=== PATIENT | male | born 1935 | race Caucasian/White ===

== ENCOUNTER → 2016-11-26 | Outpatient (CLI) | payer MEDICARE, OTHER ==
[~2016-11-26] MED LIST: /GLIM2TA PO; /PANT40TA; /WARF25TA; /WARF3TA PO; /WARF4TA OR; /WARF5TA; ACET65TA PO; ACUL0.5S OS; ADVA230A INH; ALLE25CA OR; AMAR1TAB; ASPI325T PO; ASPI81TA60 PO; ASPI81TA83 OR; ATEN100T PO; ATEN50TA2 PO; Amoxicillin/Clavulanate Potas PO; BABY81CH; BENZ100C5 PO; BESI0.6S OD; CALC0.5C PO; CALC1CAP31 PO; CEFT500T PO; CINN500T PO; CO Q 10 PO; COLA100C PO; COLA100C2; COLC1TAB5 PO; CORE25TA PO; COUM1TAB19 PO; DIGO0.126; DIGO0.126 PO; DIGO0.25 PO; DUONEBS INH; FEBU40TA PO; FERR325T PO; FERR325T3 PO; FISH100049 PO; FISH120012 PO; FURO40TA2 PO; GLUC1000 OR; GLUC1000 PO; HYDR25OIN TOP; INSULADS SC; IRONTAB3 PO; ISOS10TA2; ISOS60TA2 OR; ISOS60TA2 PO; KION15SU PO; LASI20TA; LASI20TA PO; LASI80TA PO; LISI10TA4 PO; LISI20TA5; LOPI600T PO; LOPR50TA; LOVA40TA PO; LOVAZA PO; LYRI75CA PO; MELA10TA PO; METFORMIN; MEVA40TA PO; MULTCAP PO; MULTIVIT PO; NIAC250C13 PO; NITR0.4S SL; NITR4TASL SL; OMEP40CA2 PO; PLAV75TA2; PRED1SUS OD; PRED1SUS OS; PRED20TA PO; PROL0.072 OD; REST0.05 OU; ROCA0.25 PO; TUMS500C OR; TYLE1TAB5 PO; TYLE650T25 PO; TYLENOL ARTHRITIS PO; VIBR100C PO; VITA-113 PO; VITA10002 PO; VITAMIN D50000 UNT; VITMTA PO; ZEST20TA; ZYLO100T PO
[2016-11-26 14:17] LABS: ALBUMIN 3.9 GM/DL (3.2-5.2); CREATININE FOR GFR 2.86 MG/DL (0.70-1.30); GLOMERULAR FILTRATION RATE 22.8 (>35); MAGNESIUM LEVEL 2.3 MG/DL (1.8-2.4); PHOSPHORUS LEVEL 3.9 MG/DL (2.5-4.9); POTASSIUM SERUM 4.4 MEQ/L (3.5-5.1)
== END ==
LOC: M WUC 10:43
PROVIDERS: ATTEND Internal Medicine Cardiovascular Disease
DX: I50.42 Chronic combined systolic (congestive) and diastolic (congestive) heart failure (principal); I48.2 Chronic atrial fibrillation

== ENCOUNTER → 2016-12-03 | Outpatient (CLI) | payer MEDICARE, OTHER ==
[2016-12-03 12:30] LABS: ALBUMIN 3.8 GM/DL (3.2-5.2); CALCIUM LEVEL 9.6 MG/DL (8.8-10.2); CREATININE FOR GFR 2.92 MG/DL (0.70-1.30); GLOMERULAR FILTRATION RATE 22.2 (>35); PHOSPHORUS LEVEL 3.9 MG/DL (2.5-4.9); POTASSIUM SERUM 4.6 MEQ/L (3.5-5.1)
== END ==
LOC: M WUC 09:40
PROVIDERS: ATTEND Physician Assistant
DX: I50.42 Chronic combined systolic (congestive) and diastolic (congestive) heart failure (principal)

== ENCOUNTER → 2016-12-05 | Outpatient (REF) | payer MEDICARE, OTHER ==
[2016-12-05 14:05] LABS: PERCENT SATURATION 21.1 % (19.7-37.4)
== END ==
LOC: M LAB REF 13:24
PROVIDERS: ATTEND Internal Medicine Nephrology
DX: D64.9 Anemia, unspecified (principal)

== ENCOUNTER → 2016-12-10 | Outpatient (CLI) | payer MEDICARE, OTHER ==
[~2016-12-10] MED LIST changes: -CEFT500T PO; +CEFT500T3 PO
[2016-12-10 13:05] LABS: ALBUMIN 3.7 GM/DL (3.2-5.2); CALCIUM LEVEL 9.8 MG/DL (8.8-10.2); CREATININE FOR GFR 2.35 MG/DL (0.70-1.30); GLOMERULAR FILTRATION RATE 28.6 (>35); PHOSPHORUS LEVEL 3.6 MG/DL (2.5-4.9); POTASSIUM SERUM 4.3 MEQ/L (3.5-5.1)
== END ==
LOC: M WUC 09:22
PROVIDERS: ATTEND Internal Medicine Cardiovascular Disease
DX: I50.42 Chronic combined systolic (congestive) and diastolic (congestive) heart failure (principal)

== ENCOUNTER → 2016-12-16 | Outpatient (CLI) | payer MEDICARE, OTHER ==
[2016-12-16 13:25] LABS: BASO # 0.1 K/mm3 (0.0-0.2); BASO % 1.7 % (0.0-1.0); EOS # 0.2 K/mm3 (0.0-0.50); EOS % 3.2 % (0.0-3.0); LARGE UNSTAINED CELL # 0.1 K/mm3 (0.0-0.4); LARGE UNSTAINED CELL % 1.5 % (0.0-4.0); LYMPH % 14.7 % (24.0-44.0); MEAN CORPUSCULAR HEMOGLOBIN 30.7 pg (27.0-33.0); MEAN CORPUSCULAR HGB CONC 31.4 g/dl (32.0-36.5); MEAN CORPUSCULAR VOLUME 97.9 fl (80.0-96.0); MONO # 0.5 K/mm3 (0.0-0.8); MONO % 8.2 % (0.0-5.0); NEUTROPHILS # 4.2 K/mm3 (1.8-7.7); NEUTROPHILS % 70.5 % (36.0-66.0); PLATELET COUNT, AUTOMATED 144 k/mm3 (150-450); RED CELL DISTRIBUTION WIDTH 14.6 % (11.5-14.5)
[2016-12-16 13:43] LABS: ALBUMIN 3.7 GM/DL (3.2-5.2); ALBUMIN/GLOBULIN RATIO 0.97 (1.00-1.93); BILIRUBIN,TOTAL 0.7 MG/DL (0.2-1.0); CALCIUM LEVEL 9.4 MG/DL (8.8-10.2); CREATININE FOR GFR 2.58 MG/DL (0.70-1.30); GLOMERULAR FILTRATION RATE 25.6 (>35); TOTAL PROTEIN 7.5 GM/DL (6.4-8.2)
== END ==
LOC: M WUC 09:19
PROVIDERS: ATTEND Nurse Practitioner Family
DX: N18.3 Chronic kidney disease, stage 3 (moderate) (principal); E11.42 Type 2 diabetes mellitus with diabetic polyneuropathy; D63.1 Anemia in chronic kidney disease

== ENCOUNTER → 2016-12-23 | Outpatient (CLI) | payer MEDICARE, OTHER ==
[2016-12-23 12:39] LABS: ALBUMIN 3.8 GM/DL (3.2-5.2); CALCIUM LEVEL 9.5 MG/DL (8.8-10.2); CREATININE FOR GFR 2.97 MG/DL (0.70-1.30); GLOMERULAR FILTRATION RATE 21.8 (>35); PHOSPHORUS LEVEL 3.9 MG/DL (2.5-4.9); POTASSIUM SERUM 4.3 MEQ/L (3.5-5.1)
== END ==
LOC: M WUC 10:18
PROVIDERS: ATTEND Physician Assistant
DX: I50.42 Chronic combined systolic (congestive) and diastolic (congestive) heart failure (principal)

== ENCOUNTER → 2017-01-02 | Outpatient (CLI) | payer MEDICARE, OTHER ==
[2017-01-02 12:17] LABS: ALBUMIN 3.5 GM/DL (3.2-5.2); CALCIUM LEVEL 9.9 MG/DL (8.8-10.2); CREATININE FOR GFR 2.78 MG/DL (0.70-1.30); GLOMERULAR FILTRATION RATE 23.5 (>35); PHOSPHORUS LEVEL 4.6 MG/DL (2.5-4.9); POTASSIUM SERUM 3.8 MEQ/L (3.5-5.1)
== END ==
LOC: M WUC 09:34
PROVIDERS: ATTEND Physician Assistant
DX: I50.42 Chronic combined systolic (congestive) and diastolic (congestive) heart failure (principal)

== ENCOUNTER → 2017-01-16 | Outpatient (CLI) | payer MEDICARE, OTHER ==
[2017-01-16 11:58] LABS: ALBUMIN 3.5 GM/DL (3.2-5.2); CALCIUM LEVEL 9.5 MG/DL (8.8-10.2); CREATININE FOR GFR 2.44 MG/DL (0.70-1.30); GLOMERULAR FILTRATION RATE 27.3 (>35); PHOSPHORUS LEVEL 3.9 MG/DL (2.5-4.9); POTASSIUM SERUM 4.6 MEQ/L (3.5-5.1)
== END ==
LOC: M WUC 09:25
PROVIDERS: ATTEND Physician Assistant
DX: I50.42 Chronic combined systolic (congestive) and diastolic (congestive) heart failure (principal)

== ENCOUNTER → 2017-01-30 | Outpatient (CLI) | payer MEDICARE, OTHER ==
[2017-01-30 16:53] LABS: ALBUMIN 3.8 GM/DL (3.2-5.2); CALCIUM LEVEL 9.7 MG/DL (8.8-10.2); CREATININE FOR GFR 2.48 MG/DL (0.70-1.30); GLOMERULAR FILTRATION RATE 26.8 (>35); PHOSPHORUS LEVEL 4.8 MG/DL (2.5-4.9)
== END ==
LOC: M WUC 13:44
PROVIDERS: ATTEND Physician Assistant
DX: I50.42 Chronic combined systolic (congestive) and diastolic (congestive) heart failure (principal)

== ENCOUNTER 2017-03-03 03:21 | Inpatient (IN) | payer MEDICARE, BC, OTHER ==
[~2017-03-03] VITALS: Ht 182.9 cm; Wt 90.4 kg
[~2017-03-03 03:21] MED LIST changes: -CALC0.5C PO; +CALC0.5C6 PO; -COLA100C PO; +COLA100C3 PO
[2017-03-03] MEDS ORDERED: ACETAMINOPHEN TAB 650MG DOSE (2X325MG) PO ONE (03:45)
[2017-03-03 04:54] LABS: CALCIUM LEVEL 9.9 MG/DL (8.8-10.2); CREATININE FOR GFR 2.77 MG/DL (0.70-1.30); GLOMERULAR FILTRATION RATE 23.6 (>35); POTASSIUM SERUM 3.8 MEQ/L (3.5-5.1)
--- NOTE | 2017-03-03 05:10 | REPUSA ---
CLINICAL HISTORY: Headache. TECHNIQUE: Multiple axial CT images were obtained through the brain without IV contrast material. COMMENTS: There is normal configuration of sella turcica. There are no intra or extra-axial collections. There is no mass effect or midline shift. There is no evidence of hematoma formation. No hydrocephalus is p resent. The ventricles are symmetrical. No abnormal calcifications are present. There is diffuse age-appropriate cerebellar and cerebral atrophy with proportionally dilated ventricl es and cortical sulci. There are bilateral periventricular and subcortical white matter hypolucencies compatible with mild c hronic microvascular disease. Otherwise, no significant focal abnormalities are seen either in the posterior fossa or supratentoria l compartment. IMPRESSION: 1. Age-appropriate cerebellar and cerebral atrophy. 2. Mild chronic microvascular disease. 3. No evidence of acute intracranial pathology. Thank you for your kind referral of this patient.
[2017-03-03 05:12] LABS: BASO % 0.2 % (0.0-1.0); EOS # 0.1 K/mm3 (0.0-0.50); EOS % 1.4 % (0.0-3.0); LARGE UNSTAINED CELL # 0.1 K/mm3 (0.0-0.4); LARGE UNSTAINED CELL % 0.9 % (0.0-4.0); LYMPH # 0.7 K/mm3 (1.5-4.5); LYMPH % 8.7 % (24.0-44.0); MEAN CORPUSCULAR HEMOGLOBIN 30.3 pg (27.0-33.0); MEAN CORPUSCULAR HGB CONC 31.2 g/dl (32.0-36.5); MEAN CORPUSCULAR VOLUME 97.1 fl (80.0-96.0); MONO # 0.6 K/mm3 (0.0-0.8); MONO % 7.8 % (0.0-5.0); NEUTROPHILS # 5.7 K/mm3 (1.8-7.7); NEUTROPHILS % 80.9 % (36.0-66.0); PLATELET COUNT, AUTOMATED 165 k/mm3 (150-450); RED CELL DISTRIBUTION WIDTH 14.2 % (11.5-14.5); WHITE BLOOD COUNT 7.1 K/mm3 (4.0-10.0)
--- NOTE | 2017-03-03 06:10 | ECGEPIP ---
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
[2017-03-03] MEDS ORDERED: cefTRIAXone SOD 1 GM in D5W MINI-BAG PLUS 50 ML IV ONE (07:00)
[2017-03-03] MEDS ORDERED: MELA10CA PO (08:53)
[2017-03-03] MEDS ORDERED: GLIM1TAB PO (08:53)
[2017-03-03] MEDS ORDERED: NITR0.4S14 SL (08:53)
[2017-03-03] MEDS ORDERED: AMLO5TAB2 PO (08:53)
[2017-03-03] MEDS ORDERED: DIGO0.12 PO (08:53)
[2017-03-03] MEDS ORDERED: CARV25TA PO (08:53)
[2017-03-03] MEDS ORDERED: ULOR80TA PO (08:53)
[2017-03-03] MEDS ORDERED: IRON65TA PO (08:53)
[2017-03-03] MEDS ORDERED: TORS20TA2 PO (08:53)
[2017-03-03] MEDS ORDERED: LYRI75CA PO (08:53)
[2017-03-03] MEDS ORDERED: DOCU100C PO (08:53)
[2017-03-03] MEDS ORDERED: COLC1TAB13 PO (08:53)
[2017-03-03] MEDS ORDERED: ADVA230A INH (08:53)
[2017-03-03] MEDS ORDERED: ARTH5TAB PO (08:53)
[2017-03-03] MEDS ORDERED: ASPI81TA13 PO (08:53)
[2017-03-03] MEDS ORDERED: VITA10002 PO (08:53)
[2017-03-03] MEDS ORDERED: ISOS60TA2 PO (08:53)
[2017-03-03] MEDS ORDERED: ROCA0.25 PO (08:53)
[2017-03-03] MEDS ORDERED: CARVedilol 12.5 MG TAB PO SCH ×2 (09:00→21:00)
[2017-03-03] MEDS ORDERED: ACETAMINOPHEN TAB 650MG DOSE (2X325MG) PO PRN (09:15)
[2017-03-03] MEDS: ADVAIR HFA 230/21 INHALER INH SCH ×2 (10:00→20:10)
--- NOTE | 2017-03-03 10:17 | REP ---
CHEST X-RAY: Two views. HISTORY: Dyspnea and cough. COMPARISON STUDY: April 23, 2016. FINDINGS: The patient is status post prior median sternotomy. A unipolar pacemaker remains in the right heart via the left side. EKG electrodes are seen. Moderate cardiomegaly is again observed. The pleural angles are sharp. Pulmonary vasculature is cephalized but there is no evidence of pleural effusion or pulmonary edema. No acute infiltrate is seen. There are degenerative changes in the shoulders and mild degenerative changes are seen in the thoracic spine. IMPRESSION: Moderate cardiomegaly with pacemaker prior sternotomy and mediastinal clips. Pulmonary vascular cephalization. No evidence of infiltrate, effusion, or pulmonary edema. Signed by Marshall Malagon MD 03/03/2017 11:49 A
[2017-03-03 10:30] VITALS: BP 140/66
[2017-03-03] MEDS: ISOSORBIDE MON. (IMDUR) 60 MG XR TAB PO SCH (10:52)
[2017-03-03] MEDS: ASPIRIN 81 MG ENTERIC TAB PO SCH (10:53)
[2017-03-03] MEDS: SENOKOT S TAB PO SCH ×2 (10:53→21:27)
[2017-03-03] MEDS: DIGOXIN 0.125 MG TAB PO SCH (10:53)
[2017-03-03 12:00] VITALS: BP 111/77
[2017-03-03] MEDS: HEPARIN SOD (PORCINE) 5000 UNITS/ML VIAL SC SCH ×2 (14:47→21:27)
[2017-03-03 16:00] VITALS: BP 131/62
--- NOTE | 2017-03-03 18:54 | HPEPDOC ---
General Date of Admission Mar 03, 2017 at 09:05 Primary Care Physician: Donell Raygoza MD Attending Physician: KATHLEEN BARBER MD Chief Complaint The patient is a 82-year-old male admitted with a reason for visit of FALL. 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 Patient states that he's been feeling more weak over the past several days. He denies any sick contacts, any fevers, chills, or sweats. However, he has had a mild cough, which is nonproductive. He denies any chest pain or chest pressure, however notes that he's been much more short of breath with any exertion. He has a history of chronic kidney disease, and is managed by Dr. Odonnell. He reports no decrease in urine output, and reports taking fluids, however appetite has been decreased. He denies any nausea , vomiting, or diarrhea. Home Medications Scheduled (Iron) 325 Mg Tab 325 MG PO BID (Reported) Acetaminophen (Arthritis Pain) 650 Mg Tab 1,300 MG PO BID (Reported) Amlodipine Besylate (Amlodipine Besylate) 5 Mg Tab 5 MG PO DAILY (Reported) Aspirin (Aspirin EC) 81 Mg Tab 81 MG PO DAILY (Reported) Calcitriol (Rocaltrol) 0.25 Mcg Cap 0.25 MCG PO 5XW (Reported) FRIDAY-FRIDAY Carvedilol (Carvedilol) 25 Mg Tab 25 MG PO BID (Reported) Cyanocobalamin (Vitamin B-12) 1,000 Mcg Tab 1,000 MCG PO DAILY (Reported) Digoxin (Digoxin) 0.125 Mg Tab 0.125 MG PO DAILY (Reported) Febuxostat (Uloric) 80 Mg Tab 80 MG PO DAILY (Reported) Glimepiride (Glimepiride) 1 Mg Tab 1 MG PO DAILY (Reported) Isosorbide Mononitrate (Isosorbide Mononitrate ER) 60 Mg Tab 60 MG PO DAILY ( Reported) Pregabalin (Lyrica) 75 Mg Cap 75 MG PO QHS (Reported) Salmeterol/Fluticasone (Advair Hfa 230-21 Mcg/Act) 1 Aer Aer 2 PUFF INH BID ( Reported) Torsemide (Torsemide) 20 Mg Tab 40 MG PO BID (Reported) Scheduled PRN (Colchicine) 0.6 Mg Tab 0.6 MG PO PRN PRN PRN FLARE UP (Reported) Docusate Sodium (Docusate Sodium) 100 Mg Cap 100 MG PO BID PRN PRN CONSTIPATION (Reported) Melatonin (Melatonin) 10 Mg Cap 10 MG PO QHS PRN PRN SLEEP (Reported) Nitroglycerin (Nitroglycerin) 0.4 Mg Sub 0.4 MG SL NITRO PRN PRN CHEST PAIN ( Reported) Allergies Coded Allergies: No Known Drug Allergy (Unverified Allergy, Unknown, 02/23/13) Past Medical History Medical History Medical history: 1. Coronary artery disease; CABG 1988, 2000; stent 1995, 2008, 2009; chemical stress test 07/18/2015 with recommended repeat June 2017 2. Chronic diastolic congestive heart failure: EF 45%; last echo noted as 2013 from [facility] 2. Angina pectoris 3. Carotid artery stenosis 4. Pulmonary hypertension 5. Chronic atrial fibrillation, rate controlled 6. Chronic kidney disease, stage III 7. Hypertension 8. BPH 9. Type 2 diabetes mellitus 10. Chronic anemia 11. Gout Surgical History Surgical history: 1. Right Orchiectomy 1949 2. Appendectomy 1969 3. CABG 1988, 2000 4. Right femoral popliteal bypass 1995 5. Left carotid endarterectomy 2007 6. Percutaneous coronary intervention 1995, 2008, 2009 7. EGD 2009; Inna 8. Pacemaker 2009; Dr. Rizzo 9. Colonoscopy; Dr. Keith 10. EGD 2013; Inna Family History Family medical history: 1. Mother and father , early 70s; mother type 2 diabetes 2. Siblings; 2 brothers status post CABG; one sister in 60s 3. Son, alive with no known medical problems 4. Daughter, alive with hypertension Social History * Smoker: former Smoker Alcohol: Denies Drugs: denies Recent Travel/Sick Contacts: Denies: Recent sick contacts, Recent travel Psychosocial History: No pertinent psych hx 1. Former smoker 2. Denies alcohol use 3. Denies drug use 4. Lives with spouse, Lindsay Review of Symptoms Constitutional: Reports: Malaise, Weakness, Denies: Chills, Fever ENT: Denies: Head Aches Skin: Denies: Rash Pulmonary: Reports: Cough, Dyspnea Cardiovascular: Denies: Chest Pain, Orthopnea, Palpitations Gastrointestinal: Denies: Abdominal Pain, Constipation, Diarrhea, Nausea, Vomiting Genitourinary: Denies: Dysuria Neurological: Denies: Change in speech, Confusion Other systems 10 point review systems otherwise negative Physical Examination General Exam: Positive: Alert, Cooperative, Negative: No Acute Distress Eye Exam: Positive: Conjunctiva & lids normal, EOMI, PERRLA, Negative: Sclera icteric ENT Exam: Positive: Atraumatic, Mucous membr. moist/pink Neck Exam: Positive: Supple, Negative: thyromegaly Chest Exam: Positive: Clear to auscultation, Normal air movement, Rhonchi, Wheezing, Negative: Rales Heart Exam: Positive: Irregular Rhythm, Murmurs (2/6 systolic ejection murmur) , Normal S1, Normal S2, Rate Normal Abdomen Exam: Positive: Normal bowel sounds, Soft, Negative: Hepatospenomegaly, Tenderness Extremity Exam: Positive: Normal pulses, Negative: Clubbing, Cyanosis, Edema Skin Exam: Positive: Nl turgor and temperature, Negative: Rash Psych Exam: Positive: Mental status NL, Oriented x 3 Vital Signs Vital Signs Date Time Temp Pulse Resp B/P Pulse Ox O2 Delivery O2 Flow Rate FiO2 03/03/17 13:03 100.5 03/03/17 12:00 61 19 111/77 96 Nasal Cannula 1.0 Laboratory Data Labs 24H Laboratory Tests 2 03/03/17 03:35: Anion Gap 9, B-Type Natriuretic Peptide 873H, White Blood Count 7.1, Red Blood Count 3.61L, Hemoglobin 10.9L, Hematocrit 35.0L, Mean Corpuscular Volume 97.1H, Mean Corpuscular Hemoglobin 30.3, Mean Corpuscular Hemoglobin Concent 31.2L, Red Cell Distribution Width 14.2, Platelet Count 165, Neutrophils (%) (Auto) 80.9H, Lymphocytes (%) (Auto) 8.7L, Monocytes (%) (Auto) 7.8H, Eosinophils (%) ( Auto) 1.4, Basophils (%) (Auto) 0.2, Neutrophils # (Auto) 5.7, Lymphocytes # ( Auto) 0.7L, Monocytes # (Auto) 0.6, Eosinophils # (Auto) 0.1, Basophils # (Auto ) 0.0, Blood Urea Nitrogen 89H, Creatinine 2.77H, Sodium Level 136, Potassium Level 3.8, Chloride Level 96L, Carbon Dioxide Level 31, Calcium Level 9.9, Total Creatine Kinase 26L, Creatine Kinase MB 1.0, Creatine Kinase MB Relative Index 3.84, Glomerular Filtration Rate 23.6L, Large Unclassified Cells # 0.1, Large Unclassified Cells % 0.9, Troponin I 0.03 03/03/17 03:47: Digoxin Level 1.7 03/03/17 05:32: Lactic Acid Level 1.2 03/03/17 07:36: Bedside Glucose (Misc Panel) 95 03/03/17 09:52: Creatine Kinase MB 1.0, Creatine Kinase MB Relative Index 3.12, Total Creatine Kinase 32L, Troponin I 0.05# CBC/BMP Laboratory Tests 03/03/17 03:35 Calcium Level 9.9, Total Creatine Kinase 26 L, Red Blood Count 3.61 L, Mean Corpuscular Volume 97.1 H, Mean Corpuscular Hemoglobin 30.3, Mean Corpuscular Hemoglobin Concent 31.2 L, Red Cell Distribution Width 14.2, Neutrophils (%) ( Auto) 80.9 H, Lymphocytes (%) (Auto) 8.7 L, Monocytes (%) (Auto) 7.8 H, Eosinophils (%) (Auto) 1.4, Basophils (%) (Auto) 0.2, Neutrophils # (Auto) 5.7, Lymphocytes # (Auto) 0.7 L, Monocytes # (Auto) 0.6, Eosinophils # (Auto) 0.1, Basophils # (Auto) 0.0 Microbiology Microbiology 03/03/17 Blood Culture, Received Pending 03/03/17 Blood Culture, Received Pending 03/03/17 Influenza Virus Type A Antigen - Final, Complete 03/03/17 Influenza Virus Type B Antigen - Final, Complete Assessment/Plan This is an 82-year-old gentleman who is a patient of Dr. Raygoza presents after fall with weakness, malaise, cough, and shortness of breath. Problems (1) Fever Status: Acute Problem Text: Neutrophilic predominance, with 81% neutrophils, 9% lymphocytes, 8% monos. Chest x-ray shows pulmonary vascular congestion, however no acute infiltrates. Patient does have mild rhonchi on exam. He is also more acutely short of breath, and there is some evidence of wheezing on exam. Will treat has COPD exacerbation. -Levaquin every 48 hours renally dosed -Prednisone 40 mg daily -UA -Blood cultures (2) Fall Status: Acute Problem Text: Serial lactates every 4 hours until normal (3) Coronary artery disease Permanent Comment: Has a history of CABG 2000 and stents in 1995, 2008, 2009. Last Edited By: Angelo García M.D. on Nov 07, 2015 07:10 Status: Chronic Problem Text: Serial troponins; his most recent troponin is weakly positive. May be secondary to troponin leak, however will rule out ACS. -Repeat EKG (4) Combined systolic and diastolic congestive heart failure Permanent Comment: Last known LVEF 45%. Last Edited By: Angelo García M.D. on Nov 07, 2015 07:10 Status: Acute Problem Text: BNP on admission is 812. Last echo on record is 2013. Creatinine is elevated from patient's baseline, however renal function may be reduced due to reduced heart function. - cardiology consult; Rizzo - Echocardiogram - Lasix 40 IV Q4H for net of 1000 mls/24 hr (5) Chronic kidney disease (CKD), stage IV (severe) Status: Chronic Problem Text: Stage IV chronic kidney disease. Creatinine mildly elevated above baseline of 2.5 (6) Diabetes mellitus Status: Chronic Problem Text: Sliding scale insulin. Holding home glimepiride (7) Atrial fibrillation Status: Chronic Problem Text: Patient currently treated with carvedilol 25 mg twice a day, and digoxin 0.125 mg daily. He appears to be overly rate controlled. Digoxin levels were not elevated. -Decrease Coreg to 12.5 g twice a day -Consult cardiology (8) Pulmonary hypertension Status: Acute Problem Text: History of pulmonary hypertension. Currently on long-acting vasodilator (9) HTN (hypertension) Status: Acute Problem Text: Blood pressure currently likely overcontrolled for patient's age. -Continue amlodipine 5 g daily -Reduce Coreg to 12.5 mg twice a day -IV Lasix for acute congestive heart failure (10) COPD (chronic obstructive pulmonary disease) Status: Chronic Problem Text: Continue Advair. -When necessary duo nebs (11) Chronic anemia Status: Chronic Problem Text: Chronic anemia of inflammation. Hemoglobin on admission is 10.9, which is near patient's baseline of 11. (12) Gout Status: Acute Problem Text: History of gout. Due to reduced renal function and acute congestive heart failure, will hold Uloric for the time being (13) BPH (benign prostatic hypertrophy) Status: Chronic Problem Text: Patient not currently on Flomax, although this may benefit both his BPH and pulmonary hypertension. Will confer with cardiology Plan / VTE VTE Prophylaxis Ordered?: Yes KATHLEEN BARBER MD Mar 03, 2017 13:10
[2017-03-03] MEDS ORDERED: IPRATROPIUM 0.5MG/ALBUTEROL 2.5MG INH SOL UD 3ML (DUONEB)(J7620) NEB SCH (19:30)
[2017-03-03] MEDS ORDERED: GLUCAGON FOR INJ 1 MG VIAL (J1610) SC PRN (19:30)
[2017-03-03] MEDS ORDERED: GLUCOSE 4 GM CHEW TABLET PO PRN (19:30)
[2017-03-03] MEDS ORDERED: DEXTROSE 50% 50 ML SYRINGE IV PRN (19:30)
[2017-03-03 20:11] VITALS: O2SAT 93
[2017-03-03 20:36] VITALS: BP 104/55
[2017-03-03] MEDS: HumaLOG INSULIN (NovoLOG) PER UNIT SC SCH (21:00)
[2017-03-03] MEDS: CARVedilol 12.5 MG TAB PO SCH (21:27)
[2017-03-03] MEDS: PREGABALIN 75 MG CAP(LYRICA) PO SCH (21:28)
[2017-03-03] MEDS: FUROSEMIDE 40 MG/4 ML VIAL (J1940) IV SCH (21:28)
[2017-03-04 00:15] VITALS: BP 103/51
[2017-03-04] MEDS: FUROSEMIDE 40 MG/4 ML VIAL (J1940) IV SCH ×6 (00:24→20:00)
[2017-03-04 03:47] LABS: BASO % 0.3 % (0.0-1.0); EOS # 0.1 K/mm3 (0.0-0.50); LARGE UNSTAINED CELL # 0.1 K/mm3 (0.0-0.4); LARGE UNSTAINED CELL % 1.9 % (0.0-4.0); LYMPH % 12.6 % (24.0-44.0); MEAN CORPUSCULAR HEMOGLOBIN 30.1 pg (27.0-33.0); MEAN CORPUSCULAR HGB CONC 31.7 g/dl (32.0-36.5); MEAN CORPUSCULAR VOLUME 95.1 fl (80.0-96.0); MONO # 0.5 K/mm3 (0.0-0.8); MONO % 6.5 % (0.0-5.0); NEUTROPHILS # 5.4 K/mm3 (1.8-7.7); NEUTROPHILS % 76.6 % (36.0-66.0); PLATELET COUNT, AUTOMATED 138 k/mm3 (150-450); RED CELL DISTRIBUTION WIDTH 13.9 % (11.5-14.5)
[2017-03-04 04:11] LABS: ALBUMIN 2.9 GM/DL (3.2-5.2); ALBUMIN/GLOBULIN RATIO 0.69 (1.00-1.93); BILIRUBIN,TOTAL 0.9 MG/DL (0.2-1.0); CALCIUM LEVEL 9.4 MG/DL (8.8-10.2); CREATININE FOR GFR 2.75 MG/DL (0.70-1.30); GLOMERULAR FILTRATION RATE 23.8 (>35); POTASSIUM SERUM 3.6 MEQ/L (3.5-5.1); TOTAL PROTEIN 7.1 GM/DL (6.4-8.2)
[2017-03-04 05:27] VITALS: BP 110/54
[2017-03-04] MEDS: HEPARIN SOD (PORCINE) 5000 UNITS/ML VIAL SC SCH ×3 (06:00→21:24)
[2017-03-04] MEDS: HumaLOG INSULIN (NovoLOG) PER UNIT SC SCH ×4 (07:30→21:00)
[2017-03-04 07:58] VITALS: BP 120/59
[2017-03-04] MEDS: ADVAIR HFA 230/21 INHALER INH SCH ×3 (09:00→21:42)
[2017-03-04] MEDS: SENOKOT S TAB PO SCH ×2 (09:48→21:00)
[2017-03-04] MEDS: ASPIRIN 81 MG ENTERIC TAB PO SCH (09:48)
[2017-03-04] MEDS: DIGOXIN 0.125 MG TAB PO SCH (09:49)
[2017-03-04] MEDS: ISOSORBIDE MON. (IMDUR) 60 MG XR TAB PO SCH (09:50)
[2017-03-04] MEDS: CARVedilol 12.5 MG TAB PO SCH ×2 (09:51→21:00)
--- NOTE | 2017-03-04 10:22 | ECGEPIP ---
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 Ventricular paced rhythm with isolated PVC Appropriate VVI pacing Paced QRS complexes with leftward axis and LBBB configuration in keeping with right ventricular apical stimulation. Less spontaneous activity compared with prior tracing 03/03/17. Electronically Signed On 03-04-2017 10:22:15 EDT by Carlitos Rizzo
[2017-03-04 11:58] VITALS: BP 125/58
[2017-03-04 15:48] VITALS: BP 111/51
[2017-03-04] MEDS ORDERED: LevoFLOXacin 750 MG TABLET PO SCH (18:00)
--- NOTE | 2017-03-04 19:43 | IPNPDOC ---
Subjective Date Seen The patient was seen on 03/04/17. Subjective Chief Complaint/HPI The patient is a 82-year-old male admitted with a reason for visit of FALL. Events since last encounter Patient is feeling much better today. He states that "I feel great." He denies any fevers, chills, sweats, or body aches today. He denies any chest pain, chest pressure, or palpitations. He is hoping to be able to go home tomorrow. Constitutional: Denies: Chills, Fever, Malaise ENT: Denies: Head Aches Pulmonary: Denies: Cough, Dyspnea Cardiovascular: Denies: Chest Pain, Orthopnea, Palpitations Gastrointestinal: Denies: Abdominal Pain, Constipation, Diarrhea, Nausea, Vomiting Genitourinary: Denies: Dysuria Psych: Reports: Mood Normal Other systems 10 point review systems is otherwise negative Objective Physical Examination General Exam: Positive: Alert, Cooperative, No Acute Distress Eye Exam: Positive: Conjunctiva & lids normal, EOMI, PERRLA, Negative: Sclera icteric ENT Exam: Positive: Atraumatic, Mucous membr. moist/pink Neck Exam: Positive: Supple, Negative: JVD, thyromegaly Chest Exam: Positive: Clear to auscultation, Normal air movement, Negative: Rales, Rhonchi, Wheezing Heart Exam: Positive: Irregular Rhythm, Murmurs (2/6 systolic ejection murmur) , Normal S1, Normal S2, Rate Normal Abdomen Exam: Positive: Normal bowel sounds, Soft, Negative: Hepatospenomegaly, Tenderness Extremity Exam: Positive: Normal pulses, Negative: Clubbing, Cyanosis, Edema Skin Exam: Positive: Nl turgor and temperature, Negative: Rash Psych Exam: Positive: Mental status NL, Oriented x 3 Assessment /Plan Problems (1) Fever Status: Acute Problem Text: Neutrophilic predominance, with 81% neutrophils, 9% lymphocytes, 8% monos. Chest x-ray shows pulmonary vascular congestion, however no acute infiltrates. Patient is improving rapidly. UA is negative. Blood cultures are negative. - Plan for discharge pending cardiac status -Continue Levaquin 750 mg every 48 hours renally dosed -Prednisone 40 mg daily 5 days (2) Coronary artery disease Permanent Comment: Has a history of CABG 2000 and stents in 1995, 2008, 2009. Last Edited By: Angelo García M.D. on Nov 07, 2015 07:10 Status: Chronic Problem Text: Serial troponins; his most recent troponin is weakly positive. May be secondary to troponin leak, however will rule out ACS. -Repeat EKG (3) Combined systolic and diastolic congestive heart failure Permanent Comment: Last known LVEF 45%. Last Edited By: Angelo García M.D. on Nov 07, 2015 07:10 Status: Acute Problem Text: BNP on admission is 812. Last echo on record is 2013. Creatinine is elevated from patient's baseline, however renal function may be reduced due to reduced heart function. - cardiology consult; Matthias - Echocardiogram - Lasix 40 IV Q4H for net of 1000 mls/24 hr (4) Chronic kidney disease (CKD), stage IV (severe) Status: Chronic Problem Text: Stage IV chronic kidney disease. Creatinine mildly elevated above baseline of 2.5 (5) Diabetes mellitus Status: Chronic Problem Text: Sliding scale insulin. Holding home glimepiride (6) Atrial fibrillation Status: Chronic Problem Text: Patient currently treated with carvedilol 25 mg twice a day, and digoxin 0.125 mg daily. He appears to be overly rate controlled. Digoxin levels were not elevated. -Decrease Coreg to 12.5 g twice a day -Consult cardiology (7) Pulmonary hypertension Status: Acute Problem Text: History of pulmonary hypertension. Currently on long-acting vasodilator (8) HTN (hypertension) Status: Acute Problem Text: Blood pressure currently likely overcontrolled for patient's age. -Continue amlodipine 5 g daily -Reduce Coreg to 12.5 mg twice a day -IV Lasix for acute congestive heart failure (9) COPD (chronic obstructive pulmonary disease) Status: Chronic Problem Text: Continue Advair. -When necessary duo nebs (10) Chronic anemia Status: Chronic Problem Text: Chronic anemia of inflammation. Hemoglobin on admission is 10.9, which is near patient's baseline of 11. (11) Gout Status: Acute Problem Text: History of gout. Due to reduced renal function and acute congestive heart failure, will hold Uloric for the time being (12) BPH (benign prostatic hypertrophy) Status: Chronic Problem Text: Patient not currently on Flomax, although this may benefit both his BPH and pulmonary hypertension. Will confer with cardiology (13) Fall Status: Resolved Problem Text: Lactates are normal -PT eval Plan/VTE VTE Prophylaxis Ordered?: Yes Disposition Plan for discharge pending physical therapy evaluation, and cardiac function. VS, I&O, 24H, [facility] Vital Signs/I&O Vital Signs Date Time Temp Pulse Resp B/P Pulse Ox O2 Delivery O2 Flow Rate FiO2 03/04/17 15:48 98.0 56 18 111/51 91 Room Air 03/04/17 08:00 1.0 I&O- Last 24 Hours up to 6 AM 03/04/17 06:00 Intake Total 170 ml Output Total 1600 ml Balance -1430 ml Laboratory Data 24H LABS Laboratory Tests 2 03/03/17 19:39: Lactic Acid Level 0.9 03/03/17 21:31: Bedside Glucose (Misc Panel) 104 03/03/17 22:57: Urine Amorphous Sediment , Urine Appearance CLEAR, Urine Color YELLOW, Urine pH 5.0, Urine Specific [place] 1.010, Urine Protein NEGATIVE, Urine Glucose (UA) NEGATIVE, Urine Ketones NEGATIVE, Urine Urobilinogen 0.2, Urine Bilirubin NEGATIVE, Urine Leukocyte Esterase NEGATIVE, Urine Bacteria (Auto) NEGATIVE, Urine Blood NEGATIVE, Urine Calcium Carbonate Cryst(Auto) , Urine Calcium Oxalate Cryst (Auto) , Urine Calcium Phosphate [place] (Auto) , Urine Cellular Casts , Urine Cystine Crystals , Urine Granular Casts (Auto) , Urine Hyaline Casts (Auto) 5, Urine Leucine Crystals , Urine Mucus (Auto) , Urine Nitrite NEGATIVE, Urine Oval Fat Bodies (Auto) , Urine RBC (Auto) 2, Urine Renal Epithelial Cells , Urine Sperm (Auto) , Urine Squamous Epithelial Cells 0, Urine Transitional Epithelial Cells , Urine Trichomonas (Auto) , Urine Triple Phosphate Cryst (Auto) , Urine Tyrosine Crystals , Urine Uric Acid Crystals ( Auto) , Urine WBC (Auto) 1, Urine Waxy Casts (Auto) , Urine Yeast-Like Cells ( Auto) 03/03/17 23:08: Creatine Kinase MB 1.0, Creatine Kinase MB Relative Index 3.22, Total Creatine Kinase 31L, Troponin I 0.11H 03/04/17 03:24: Blood Urea Nitrogen 88H, Creatinine 2.75H, Sodium Level 141, Potassium Level 3.6 , Chloride Level 101, Carbon Dioxide Level 32, Calcium Level 9.4, Aspartate Amino Transf (AST/SGOT) 21, Alanine Aminotransferase (ALT/SGPT) 28, Alkaline Phosphatase 111, Total Bilirubin 0.9, Total Protein 7.1, Albumin 2.9L, Albumin/ Globulin Ratio 0.69L, Anion Gap 8, White Blood Count 7.0, Red Blood Count 3.30L , Hemoglobin 10.0L, Hematocrit 31.4L, Mean Corpuscular Volume 95.1, Mean Corpuscular Hemoglobin 30.1, Mean Corpuscular Hemoglobin Concent 31.7L, Red Cell Distribution Width 13.9, Platelet Count 138L, Neutrophils (%) (Auto) 76.6H , Lymphocytes (%) (Auto) 12.6L, Monocytes (%) (Auto) 6.5H, Eosinophils (%) (Auto ) 2.0, Basophils (%) (Auto) 0.3, Neutrophils # (Auto) 5.4, Lymphocytes # (Auto) 1.0L, Monocytes # (Auto) 0.5, Eosinophils # (Auto) 0.1, Basophils # (Auto) 0.0, Glomerular Filtration Rate 23.8L, Lactic Acid Level 0.9, Large Unclassified Cells # 0.1, Large Unclassified Cells % 1.9, Troponin I 0.10 03/04/17 07:24: Lactic Acid Level 1.2, Troponin I 0.08 03/04/17 11:28: Bedside Glucose (Misc Panel) 158H 03/04/17 16:35: Bedside Glucose (Misc Panel) 135H CBC/BMP Laboratory Tests 03/04/17 03:24 Calcium Level 9.4, Aspartate Amino Transf (AST/SGOT) 21, Alanine Aminotransferase (ALT/SGPT) 28, Alkaline Phosphatase 111, Total Bilirubin 0.9, Total Protein 7.1, Albumin 2.9 L, Red Blood Count 3.30 L, Mean Corpuscular Volume 95.1, Mean Corpuscular Hemoglobin 30.1, Mean Corpuscular Hemoglobin Concent 31.7 L, Red Cell Distribution Width 13.9, Neutrophils (%) (Auto) 76.6 H , Lymphocytes (%) (Auto) 12.6 L, Monocytes (%) (Auto) 6.5 H, Eosinophils (%) ( Auto) 2.0, Basophils (%) (Auto) 0.3, Neutrophils # (Auto) 5.4, Lymphocytes # ( Auto) 1.0 L, Monocytes # (Auto) 0.5, Eosinophils # (Auto) 0.1, Basophils # (Auto ) 0.0 Microbiology Microbiology 03/03/17 Blood Culture - Preliminary, Resulted No growth after 24 hours . All specim... 03/03/17 Blood Culture - Preliminary, Resulted No growth after 24 hours . All specim... 03/03/17 Influenza Virus Type A Antigen - Final, Complete 03/03/17 Influenza Virus Type B Antigen - Final, Complete KATHLEEN BARBER MD Mar 04, 2017 19:43
[2017-03-04 20:08] VITALS: BP 109/54
[2017-03-04] MEDS ORDERED: predniSONE 20 MG TAB PO ONE (20:15)
[2017-03-04] MEDS: PREGABALIN 75 MG CAP(LYRICA) PO SCH (21:22)
[2017-03-05] VITALS (7 sets, daily range): BP systolic 94–141; BP diastolic 55–61
[2017-03-05] MEDS: FUROSEMIDE 40 MG/4 ML VIAL (J1940) IV SCH ×5 (00:15→16:00)
[2017-03-05] MEDS: HEPARIN SOD (PORCINE) 5000 UNITS/ML VIAL SC SCH ×2 (05:22→12:25)
[2017-03-05 06:01] LABS: BASO % 0.2 % (0.0-1.0); EOS % 0.4 % (0.0-3.0); LARGE UNSTAINED CELL # 0.1 K/mm3 (0.0-0.4); LYMPH # 0.4 K/mm3 (1.5-4.5); LYMPH % 7.1 % (24.0-44.0); MEAN CORPUSCULAR HEMOGLOBIN 30.5 pg (27.0-33.0); MEAN CORPUSCULAR VOLUME 95.2 fl (80.0-96.0); MONO # 0.1 K/mm3 (0.0-0.8); MONO % 2.4 % (0.0-5.0); NEUTROPHILS # 4.8 K/mm3 (1.8-7.7); NEUTROPHILS % 88.9 % (36.0-66.0); PLATELET COUNT, AUTOMATED 157 k/mm3 (150-450); RED CELL DISTRIBUTION WIDTH 13.9 % (11.5-14.5); WHITE BLOOD COUNT 5.4 K/mm3 (4.0-10.0)
[2017-03-05 06:22] LABS: ALBUMIN/GLOBULIN RATIO 0.64 (1.00-1.93); BILIRUBIN,TOTAL 0.8 MG/DL (0.2-1.0); CALCIUM LEVEL 9.2 MG/DL (8.8-10.2); CREATININE FOR GFR 2.46 MG/DL (0.70-1.30); POTASSIUM SERUM 3.8 MEQ/L (3.5-5.1); TOTAL PROTEIN 7.7 GM/DL (6.4-8.2)
[2017-03-05] MEDS: HumaLOG INSULIN (NovoLOG) PER UNIT SC SCH ×3 (07:30→17:30)
[2017-03-05] MEDS ORDERED: ONDANSETRON 4 MG TAB (S0181) PO PRN (08:45)
[2017-03-05] MEDS ORDERED: predniSONE 20 MG TAB PO SCH (09:00)
[2017-03-05] MEDS: ADVAIR HFA 230/21 INHALER INH SCH (09:20)
[2017-03-05] MEDS: DIGOXIN 0.125 MG TAB PO SCH (10:07)
[2017-03-05] MEDS: CARVedilol 12.5 MG TAB PO SCH (10:07)
[2017-03-05] MEDS: ASPIRIN 81 MG ENTERIC TAB PO SCH (10:07)
[2017-03-05] MEDS: ISOSORBIDE MON. (IMDUR) 60 MG XR TAB PO SCH (10:08)
[2017-03-05] MEDS: SENOKOT S TAB PO SCH (10:08)
--- NOTE | 2017-03-05 20:13 | DS.PDOC ---
Discharge Summary General Date of Admission Mar 03, 2017 at 09:05 Date of Discharge 03/05/17 Primary Care Physician: FELIPE GARCIA Attending Physician: ASHUTOSH WOMACK MD Discharge Summary PROCEDURES PERFORMED DURING STAY: None. Admission diagnoses: 1. Fever 2. Fall 3. CAD 4. 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 Stage IV chronic kidney disease 6. Diabetes mellitus, [id number] 7. Age of fibrillation, chronic 8. Pulmonary hypertension 9. Hypertension 10. COPD 11. Chronic anemia, anemia chronic disease 12. Gout 13. Benign prostate hypertrophy Discharge diagnoses: 1. Pneumonia 2. Acute on chronic congestive heart failure 3. CAD 4. 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 Stage IV chronic kidney disease 6. Diabetes mellitus, [id number] 7. Age of fibrillation, chronic 8. Pulmonary hypertension 9. Hypertension 10. COPD 11. Chronic anemia, anemia chronic disease 12. Gout 13. Benign prostate hypertrophy COMPLICATIONS/CHIEF COMPLAINT: FALL. HISTORY OF PRESENT ILLNESS/Hospital course: This is an 82-year-old gentleman with a significant history of coronary artery disease and peripheral vascular disease who presented to the ER with weakness, fever, and status post fall. Although his chest x-ray was relatively benign, he was treated empirically with by mouth Levaquin and prednisone for rales and wheezing on exam. He was also diuresed rather aggressively, as his BNP was quite elevated, and his troponin slightly bumped. His cardiac enzymes normalized with diuresis, and his EKG remained unchanged from his baseline. On the day of discharge, the patient felt "like 1 million bucks." He denied any chest pain or chest pressure throughout his hospitalization. During hospitalization his usual reimbursement manager, Dr. Rizzo, was curb sided, and he agreed with the current plan of action, and recommended outpatient follow-up. DISCHARGE MEDICATIONS: Please see below. ALLERGIES: Please see below. PHYSICAL EXAMINATION ON DISCHARGE: VITAL SIGNS: Please see below. GENERAL: Alert, sitting, no acute distress HEENT: Sclerae clear, moist mucous membranes, no JVD NECK: Supple, no thyromegaly CARDIOVASCULAR EXAMINATION: Irregularly irregular rhythm, regular rate, S1, S2, 2/6 systolic ejection murmur, no heave RESPIRATORY EXAMINATION: Clear to auscultation, no wheezes, rales, rhonchi, normal work of breathing ABDOMINAL EXAMINATION: Soft, nontender, nondistended, + bowel sounds EXTREMITIES: No edema, 1+ peripheral pulses bilaterally SKIN: Warm and dry NEUROLOGICAL EXAMINATION: Alert and oriented 3 PSYCHIATRIC EXAMINATION: Normal mood and affect LABORATORY DATA: Please see below. IMAGING: Chest x-ray showed increased pulmonary vascular congestion with possible infiltrate PROGNOSIS: Fair, stable ACTIVITY: As tolerated DIET: Cardiac and renal diet DISCHARGE PLAN: Discharged home DISPOSITION: Self-care DISCHARGE INSTRUCTIONS: 1. Recommended follow-up to Felipe Garcia 2. Recommended follow-up to Dr. Rizzo 3. Recommended reviewing high potassium foods as he is close to becoming dialysis dependent and is eating some high potassium items. 4. Instructed patient to do daily weights ITEMS TO FOLLOWUP ON ON OUTPATIENT: 1. Follow-up renal function 2. Reviewed diuretics and adjust if needed based on volume status 3. Patient needs follow-up Dr. Rizzo DISCHARGE CONDITION: Stable. TIME SPENT ON DISCHARGE: Greater than 30 minutes. Ashutosh Womack MD Vital Signs/I&Os Vital Signs Date Time Temp Pulse Resp B/P Pulse Ox O2 Delivery O2 Flow Rate FiO2 03/05/17 16:10 98.4 60 18 94/60 99 Room Air 03/04/17 08:00 1.0 I&O- Last 24 Hours up to 6 AM 03/05/17 06:00 Intake Total 780 ml Output Total 1925 ml Balance -1145 ml Laboratory Data Labs 24H Laboratory Tests 2 03/04/17 21:16: Bedside Glucose (Misc Panel) 198H 03/05/17 05:31: Blood Urea Nitrogen 85H, Creatinine 2.46H, Sodium Level 137, Potassium Level 3.8 , Chloride Level 98, Carbon Dioxide Level 29, Calcium Level 9.2, Aspartate Amino Transf (AST/SGOT) 23, Alanine Aminotransferase (ALT/SGPT) 29, Alkaline Phosphatase 113, Total Bilirubin 0.8, Total Protein 7.7, Albumin 3.0L, Albumin/ Globulin Ratio 0.64L, Anion Gap 10, White Blood Count 5.4, Red Blood Count 3.19L , Hemoglobin 9.7L, Hematocrit 30.4L, Mean Corpuscular Volume 95.2, Mean Corpuscular Hemoglobin 30.5, Mean Corpuscular Hemoglobin Concent 32.0, Red Cell Distribution Width 13.9, Platelet Count 157, Neutrophils (%) (Auto) 88.9H, Lymphocytes (%) (Auto) 7.1L, Monocytes (%) (Auto) 2.4, Eosinophils (%) (Auto) 0.4, Basophils (%) (Auto) 0.2, Neutrophils # (Auto) 4.8, Lymphocytes # (Auto) 0.4L, Monocytes # (Auto) 0.1, Eosinophils # (Auto) 0.0, Basophils # (Auto) 0.0, Glomerular Filtration Rate 27.0L, Large Unclassified Cells # 0.1, Large Unclassified Cells % 1.0 03/05/17 11:31: Bedside Glucose (Misc Panel) 256H CBC/BMP Laboratory Tests 03/05/17 05:31 Calcium Level 9.2, Aspartate Amino Transf (AST/SGOT) 23, Alanine Aminotransferase (ALT/SGPT) 29, Alkaline Phosphatase 113, Total Bilirubin 0.8, Total Protein 7.7, Albumin 3.0 L, Red Blood Count 3.19 L, Mean Corpuscular Volume 95.2, Mean Corpuscular Hemoglobin 30.5, Mean Corpuscular Hemoglobin Concent 32.0, Red Cell Distribution Width 13.9, Neutrophils (%) (Auto) 88.9 H, Lymphocytes (%) (Auto) 7.1 L, Monocytes (%) (Auto) 2.4, Eosinophils (%) (Auto) 0.4, Basophils (%) (Auto) 0.2, Neutrophils # (Auto) 4.8, Lymphocytes # (Auto) 0.4 L, Monocytes # (Auto) 0.1, Eosinophils # (Auto) 0.0, Basophils # (Auto) 0.0 FSBS Laboratory Tests Test 03/04/17 21:16 03/05/17 11:31 Range/Units Bedside Glucose (Misc Panel) 198 256 83-110 MG/DL Microbiology Microbiology 03/03/17 Blood Culture - Preliminary, Resulted No Growth after 48 hours. All Specime... 03/03/17 Blood Culture - Preliminary, Resulted No Growth after 48 hours. All Specime... 03/03/17 Influenza Virus Type A Antigen - Final, Complete 03/03/17 Influenza Virus Type B Antigen - Final, Complete Discharge Medications Scheduled (Iron) 325 Mg Tab 325 MG PO BID (Reported) Amlodipine Besylate (Amlodipine Besylate) 5 Mg Tab 5 MG PO DAILY (Reported) Aspirin (Aspirin EC) 81 Mg Tab 81 MG PO DAILY (Reported) Calcitriol (Rocaltrol) 0.25 Mcg Cap 0.25 MCG PO 5XW (Reported) FRIDAY-FRIDAY Carvedilol (Carvedilol) 25 Mg Tab 25 MG PO BID (Reported) Cyanocobalamin (Vitamin B-12) 1,000 Mcg Tab 1,000 MCG PO DAILY (Reported) Digoxin (Digoxin) 0.125 Mg Tab 0.125 MG PO DAILY (Reported) Febuxostat (Uloric) 80 Mg Tab 80 MG PO DAILY (Reported) Glimepiride (Glimepiride) 1 Mg Tab 1 MG PO DAILY (Reported) Isosorbide Mononitrate (Isosorbide Mononitrate ER) 60 Mg Tab 60 MG PO DAILY ( Reported) Pregabalin (Lyrica) 75 Mg Cap 75 MG PO QHS (Reported) Salmeterol/Fluticasone (Advair Hfa 230-21 Mcg/Act) 1 Aer Aer 2 PUFF INH BID ( Reported) Torsemide (Torsemide) 20 Mg Tab 40 MG PO BID (Reported) Scheduled PRN (Colchicine) 0.6 Mg Tab 0.6 MG PO PRN PRN PRN FLARE UP (Reported) Docusate Sodium (Docusate Sodium) 100 Mg Cap 100 MG PO BID PRN PRN CONSTIPATION (Reported) Melatonin (Melatonin) 10 Mg Cap 10 MG PO QHS PRN PRN SLEEP (Reported) Nitroglycerin (Nitroglycerin) 0.4 Mg Sub 0.4 MG SL NITRO PRN PRN CHEST PAIN ( Reported) Allergies Coded Allergies: No Known Drug Allergy (Unverified Allergy, Unknown, 02/23/13) ASHUTOSH WOMACK MD Mar 05, 2017 16:46
--- NOTE | 2017-03-06 17:35 | ECHO ---
DATE OF PROCEDURE: 03/05/2017 AGE: 82 GENDER: Male HEIGHT: 72 inches WEIGHT: 200 pounds BODY SURFACE AREA: 2.13 m2 PATIENT LOCATION: Inpatient, PCU, room 3230 REFERRING PHYSICIAN: Ashutosh Womack MD INDICATION: Cardiomegaly. Heart failure. 2-D MEASUREMENTS: RV: 5.4 cm LV: 5.9 cm Septum: 1.3 cm Posterior wall: 1.3 cm Aortic root: 3.9 cm LA: 4.7 cm LVEF: 45% DOPPLER MEASUREMENTS: AV: 1.0 m/s LVOT: 0.64 m/s LVOT diameter: 2.7 cm MV-E: 100 Early mitral deceleration time: 211 ms E prime: 4.6, E/E prime ratio: 22 PV: 0.5 m/s Pulmonary artery acceleration time: 67 ms RVSP: 62 mmHg IVC: 3.1 cm COMMENTS: Underlying atrial fibrillation with consistent ventricular paced rhythm having an left bundle branch block (LBBB) configuration. Occasional spontaneous wide complex activity. Moderately dilated left atrium and left ventricle with prominently dilated right heart chambers. Left ventricle (LV) wall thickness was at least mildly increased symmetrically. On real-time imaging from the parasternal and apical projections right ventricular free wall motion was markedly reduced. The apex appeared to be akinetic. There was a septal wall motion abnormality with hypokinesis of other mauricio. Mild to moderate mitral annular calcification with low flow appearance to leaflet excursion, but no posterior systolic buckling. Three equal size aortic cusps with mildly thickened cusp edges, but adequate cusp separation with premature cusp closure in keeping with a reduced forward stroke volume. At least mildly dilated aortic root. Pacing lead could be visualized traversing right heart structures, but no other intracardiac mass. No pericardial effusion. Color flow Doppler study taken from the parasternal and apical projections showed trace aortic, at least moderate mitral and moderately severe tricuspid with mild pulmonic insufficiency. Guided continuous wave Doppler of his aortic valve showed a normal peak systolic velocity against LV outflow tract obstruction. Pulsed and continuous wave Doppler of his LV inflow tract taken from the apical four-chamber projection showed normal diastolic filling velocities against mitral stenosis. There was only early diastolic/passive filling as we would expect with atrial fibrillation. Using pulsed and tissue Doppler of his mitral annulus (lateral). His estimated mean left atrial pressure was significantly elevated at 24 mmHg. Pulsed and continuous wave Doppler of his pulmonary trunk showed a normal peak systolic velocity against RV outflow tract obstruction. His early mitral deceleration time was markedly abbreviated consistent with an elevated pulmonary vascular resistance. Guided continuous wave Doppler of his tricuspid valve allowed our estimation of his right ventricular systolic pressure (severely increased). His inferior vena cava was markedly dilated with absent respiratory collapse consistent with a central venous pressure of at least 20 mmHg. CONCLUSIONS: Moderately dilated and hypertrophied left ventricle with septal wall motion abnormality due to right ventricular pacing as well as right ventricular pressure overload. At least moderate impairment or resting systolic function. Moderately dilated left atrium with Doppler evidence of a significantly elevated mean left atrial pressure. Prominently dilated right heart chambers with Doppler evidence of severe pulmonary hypertension. Significant right ventricular hypokinesis. Prominently dilated inferior vena cava with absent respiratory collapse consistent with elevated central venous pressure/right heart failure. Mild aortic valvular sclerosis without stenosis and only trace insufficiency. Moderate mitral annular calcification without inflow tract obstruction, but moderate insufficiency.
== END 2017-03-05 18:44 | disposition home or self-care (01) | DRG 291 ==
LOC: EDBD 03:21 → M ED 04:28 → M ED INP 09:05 → M PCU 15:36
PROVIDERS: ADMIT Family Medicine; ATTEND Family Medicine
DX: I13.0 Hypertensive heart and chronic kidney disease with heart failure and stage 1 through stage 4 chronic kidney disease, or unspecified chronic kidney disease (principal); I50.41 Acute combined systolic (congestive) and diastolic (congestive) heart failure; J18.9 Pneumonia, unspecified organism; N18.4 Chronic kidney disease, stage 4 (severe); I25.10 Atherosclerotic heart disease of native coronary artery without angina pectoris; E11.9 Type 2 diabetes mellitus without complications; N40.0 Benign prostatic hyperplasia without lower urinary tract symptoms; M10.9 Gout, unspecified; I48.91 Unspecified atrial fibrillation; I27.2 Other secondary pulmonary hypertension; J44.9 Chronic obstructive pulmonary disease, unspecified; I73.9 Peripheral vascular disease, unspecified; Z79.82 Long term (current) use of aspirin; Z79.899 Other long term (current) drug therapy; Z87.891 Personal history of nicotine dependence

== ENCOUNTER → 2017-03-07 | Outpatient (REF) | payer MEDICARE, OTHER ==
[~2017-03-07] MED LIST changes: +AMLO5TAB2 PO; +ARTH5TAB PO; +ASPI81TA13 PO; +CARV25TA PO; +COLC1TAB13 PO; +DIGO0.12 PO; +DOCU100C PO; +GLIM1TAB PO; +IRON65TA PO; +MELA10CA PO; +NITR0.4S14 SL; +TORS20TA2 PO; +ULOR80TA PO
[2017-03-07 15:34] LABS: BASO % 0.2 % (0.0-1.0); EOS # 0.1 K/mm3 (0.0-0.50); EOS % 1.4 % (0.0-3.0); LARGE UNSTAINED CELL # 0.1 K/mm3 (0.0-0.4); LARGE UNSTAINED CELL % 0.9 % (0.0-4.0); LYMPH # 0.8 K/mm3 (1.5-4.5); LYMPH % 11.5 % (24.0-44.0); MEAN CORPUSCULAR HEMOGLOBIN 30.4 pg (27.0-33.0); MEAN CORPUSCULAR HGB CONC 31.3 g/dl (32.0-36.5); MEAN CORPUSCULAR VOLUME 97.1 fl (80.0-96.0); MONO # 0.5 K/mm3 (0.0-0.8); MONO % 8.3 % (0.0-5.0); NEUTROPHILS # 4.9 K/mm3 (1.8-7.7); NEUTROPHILS % 77.7 % (36.0-66.0); PLATELET COUNT, AUTOMATED 158 k/mm3 (150-450); RED CELL DISTRIBUTION WIDTH 13.4 % (11.5-14.5); WHITE BLOOD COUNT 6.3 K/mm3 (4.0-10.0)
[2017-03-07 15:47] LABS: ALBUMIN 3.5 GM/DL (3.2-5.2); ALBUMIN/GLOBULIN RATIO 0.92 (1.00-1.93); BILIRUBIN,TOTAL 0.7 MG/DL (0.2-1.0); CALCIUM LEVEL 9.3 MG/DL (8.8-10.2); CREATININE FOR GFR 2.42 MG/DL (0.70-1.30); GLOMERULAR FILTRATION RATE 27.5 (>35); POTASSIUM SERUM 4.1 MEQ/L (3.5-5.1); TOTAL PROTEIN 7.3 GM/DL (6.4-8.2)
== END ==
LOC: M SFHCPLAZ 11:54
PROVIDERS: ATTEND Nurse Practitioner Family
DX: E11.42 Type 2 diabetes mellitus with diabetic polyneuropathy (principal); D50.0 Iron deficiency anemia secondary to blood loss (chronic); I50.42 Chronic combined systolic (congestive) and diastolic (congestive) heart failure
CPT/HCPCS: 36415; 80053; 83036; 85025; G0463

== ENCOUNTER → 2017-03-13 | Outpatient (CLI) | payer MEDICARE, OTHER ==
[2017-03-13 13:58] LABS: ALBUMIN 3.3 GM/DL (3.2-5.2); CALCIUM LEVEL 9.7 MG/DL (8.8-10.2); CREATININE FOR GFR 2.21 MG/DL (0.70-1.30); GLOMERULAR FILTRATION RATE 30.6 (>35); PHOSPHORUS LEVEL 4.1 MG/DL (2.5-4.9); POTASSIUM SERUM 4.4 MEQ/L (3.5-5.1)
== END ==
LOC: M WUC 09:48
PROVIDERS: ATTEND Physician Assistant
DX: I50.42 Chronic combined systolic (congestive) and diastolic (congestive) heart failure (principal)

== ENCOUNTER → 2017-04-04 | Outpatient (REF) | payer MEDICARE, OTHER | LOC: M SFHCPLAZ 11:29 | PROVIDERS: ATTEND Family Medicine | DX: D04.4 Carcinoma in situ of skin of scalp and neck (principal); L57.0 Actinic keratosis ==

== ENCOUNTER → 2017-05-08 | Outpatient (CLI) | payer MEDICARE, OTHER ==
[2017-05-08 10:22] LABS: ALBUMIN 3.5 GM/DL (3.2-5.2); CALCIUM LEVEL 10.2 MG/DL (8.8-10.2); CREATININE FOR GFR 2.82 MG/DL (0.70-1.30); GLOMERULAR FILTRATION RATE 23.1 (>35); MAGNESIUM LEVEL 2.8 MG/DL (1.8-2.4); PHOSPHORUS LEVEL 4.9 MG/DL (2.5-4.9)
== END ==
LOC: M WUC 08:38
PROVIDERS: ATTEND Physician Assistant
DX: I50.42 Chronic combined systolic (congestive) and diastolic (congestive) heart failure (principal)

== ENCOUNTER → 2017-05-30 | Outpatient (CLI) | payer MEDICARE, OTHER ==
[~2017-05-30] MED LIST changes: -ASPI81TA13 PO; +ASPI81TA24 PO; -COLA100C3 PO; +COLA100C5 PO; +COLC1TAB14 PO; -COLC1TAB5 PO; -DOCU100C PO; +DOCU100C16 PO; +FERR1TAB8 PO; -FERR325T PO; +RANI15TA PO; +STOO100C PO; +TYLETAB14 PO
[2017-05-30 17:24] LABS: ALBUMIN 3.5 GM/DL (3.2-5.2); CALCIUM LEVEL 8.5 MG/DL (8.8-10.2); CREATININE FOR GFR 2.98 MG/DL (0.70-1.30); GLOMERULAR FILTRATION RATE 21.7 (>35); POTASSIUM SERUM 4.1 MEQ/L (3.5-5.1)
[2017-05-30 18:01] LABS: BASO % 1.3 % (0.0-1.0); EOS # 0.1 K/mm3 (0.0-0.50); EOS % 2.9 % (0.0-3.0); LARGE UNSTAINED CELL # 0.1 K/mm3 (0.0-0.4); LYMPH # 0.8 K/mm3 (1.5-4.5); LYMPH % 18.2 % (24.0-44.0); MEAN CORPUSCULAR HEMOGLOBIN 31.7 pg (27.0-33.0); MEAN CORPUSCULAR HGB CONC 31.9 g/dl (32.0-36.5); MEAN CORPUSCULAR VOLUME 99.4 fl (80.0-96.0); MONO # 0.3 K/mm3 (0.0-0.8); NEUTROPHILS # 2.6 K/mm3 (1.8-7.7); NEUTROPHILS % 66.7 % (36.0-66.0); PLATELET COUNT, AUTOMATED 107 k/mm3 (150-450); WHITE BLOOD COUNT 3.8 K/mm3 (4.0-10.0)
== END ==
LOC: M WUC 14:16
PROVIDERS: ATTEND Nurse Practitioner Family
DX: D50.0 Iron deficiency anemia secondary to blood loss (chronic) (principal); E11.42 Type 2 diabetes mellitus with diabetic polyneuropathy

== ENCOUNTER → 2017-06-09 | Outpatient (CLI) | payer MEDICARE, OTHER ==
[2017-06-09 17:59] LABS: ALBUMIN 3.5 GM/DL (3.2-5.2); CALCIUM LEVEL 10.2 MG/DL (8.8-10.2); CREATININE FOR GFR 2.84 MG/DL (0.70-1.30); GLOMERULAR FILTRATION RATE 22.9 (>35); POTASSIUM SERUM 4.1 MEQ/L (3.5-5.1)
== END ==
LOC: M WUC 12:47
PROVIDERS: ATTEND Physician Assistant
DX: I50.42 Chronic combined systolic (congestive) and diastolic (congestive) heart failure (principal)

== ENCOUNTER → 2017-06-11 | Outpatient (CLI) | payer MEDICARE, OTHER ==
[2017-06-11 20:31] LABS: BASO % 0.8 % (0.0-1.0); EOS # 0.2 K/mm3 (0.0-0.50); LARGE UNSTAINED CELL # 0.1 K/mm3 (0.0-0.4); LARGE UNSTAINED CELL % 1.7 % (0.0-4.0); LYMPH # 0.8 K/mm3 (1.5-4.5); LYMPH % 19.1 % (24.0-44.0); MEAN CORPUSCULAR HEMOGLOBIN 32.3 pg (27.0-33.0); MEAN CORPUSCULAR HGB CONC 31.9 g/dl (32.0-36.5); MEAN CORPUSCULAR VOLUME 101.1 fl (80.0-96.0); MONO # 0.4 K/mm3 (0.0-0.8); MONO % 10.1 % (0.0-5.0); NEUTROPHILS # 2.4 K/mm3 (1.8-7.7); NEUTROPHILS % 64.4 % (36.0-66.0); PLATELET COUNT, AUTOMATED 124 k/mm3 (150-450); RED CELL DISTRIBUTION WIDTH 15.3 % (11.5-14.5); WHITE BLOOD COUNT 3.7 K/mm3 (4.0-10.0)
== END ==
LOC: M WUC 12:35
PROVIDERS: ATTEND Nurse Practitioner Family
DX: D61.818 Other pancytopenia (principal)

== ENCOUNTER → 2017-06-20 | Outpatient (CLI) | payer MEDICARE, OTHER ==
[2017-06-20 13:59] LABS: ALBUMIN 3.5 GM/DL (3.2-5.2); CALCIUM LEVEL 10.1 MG/DL (8.8-10.2); CREATININE FOR GFR 2.45 MG/DL (0.70-1.30); GLOMERULAR FILTRATION RATE 27.1 (>35); MAGNESIUM LEVEL 2.9 MG/DL (1.8-2.4); PHOSPHORUS LEVEL 3.9 MG/DL (2.5-4.9); POTASSIUM SERUM 4.3 MEQ/L (3.5-5.1)
== END ==
LOC: M WUC 10:03
PROVIDERS: ATTEND Physician Assistant
DX: I50.42 Chronic combined systolic (congestive) and diastolic (congestive) heart failure (principal)

== ENCOUNTER → 2017-07-10 | Outpatient (REF) | payer MEDICARE, BC, OTHER ==
[~2017-07-10] MED LIST changes: +AMAR1TAB PO; +CARV6.25 PO; +IPRASOL4 INH; +METO25TA PO; +SPIR25TA2 PO
[2017-07-10 16:21] LABS: BASO % 0.6 % (0.0-1.0); EOS # 0.2 K/mm3 (0.0-0.50); EOS % 3.6 % (0.0-3.0); LARGE UNSTAINED CELL # 0.1 K/mm3 (0.0-0.4); LARGE UNSTAINED CELL % 1.7 % (0.0-4.0); LYMPH # 1.1 K/mm3 (1.5-4.5); LYMPH % 19.1 % (24.0-44.0); MEAN CORPUSCULAR HEMOGLOBIN 32.1 pg (27.0-33.0); MEAN CORPUSCULAR HGB CONC 33.3 g/dl (32.0-36.5); MEAN CORPUSCULAR VOLUME 96.5 fl (80.0-96.0); MONO # 0.4 K/mm3 (0.0-0.8); MONO % 7.4 % (0.0-5.0); NEUTROPHILS # 3.6 K/mm3 (1.8-7.7); NEUTROPHILS % 67.6 % (36.0-66.0); PLATELET COUNT, AUTOMATED 153 k/mm3 (150-450); RED CELL DISTRIBUTION WIDTH 13.8 % (11.5-14.5); RETIC HEMOGLOBIN CONTENT CHr 32.5 PG (24-36); RETICULOCYTE ABSOLUTE ADVIA212 52 x10(9)/L (17-77); WHITE BLOOD COUNT 5.3 K/mm3 (4.0-10.0)
[2017-07-10 16:32] LABS: ALBUMIN 3.9 GM/DL (3.2-5.2); ALBUMIN/GLOBULIN RATIO 0.98 (1.00-1.93); BILIRUBIN,TOTAL 0.7 MG/DL (0.2-1.0); CALCIUM LEVEL 10.5 MG/DL (8.8-10.2); CREATININE FOR GFR 2.6 MG/DL (0.70-1.30); GLOMERULAR FILTRATION RATE 25.3 (>35); PERCENT SATURATION 28.5 % (19.7-50.0); POTASSIUM SERUM 4.7 MEQ/L (3.5-5.1); TOTAL PROTEIN 7.9 GM/DL (6.4-8.2)
== END ==
LOC: M SFHCPLAZ 11:48
PROVIDERS: ATTEND Nurse Practitioner Family
DX: K92.1 Melena (principal); R63.4 Abnormal weight loss; N18.3 Chronic kidney disease, stage 3 (moderate); D50.0 Iron deficiency anemia secondary to blood loss (chronic); Z79.899 Other long term (current) drug therapy
CPT/HCPCS: 36415; 80053; 82270; 82728; 83550; 85025; 85046; G0463

== ENCOUNTER → 2017-07-11 | Outpatient (CLI) | payer MEDICARE, OTHER ==
[~2017-07-11] MED LIST changes: -AMAR1TAB PO; -CARV6.25 PO; -IPRASOL4 INH; -METO25TA PO; -SPIR25TA2 PO
[2017-07-11 17:39] LABS: ALBUMIN 3.9 GM/DL (3.2-5.2); CALCIUM LEVEL 10.4 MG/DL (8.8-10.2); CREATININE FOR GFR 2.8 MG/DL (0.70-1.30); GLOMERULAR FILTRATION RATE 23.3 (>35); PHOSPHORUS LEVEL 5.2 MG/DL (2.5-4.9); POTASSIUM SERUM 4.4 MEQ/L (3.5-5.1)
== END ==
LOC: M WUC 14:42
PROVIDERS: ATTEND Physician Assistant
DX: I50.42 Chronic combined systolic (congestive) and diastolic (congestive) heart failure (principal)

== ENCOUNTER → 2017-07-14 | Outpatient (REF) | payer MEDICARE, OTHER ==
[2017-07-14 14:42] LABS: FERRITIN 78 NG/ML (26-388); PERCENT SATURATION 26.8 % (19.7-50.0); TOTAL IRON BINDING CAPACITY 355 UG/DL (250-450); TOTAL PROTEIN 8.1 GM/DL (6.4-8.2)
[2017-07-14 14:55] LABS: REASON FOR REVIEW COMPREHENSIVE REVIEW
[2017-07-15 12:01] LABS: ALBUMIN 4.42 GM/DL (3.29-5.55); ALBUMIN % 54.6 % (55.8-66.1); GAMMA GLOBULIN % 8.1 % (11.1-18.8)
== END ==
LOC: M LAB REF 13:42
PROVIDERS: ATTEND Internal Medicine Medical Oncology
DX: D61.818 Other pancytopenia (principal)

== ENCOUNTER 2017-07-22 15:36 | Outpatient (CLI) | payer MEDICARE, BC, OTHER ==
[~2017-07-22 15:36] MED LIST changes: +ACETAMINOPHEN TAB 650MG DOSE (2X325MG) PO SCH; -RANI15TA PO; -STOO100C PO; -TYLETAB14 PO; +diphenhydrAMINE 25 MG CAP PO SCH
[2017-07-22] MEDS ORDERED: FUROSEMIDE 20 MG/2 ML VIAL (J1940) IV ONE (19:00)
[2017-07-22 20:26] LABS: IMMUNOGLOBULIN M 11.2 MG/DL (40-230)
[2017-07-25 00:07] LABS: FREE KAPPA LIGHT CHAINS SERUM 87.9 mg/L (3.3-19.4); FREE LAMBDA LIGHT CHAINS SERUM 26.6 mg/L (5.7-26.3); KAPPA/LAMBDA RATIO SERUM 3.3 (0.26-1.65)
[2017-10-06] MEDS ORDERED: SPIR25TA2 (09:25)
[2017-10-06] MEDS ORDERED: CARV6.25 (09:25)
== END 2017-07-22 23:50 | disposition home or self-care (01) ==
LOC: M OPCLI5PR 15:36 → M MS5PR 15:40 → M OPCLI5PR 23:50
PROVIDERS: ATTEND Internal Medicine Medical Oncology
DX: D61.818 Other pancytopenia (principal); D47.2 Monoclonal gammopathy; Z79.899 Other long term (current) drug therapy
CPT/HCPCS: 36430; 82232; 82784; 83883; 86850; 86900; 86901; 86920; J1940; P9016

== ENCOUNTER 2017-07-25 15:03 | Inpatient (IN) | payer MEDICARE, BC, OTHER ==
[~2017-07-25 15:03] MED LIST changes: -AMAR1TAB PO; -CARV6.25 PO; -IPRASOL4 INH; -METO25TA PO; -RANI15TA PO; -SPIR25TA2 PO; -STOO100C PO; -TYLETAB14 PO
[2017-07-25 16:15] VITALS: BP 110/61
[2017-07-25] MEDS: HumaLOG INSULIN (NovoLOG) PER UNIT SC SCH ×2 (17:30→21:00)
--- NOTE | 2017-07-25 17:38 | HPEPDOC ---
Medical History and Physical Date of Admission Jul 25, 2017 at 15:57 History and Physical PRIMARY CARE PROVIDER: [IGNACIO HEME/ONC: KELLIE NEPHROLOGY: ITALIA CARDIOLOGY: GLORIA] ATTENDING: Dr. Tucker CHIEF COMPLAINT: [BRBPR AND GENERALIZED WEAKNESS] HISTORY OF PRESENT ILLNESS: [82-year-old gentleman instructed to come to the hospital for blood transfusion. Has continued to have issues with bright red blood per rectum for several days and required repeated blood transfusions. He follows with Dr. Hernandez as an outpatient for workup of multiple myeloma had a bone scan that was done earlier today. After the scan. He felt weak and he stated that he has had trouble with bright red blood per rectum. Had blood work that was drawn at a low H&H and instructed to come to the hospital for admission. Currently he has occasional lightheadedness, dizziness without syncope. Denies chest pain, productive sputum, has intermittent nonproductive cough. However, he has noticed some dyspnea on exertion.] PAST MEDICAL HISTORY: 1. Coronary artery disease; CABG 1988, 2000; stent 1995, 2008, 2009; chemical stress test 07/18/2015 with recommended repeat June 2017 2. Chronic diastolic congestive heart failure: EF 45%; last echo noted as [address] [facility] 2. Angina pectoris 3. Carotid artery stenosis 4. Pulmonary hypertension 5. Chronic atrial fibrillation, rate controlled 6. Chronic kidney disease, stage III 7. Hypertension 8. BPH 9. Type 2 diabetes mellitus 10. Chronic anemia 11. Gout PAST SURGICAL HISTORY: 1. Right Orchiectomy 1950 2. Appendectomy 1969 3. CABG 1988, 2000 4. Right femoral popliteal bypass 1995 5. Left carotid endarterectomy 2007 6. Percutaneous coronary intervention 1995, 2008, 2009 7. EGD 2009; Inna 8. Pacemaker 2009 & MAY 2017: Dr. Rizzo 9. Colonoscopy; Dr. Keith 11/09/2014. Impression: Nonbleeding internal hemorrhoids with diverticulosis in the entire examined colon. One small polyp at the hepatic flexure resected clip placed area and one small polyp at 55 cm proximal to the anus resected and retrieved. Examination reported as otherwise normal. 10. EGD 2013; Inna Impression: Z line irregular at 40 cm from the incisor. Hiatal hernia. Multiple biopsies obtained. 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 No dysplasia noted. SOCIAL HISTORY: * Smoker: former Smoker Alcohol: Denies Drugs: denies Recent Travel/Sick Contacts: Denies: Recent sick contacts, Recent travel Psychosocial History: No pertinent psych hx 1. Former smoker 2. Denies alcohol use 3. Denies drug use 4. Lives with spouse, Lindsay PREFERS TO BE CALLED: "MECCA" FAMILY HISTORY: 1. Mother and father , early 70s; mother type 2 diabetes 2. Siblings; 2 brothers status post CABG; one sister in 60s 3. Son, alive with no known medical problems 4. Daughter, alive with hypertension ALLERGIES: No known drug allergies REVIEW OF SYSTEMS: CONSTITUTIONAL: No fever, chills, weight loss, nausea or vomiting . HEENT: positive dizziness without syncope. No headache, blurred or loss of vision. No difficulty with speech or swallow. CARDIOVASCULAR: Positive dyspnea on exertion and lower extremity edema (chronic ) No chest pain, palpitations, paroxysmal nocturnal dyspnea RESPIRATORY: No cough, productive sputum, wheeze or hemoptysis GENITOURINARY: No dysuria, frequency, or discharge MUSCULOSKELETAL: No bone, muscle or joint pain. GASTROINTESTINAL: bright red blood per rectum with occasional melena...been an issue No Nas[place], vomitting, change in appetite. No bladder or bowel incontinence. SKIN: No complaint of lesions, abrasions or rashes NEUROLOGICAL: No blurred vision, headaches, parasthesias or paralysis PSYCHIATRIC: No depression, anxiety, audiovisual hallucinations. No suicidal ideations. ENDOCRINE: Denies history of diabetes or thyroid disorder. No history of endocrine abnormalities. HEMATOLOGIC/LYMPHATIC: No lumpbs, bumps or swelling of neck, axilla or groin. No night sweats or weight loss. HOME MEDICATIONS: Please see below. PHYSICAL EXAMINATION: VITAL SIGNS: see below GENERAL APPEARANCE: [No acute distress, alert and oriented 3]. HEENT: [Scleral pallor is noted, otherwise unremarkable]. CARDIOVASCULAR: [Regular rate and rhythm]. LUNGS: [Clear to auscultation bilaterally]. ABDOMEN: [Soft, anteroseptal positive bowel sounds, masses or rebound]. MUSCULOSKELETAL: [Good strength and range of motion upper and lower extremities] . EXTREMITIES: 1+ edema, no calf tenderness]. NEUROLOGICAL: [Cranial nerves II through XII grossly intact. No gross motor sensory deficits]. PSYCHIATRIC: [Negative]. LABORATORY DATA: See below. Today, hemoglobin 7.5, hematocrit 22.3 Iron 95, TIBC 355, transferrin 26.8. SPEP: Protein electrophoresis interpretation: Hypoalbuminemia M spike noted in beta-2 region. Hypogammaglobulinemia suggested serum and urine immune typing and a serum immune type has been reflexed to this specimen. UPEP: Pending. Bone survey: Impression: Moderate, diffuse age related degenerative changes. No evidence for osseous metastatic disease or significant pathology.] ECHOCARDIOGRAM (03/03/2017) CONCLUSIONS: LVEF: 45% Moderately dilated and hypertrophied left ventricle with septal wall motion abnormality due to right ventricular pacing as well as right ventricular pressure overload. At least moderate impairment or resting systolic function. Moderately dilated left atrium with Doppler evidence of a significantly elevated mean left atrial pressure. Prominently dilated right heart chambers with Doppler evidence of severe pulmonary hypertension. Significant right ventricular hypokinesis. Prominently dilated inferior vena cava with absent respiratory collapse consistent with elevated central venous pressure/right heart failure. Mild aortic valvular sclerosis without stenosis and only trace insufficiency. Moderate mitral annular calcification without inflow tract obstruction, but moderate insufficiency. 12 LEAD ECG (03/03/2017) Underlying atrial fibrillation. Ventricular paced rhythm with isolated PVC Appropriate VVI pacing Paced QRS complexes with leftward axis and LBBB configuration in keeping with right ventricular apical stimulation. Less spontaneous activity compared with prior tracing. CXR (03/03/2017) IMPRESSION: Moderate cardiomegaly with pacemaker prior sternotomy and mediastinal clips. Pulmonary vascular cephalization. No evidence of infiltrate, effusion, or pulmonary edema. IMPRESSION: 82-year-old male with what appears to be acute blood loss anemia. PROBLEM LIST: [ 1. Acute blood loss anemia. 2. Hypogammaglobulinemia, further imaging. No typing to rule out multiple myeloma]. 3. Leggett's esophagus. No dysplasia noted on EGD 2013. With noted hiatal hernia. 4. Coronary artery disease; CABG 1988, 2000; stent 1995, 2008, 2009; chemical stress test 07/18/2015 with recommended repeat June 2017 5. Chronic diastolic congestive heart failure: EF 45%; last echo noted as [address] [facility] 6. Angina pectoris 7. Carotid artery stenosis 8. Pulmonary hypertension 9. Chronic atrial fibrillation, rate controlled 10. Chronic kidney disease, stage III 11. Hypertension 12. BPH 13. Type 2 diabetes mellitus 14. Chronic anemia 15. Gout PLAN: [Admitted to medical surgical floor per Dr. Tucker. Consent, type and cross and transfuse 2 units of packed red blood cells. Lasix 40 mg IV between the first and second transfusion. Repeat H&H every [address] Hudson, general surgery. UPEP is pending at this time. Hold aspirin, glimepiride, avoid anticoagulation or heparin products due to risk of bleed. Clear liquid diet. Start PPI. Fingersticks before meals at bedtime and sliding scale insulin per [facility] protocol. DVT prophylaxis: Teds and sequentials. Disposition: Anticipate patient will be here greater than 2 midnights. Consider touching base with hematology tomorrow.]. Vital Signs T-96.9 P61 RR20 BP110/61 [id number]%RA Home Medications Scheduled (Iron) 325 Mg Tab, 325 MG PO DAILY Amlodipine Besylate (Amlodipine Besylate) 5 Mg Tab, 5 MG PO DAILY Aspirin (Aspirin EC) 81 Mg Tab, 81 MG PO QHS Calcitriol (Rocaltrol) 0.25 Mcg Cap, 0.5 MCG PO 5XW FRIDAY-FRIDAY Carvedilol (Carvedilol) 25 Mg Tab, 25 MG PO BID Cyanocobalamin (Vitamin B-12) 1,000 Mcg Tab, 1,000 MCG PO DAILY Digoxin (Digoxin) 0.125 Mg Tab, 0.125 MG PO DAILY Docusate Sodium (Stool Softener) 100 Mg Cap, 100 MG PO BID Febuxostat (Uloric) 80 Mg Tab, 80 MG PO DAILY Glimepiride (Glimepiride) 1 Mg Tab, 1 MG PO DAILY Isosorbide Mononitrate (Isosorbide Mononitrate ER) 60 Mg Tab, 60 MG PO DAILY Pregabalin (Lyrica) 75 Mg Cap, 75 MG PO QHS Torsemide (Torsemide) 20 Mg Tab, 40 MG PO BID Scheduled PRN Acetaminophen/Codeine (Tylenol/Codeine #3 300-30 mg) 1 Tab Tab, 1 TAB PO QID PRN for PAIN Colchicine (Colchicine) 0.6 Mg Tab, 0.6 MG PO PRN PRN for FLARE UP Melatonin (Melatonin) 10 Mg Cap, 10 MG PO QHS PRN for SLEEP Nitroglycerin (Nitroglycerin) 0.4 Mg Sub, 0.4 MG SL NITRO PRN for CHEST PAIN Salmeterol/Fluticasone (Advair Hfa 230-21 Mcg/Act) 1 Aer Aer, 2 PUFF INH BID PRN for SHORTNESS OF BREATH Allergies Coded Allergies: Clopidogrel (Unverified Adverse Reaction, Unknown, BLEEDS, 07/25/17) Warfarin (Unverified Adverse Reaction, Unknown, BLEEDS, 07/25/17) JUAN LI DO Jul 25, 2017 17:38
[2017-07-25] MEDS ORDERED: GLUCOSE 4 GM CHEW TABLET PO PRN (18:00)
[2017-07-25] MEDS ORDERED: DEXTROSE 50% 50 ML SYRINGE IV PRN (18:00)
[2017-07-25] MEDS ORDERED: GLUCAGON FOR INJ 1 MG VIAL (J1610) SC PRN (18:00)
[2017-07-25] MEDS ORDERED: STOO100C PO (18:14)
[2017-07-25] MEDS ORDERED: TYLETAB14 PO (18:18)
[2017-07-25 19:48] LABS: ALBUMIN 3.3 GM/DL (3.2-5.2); ALBUMIN/GLOBULIN RATIO 0.92 (1.00-1.93); BILIRUBIN,TOTAL 0.4 MG/DL (0.2-1.0); CALCIUM LEVEL 8.9 MG/DL (8.8-10.2); CREATININE FOR GFR 2.95 MG/DL (0.70-1.30); GLOMERULAR FILTRATION RATE 21.9 (>35); TOTAL PROTEIN 6.9 GM/DL (6.4-8.2)
[2017-07-25] MEDS ORDERED: ADVAIR HFA 230/21MCG INHALER INH PRN (21:00)
[2017-07-25] MEDS ORDERED: FUROSEMIDE 40 MG/4 ML VIAL (J1940) IV ONE (21:00)
[2017-07-25] MEDS: CARVedilol 12.5 MG TAB PO SCH (21:00)
[2017-07-25] MEDS: PREGABALIN 75 MG CAP(LYRICA) PO SCH (21:55)
[2017-07-25] MEDS: FERROUS SULFATE 325MG TAB PO SCH (21:56)
[2017-07-25] MEDS: SENOKOT S TAB PO SCH (21:56)
[2017-07-25 22:00] VITALS: BP 107/57
[2017-07-26] MEDS: PANTOPRAZOLE 40MG INJ (PROTONIX) (C9113) IV SCH ×2 (01:41→08:17)
[2017-07-26 06:00] VITALS: BP 110/61
[2017-07-26] MEDS: HumaLOG INSULIN (NovoLOG) PER UNIT SC SCH ×4 (07:30→21:00)
[2017-07-26] MEDS: FEBUXOSTAT 40 MG TABLET (ULORIC) PO SCH (08:17)
[2017-07-26] MEDS: ISOSORBIDE MON. (IMDUR) 60 MG XR TAB PO SCH (08:18)
[2017-07-26] MEDS: CARVedilol 12.5 MG TAB PO SCH ×2 (08:18→21:00)
[2017-07-26] MEDS: DIGOXIN 0.125 MG TAB PO SCH (08:18)
[2017-07-26] MEDS: SENOKOT S TAB PO SCH ×2 (08:19→23:23)
[2017-07-26] MEDS: CYANOCOBALAMIN 500 MCG TAB PO SCH (08:19)
[2017-07-26] MEDS: TORSEMIDE 20 MG TAB PO SCH ×2 (08:19→17:18)
[2017-07-26] MEDS: amLODIPine 5 MG TAB PO SCH (08:19)
[2017-07-26] MEDS: FERROUS SULFATE 325MG TAB PO SCH ×2 (08:20→23:24)
[2017-07-26 08:33] LABS: ALBUMIN 3.2 GM/DL (3.2-5.2); ALBUMIN/GLOBULIN RATIO 0.84 (1.00-1.93); BILIRUBIN,TOTAL 0.6 MG/DL (0.2-1.0); CALCIUM LEVEL 9.1 MG/DL (8.8-10.2); CREATININE FOR GFR 2.83 MG/DL (0.70-1.30); POTASSIUM SERUM 3.8 MEQ/L (3.5-5.1)
[2017-07-26] MEDS: ONDANSETRON 4MG/2ML VIAL (J2405) IV PRN ×2 (08:33→18:27)
[2017-07-26] MEDS ORDERED: METOCLOPRAMIDE INJ 10MG/2ML VIAL (J2765) IV PRN (13:45)
--- NOTE | 2017-07-26 14:45 | IPN ---
DATE: 07/26/2017 Mr. Johnson is feeling well today. He has not passed anymore dark or bloody bowel movements. No chest pain. No shortness of breath. Temperature 98.6, pulse 59, respiratory rate 20, blood pressure 110/61, and 94% on room air. One bowel movement noted today which was yellow and loose. Awake, appropriately interactive, pleasantly conversant. Breathing symmetrical and rested. Heart is distant sounding. Normal S1, S2. Abdomen somewhat distended, nontender, active bowel sounds. Bilateral 1-2+ lower extremity edema. Hemoglobin 8.8, BUN 125 and creatinine 2.83. ASSESSMENT: This is an 82-year-old with acute blood loss anemia. PLAN: 1. For acute blood loss anemia, holding aspirin and avoiding heparin products, following serial hemoglobin and hematocrit (H and H), did not seem to have ongoing bleeding . I have discussed this case in person and at bedside with Dr. Hudson. No role for endoscopy currently. 2. The patient has known coronary artery disease, status post stenting. Holding aspirin currently. 3. The patient has history of pulmonary hypertension. 4. The patient has chronic atrial fibrillation. 5. The patient has hypogammaglobulinemia. Pursuing outpatient bone marrow biopsy in the near future. Anemia is likely related to acute blood loss as well as poor productive capacity of his bone marrow. MTDD
[2017-07-26 22:00] VITALS: BP 103/51
[2017-07-26] MEDS: PREGABALIN 75 MG CAP(LYRICA) PO SCH (23:24)
[2017-07-27] MEDS: PANTOPRAZOLE 40MG INJ (PROTONIX) (C9113) IV SCH ×3 (02:45→20:55)
[2017-07-27 05:47] LABS: ALBUMIN 2.9 GM/DL (3.2-5.2); ALBUMIN/GLOBULIN RATIO 0.83 (1.00-1.93); CALCIUM LEVEL 8.6 MG/DL (8.8-10.2); CREATININE FOR GFR 2.55 MG/DL (0.70-1.30); GLOMERULAR FILTRATION RATE 25.9 (>35); POTASSIUM SERUM 2.9 MEQ/L (3.5-5.1); TOTAL PROTEIN 6.4 GM/DL (6.4-8.2)
[2017-07-27 06:00] VITALS: BP 119/65
[2017-07-27] MEDS: POTASSIUM CHLORIDE 10 MEQ SR TABLET PO SCH ×2 (06:36→10:49)
[2017-07-27] MEDS: HumaLOG INSULIN (NovoLOG) PER UNIT SC SCH ×4 (07:30→20:57)
[2017-07-27] MEDS ORDERED: PROMETHAZINE INJ 25 MG/ML VIAL (J2550) IV PRN (07:45)
--- NOTE | 2017-07-27 08:37 | REP ---
Clinical: Abdominal pain and nausea. Comparison: 10/31/2015. Findings: Lung bases demonstrate chronic changes with small focus of atelectasis/infiltrate involving the medial left lower lobe. Cardiomegaly is appreciated along with atherosclerotic changes and evidence for prior sternotomy, CABG, and pacemaker. Liver, spleen, pancreas, bilateral adrenal glands are normal / stable. Gallbladder suggests cholelithiasis and layering sludge without obvious CT evidence for acute cholecystitis. The kidneys demonstrate stable bilateral hypodensities likely representing simple and complex cysts as well as scattered renovascular calcifications without hydroureteronephrosis. The enteric system is without obstruction or acute inflammatory process. Moderate fecal stasis and constipation suggested. Colonic and sigmoid diverticulosis noted without obvious acute diverticulitis. Pelvis demonstrates normal bladder and age appropriate prostate/seminal vesicles. No ascites. No free air. No obvious retroperitoneal adenopathy. Atherosclerotic changes to the vasculature noted without aneurysm. Musculoskeletal structures demonstrate degenerative changes without focal osseous abnormality. Impression: 1. Small suspected acute infiltrate/atelectasis involving the medial left lower lobe. 2. Moderately distended gallbladder with cholelithiasis and layering sludge. 3. Diffuse diverticulosis without evidence for acute diverticulitis or obvious acute inflammatory process of the enteric system. Fecal stasis and constipation cannot be excluded. 4. Further chronic stable changes as described above similar to 10/31/2015. Signed by Mina Mcgovren MD 07/27/2017 08:28 A
[2017-07-27] MEDS: CYANOCOBALAMIN 500 MCG TAB PO SCH (09:00)
[2017-07-27] MEDS: CARVedilol 12.5 MG TAB PO SCH ×2 (09:01→20:56)
[2017-07-27] MEDS: FEBUXOSTAT 40 MG TABLET (ULORIC) PO SCH (09:01)
[2017-07-27] MEDS: TORSEMIDE 20 MG TAB PO SCH ×2 (09:01→17:36)
[2017-07-27] MEDS: ISOSORBIDE MON. (IMDUR) 60 MG XR TAB PO SCH (09:01)
[2017-07-27] MEDS: DIGOXIN 0.125 MG TAB PO SCH (09:02)
[2017-07-27] MEDS: FERROUS SULFATE 325MG TAB PO SCH ×2 (09:02→20:57)
[2017-07-27] MEDS: SENOKOT S TAB PO SCH ×2 (09:02→20:56)
[2017-07-27] MEDS: amLODIPine 5 MG TAB PO SCH (09:02)
[2017-07-27 12:11] LABS: BASO % 0.2 % (0.0-1.0); EOS # 0.1 K/mm3 (0.0-0.50); LARGE UNSTAINED CELL # 0.1 K/mm3 (0.0-0.4); LARGE UNSTAINED CELL % 1.7 % (0.0-4.0); LYMPH # 0.7 K/mm3 (1.5-4.5); MEAN CORPUSCULAR HEMOGLOBIN 31.5 pg (27.0-33.0); MEAN CORPUSCULAR HGB CONC 33.3 g/dl (32.0-36.5); MEAN CORPUSCULAR VOLUME 94.8 fl (80.0-96.0); MONO # 0.4 K/mm3 (0.0-0.8); MONO % 5.3 % (0.0-5.0); NEUTROPHILS # 6.3 K/mm3 (1.8-7.7); NEUTROPHILS % 82.8 % (36.0-66.0); PLATELET COUNT, AUTOMATED 160 k/mm3 (150-450); RED CELL DISTRIBUTION WIDTH 17.6 % (11.5-14.5); WHITE BLOOD COUNT 7.6 K/mm3 (4.0-10.0)
[2017-07-27 12:14] LABS: REASON FOR REVIEW COMPREHENSIVE REVIEW
--- NOTE | 2017-07-27 12:34 | IPN ---
DATE: 07/27/2017 Mr. Johnson is complaining of feeling a little nauseous this morning. He feels tired. He has not passed any blood per rectum. He has vomiting but he has brought up scant quantities of food and no blood. Temperature is 97.4, pulse 71, respiratory rate 18, blood pressure 119/65, 95% in room air. Positive fluid balance of 1580. Awake, appropriately inactive. Good historian. No acute distress. He really does appear somewhat more tired than yesterday. Breathing is symmetrical but diminished. Some upper airway sounds. Heart: Distant sounding. Normal S1, S2. Abdomen soft, doughy, nontender to deep palpation. No significant lower extremity edema. White cell count 7.6, hemoglobin 8.8, potassium this morning is 2.9 and will be repeated this afternoon. Creatinine 2.55, LDH is pending. CT of his abdomen and pelvis shows suspicion for acute infiltrate in the left medial lower lobe. I am unable to see the images at this point. He certainly does not appear to have pneumonia on physical exam. Moderately significant gallbladder with cholelithiasis and sludge. Diffuse diverticulosis. My assessment is as follows: This is an 82-year-old with acute blood anemia. Plan is as follows: 1. For acute blood loss anemia, the patient does not seem to have ongoing serious GI blood loss. I am concerned that he may have some intravascular process going on as well. There is no evidence of an enlarged spleen. Will await LDH and I have ordered a peripheral smear, which unfortunately will not be back instantaneously. Will repeat hemoglobin and hematocrit every 6 hours and transfuse as needed. 2. The patient has hypokalemia: Will repeat a basic metabolic panel (BMP) later this afternoon with the next hemoglobin and hematocrit. 3. The patient has coronary artery disease status post stenting. Off aspirin currently. 4. The patient has pulmonary hypertension. 5. The patient has chronic atrial fibrillation. 6. Pursuing outpatient bone marrow biopsy in the near future. The concern, of course is for multiple myeloma or other plasma cell dyscrasia. MTDD
[2017-07-27 14:00] VITALS: BP 107/54
[2017-07-27 17:55] LABS: CALCIUM LEVEL 8.6 MG/DL (8.8-10.2); CREATININE FOR GFR 2.63 MG/DL (0.70-1.30); POTASSIUM SERUM 3.8 MEQ/L (3.5-5.1)
--- NOTE | 2017-07-27 20:55 | CR ---
DATE OF CONSULTATION: 07/26/2017 CHIEF COMPLAINT: Rectal bleeding. HISTORY OF PRESENT ILLNESS: The patient is an 82-year-old male who came into the hospital from outpatient for transfusion. He has been having bright red blood per rectum for the past few days and has required repeated blood transfusions. He follows with Dr. Hernandez outpatient for workup of multiple myeloma. He started to feel weak and was having increased bright red blood per rectum so he was brought into the emergency room for evaluation because of his low hemoglobin and hematocrit. He has occasionally lightheadedness, some dizziness. No problems with chest pain. No problems with shortness of breath. No nausea or vomiting. No acid reflux or heartburn and no prior history of lower GI bleeding. PAST MEDICAL HISTORY: Coronary artery disease status post stent placement, CHF, angina, carotid artery stenosis, pulmonary hypertension, chronic atrial fibrillation, chronic kidney disease stage III, hypertension, BPH, type 2 diabetes, chronic anemia, gout. PAST SURGICAL HISTORY: Right orchiectomy, appendectomy, CABG, right fem-pop bypass, left carotid endarterectomy, coronary stenting, EGD in 2009, pacemaker, colonoscopy in 2013 with nonbleeding internal hemorrhoids and diverticulosis. SOCIAL HISTORY: Denies any current drug, alcohol, or tobacco abuse. FAMILY HISTORY: Noncontributory. ALLERGIES: PLAVIX, COUMADIN. HOME MEDICATIONS: Please see medication requisition. REVIEW OF SYSTEMS: Pertinent positives and negatives as stated in HPI. PHYSICAL EXAMINATION: General: Alert and oriented times three. No acute distress. Vital signs: Temperature 98.7, pulse 59, respirations 20, blood pressure 110/61, pulse oximetry 94% on room air. HEENT: Pupils equally round and reactive to light and accommodation. Heart: S1, S2, regular rate and rhythm. Lungs: Clear to auscultation bilaterally. Abdomen: Soft, nontender, nondistended. Extremities: No clubbing, cyanosis, or edema. LABORATORY DATA: Hemoglobin 8.8, hematocrit 26.7, potassium 3.8, creatinine 2.83. ASSESSMENT/PLAN: Patient is an 82-year-old male with a current history of bright red blood per rectum likely secondary to diverticular bleed versus less likely multiple myeloma versus internal hemorrhoids. The patient has been worked up for this GI bleed outpatient recently by Dr. Keith who was avoiding any endoscopy due to his comorbidities and high risk for procedure. During this hospital stay we will do the same thing, we will avoid endoscopy unless it is needed emergently to control bleeding. We will continue to treat him medically and transfuse as needed to keep his hemoglobin stable and keep him asymptomatic and the bleeding will likely resolve on its own. If for some reason he needs more than 5-6 units of blood or becomes unstable, I will gladly do an endoscopy as long as the patient is aware of the high risk involved with it. The patient and his understand and they agree that they would like to avoid any procedures unless absolutely necessary. I will continue to follow the patient with you.
[2017-07-27] MEDS: PREGABALIN 75 MG CAP(LYRICA) PO SCH (20:56)
[2017-07-27 22:00] VITALS: BP 100/54
[2017-07-28 06:00] VITALS: BP 104/51
[2017-07-28 07:12] LABS: ALBUMIN 3.1 GM/DL (3.2-5.2); ALBUMIN/GLOBULIN RATIO 1.03 (1.00-1.93); BILIRUBIN,TOTAL 0.7 MG/DL (0.2-1.0); CALCIUM LEVEL 8.3 MG/DL (8.8-10.2); CREATININE FOR GFR 2.73 MG/DL (0.70-1.30); POTASSIUM SERUM 3.9 MEQ/L (3.5-5.1); TOTAL PROTEIN 6.1 GM/DL (6.4-8.2)
[2017-07-28] MEDS: HumaLOG INSULIN (NovoLOG) PER UNIT SC SCH ×4 (07:30→21:00)
[2017-07-28 08:07] LABS: BILIRUBIN,DIRECT 0.4 MG/DL (0.0-0.2)
[2017-07-28] MEDS: SENOKOT S TAB PO SCH ×2 (09:00→21:51)
[2017-07-28] MEDS: ISOSORBIDE MON. (IMDUR) 60 MG XR TAB PO SCH (09:00)
[2017-07-28] MEDS: CARVedilol 12.5 MG TAB PO SCH ×2 (09:00→21:52)
[2017-07-28] MEDS: amLODIPine 5 MG TAB PO SCH (09:00)
[2017-07-28] MEDS: PANTOPRAZOLE 40MG INJ (PROTONIX) (C9113) IV SCH ×2 (09:58→21:50)
[2017-07-28] MEDS: FEBUXOSTAT 40 MG TABLET (ULORIC) PO SCH (09:59)
[2017-07-28] MEDS: FERROUS SULFATE 325MG TAB PO SCH ×2 (09:59→21:51)
[2017-07-28] MEDS: CALCITRIOL 0.25 MCG CAP (S0169) PO SCH (10:01)
[2017-07-28] MEDS: TORSEMIDE 20 MG TAB PO SCH ×2 (10:02→17:38)
[2017-07-28] MEDS: DIGOXIN 0.125 MG TAB PO SCH (10:03)
[2017-07-28] MEDS: CYANOCOBALAMIN 500 MCG TAB PO SCH (10:03)
[2017-07-28] MEDS: ONDANSETRON 4MG/2ML VIAL (J2405) IV PRN (10:59)
--- NOTE | 2017-07-28 13:04 | IPN ---
DATE: 07/28/2017 Mr. Johnson is feeling well this morning, tolerated advanced diet yesterday. Has not passed any more blood per rectum. No chest pain, no shortness of breath. Temperature is 97.8, pulse 62, respiratory rate 18, blood pressure 104/51, 98% on room air. Intake and output notable for a positive fluid balance of 950, one bowel movement yesterday, which is described as soft, green and large. Awake, appropriately interactive, pleasantly conversant, good historian. No acute distress. Mucous membranes are moist. Neck is supple. Breathing is symmetrical and rested. I:E ratio is 1:3. Heart: Regular rate and rhythm. Abdomen: Soft, doughy, nontender. Hemoglobin 8.0, repeat today 8.4. BUN 136, creatinine 2.73, potassium 3.9. My assessment is as follows: An 82-year-old with acute blood loss anemia. Plan is as follows: 1. Acute blood loss anemia. Ongoing blood loss seems to have slowed. Will continue to cycle hemoglobin and hematocrit tonight. Assuming that hemoglobin and hematocrit remain stable, I would plan for discharge in the next 1-2 days. He obviously has a bone marrow process going on. Plan is to followup with Dr. Hernandez. I did discuss the case by phone with Dr. Hernandez on 07/27/2017. She would be willing to followup the patient some time this week and perhaps do his bone marrow biopsy some time this week. 2. The patient has resolved hypokalemia 3. The patient has coronary artery disease, status post stenting. 4. The patient has pulmonary hypertension. 5. The patient has chronic atrial fibrillation and appeared somewhat regular on exam today.
[2017-07-28 15:45] VITALS: BP 104/52
[2017-07-28] MEDS: NS 1,000 ML IV SCH (15:54)
[2017-07-28] MEDS ORDERED: GOLYTELY SOLN 4000 ML BTL PO ONE (18:00)
[2017-07-28 20:00] VITALS: BP 119/57
[2017-07-28] MEDS: PREGABALIN 75 MG CAP(LYRICA) PO SCH (21:51)
[2017-07-28 22:31] LABS: MEAN CORPUSCULAR HEMOGLOBIN 31.7 pg (27.0-33.0); MEAN CORPUSCULAR HGB CONC 33.6 g/dl (32.0-36.5); MEAN CORPUSCULAR VOLUME 94.5 fl (80.0-96.0); WHITE BLOOD COUNT 8.9 K/mm3 (4.0-10.0)
[2017-07-29] VITALS (11 sets, daily range): BP systolic 101–124; BP diastolic 51–63
[2017-07-29] MEDS: NS 1,000 ML IV SCH ×3 (00:20→16:00)
[2017-07-29] MEDS: ACETAMINOPHEN TAB 650MG DOSE (2X325MG) PO PRN ×2 (01:54→09:46)
[2017-07-29 05:25] LABS: BASO % 0.1 % (0.0-1.0); EOS % 0.6 % (0.0-3.0); LARGE UNSTAINED CELL # 0.1 K/mm3 (0.0-0.4); LARGE UNSTAINED CELL % 1.1 % (0.0-4.0); LYMPH # 0.7 K/mm3 (1.5-4.5); LYMPH % 9.2 % (24.0-44.0); MEAN CORPUSCULAR HEMOGLOBIN 31.7 pg (27.0-33.0); MEAN CORPUSCULAR HGB CONC 33.7 g/dl (32.0-36.5); MEAN CORPUSCULAR VOLUME 94.1 fl (80.0-96.0); MONO # 0.3 K/mm3 (0.0-0.8); MONO % 5.3 % (0.0-5.0); NEUTROPHILS # 5.4 K/mm3 (1.8-7.7); NEUTROPHILS % 83.8 % (36.0-66.0); PLATELET COUNT, AUTOMATED 137 k/mm3 (150-450); RED CELL DISTRIBUTION WIDTH 19.4 % (11.5-14.5); WHITE BLOOD COUNT 6.5 K/mm3 (4.0-10.0)
[2017-07-29 05:48] LABS: ALBUMIN 2.9 GM/DL (3.2-5.2); ALBUMIN/GLOBULIN RATIO 0.83 (1.00-1.93); BILIRUBIN,TOTAL 0.7 MG/DL (0.2-1.0); CALCIUM LEVEL 8.1 MG/DL (8.8-10.2); CREATININE FOR GFR 2.37 MG/DL (0.70-1.30); GLOMERULAR FILTRATION RATE 28.2 (>35); POTASSIUM SERUM 2.9 MEQ/L (3.5-5.1); TOTAL PROTEIN 6.4 GM/DL (6.4-8.2)
[2017-07-29] MEDS ORDERED: POTASSIUM CHLORIDE 10 MEQ SR TABLET PO ONE ×2 (06:15→09:00)
[2017-07-29] MEDS: HumaLOG INSULIN (NovoLOG) PER UNIT SC SCH ×4 (07:30→21:00)
[2017-07-29] MEDS: amLODIPine 5 MG TAB PO SCH (09:00)
[2017-07-29] MEDS: CARVedilol 12.5 MG TAB PO SCH ×2 (09:00→21:00)
[2017-07-29] MEDS: SENOKOT S TAB PO SCH ×2 (09:00→21:35)
[2017-07-29 09:16] LABS: MAGNESIUM LEVEL 2.6 MG/DL (1.8-2.4)
[2017-07-29] MEDS: FERROUS SULFATE 325MG TAB PO SCH ×2 (09:41→21:35)
[2017-07-29] MEDS: TORSEMIDE 20 MG TAB PO SCH ×2 (09:41→17:22)
[2017-07-29] MEDS: ISOSORBIDE MON. (IMDUR) 60 MG XR TAB PO SCH (09:42)
[2017-07-29] MEDS: DIGOXIN 0.125 MG TAB PO SCH (09:43)
[2017-07-29] MEDS: FEBUXOSTAT 40 MG TABLET (ULORIC) PO SCH (09:44)
[2017-07-29] MEDS: CALCITRIOL 0.25 MCG CAP (S0169) PO SCH (09:44)
[2017-07-29] MEDS: CYANOCOBALAMIN 500 MCG TAB PO SCH (09:45)
[2017-07-29] MEDS: PANTOPRAZOLE 40MG INJ (PROTONIX) (C9113) IV SCH ×2 (09:45→21:35)
--- NOTE | 2017-07-29 10:15 | IPN ---
DATE: 07/29/2017 Mr. Johnson is somewhat depressed this morning. He has been passing blood via rectum all night. He did not sleep very well. No abdominal pain. No chest pain. No shortness of breath. Temperature is 96.5, pulse 68, respiratory rate 18, blood pressure 101/53, 98% on room air. Five stools yesterday, two since midnight. Negative fluid status of -320 yesterday. Awake, appropriately interactive. Somewhat flattened affect. Mucous membranes are tacky. Neck supple. Breathing is symmetrical and rested. Heart: Regular rate and rhythm. Paced on the monitor, not tachycardic. Abdomen: Soft. Doughy. Nontender. Hyperactive bowel sounds. No significant lower extremity edema. White cell count 6.5, hemoglobin 7.9 down from 8.4, and platelets of 137. BUN 122, creatinine 2.37, potassium 2.9. ASSESSMENT: This is an 82-year-old with acute blood loss anemia due to GI bleed in the setting of bone marrow dyscrasia. PLAN: 1. Acute blood loss anemia. I have discussed this case with Dr. Keith today as well as vic herrera. Pursuing EGD and colonoscopy today. The patient is nothing by mouth and has taken a gallon of GoLYTELY with good effect. Transfusing blood, repeating labs this morning, did receive fresh frozen plasma (FFP) yesterday. 2. The patient has bone marrow dyscrasia, likely multiple myeloma. Planning bone marrow biopsy as an outpatient. I have discussed this case during the stay with Dr. Hernandez. 3. The patient has continuing hypokalemia. Will replete and recheck along with a magnesium level. 4. The patient has coronary artery disease, status post stenting and coronary artery bypass graft (CABG). 5. The patient has pulmonary hypertension. 6. The patient has chronic atrial fibrillation and is currently paced on the monitor.
[2017-07-29] MEDS ORDERED: PROPOFOL 200 MG/20 ML VIAL As Ordered ONE (12:52)
[2017-07-29] MEDS ORDERED: LIDOCAINE 2% INJ 100 MG/5 ML SDV (FOR ANES.) As Ordered ONE (12:52)
--- NOTE | 2017-07-29 12:54 | ROOR ---
Patient Name: Kyle Johnson Procedure Date: 07/29/2017 12:40 PM Date of : 1935 Age: 82 Room: [facility] Gender: Male Note Status: Finalized Procedure: Upper GI endoscopy Indications: Iron deficiency anemia, Melena Providers: Colin Keith MD Referring MD: Ayaka HOPKINS MD Requesting Provider: Medicines: Monitored Anesthesia Care Complications: No immediate complications. Procedure: Pre-Anesthesia Assessment: - The heart rate, respiratory rate, oxygen saturations, blood pressure, adequacy of pulmonary ventilation, and response to care were monitored throughout the procedure. The Endoscope was introduced through the mouth, and advanced to the second part of duodenum. The upper GI endoscopy was accomplished without difficulty. The patient tolerated the procedure well. Findings: The Z-line was irregular and was found 45 cm from the incisors. A medium-sized hiatal hernia was present. No other significant abnormalities were identified in a careful examination of the stomach. The exam of the duodenum was otherwise normal. Impression: - Z-line irregular, 45 cm from the incisors. - Medium-sized hiatal hernia. - No specimens collected. - The examination was otherwise normal. Recommendation: - Patient has a contact number available for emergencies. The signs and symptoms of potential delayed complications were discussed with the patient. Return to normal activities tomorrow. Written discharge instructions were provided to the patient. - High fiber diet. - Follow an antireflux regimen. - Continue present medications. - Return patient to hospital [facility] for ongoing care. - Continue present medications. - The findings and recommendations were discussed with the patient's family. Colin Keith MD Colin Keith MD 07/29/2017 12:54:01 PM This report has been signed electronically. Number of Addenda: 0 Note Initiated On: 07/29/2017 12:40 PM Estimated Blood Loss: Estimated blood loss: none.
--- NOTE | 2017-07-29 13:31 | ROOR ---
Patient Name: Kyle Johnson Procedure Date: 07/29/2017 12:42 PM Date of : 1935 Age: 82 Room: [facility] Gender: Male Note Status: Finalized Procedure: Total Colonoscopy to Cecum + Hemoclips Indications: Rectal bleeding, Iron deficiency anemia secondary to chronic blood loss Providers: Colin Keith MD Referring MD: Ayaka HOPKINS MD Requesting Provider: Medicines: Monitored Anesthesia Care Complications: No immediate complications. Procedure: Pre-Anesthesia Assessment: - The heart rate, respiratory rate, oxygen saturations, blood pressure, adequacy of pulmonary ventilation, and response to care were monitored throughout the procedure. The Colonoscope was introduced through the anus and advanced to the cecum, identified by appendiceal orifice and ileocecal valve. The colonoscopy was performed without difficulty. The patient tolerated the procedure well. The quality of the bowel preparation was poor. Findings: The perianal and digital rectal examinations were normal. Non-bleeding internal hemorrhoids were found during retroflexion. The hemorrhoids were small and Grade I (internal hemorrhoids that do not prolapse). Multiple small and large-mouthed diverticula were found in the entire colon. One localized bleeding erosion was found at the ileocecal valve. For hemostasis, two hemostatic clips were successfully placed (MR conditional). There was no bleeding at the end of the procedure. The exam was otherwise without abnormality on direct and retroflexion views. Red blood was found in the entire colon. The exam was otherwise without abnormality. Impression: - Preparation of the colon was poor. - Non-bleeding internal hemorrhoids. - Diverticulosis in the entire examined colon. - One erosion at the ileocecal valve. Clips (MR conditional) were placed. - The examination was otherwise normal on direct and retroflexion views. - Blood in the entire examined colon. - The examination was otherwise normal. - No specimens collected. - The exam was otherwise normal to the cecum. Recommendation: - Patient has a contact number available for emergencies. The signs and symptoms of potential delayed complications were discussed with the patient. Return to normal activities tomorrow. Written discharge instructions were provided to the patient. - Return patient to hospital [facility] for ongoing care. - Continue present medications. - The findings and recommendations were discussed with the patient, their spouse and their primary physician. Colin Keith MD Colin Keith MD 07/29/2017 1:30:39 PM This report has been signed electronically. Number of Addenda: 0 Note Initiated On: 07/29/2017 12:42 PM Estimated Blood Loss: Estimated blood loss: none.
[2017-07-29 15:29] LABS: CALCIUM LEVEL 7.8 MG/DL (8.8-10.2); CREATININE FOR GFR 2.38 MG/DL (0.70-1.30); GLOMERULAR FILTRATION RATE 28.1 (>35); MAGNESIUM LEVEL 2.7 MG/DL (1.8-2.4)
[2017-07-29 15:39] LABS: POTASSIUM SERUM 3.8 MEQ/L (3.5-5.1)
[2017-07-29] MEDS: NORCO, ANEXSIA 5/325MG TABLET (HYDROcodone/ACETAMINOPHEN) PO PRN (16:00)
[2017-07-29] MEDS: PREGABALIN 75 MG CAP(LYRICA) PO SCH (21:35)
[2017-07-29 22:15] LABS: MEAN CORPUSCULAR HGB CONC 32.6 g/dl (32.0-36.5); MEAN CORPUSCULAR VOLUME 95.2 fl (80.0-96.0)
[2017-07-30] VITALS (7 sets, daily range): BP systolic 102–121; BP diastolic 55–68
[2017-07-30 06:03] LABS: ALBUMIN 2.8 GM/DL (3.2-5.2); ALBUMIN/GLOBULIN RATIO 0.9 (1.00-1.93); BILIRUBIN,TOTAL 0.9 MG/DL (0.2-1.0); CALCIUM LEVEL 7.6 MG/DL (8.8-10.2); CREATININE FOR GFR 2.21 MG/DL (0.70-1.30); GLOMERULAR FILTRATION RATE 30.6 (>35); POTASSIUM SERUM 3.2 MEQ/L (3.5-5.1); TOTAL PROTEIN 5.9 GM/DL (6.4-8.2)
[2017-07-30] MEDS: HumaLOG INSULIN (NovoLOG) PER UNIT SC SCH ×4 (07:30→20:30)
[2017-07-30] MEDS ORDERED: POTASSIUM CHLORIDE 10 MEQ SR TABLET PO ONE ×2 (08:00→14:00)
[2017-07-30] MEDS: NS 1,000 ML IV SCH (08:13)
[2017-07-30] MEDS: PANTOPRAZOLE 40MG INJ (PROTONIX) (C9113) IV SCH ×2 (08:13→20:30)
[2017-07-30] MEDS: SENOKOT S TAB PO SCH ×2 (08:13→20:30)
[2017-07-30] MEDS: FERROUS SULFATE 325MG TAB PO SCH ×2 (08:14→20:29)
[2017-07-30] MEDS: CALCITRIOL 0.25 MCG CAP (S0169) PO SCH (08:14)
[2017-07-30] MEDS: CYANOCOBALAMIN 500 MCG TAB PO SCH (08:14)
[2017-07-30] MEDS: FEBUXOSTAT 40 MG TABLET (ULORIC) PO SCH (08:15)
[2017-07-30] MEDS: ISOSORBIDE MON. (IMDUR) 60 MG XR TAB PO SCH (08:15)
[2017-07-30] MEDS: amLODIPine 5 MG TAB PO SCH (08:15)
[2017-07-30] MEDS: CARVedilol 12.5 MG TAB PO SCH ×2 (08:16→20:29)
[2017-07-30] MEDS: TORSEMIDE 20 MG TAB PO SCH ×2 (08:16→16:46)
[2017-07-30] MEDS: DIGOXIN 0.125 MG TAB PO SCH (08:16)
[2017-07-30 11:21] LABS: MEAN CORPUSCULAR HEMOGLOBIN 32.4 pg (27.0-33.0); MEAN CORPUSCULAR HGB CONC 33.5 g/dl (32.0-36.5); MEAN CORPUSCULAR VOLUME 96.7 fl (80.0-96.0); RED CELL DISTRIBUTION WIDTH 19.3 % (11.5-14.5); WHITE BLOOD COUNT 5.8 K/mm3 (4.0-10.0)
[2017-07-30 11:31] LABS: CALCIUM LEVEL 7.3 MG/DL (8.8-10.2); CREATININE FOR GFR 2.2 MG/DL (0.70-1.30); GLOMERULAR FILTRATION RATE 30.7 (>35); MAGNESIUM LEVEL 2.5 MG/DL (1.8-2.4); POTASSIUM SERUM 3.4 MEQ/L (3.5-5.1)
[2017-07-30] MEDS ORDERED: SLF 3 ML SYR IV PRN (13:00)
--- NOTE | 2017-07-30 13:33 | IPN ---
DATE: 07/30/2017 Mr. Johnson is awake, appropriately interactive, and pleasantly conversant. He has no complaints this morning. He did not sleep well last night. He was awake, but his thinks that is because he slept a lot yesterday during the day. He has not passed any blood. He has not had much to eat apart from pudding. Temperature is 97, pulse 60, respiratory rate 18, blood pressure 121/68 and 99% on room air. Awake, appropriately interactive, and pleasantly conversant. Fluid balance is -660. Weight is 80 kg, down from a high of 84.9 during this stay. Mucous membranes are moist. Neck supple. Breathing is symmetrical, rested. I:E ratio is 1:3. Heart is distant sounding. Abdomen soft, hyperactive bowel sounds. White cell count 5.8, hemoglobin 8.1 and platelets of 123. BUN 95, creatinine 2.2, and potassium of 3.4, that is a repeat from 3.2 earlier today. ASSESSMENT: This is an 82-year-old with acute blood loss anemia due to GI bleed in the setting of bone marrow dyscrasia. PLAN: 1. Acute blood loss anemia. The patient did have colonoscopy and EGD yesterday. An ileocecal clot was noted and was oozing. It was clipped. He has not had any further bleeding at this point. Diet is advanced. Hemoglobin and hematocrit is trending downward slowly. Will repeat levels in the morning and transfuse as needed. Would recommend maintaining his PCU status currently. 2. The patient has hypokalemia which will be repleted. Repeat levels in the morning. 3. The patient has coronary artery disease status post stenting and coronary artery bypass graft. No chest pain or shortness of breath 4. The patient has history of pulmonary hypertension. 5. The patient has chronic atrial fibrillation. No significant arrhythmia on the monitor.
[2017-07-30] MEDS: SLF 3 ML SYR IV SCH ×2 (13:44→20:30)
[2017-07-30] MEDS: NORCO, ANEXSIA 5/325MG TABLET (HYDROcodone/ACETAMINOPHEN) PO PRN (14:23)
[2017-07-30] MEDS ORDERED: ALBUTEROL SULFATE 2.5 MG/0.5 ML INH NEB SOLN INH PRN (15:15)
[2017-07-30] MEDS: ONDANSETRON 4MG/2ML VIAL (J2405) IV PRN (16:46)
[2017-07-30] MEDS: ADVAIR HFA 230/21MCG INHALER INH SCH (19:19)
[2017-07-30] MEDS: PREGABALIN 75 MG CAP(LYRICA) PO SCH (20:30)
[2017-07-31 03:43] VITALS: BP 97/52
[2017-07-31] MEDS: SLF 3 ML SYR IV SCH ×3 (04:23→21:41)
[2017-07-31 05:55] LABS: MEAN CORPUSCULAR HEMOGLOBIN 32.3 pg (27.0-33.0); MEAN CORPUSCULAR HGB CONC 32.7 g/dl (32.0-36.5); MEAN CORPUSCULAR VOLUME 98.7 fl (80.0-96.0); WHITE BLOOD COUNT 4.9 K/mm3 (4.0-10.0)
[2017-07-31 06:20] LABS: ALBUMIN 2.6 GM/DL (3.2-5.2); ALBUMIN/GLOBULIN RATIO 0.87 (1.00-1.93); BILIRUBIN,TOTAL 0.6 MG/DL (0.2-1.0); CALCIUM LEVEL 7.3 MG/DL (8.8-10.2); CREATININE FOR GFR 2.01 MG/DL (0.70-1.30); GLOMERULAR FILTRATION RATE 34.1 (>35); POTASSIUM SERUM 3.4 MEQ/L (3.5-5.1); TOTAL PROTEIN 5.6 GM/DL (6.4-8.2)
--- NOTE | 2017-07-31 07:03 | CR ---
DATE OF CONSULTATION: 07/29/2017 REASON FOR CONSULTATION: This is an 82-year-old white male known to me previously, who presents to [facility] ([facility]) with anemia and shortness of breath. He has no complaints of abdominal pain, weight loss or change in bowel habits. He was seen previously in my office for anemia but at the time, he refused to have any procedures performed. Repeat blood count did show that he had a count of seven and 23. He had occasional lightheadedness and dizziness. No complaints of chest pain. He has been having melena for several months. He has had previous problems with lower gastrointestinal (GI) bleeding in the past with difficulty in finding the source. PAST MEDICAL HISTORY: Positive for: 1. Coronary artery disease with stents. 2. Congestive heart failure (CHF). 3. Angina. 4. Carotid artery stenosis. 5. Pulmonary hypertension. 6. Chronic atrial fibrillation. 7. Chronic kidney disease stage III. 8. Hypertension. 9. Benign prostatic hypertrophy (BPH). 10. Diabetes. 11. Chronic anemia. 12. Gout. PAST SURGICAL HISTORY 1. Appendectomy. 2. Coronary artery bypass graft. 3. Right femoral popliteal (fem-pop) bypass 4. Left carotid arterectomy. 5. Coronary stenting. 6. Upper endoscopy in 2009. 7. Colonoscopy in 2013. SOCIAL HISTORY: Cigarettes, alcohol, drugs negative. FAMILY HISTORY: Noncontributory to above problem. ALLERGIES: PLAVIX and COUMADIN. MEDICATIONS: See admission history and physical. REVIEW OF SYSTEMS: Noncontributory. PHYSICAL EXAMINATION: GENERAL: Well-developed, well-nourished white male in no acute distress, appears his stated age. CHEST: Clear to auscultation. CARDIOVASCULAR: Exam showed irregular rhythm, 2/6 systolic ejection murmur left lower sternal border. ABDOMEN: Soft, nontender. No masses, guarding, rebound, hepatosplenomegaly. Bowel sounds positive. EXTREMITIES: No cyanosis, clubbing, edema. ANALYSIS: Anemia with a count of eight and 26 at the present time. PLAN: Will be to set the patient up for an EGD and colonoscopy for evaluation of possible etiologies for this patient's source of bleeding. Possible differential is arteriovenous malformation (AVM) versus diverticular bleed.
[2017-07-31] MEDS: ADVAIR HFA 230/21MCG INHALER INH SCH ×2 (07:22→21:53)
[2017-07-31 08:00] VITALS: BP 95/48
[2017-07-31] MEDS ORDERED: FUROSEMIDE 40 MG/4 ML VIAL (J1940) IV ONE (08:00)
[2017-07-31] MEDS: PANTOPRAZOLE 40MG INJ (PROTONIX) (C9113) IV SCH ×2 (08:34→21:40)
[2017-07-31] MEDS: HumaLOG INSULIN (NovoLOG) PER UNIT SC SCH ×4 (08:35→21:00)
[2017-07-31] MEDS: SENOKOT S TAB PO SCH ×2 (08:36→21:40)
[2017-07-31] MEDS: DIGOXIN 0.125 MG TAB PO SCH (08:36)
[2017-07-31] MEDS: FEBUXOSTAT 40 MG TABLET (ULORIC) PO SCH (08:37)
[2017-07-31] MEDS: CYANOCOBALAMIN 500 MCG TAB PO SCH (08:37)
[2017-07-31] MEDS: FERROUS SULFATE 325MG TAB PO SCH ×2 (08:37→21:40)
[2017-07-31] MEDS: TORSEMIDE 20 MG TAB PO SCH ×2 (08:38→17:04)
[2017-07-31] MEDS: CARVedilol 12.5 MG TAB PO SCH ×3 (08:38→21:00)
[2017-07-31] MEDS: CALCITRIOL 0.25 MCG CAP (S0169) PO SCH (08:38)
[2017-07-31] MEDS: amLODIPine 5 MG TAB PO SCH ×2 (08:38→12:29)
[2017-07-31] MEDS ORDERED: POTASSIUM CHLORIDE 10 MEQ SR TABLET PO ONE (10:00)
[2017-07-31 12:00] VITALS: BP 116/65
[2017-07-31] MEDS: ISOSORBIDE MON. (IMDUR) 60 MG XR TAB PO SCH (12:29)
--- NOTE | 2017-07-31 13:10 | IPN ---
DATE: 07/31/2017 Mr. Johnson is feeling a little better and more energetic today. He has been working himself up to get out of the hospital and looking to provide himself with some motivation and energy toward that goal. He did have some anxiety last night and did not sleep very well. Temperature is 98, pulse 60, respiratory rate 18, blood pressure 116/65, 98% on room air. Input and output notable for a negative fluid balance of -310. Weight is recorded as 82.5 kg. He is awake, appropriately interactive, and sitting in a chair. Affect is less flat. Breathing is symmetrical. I:E ratio is 1:3. No wheezes, rales or rhonchi. No accessory muscle use. Heart is distant sounding. Normal S1, S2. No elevation of jugular venous pressure. Abdomen soft, doughy, nontender. Hyperactive bowel sounds. White cell count 4.9, hemoglobin 7.6, and platelets of 126, BUN 73, creatinine 2.1, potassium 3.4. ASSESSMENT: This is an 82-year-old with acute blood loss anemia due to GI bleed in the setting of bone marrow dyscrasia. PLAN: 1. Acute blood loss anemia. The patient's hemoglobin is trending down, which I believe is dilutional today. We will give him another unit of blood and also a dose of Lasix, as he likely has a positive fluid status. 2. The patient has hypokalemia, which will be repleted. 3. The patient had bleeding from the terminal ileum or at the ileocecal valve. Obvious ongoing bleeding. 4. The patient has pulmonary hypertension by history. 5. The patient has chronic atrial fibrillation. He does not have significant arrhythmia. Can likely be transferred to the medical/surgical floor. 6. Physical therapy (PT) is ordered pending a repeat hemoglobin and hematocrit that would allow them to get him up and moving. 7. The patient has suspected bone marrow dyscrasias. Plan to follow with Dr. Hernandez next week as an outpatient.
[2017-07-31 16:00] VITALS: BP 106/55
[2017-07-31 19:59] VITALS: BP 101/54
[2017-07-31] MEDS: PREGABALIN 75 MG CAP(LYRICA) PO SCH (21:40)
[2017-07-31 23:59] VITALS: BP 119/60
[2017-08-01 02:20] VITALS: BP 112/65
[2017-08-01] MEDS: SLF 3 ML SYR IV SCH ×3 (05:10→21:14)
[2017-08-01 06:00] VITALS: BP 109/57
[2017-08-01 06:03] LABS: MEAN CORPUSCULAR HEMOGLOBIN 31.3 pg (27.0-33.0); MEAN CORPUSCULAR HGB CONC 31.8 g/dl (32.0-36.5); MEAN CORPUSCULAR VOLUME 98.6 fl (80.0-96.0); WHITE BLOOD COUNT 5.2 K/mm3 (4.0-10.0)
[2017-08-01 06:15] LABS: ALBUMIN 2.8 GM/DL (3.2-5.2); BILIRUBIN,TOTAL 0.8 MG/DL (0.2-1.0); CREATININE FOR GFR 1.96 MG/DL (0.70-1.30); GLOMERULAR FILTRATION RATE 35.1 (>35); POTASSIUM SERUM 3.8 MEQ/L (3.5-5.1); TOTAL PROTEIN 5.6 GM/DL (6.4-8.2)
[2017-08-01] MEDS: ADVAIR HFA 230/21MCG INHALER INH SCH ×2 (07:58→19:25)
[2017-08-01] MEDS: HumaLOG INSULIN (NovoLOG) PER UNIT SC SCH ×4 (08:59→21:15)
[2017-08-01] MEDS: PANTOPRAZOLE 40MG INJ (PROTONIX) (C9113) IV SCH ×2 (08:59→21:13)
[2017-08-01] MEDS: amLODIPine 5 MG TAB PO SCH (09:00)
[2017-08-01] MEDS: SENOKOT S TAB PO SCH ×2 (09:00→21:14)
[2017-08-01] MEDS: FEBUXOSTAT 40 MG TABLET (ULORIC) PO SCH (09:00)
[2017-08-01] MEDS: CARVedilol 12.5 MG TAB PO SCH ×2 (09:00→21:15)
[2017-08-01] MEDS: CYANOCOBALAMIN 500 MCG TAB PO SCH (09:00)
[2017-08-01] MEDS: FERROUS SULFATE 325MG TAB PO SCH ×2 (09:00→21:14)
[2017-08-01] MEDS: CALCITRIOL 0.25 MCG CAP (S0169) PO SCH (09:00)
[2017-08-01] MEDS: TORSEMIDE 20 MG TAB PO SCH ×2 (09:01→17:22)
[2017-08-01] MEDS: ISOSORBIDE MON. (IMDUR) 60 MG XR TAB PO SCH (09:03)
[2017-08-01] MEDS: DIGOXIN 0.125 MG TAB PO SCH (09:06)
--- NOTE | 2017-08-01 10:45 | IPNPDOC ---
Text Note Date of Service The patient was seen on 08/01/17. NOTE Subjective: Patient seen and examined at bedside. also at bedside. Mr. Johnson continues to feel better, with improved appetite and more energetic today. He was looking forward to a good night sleep last night, but was interrupted when he was transferred to his new room. Objective: General: NAD, lying comfortably in bed HEENT: NC/AT, EOMI Lungs: CTA B/L Heart: +S1S2, RRR Abd: soft, NT, +BS Ext: bilateral LE edema ASSESSMENT: This is an 82-year-old with acute blood loss anemia due to GI bleed in the setting of bone marrow dyscrasia. PLAN: 1. Acute blood loss anemia. The patient's hemoglobin is trending down, s/p one unit of blood and also a dose of Lasix. Hold off for transfusion today, as he is feeling better, continue with serial H/H. 2. Hypokalemia, continue to follow and replete as needed. 3. The patient had bleeding from the terminal ileum or at the ileocecal valve. Obvious ongoing bleeding. Patient states had small bloody bowel movement yesterday. 4. The patient has pulmonary hypertension by history. 5. The patient has chronic atrial fibrillation. 6. Physical therapy (PT) is ordered for re-evaluation. 7. The patient has suspected bone marrow dyscrasias. Plan to follow with Dr. Hernandez next week as an outpatient. VS,Robertbone, I+O VS, Fishbone, I+O Laboratory Tests 07/31/17 15:38 08/01/17 05:18 Red Blood Count 2.51 L, Mean Corpuscular Volume 98.6 H, Mean Corpuscular Hemoglobin 31.3, Mean Corpuscular Hemoglobin Concent 31.8 L, Red Cell Distribution Width 19.0 H, Calcium Level 8.0 L, Aspartate Amino Transf (AST/SGOT ) 16, Alanine Aminotransferase (ALT/SGPT) 19, Alkaline Phosphatase 57, Total Bilirubin 0.8, Total Protein 5.6 L, Albumin 2.8 L Vital Signs Date Time Temp Pulse Resp B/P (MAP) Pulse Ox O2 Delivery O2 Flow Rate FiO2 08/01/17 09:06 63 08/01/17 09:03 99/49 08/01/17 06:00 99.3 18 96 Room Air I&O- Last 24 Hours up to 6 AM 08/01/17 06:00 Intake Total 2480 ml Output Total 2400 ml Balance 80 ml MARYANN ESTRADA MD Aug 01, 2017 10:45
[2017-08-01 14:00] VITALS: BP 106/53
[2017-08-01] MEDS: PREGABALIN 75 MG CAP(LYRICA) PO SCH (21:14)
[2017-08-01 22:00] VITALS: BP 111/55
[2017-08-02] MEDS: SLF 3 ML SYR IV SCH ×3 (05:16→21:19)
[2017-08-02 06:00] VITALS: BP 122/56
[2017-08-02 06:31] LABS: MEAN CORPUSCULAR HGB CONC 32.5 g/dl (32.0-36.5); MEAN CORPUSCULAR VOLUME 98.4 fl (80.0-96.0); RED CELL DISTRIBUTION WIDTH 18.8 % (11.5-14.5); WHITE BLOOD COUNT 5.8 K/mm3 (4.0-10.0)
[2017-08-02 06:50] LABS: ALBUMIN 2.8 GM/DL (3.2-5.2); ALBUMIN/GLOBULIN RATIO 0.88 (1.00-1.93); BILIRUBIN,TOTAL 0.6 MG/DL (0.2-1.0); CALCIUM LEVEL 8.7 MG/DL (8.8-10.2); CREATININE FOR GFR 1.92 MG/DL (0.70-1.30); POTASSIUM SERUM 3.8 MEQ/L (3.5-5.1)
[2017-08-02] MEDS: ADVAIR HFA 230/21MCG INHALER INH SCH ×2 (07:44→19:45)
--- NOTE | 2017-08-02 08:08 | IPNPDOC ---
Date Seen The patient was seen on 08/02/17. Progress Note SUBJECTIVE: Patient is an 82-year-old male with a GI bleed. Patient is evaluated at bedside this morning. He is sitting in his chair about to eat breakfast. His is present during the evaluation. Respiratory therapy is also present. Patient states that he feels his strength is improving. He has no acute complaints of neck, back, joint pain. He denies hemoptysis, hematemesis, melena, or hematochezia. He has yet to have a bowel movement. I have informed him that PT will likely not work with him today secondary to a slight decrease in his H/H. Patient states that he would not like PT today as family are coming to visit from [place]. reports that patient will walk the halls today for exercise. Patient is schedule out-patient with hematology/ oncology for a bone marrow biopsy on Friday or Friday. OBJECTIVE PHYSICAL EXAMINATION: VITAL SIGNS: Please see below. GENERAL: Elderly male, appears stated age, well nourished, well developed, in no acute distress HEENT: Atraumatic, normocephalic, PERRL, EOMI, wears spectacles, oral mucosa appears pink and moist, nasal septum appears midline, nares are patent CARDIOVASCULAR: Regular rate and rhythm, normal S1 and S2, no murmur, rub, click RESPIRATORY: Clear to auscultation bilaterally, adequate inspiratory and expiratory airway excursion, no wheeze, rhonchi, crackles ABDOMINAL: Flat, soft, non-tender, non-distended, bowel sounds appreciated EXTREMITIES: Peripheral pulses appreciated in upper and lower extremities bilaterally, +2 pitting edema noted on bilaterally lower extremities up to the level of the tibial tuberosity, no lesions, rashes, ecchymosis noted on the left forearm NEUROLOGICAL: CN II-XII grossly intact PSYCHOLOGICAL: Pleasant, alert, and conversant LABORATORY DATA: Please see below. MICROBIOLOGY: Please see below. DVT prophylaxis ordered?: TEDs, sequentials, knee high compression ASSESSMENT AND PLAN: This is an 82-year-old male with GI bleed. PROBLEMS: 1. Acute blood loss anemia: H/H has continued to trend down to 8.2/25.2. No active bleeding reported by patient. No BM yet today. Hold transfusion at this time. Continue serial H/H. Patient reports subjective improvement. No PT in light of decreasing H/H. Continue with protonix and ferrous sulfate. 2. 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 Plan to follow- up with hematology/oncology out-patient for bone marrow biopsy. No reported pain from patient at this time. 3. Hypertension: Continue norvasc and carvedilol. 4. Atrial fibrillation: Continue digoxin. No anticoagulation at this time secondary to acute blood loss. 5. CAD s/p multiple CABG: Continue with imdur. 6. Congestive heart failure: Continue with demadex. 7. Diabetes mellitus: Continue with SSI. 8. Gout: Continue with uloric. 9. Chronic low back pain: Continue with tylenol and norco. Heating pad has been ordered. DISPOSITION: No anticoagulation at this time. Monitor H/H. Watch for signs of overt bleeding. Out-patient follow-up with hematology/oncology for bone marrow biopsy. VS, I&O, 24H, Fishbone Vital Signs/I&O Vital Signs Date Time Temp Pulse Resp B/P (MAP) Pulse Ox O2 Delivery O2 Flow Rate FiO2 08/02/17 06:00 97.8 60 18 122/56 (78) 100 Room Air I&O- Last 24 Hours up to 6 AM 08/02/17 06:00 Intake Total 1900 ml Output Total 2800 ml Balance -900 ml Laboratory Data 24H LABS Laboratory Tests 2 08/01/17 11:53: Bedside Glucose (Misc Panel) 172H 08/01/17 16:34: Bedside Glucose (Misc Panel) 158H 08/01/17 20:37: Bedside Glucose (Misc Panel) 191H 08/02/17 06:04: Anion Gap 8, Glomerular Filtration Rate 36.0, Blood Urea Nitrogen 60H, Creatinine 1.92H, Sodium Level 140, Potassium Level 3.8, Chloride Level 105, Carbon Dioxide Level 27, Calcium Level 8.7L, Aspartate Amino Transf (AST/SGOT) 17, Alanine Aminotransferase (ALT/SGPT) 23, Alkaline Phosphatase 71, Total Bilirubin 0.6, Total Protein 6.0L, Albumin 2.8L, Albumin/Globulin Ratio 0.88L CBC/BMP Laboratory Tests 08/01/17 17:54 08/02/17 06:04 Red Blood Count 2.56 L, Mean Corpuscular Volume 98.4 H, Mean Corpuscular Hemoglobin 32.0, Mean Corpuscular Hemoglobin Concent 32.5, Red Cell Distribution Width 18.8 H, Calcium Level 8.7 L, Aspartate Amino Transf (AST/SGOT ) 17, Alanine Aminotransferase (ALT/SGPT) 23, Alkaline Phosphatase 71, Total Bilirubin 0.6, Total Protein 6.0 L, Albumin 2.8 L MILAN HE OGME-I Aug 02, 2017 08:08
[2017-08-02] MEDS: HumaLOG INSULIN (NovoLOG) PER UNIT SC SCH ×4 (08:59→21:18)
[2017-08-02] MEDS: amLODIPine 5 MG TAB PO SCH (09:01)
[2017-08-02] MEDS: CARVedilol 12.5 MG TAB PO SCH ×2 (09:01→21:18)
[2017-08-02] MEDS: TORSEMIDE 20 MG TAB PO SCH ×2 (09:02→17:26)
[2017-08-02] MEDS: DIGOXIN 0.125 MG TAB PO SCH (09:03)
[2017-08-02] MEDS: FEBUXOSTAT 40 MG TABLET (ULORIC) PO SCH (09:04)
[2017-08-02] MEDS: FERROUS SULFATE 325MG TAB PO SCH ×2 (09:04→21:18)
[2017-08-02] MEDS: ISOSORBIDE MON. (IMDUR) 60 MG XR TAB PO SCH (09:04)
[2017-08-02] MEDS: SENOKOT S TAB PO SCH ×2 (09:04→21:18)
[2017-08-02] MEDS: PANTOPRAZOLE 40MG INJ (PROTONIX) (C9113) IV SCH ×2 (09:04→21:17)
[2017-08-02] MEDS: CYANOCOBALAMIN 500 MCG TAB PO SCH (09:04)
[2017-08-02] MEDS: PREGABALIN 75 MG CAP(LYRICA) PO SCH (21:18)
[2017-08-02 22:00] VITALS: BP 102/54
[2017-08-03] MEDS: SLF 3 ML SYR IV SCH ×3 (05:44→20:55)
[2017-08-03 05:54] LABS: MEAN CORPUSCULAR HEMOGLOBIN 32.2 pg (27.0-33.0); MEAN CORPUSCULAR VOLUME 97.7 fl (80.0-96.0); RED CELL DISTRIBUTION WIDTH 18.2 % (11.5-14.5); WHITE BLOOD COUNT 5.4 K/mm3 (4.0-10.0)
[2017-08-03 06:00] VITALS: BP 123/58
[2017-08-03 06:23] LABS: ALBUMIN 2.9 GM/DL (3.2-5.2); ALBUMIN/GLOBULIN RATIO 0.85 (1.00-1.93); BILIRUBIN,TOTAL 0.6 MG/DL (0.2-1.0); CALCIUM LEVEL 9.1 MG/DL (8.8-10.2); CREATININE FOR GFR 1.94 MG/DL (0.70-1.30); GLOMERULAR FILTRATION RATE 35.5 (>35); POTASSIUM SERUM 3.9 MEQ/L (3.5-5.1); TOTAL PROTEIN 6.3 GM/DL (6.4-8.2)
[2017-08-03] MEDS: ADVAIR HFA 230/21MCG INHALER INH SCH ×2 (07:46→19:35)
[2017-08-03] MEDS: HumaLOG INSULIN (NovoLOG) PER UNIT SC SCH ×4 (09:07→20:55)
[2017-08-03] MEDS: CARVedilol 12.5 MG TAB PO SCH ×2 (09:10→20:54)
[2017-08-03] MEDS: TORSEMIDE 20 MG TAB PO SCH ×2 (09:11→18:07)
[2017-08-03] MEDS: amLODIPine 5 MG TAB PO SCH (09:11)
[2017-08-03] MEDS: SENOKOT S TAB PO SCH ×2 (09:12→20:52)
[2017-08-03] MEDS: FERROUS SULFATE 325MG TAB PO SCH ×2 (09:12→20:52)
[2017-08-03] MEDS: ISOSORBIDE MON. (IMDUR) 60 MG XR TAB PO SCH (09:12)
[2017-08-03] MEDS: DIGOXIN 0.125 MG TAB PO SCH (09:12)
[2017-08-03] MEDS: CYANOCOBALAMIN 500 MCG TAB PO SCH (09:12)
[2017-08-03] MEDS: FEBUXOSTAT 40 MG TABLET (ULORIC) PO SCH (09:13)
[2017-08-03] MEDS: PANTOPRAZOLE 40MG INJ (PROTONIX) (C9113) IV SCH ×2 (09:13→20:52)
--- NOTE | 2017-08-03 09:51 | IPNPDOC ---
Text Note Date of Service The patient was seen on 08/03/17. NOTE SUBJECTIVE: Patient seen and examined at bedside. No acute overnight events reported. Patient continues to feel better. States his appetite and energy levels continue to improve. OBJECTIVE: GENERAL: Elderly male, appears stated age, well nourished, well developed, in no acute distress HEENT: Atraumatic, normocephalic, PERRL, EOMI CARDIOVASCULAR: Regular rate and rhythm, normal S1 and S2 RESPIRATORY: Clear to auscultation bilaterally ABDOMINAL: soft, non-tender, non-distended, +BS EXTREMITIES: +2 B/L LE edema, ecchymosis noted on the left forearm PSYCHOLOGICAL: Pleasant, alert, and conversant ASSESSMENT AND PLAN: This is an 82-year-old male with GI bleed. 1. Acute blood loss anemia: H/H remains stable. OK to proceed with PT. Continue with protonix and ferrous sulfate. 2. 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 Plan to follow- up with hematology/oncology out-patient for bone marrow biopsy. No reported pain from patient at this time. 3. Hypertension: Continue norvasc and carvedilol. 4. Atrial fibrillation: Continue digoxin. No anticoagulation at this time secondary to acute blood loss. 5. CAD s/p multiple CABG: Continue with imdur. 6. Congestive heart failure: Continue with demadex. 7. Diabetes mellitus: Continue with SSI. 8. Gout: Continue with uloric. 9. Chronic low back pain: Continue with tylenol and norco. Heating pad has been ordered. DISPOSITION: No anticoagulation at this time. Monitor H/H. Out-patient follow- up with hematology/oncology for bone marrow biopsy. Anticipating discharge in 24 -48 hours. VS,Fishbone, I+O VS, Fishbone, I+O Laboratory Tests 08/02/17 17:42 08/03/17 05:07 Red Blood Count 2.59 L, Mean Corpuscular Volume 97.7 H, Mean Corpuscular Hemoglobin 32.2, Mean Corpuscular Hemoglobin Concent 33.0, Red Cell Distribution Width 18.2 H, Calcium Level 9.1, Aspartate Amino Transf (AST/SGOT) 16, Alanine Aminotransferase (ALT/SGPT) 20, Alkaline Phosphatase 73, Total Bilirubin 0.6, Total Protein 6.3 L, Albumin 2.9 L Vital Signs Date Time Temp Pulse Resp B/P (MAP) Pulse Ox O2 Delivery O2 Flow Rate FiO2 08/03/17 09:12 111/51 08/03/17 09:12 66 08/03/17 09:00 Room Air 08/03/17 06:00 97.8 18 91 I&O- Last 24 Hours up to 6 AM 08/03/17 06:00 Intake Total 2340 ml Output Total 1700 ml Balance 640 ml MARYANN ESTRADA MD Aug 03, 2017 09:51
[2017-08-03 14:00] VITALS: BP 96/54
[2017-08-03 19:50] VITALS: BP 102/60
[2017-08-03] MEDS ORDERED: zolPIDEM TARTRATE 5 MG TAB PO PRN (20:30)
[2017-08-03] MEDS: PREGABALIN 75 MG CAP(LYRICA) PO SCH (20:54)
[2017-08-04 05:35] VITALS: BP 102/53
[2017-08-04] MEDS: SLF 3 ML SYR IV SCH ×2 (05:45→15:30)
[2017-08-04 06:15] LABS: MEAN CORPUSCULAR HEMOGLOBIN 31.2 pg (27.0-33.0); MEAN CORPUSCULAR VOLUME 100.8 fl (80.0-96.0); RED CELL DISTRIBUTION WIDTH 18.2 % (11.5-14.5); WHITE BLOOD COUNT 4.7 K/mm3 (4.0-10.0)
[2017-08-04 06:24] LABS: ALBUMIN 2.9 GM/DL (3.2-5.2); ALBUMIN/GLOBULIN RATIO 0.85 (1.00-1.93); BILIRUBIN,TOTAL 0.6 MG/DL (0.2-1.0); CALCIUM LEVEL 8.5 MG/DL (8.8-10.2); CREATININE FOR GFR 2.16 MG/DL (0.70-1.30); GLOMERULAR FILTRATION RATE 31.4 (>35); POTASSIUM SERUM 3.9 MEQ/L (3.5-5.1); TOTAL PROTEIN 6.3 GM/DL (6.4-8.2)
[2017-08-04] MEDS: ADVAIR HFA 230/21MCG INHALER INH SCH (07:58)
[2017-08-04 09:00] VITALS: BP 102/53
[2017-08-04] MEDS: amLODIPine 5 MG TAB PO SCH (09:00)
[2017-08-04] MEDS: CARVedilol 12.5 MG TAB PO SCH (09:00)
[2017-08-04] MEDS: CYANOCOBALAMIN 500 MCG TAB PO SCH (09:34)
[2017-08-04] MEDS: SENOKOT S TAB PO SCH (09:34)
[2017-08-04] MEDS: FERROUS SULFATE 325MG TAB PO SCH (09:34)
[2017-08-04] MEDS: PANTOPRAZOLE 40MG INJ (PROTONIX) (C9113) IV SCH (09:34)
[2017-08-04] MEDS: CALCITRIOL 0.25 MCG CAP (S0169) PO SCH (09:34)
[2017-08-04] MEDS: FEBUXOSTAT 40 MG TABLET (ULORIC) PO SCH (09:34)
[2017-08-04] MEDS: TORSEMIDE 20 MG TAB PO SCH (09:35)
[2017-08-04] MEDS: ISOSORBIDE MON. (IMDUR) 60 MG XR TAB PO SCH (09:35)
[2017-08-04] MEDS: DIGOXIN 0.125 MG TAB PO SCH (09:36)
[2017-08-04] MEDS: HumaLOG INSULIN (NovoLOG) PER UNIT SC SCH ×3 (09:37→17:23)
[2017-08-04 16:00] VITALS: BP 106/52
[2017-08-04] MEDS ORDERED: RANI15TA PO (17:09)
--- NOTE | 2017-08-04 18:57 | DS.PDOC ---
Discharge Summary General Date of Admission Jul 25, 2017 at 15:57 Date of Discharge 08/04/2017 Primary Care Physician: Donell Raygoza MD Attending Physician: MARYANN ESTRADA MD Specialist/Consultants Involve: JOHNNY VOGEL MD Specialist/Consultants Involve General surgery: Dr. Hudson Discharge Summary PROCEDURES PERFORMED DURING STAY: Upper GI endoscopy IMPRESSION: Z-line irregular, 45 cm from the incisors. Medium-sized hiatal hernia. No specimens collected. The examination was otherwise normal. Colonoscopy IMPRESSION: Preparation of the colon was poor. Non-bleeding internal hemorrhoids. Diverticulosis in the entire examined colon. One erosion at the ileocecal valve. Clips (MR conditional) were placed. The examination was otherwise normal on direct and retroflexion views. Blood in the entire examined colon. The examination was otherwise normal. No specimens collected. The exam was otherwise normal to the cecum. ADMITTING DIAGNOSES: 1. Acute blood loss anemia. DISCHARGE DIAGNOSES: 1. Acute blood loss anemia. 2. Hypokalemia. COMPLICATIONS/CHIEF COMPLAINT: Anemia. HISTORY OF PRESENT ILLNESS: 82-year-old gentleman instructed to come to the hospital for blood transfusion. Has continued to have issues with bright red blood per rectum for several days and required repeated blood transfusions. He follows with Dr. Hernandez as an outpatient for workup of multiple myeloma had a bone scan that was done earlier today. After the scan. He felt weak and he stated that he has had trouble with bright red blood per rectum. Had blood work that was drawn at a low H&H and instructed to come to the hospital for admission. Currently he has occasional lightheadedness, dizziness without syncope. Denies chest pain, productive sputum, has intermittent nonproductive cough. However, he has noticed some dyspnea on exertion. HOSPITAL COURSE: Admitted to medical-surgical unit. Consent was obtained for blood transfusion and type and cross was done. Patient received a total of 7 units of packed red blood cells and one unit of fresh frozen plasma. Anticoagulation, aspirin, and glimepiride was held. Became fluid overloaded at one point and Lasix was given. Hemoglobin and hematocrit was trended every 6 hours. H/H on admission was 7.2/22.2. H/H at time of discharge was 8.8/27.7 General surgery and gastroenterology was consulted. General surgery recommended continued medical management with procedures indicated only when necessary. GI eventually performed an EGD and colonoscopy with results listed in this report. A peripheral smear was obtained secondary to anemia and showed chronic anemai, likely multifactorial, and no abnormalities noted with the WBC or platelets. Hematology/oncology follows patient out-patient for hypogammaglobulinemia and patient has a bone marrow biopsy scheduled. Hypokalemia was replenished as needed. Other chronic medical conditions were managed appropriately throughout this admission. Patient improved significantly and was stable at time of discharge. DISCHARGE MEDICATIONS: Please see below. ALLERGIES: Please see below. PHYSICAL EXAMINATION ON DISCHARGE: VITAL SIGNS: Please see below. GENERAL: Well nourished, well developed male sitting bedside during my evaluation, appears stated age, no acute distress HEENT: Atraumatic, normocephalic, PERRL, EOMI, oral mucosa appears pink and moist, nasal septum appears midline, nares are patent, wears spectacles NECK: Soft, supple, trachea midline, no lymphadenopathy appreciated CARDIOVASCULAR EXAMINATION: Regular rate and rhythm appreciated on examination, normal S1 and S2, no murmur, rub, click RESPIRATORY EXAMINATION: Clear to auscultation bilaterally, adequate inspiratory and expiratory airway excursion, no wheeze, rhonchi, crackles ABDOMINAL EXAMINATION: Soft, nontender, nondistended, bowel sounds appreciated EXTREMITIES: Peripheral pulses appreciated bilaterally upper and lower extremities, equal, symmetrical, +2/4, +1 pitting edema noted in bilateral lower extremities up to the level of the tibial tuberosity SKIN: Warm, dry, intact, peripheral edema as noted above NEUROLOGICAL EXAMINATION: Cranial nerves II through XII appear grossly intact PSYCHIATRIC EXAMINATION: Pleasant, alert and conversant LABORATORY DATA: Please see below. IMAGING: CT abdomen and pelvis without contrast IMPRESSION: 1. Small suspected acute infiltrate/atelectasis involving the medial left lower lobe. 2. Moderately distended gallbladder with cholelithiasis and layering sludge. 3. Diffuse diverticulosis without evidence for acute diverticulitis or obvious acute inflammatory process of the enteric system. Fecal stasis and constipation cannot be excluded. 4. Further chronic stable changes as described above similar to 10/31/2015. PROGNOSIS: Stable ACTIVITY: As tolerated. DIET: Consistent carbohydrate. DISCHARGE PLAN: Prescribed ranitidine 150 mg twice a day for reflux symptoms. Monitor for signs of gastrointestinal bleeding or persistent symptoms of anemia , such as weakness or fatigue, and present to the nearest emergency department. DISPOSITION: 01 Home, Self-Care. DISCHARGE INSTRUCTIONS: 1. Follow-up with Dr. Raygoza in 7-10 days. 2. Follow-up with Dr. Keith in 2 weeks. 3. Follow-up with Dr. Hernandez as previously arranged. ITEMS TO FOLLOWUP ON ON OUTPATIENT: 1. Anemia. 2. Colonoscopy and EGD. 3. Chronic medical conditions. DISCHARGE CONDITION: Stable. TIME SPENT ON DISCHARGE: Greater than 30 minutes. Vital Signs/I&Os Vital Signs Date Time Temp Pulse Resp B/P (MAP) Pulse Ox O2 Delivery O2 Flow Rate FiO2 08/04/17 16:00 97.6 60 100 106/52 (70) 60 Room Air I&O- Last 24 Hours up to 6 AM 08/04/17 06:00 Intake Total 1850 ml Output Total 1060 ml Balance 790 ml Laboratory Data Labs 24H Laboratory Tests 2 08/03/17 19:50: Bedside Glucose (Misc Panel) 208H 08/04/17 05:31: Anion Gap 6L, Glomerular Filtration Rate 31.4L, Blood Urea Nitrogen 51H, Creatinine 2.16H, Sodium Level 136, Potassium Level 3.9, Chloride Level 100, Carbon Dioxide Level 30, Calcium Level 8.5L, Aspartate Amino Transf (AST/SGOT) 11L, Alanine Aminotransferase (ALT/SGPT) 21, Alkaline Phosphatase 72, Total Bilirubin 0.6, Total Protein 6.3L, Albumin 2.9L, Albumin/Globulin Ratio 0.85L 08/04/17 11:44: Bedside Glucose (Misc Panel) 157H CBC/BMP Laboratory Tests 08/04/17 05:31 Red Blood Count 2.59 L, Mean Corpuscular Volume 100.8 H, Mean Corpuscular Hemoglobin 31.2, Mean Corpuscular Hemoglobin Concent 31.0 L, Red Cell Distribution Width 18.2 H, Calcium Level 8.5 L, Aspartate Amino Transf (AST/SGOT ) 11 L, Alanine Aminotransferase (ALT/SGPT) 21, Alkaline Phosphatase 72, Total Bilirubin 0.6, Total Protein 6.3 L, Albumin 2.9 L 08/04/17 16:13 FSBS Laboratory Tests Test 08/03/17 19:50 08/04/17 11:44 Range/Units Bedside Glucose (Misc Panel) 208 157 83-110 MG/DL Discharge Medications Scheduled (Iron) 325 Mg Tab, 325 MG PO DAILY, (Reported) Amlodipine Besylate (Amlodipine Besylate) 5 Mg Tab, 5 MG PO DAILY, (Reported) Aspirin (Aspirin EC) 81 Mg Tab, 81 MG PO QHS, (Reported) Calcitriol (Rocaltrol) 0.25 Mcg Cap, 0.5 MCG PO 5XW, (Reported) FRIDAY-FRIDAY Carvedilol (Carvedilol) 25 Mg Tab, 25 MG PO BID, (Reported) Cyanocobalamin (Vitamin B-12) 1,000 Mcg Tab, 1,000 MCG PO DAILY, (Reported) Digoxin (Digoxin) 0.125 Mg Tab, 0.125 MG PO DAILY, (Reported) Docusate Sodium (Stool Softener) 100 Mg Cap, 100 MG PO BID, (Reported) Febuxostat (Uloric) 80 Mg Tab, 80 MG PO DAILY, (Reported) Glimepiride (Glimepiride) 1 Mg Tab, 1 MG PO DAILY, (Reported) Isosorbide Mononitrate (Isosorbide Mononitrate ER) 60 Mg Tab, 60 MG PO DAILY, ( Reported) Pregabalin (Lyrica) 75 Mg Cap, 75 MG PO QHS, (Reported) Ranitidine Hcl (Zantac) 150 Mg Tab, 1 TAB PO BID Torsemide (Torsemide) 20 Mg Tab, 40 MG PO BID, (Reported) Scheduled PRN Acetaminophen/Codeine (Tylenol/Codeine #3 300-30 mg) 1 Tab Tab, 1 TAB PO QID PRN for PAIN, (Reported) Colchicine (Colchicine) 0.6 Mg Tab, 0.6 MG PO PRN PRN for FLARE UP , (Reported) Melatonin (Melatonin) 10 Mg Cap, 10 MG PO QHS PRN for SLEEP, (Reported) Nitroglycerin (Nitroglycerin) 0.4 Mg Sub, 0.4 MG SL NITRO PRN for CHEST PAIN, ( Reported) Salmeterol/Fluticasone (Advair Hfa 230-21 Mcg/Act) 1 Aer Aer, 2 PUFF INH BID PRN for SHORTNESS OF BREATH, (Reported) Allergies Coded Allergies: Clopidogrel (Unverified Adverse Reaction, Unknown, BLEEDS, 07/25/17) Warfarin (Unverified Adverse Reaction, Unknown, BLEEDS, 07/25/17) MILAN HE 11, 2017 18:57
== END 2017-08-04 17:32 | disposition home or self-care (01) | DRG 811 ==
LOC: M MS5PR 15:57 → M PCU 07-28 19:16 → M MSPAV 08-01 02:20
PROVIDERS: ADMIT Hospitalist; ATTEND Internal Medicine
PROC: 30233N1 Transfusion of Nonautologous Red Blood Cells into Peripheral Vein, Percutaneous Approach (ICD-10-PCS; principal; 2017-07-25)
PROC: 30233K1 Transfusion of Nonautologous Frozen Plasma into Peripheral Vein, Percutaneous Approach (ICD-10-PCS; 2017-07-28)
PROC: 0DJ08ZZ Inspection of Upper Intestinal Tract, Via Natural or Artificial Opening Endoscopic (ICD-10-PCS; 2017-07-29)
PROC: 0DH Gastrointestinal System, Insertion (ICD-10-PCS; 2017-07-29)
DX: D62 Acute posthemorrhagic anemia (principal); K57.41 Diverticulitis of both small and large intestine with perforation and abscess with bleeding; C90.00 Multiple myeloma not having achieved remission; D80.1 Nonfamilial hypogammaglobulinemia; I50.32 Chronic diastolic (congestive) heart failure; I13.0 Hypertensive heart and chronic kidney disease with heart failure and stage 1 through stage 4 chronic kidney disease, or unspecified chronic kidney disease; N18.3 Chronic kidney disease, stage 3 (moderate); E87.6 Hypokalemia; K57.30 Diverticulosis of large intestine without perforation or abscess without bleeding; K64.8 Other hemorrhoids; K80.20 Calculus of gallbladder without cholecystitis without obstruction; Z88.8 Allergy status to other drugs, medicaments and biological substances; I25.10 Atherosclerotic heart disease of native coronary artery without angina pectoris; I48.2 Chronic atrial fibrillation; E11.9 Type 2 diabetes mellitus without complications; M10.9 Gout, unspecified; N40.0 Benign prostatic hyperplasia without lower urinary tract symptoms; Z87.891 Personal history of nicotine dependence; K22.70 Barrett's esophagus without dysplasia; Z79.899 Other long term (current) drug therapy; Z79.82 Long term (current) use of aspirin; I27.2 Other secondary pulmonary hypertension; Z95.0 Presence of cardiac pacemaker; I65.29 Occlusion and stenosis of unspecified carotid artery

== ENCOUNTER → 2017-07-25 | Outpatient (CLI) | payer MEDICARE, BC, OTHER ==
[~2017-07-25] MED LIST changes: -ACETAMINOPHEN TAB 650MG DOSE (2X325MG) PO SCH; +AMAR1TAB PO; +CARV6.25 PO; +IPRASOL4 INH; +METO25TA PO; +RANI15TA PO; +SPIR25TA2 PO; +STOO100C PO; +TYLETAB14 PO; -diphenhydrAMINE 25 MG CAP PO SCH
[2017-07-25 14:35] LABS: ADD MANUAL DIFFER YES; MEAN CORPUSCULAR HEMOGLOBIN 31.9 pg (27.0-33.0); MEAN CORPUSCULAR HGB CONC 33.6 g/dl (32.0-36.5); MEAN CORPUSCULAR VOLUME 94.9 fl (80.0-96.0); PLATELET COUNT, AUTOMATED 155 k/mm3 (150-450); RED CELL DISTRIBUTION WIDTH 17.2 % (11.5-14.5); WHITE BLOOD COUNT 5.7 K/mm3 (4.0-10.0)
[2017-07-25 15:15] LABS: NUCLEATED RED BLOOD CELL 1 % (0-0)
[2017-07-25 15:16] LABS: ANISOCYTOSIS 1+; MICROCYTOSIS 1+; OVALOCYTES 1+; POIKILOCYTOSIS 1+; POLYCHROMASIA 1+
== END ==
LOC: M LAB 13:25
PROVIDERS: ATTEND Internal Medicine Gastroenterology
DX: C90.00 Multiple myeloma not having achieved remission (principal)

== ENCOUNTER → 2017-07-25 | Outpatient (CLI) | payer MEDICARE, BC, OTHER ==
--- NOTE | 2017-07-25 14:54 | REP ---
Clinical: Multiple myeloma. Technique: Adult bone survey including AP views of the pelvis, bilateral humeri and femurs as well as AP/lateral views of the skull, and cervical through lumbosacral spine. Findings: Moderate age-related degenerative changes are appreciated involving the cervical through lumbosacral spine and most pronounced at the L5-S1 level where it disc space narrowing, endplate sclerosis, hypertrophic facet changes are most pronounced. Moderate degenerative changes are also appreciated involving the bilateral shoulder, hip and knee joints. No lytic or blastic osseous lesions are appreciated. No obvious significant osseous pathology is identified. Surrounding soft tissues are grossly unremarkable. Extensive atherosclerotic changes to the vasculature noted. Impression: Moderate, diffuse age related degenerative changes. No evidence for osseous metastatic disease or significant pathology. Signed by Mina Mcgovern MD 07/25/2017 02:32 P
== END ==
LOC: M RAD 13:55
PROVIDERS: ATTEND Internal Medicine Medical Oncology
DX: C90.00 Multiple myeloma not having achieved remission (principal)

== ENCOUNTER → 2017-08-08 | Outpatient (CLI) | payer MEDICARE, BC, OTHER ==
[~2017-08-08] MED LIST changes: +AMAR1TAB PO; +CARV6.25 PO; +IPRASOL4 INH; +METO25TA PO; +RANI15TA PO; +SPIR25TA2 PO; +STOO100C PO; +TYLETAB14 PO
[2017-08-08 12:58] LABS: BASO % 0.5 % (0.0-1.0); EOS # 0.1 K/mm3 (0.0-0.50); EOS % 2.8 % (0.0-3.0); LYMPH # 0.7 K/mm3 (1.5-4.5); LYMPH % 15.5 % (24.0-44.0); MEAN CORPUSCULAR HEMOGLOBIN 31.1 pg (27.0-33.0); MEAN CORPUSCULAR HGB CONC 30.7 g/dl (32.0-36.5); MEAN CORPUSCULAR VOLUME 101.1 fl (80.0-96.0); MONO # 0.4 K/mm3 (0.0-0.8); MONO % 8.5 % (0.0-5.0); RED CELL DISTRIBUTION WIDTH 17.1 % (11.5-14.5); WHITE BLOOD COUNT 4.2 K/mm3 (4.0-10.0)
== END ==
LOC: M WUC 10:39
PROVIDERS: ATTEND Internal Medicine Gastroenterology
DX: D50.0 Iron deficiency anemia secondary to blood loss (chronic) (principal)

== ENCOUNTER → 2017-08-13 | Outpatient (REF) | payer MEDICARE, BC, OTHER | LOC: M LAB REF 13:42 | PROVIDERS: ATTEND Internal Medicine Medical Oncology | DX: D47.2 Monoclonal gammopathy (principal); D64.9 Anemia, unspecified | CPT/HCPCS: 88300; 88305; 88311; 88313; G0463 ==

== ENCOUNTER → 2017-08-18 | Outpatient (REF) | payer MEDICARE, OTHER ==
[2017-08-18 14:31] LABS: PERCENT SATURATION 48.7 % (19.7-50.0)
[2017-08-18 14:33] LABS: FOLATE 10.1 NG/ML
== END ==
LOC: M LAB REF 13:10
PROVIDERS: ATTEND Internal Medicine Nephrology
DX: D64.9 Anemia, unspecified (principal)

== ENCOUNTER → 2017-09-11 | Outpatient (CLI) | payer MEDICARE, OTHER ==
[2017-09-11 14:10] LABS: ALBUMIN 3.6 GM/DL (3.2-5.2); CALCIUM LEVEL 10.1 MG/DL (8.8-10.2); CREATININE FOR GFR 3.07 MG/DL (0.70-1.30); GLOMERULAR FILTRATION RATE 20.9 (>35); MAGNESIUM LEVEL 2.9 MG/DL (1.8-2.4); PHOSPHORUS LEVEL 5.2 MG/DL (2.5-4.9); POTASSIUM SERUM 4.8 MEQ/L (3.5-5.1)
== END ==
LOC: M WUC 10:26
PROVIDERS: ATTEND Physician Assistant
DX: I50.42 Chronic combined systolic (congestive) and diastolic (congestive) heart failure (principal)

== ENCOUNTER 2017-10-06 08:57 | Inpatient (IN) | payer MEDICARE, BC, OTHER ==
[~2017-10-06] VITALS: Ht 185.4 cm; Wt 93.0 kg
[~2017-10-06 08:57] MED LIST changes: -AMAR1TAB PO; -CARV6.25 PO; -IPRASOL4 INH; -METO25TA PO; -SPIR25TA2 PO
[2017-10-06] MEDS: ENOXAPARIN 30 MG/0.3 ML SYR (J1650) SC SCH (09:00)
[2017-10-06] MEDS ORDERED: SPIR25TA2 PO (09:25)
[2017-10-06] MEDS ORDERED: CARV6.25 PO (09:25)
[2017-10-06] MEDS ORDERED: ALBUTEROL SULFATE 2.5 MG/0.5 ML INH NEB SOLN INH ONE (09:30)
[2017-10-06] MEDS ORDERED: IPRATROPIUM 0.5MG/ALBUTEROL 2.5MG INH SOL UD 3ML (DUONEB)(J7620) NEB ONE (09:30)
[2017-10-06] MEDS ORDERED: methylPREDNISolone INJ 125 MG/2 ML VIAL (J2930) IV ONE (09:30)
--- NOTE | 2017-10-06 09:57 | REP ---
Clinical: Chest pain. Technique: Portable supine AP view of the chest. Comparison: 03/03/2017. Findings: Stable cardiomegaly and evidence for prior sternotomy/CABG and pacemaker. Mild pulmonary vascular congestion/interstitial edema cannot be excluded and should be correlated clinically. Small pleural effusion/reaction cannot be excluded. No focal consolidation or pneumothorax. Skeletal structures are intact. Impression: Stable cardiomegaly and chronic postsurgical changes. Cannot exclude mild pulmonary vascular congestion/interstitial edema and small pleural reaction. Signed by Mina Mcgovern MD 10/06/2017 09:48 A
[2017-10-06 10:11] LABS: BASO % 0.2 % (0.0-1.0); EOS % 0.2 % (0.0-3.0); IMMATURE GRANULOCYTE % 0.4 % (0-0); LYMPH # 0.5 10^3/uL (1.5-4.5); LYMPH % 9.5 % (24.0-44.0); MEAN CORPUSCULAR HEMOGLOBIN 29.5 pg (27.0-33.0); MEAN CORPUSCULAR HGB CONC 30.8 g/dl (32.0-36.5); MEAN CORPUSCULAR VOLUME 95.8 fl (80.0-96.0); MONO # 0.8 10^3/uL (0.0-0.8); MONO % 14.1 % (0.0-5.0); NEUTROPHILS # 4.3 10^3/uL (1.8-7.7); NEUTROPHILS % 75.6 % (36.0-66.0); PLATELET COUNT, AUTOMATED 152 10^3/uL (150-450); RED CELL DISTRIBUTION WIDTH 16.5 % (11.5-14.5); WHITE BLOOD COUNT 5.7 10^3/uL (4.0-10.0)
[2017-10-06 10:25] LABS: INR 1.54
[2017-10-06 10:37] LABS: CALCIUM LEVEL 9.6 MG/DL (8.8-10.2); CREATININE FOR GFR 2.86 MG/DL (0.70-1.30); GLOMERULAR FILTRATION RATE 22.7 (>35); POTASSIUM SERUM 4.5 MEQ/L (3.5-5.1)
[2017-10-06 10:38] LABS: ALBUMIN/GLOBULIN RATIO 0.77 (1.00-1.93); BILIRUBIN,DIRECT 0.5 MG/DL (0.0-0.2); FREE T4 1.18 NG/DL (0.76-1.46); TOTAL PROTEIN 6.9 GM/DL (6.4-8.2)
[2017-10-06 10:47] LABS: DIGOXIN LEVEL 1.7 NG/ML (0.5-2.0)
[2017-10-06] MEDS ORDERED: METO25TA PO (12:27)
[2017-10-06] MEDS ORDERED: AMAR1TAB PO (12:28)
[2017-10-06 13:30] VITALS: BP 125/61
[2017-10-06] MEDS ORDERED: IPRASOL4 INH (13:34)
--- NOTE | 2017-10-06 13:47 | REP ---
Clinical: Chest pain. Dyspnea. Possible aspiration pneumonia. Comparison: 01/28/2014. Findings: Moderate pleural effusions with bibasilar atelectasis/infiltrates are appreciated and represent a change from prior examination. Diffuse chronic interstitial changes are noted along with stable cardiomegaly and evidence of prior cardiac surgery and pacemaker placement. No pericardial effusion. Tracheobronchial tree is patent. Mediastinal lymph nodes remain stable. Upper abdomen demonstrates diffuse ascites. Bilateral renal hypodensities are again noted and while these lesions previously or most compatible with cysts, the lesion along the anterior aspect of the right kidney demonstrates internal high density material which may reflect soft tissue, or hemorrhagic debris. Correlation with ultrasound to exclude mass lesion may be warranted. The visualized reji hepatis cannot exclude adenopathy as well as gallbladder wall thickening. Impression: 1. Moderate bilateral pleural effusions with bibasilar atelectasis/infiltrates. 2. Upper abdomen demonstrates bilateral renal hypodensities as described above with a right renal lesion now demonstrating increased density suggesting the possibility of hemorrhagic debris or malignant transformation. 3. Cannot exclude adenopathy at the reji hepatis as well as gallbladder wall thickening. Signed by Mina Mcgovern MD 10/06/2017 01:38 P
[2017-10-06] MEDS: FUROSEMIDE 100 MG/10 ML VIAL (J1940) IV SCH ×2 (14:39→18:23)
[2017-10-06] MEDS ORDERED: IPRATROPIUM 0.5MG/ALBUTEROL 2.5MG INH SOL UD 3ML (DUONEB)(J7620) INH PRN (15:15)
[2017-10-06] MEDS ORDERED: ONDANSETRON 4MG/2ML VIAL (J2405) IV PRN (15:15)
[2017-10-06] MEDS ORDERED: PHYTONADIONE 5 MG TAB PO ONE (15:15)
[2017-10-06] MEDS ORDERED: NITROGLYCERIN 0.4 MG SUBL TABLET SL PRN (15:15)
--- NOTE | 2017-10-06 15:48 | HPEPDOC ---
[facility] Medical History & Physical History and Physical H&P in eCW Vital Signs Vital Signs Date Time Temp Pulse Resp B/P (MAP) Pulse Ox O2 Delivery O2 Flow Rate FiO2 10/06/17 13:30 97.4 61 22 125/61 (82) 100 Nasal Cannula 2.0 Laboratory Data Labs 24H Laboratory Tests 2 10/06/17 09:44: Immature Granulocyte % (Auto) 0.4H, White Blood Count 5.7, Red Blood Count 3.53L , Hemoglobin 10.4L, Hematocrit 33.8L, Mean Corpuscular Volume 95.8, Mean Corpuscular Hemoglobin 29.5, Mean Corpuscular Hemoglobin Concent 30.8L, Red Cell Distribution Width 16.5H, Platelet Count 152, Neutrophils (%) (Auto) 75.6H , Lymphocytes (%) (Auto) 9.5L, Monocytes (%) (Auto) 14.1H, Eosinophils (%) (Auto ) 0.2, Basophils (%) (Auto) 0.2, Neutrophils # (Auto) 4.3, Lymphocytes # (Auto) 0.5L, Monocytes # (Auto) 0.8, Eosinophils # (Auto) 0.0, Basophils # (Auto) 0.0, Immature Granulocyte # (Auto) 0.0, Nucleated Red Blood Cells % (auto) 0.0, Prothrombin Time 18.9H, Prothromb Time International Ratio 1.54, Activated Partial Thromboplast Time 33.7, Anion Gap 8, Glomerular Filtration Rate 22.7L, Lactic Acid Level 1.5, Calcium Level 9.6, Aspartate Amino Transf (AST/SGOT) 20, Alanine Aminotransferase (ALT/SGPT) 19, Alkaline Phosphatase 81, Total Bilirubin 1.0, Direct Bilirubin 0.5H, Total Creatine Kinase 37L, Creatine Kinase MB 1.3, Creatine Kinase MB Relative Index 3.51, Troponin I 0.05, NT-Pro-B -Type Natriuretic Peptide 58959O, Total Protein 6.9, Albumin 3.0L, Albumin/ Globulin Ratio 0.77L, Thyroid Stimulating Hormone (TSH) 1.460, Free Thyroxine 1.18, Digoxin Level 1.7 CBC/BMP Laboratory Tests 10/06/17 09:44 Red Blood Count 3.53 L, Mean Corpuscular Volume 95.8, Mean Corpuscular Hemoglobin 29.5, Mean Corpuscular Hemoglobin Concent 30.8 L, Red Cell Distribution Width 16.5 H, Neutrophils (%) (Auto) 75.6 H, Lymphocytes (%) (Auto ) 9.5 L, Monocytes (%) (Auto) 14.1 H, Eosinophils (%) (Auto) 0.2, Basophils (%) (Auto) 0.2, Neutrophils # (Auto) 4.3, Lymphocytes # (Auto) 0.5 L, Monocytes # ( Auto) 0.8, Eosinophils # (Auto) 0.0, Basophils # (Auto) 0.0 Microbiology Microbiology 10/06/17 Blood Culture, Received Pending 10/06/17 Blood Culture, Received Pending 10/06/17 Influenza Virus Type A Antigen - Final, Complete 10/06/17 Influenza Virus Type B Antigen - Final, Complete Home Medications Scheduled Aspirin (Aspirin EC) 81 Mg Tab, 81 MG PO QHS Calcitriol (Rocaltrol) 0.25 Mcg Cap, 0.5 MCG PO 5XW FRIDAY-FRIDAY Carvedilol (Carvedilol) 6.25 Mg Tab, 3.125 MG PO BID Digoxin (Digoxin) 0.125 Mg Tab, 0.125 MG PO DAILY Docusate Sodium (Stool Softener) 100 Mg Cap, 100 MG PO BID Febuxostat (Uloric) 80 Mg Tab, 80 MG PO DAILY Glimepiride (Amaryl) 1 Mg Tab, 1 MG PO DAILY Isosorbide Mononitrate (Isosorbide Mononitrate ER) 60 Mg Tab, 60 MG PO DAILY IN A RECENT HEALTH CLINIC NOTE - THIS WAS CHANGED TO 30MG BUT THE PT HAS NOT RECEIVED A NEW SCRIPT AND IS TAKING THE WHOLE PILL OF WHAT HE HAS AT HOME, WHICH IS 60MG. THE PT SOMEWHAT RECALLS THIS BEING DISCUSSED WITH THE DR, BUT HAS NOT RECIEVED A NEW SCRIPT. Melatonin (Melatonin) 10 Mg Cap, 10 MG PO QHS Metolazone (Metolazone) 2.5 Mg Tab, 1.25 MG PO QWEEK SUNDAYS Pregabalin (Lyrica) 75 Mg Cap, 75 MG PO QHS Salmeterol/Fluticasone (Advair Hfa 230-21 Mcg/Act) 1 Aer Aer, 2 PUFF INH BID Spironolactone (Spironolactone) 25 Mg Tab, 25 MG PO DAILY Torsemide (Torsemide) 20 Mg Tab, 40 MG PO BID Scheduled PRN Acetaminophen/Codeine (Tylenol/Codeine #3 300-30 mg) 1 Tab Tab, 1 TAB PO QHS PRN for PAIN Albuterol/Ipratropium (Ipratropium [place]/Albut 0.5-2.5 (3) mg/3Ml) 1 Donaldo Donaldo, 1 DONALDO INH Q4H PRN for SHORTNESS OF BREATH Colchicine (Colchicine) 0.6 Mg Tab, 0.6 MG PO PRN PRN for FLARE UP Nitroglycerin (Nitroglycerin) 0.4 Mg Sub, 0.4 MG SL NITRO PRN for CHEST PAIN Allergies Coded Allergies: Clopidogrel (Unverified Adverse Reaction, Unknown, BLEEDS, 07/25/17) Warfarin (Unverified Adverse Reaction, Unknown, BLEEDS, 07/25/17) ELVIA SANCHEZ DO Oct 06, 2017 15:48
[2017-10-06 16:00] VITALS: BP 135/58
--- NOTE | 2017-10-06 18:30 | ECGEPIP ---
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
[2017-10-06 20:00] VITALS: BP 110/59
[2017-10-06] MEDS: ADVAIR HFA 230/21MCG INHALER INH SCH (20:03)
[2017-10-06] MEDS: CARVedilol 6.25 MG TAB PO SCH (20:26)
[2017-10-06] MEDS: DOCUSATE SODIUM 100 MG CAP PO SCH (20:26)
[2017-10-06] MEDS: ASPIRIN 81 MG ENTERIC TAB PO SCH (20:26)
[2017-10-06] MEDS: PREGABALIN 75 MG CAP(LYRICA) PO SCH (20:26)
[2017-10-07] VITALS: BP 103/51
[2017-10-07] MEDS: FUROSEMIDE 100 MG/10 ML VIAL (J1940) IV SCH ×4 (00:15→17:04)
--- NOTE | 2017-10-07 00:27 | ECHO ---
DATE OF PROCEDURE: 10/06/2017 REFERRING PHYSICIAN: Dr. Paige Rivero INDICATION: Heart failure, unspecified. HEIGHT: 185 cm WEIGHT: 95 kg 2D MEASUREMENTS: Aortic root: 3.8 cm LVOT: 2.4 cm Left atrium: 5.0 cm Ventricular septum: 1.26 cm Posterior wall: 0.90 cm Inferior vena cava: 2.9 cm with marked reduction of respiratory variation. DOPPLER MEASUREMENTS: Very mild aortic regurgitation. Aortic valve velocity: 81.6 cm/s LVOT velocity: 63.2 cm/s LVOT VTI: 10.7 cm Moderate mitral regurgitation. Mitral E velocity: 97.7 cm/s Mitral A velocity: 36.0 cm/s Mitral deceleration time: 204 ms Severe tricuspid regurgitation. Estimated right ventricle systolic pressure estimated to be at least 51 mmHg assuming a right atrial pressure of at least 20 mmHg based on inferior vena cava plethora with marked reduction of respiratory variation. Mild pulmonic regurgitation. Pulmonary artery systolic pressure: 54 mmHg by pulmonary acceleration time method. MITRAL ANNULAR TISSUE DOPPLER: E prime septal: 4.4 cm/s E prime lateral: 7.5 cm/s DESCRIPTION: Rhythm appeared to be AV sequential paced. This was a moderately technically difficult echocardiogram. No pericardial effusion. This was a 2D, M-mode, color flow Doppler and pulse wave Doppler examination and included mitral annular tissue Doppler. CONCLUSIONS: 1. Normal left ventricle size. Mild focal hypertrophy of the basal anterior ventricular septum. Severe reduction in overall left ventricular (LV) systolic function. Multiple regional wall motion abnormalities. The basal anteroseptal segment was hypokinetic. The mid and distal anteroseptal segments were dyskinetic. The intraseptal segments were paradoxical. The apex was akinetic. The mid inferior segment appeared akinetic. Basal inferior segment was hypokinetic. Hypokinesis of the basal and mid anterior, basal and mid anterolateral, and basal and mid inferior LV segments. Left ventricular ejection fraction (LVEF) 25% by visual estimate. Difficult to adequately assess LV diastolic function in the setting of moderate mitral regurgitation. Suspect grade 3 or grade 4 LV diastolic dysfunction. 2. Suggestive of moderate elevation of pulmonary artery systolic pressure and estimated right ventricle systolic pressure. 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 Hepatic congestion. Severe tricuspid regurgitation. 3. Moderate aortic valve sclerosis of a 3-cusp aortic valve. No aortic stenosis. Very mild aortic regurgitation. 4. Moderate mitral annular calcification. Moderate mitral regurgitation. No mitral stenosis. 5. Mild dilatation of the aortic root at the level of the sinus of Valsalva. 6. Moderate left atrial dilatation. 7. Presence of endocardial cardiac rhythm management leads identified in the right side of the heart.
[2017-10-07 04:00] VITALS: BP 103/87
[2017-10-07 05:37] LABS: MEAN CORPUSCULAR HEMOGLOBIN 29.5 pg (27.0-33.0); MEAN CORPUSCULAR HGB CONC 31.2 g/dl (32.0-36.5); MEAN CORPUSCULAR VOLUME 94.5 fl (80.0-96.0); PLATELET COUNT, AUTOMATED 142 10^3/uL (150-450); WHITE BLOOD COUNT 5.7 10^3/uL (4.0-10.0)
[2017-10-07 05:57] LABS: CALCIUM LEVEL 9.9 MG/DL (8.8-10.2); CREATININE FOR GFR 2.96 MG/DL (0.70-1.30); GLOMERULAR FILTRATION RATE 21.8 (>35); POTASSIUM SERUM 4.5 MEQ/L (3.5-5.1)
[2017-10-07 07:45] VITALS: BP 128/61
[2017-10-07] MEDS: ADVAIR HFA 230/21MCG INHALER INH SCH ×2 (07:54→20:13)
[2017-10-07] MEDS: SPIRONOLACTONE 25 MG TAB PO SCH (08:49)
[2017-10-07] MEDS: ISOSORBIDE MON. (IMDUR) 30 MG XR TAB PO SCH (08:49)
[2017-10-07] MEDS: FEBUXOSTAT 40 MG TABLET (ULORIC) PO SCH (08:50)
[2017-10-07] MEDS: CALCITRIOL 0.25 MCG CAP (S0169) PO SCH (08:50)
[2017-10-07] MEDS: DOCUSATE SODIUM 100 MG CAP PO SCH ×2 (08:50→20:26)
[2017-10-07] MEDS: CARVedilol 6.25 MG TAB PO SCH ×2 (08:50→20:27)
[2017-10-07] MEDS: ENOXAPARIN 30 MG/0.3 ML SYR (J1650) SC SCH (08:51)
[2017-10-07] MEDS: DIGOXIN 0.125 MG TAB PO SCH (08:51)
--- NOTE | 2017-10-07 11:09 | IPNPDOC ---
Subjective Date Seen The patient was seen on 10/07/17. Subjective Chief Complaint/HPI The patient is a 82-year-old male admitted with a reason for visit of Systolic Chf With Reduced Left Ventricular Functio. Events since last encounter Pt is feeling much better this morning. Feels his breathing is better, his cough is less. He is getting around pretty well. He cont to wear O2 however. General: Denies: Fatigue Constitutional: Denies: Chills, Fever Pulmonary: Reports: Dyspnea, Cough Cardiovascular: Denies: Chest Pain, Palpitations Gastrointestinal: Denies: Nausea, Vomiting, Diarrhea Neurological: Denies: Weakness Psych: Reports: Mood Normal Objective Physical Examination General Exam: Positive: Alert, No Acute Distress ENT Exam: Positive: Mucous membr. moist/pink Chest Exam: Positive: Diminished (coarse BS thoughout) Heart Exam: Positive: Rate Normal, Normal S1, Normal S2 Abdomen Exam: Positive: Normal bowel sounds, Soft, Negative: Tenderness Extremity Exam: Positive: Edema (trace BLE) Psych Exam: Positive: Mental status NL, Mood NL Assessment /Plan Problems (1) URI (upper respiratory infection) Status: Acute Response to Treatment: Stable, Improving Discussed With: Nurse, Patient, Family with Pt Consent Problem Specific Plan: Monitor Clinically, Repeat Labs Problem Text: + resp panel for rhinovirus, symptoms improving, wean O2 today, anticipate D/c home in AM. (2) Combined systolic and diastolic congestive heart failure Permanent Comment: Echo done 10/06: EF 25% Last Edited By: Morris Nazario M.D. on Oct 07, 2017 14:42 Status: Acute Response to Treatment: Stable, Improving Discussed With: Nurse, Patient, Family with Pt Consent Problem Specific Plan: Monitor Clinically, Repeat Labs Problem Text: Admitted with mild failure, has repeat ECHO pending. Cont Lasix 80 mg IV q6h for now, monitor I & Os, anticipate home with his usual regimen in AM. JFW: EF 25% (3) Atrial fibrillation Status: Chronic Response to Treatment: Stable Problem Specific Plan: Monitor Clinically Plan/VTE VTE Prophylaxis Ordered?: Yes VS, I&O, 24H, Fishbone Vital Signs/I&O Vital Signs Date Time Temp Pulse Resp B/P (MAP) Pulse Ox O2 Delivery O2 Flow Rate FiO2 10/07/17 08:51 64 10/07/17 08:50 103/87 10/07/17 08:08 Nasal Cannula 2.0 10/07/17 07:45 97.6 20 97 Laboratory Data 24H LABS Laboratory Tests 2 10/07/17 05:14: Nucleated Red Blood Cells % (auto) 0.0, Anion Gap 8, Glomerular Filtration Rate 21.8L, Blood Urea Nitrogen 75H, Creatinine 2.96H, Sodium Level 137, Potassium Level 4.5, Chloride Level 99, Carbon Dioxide Level 30, Calcium Level 9.9 CBC/BMP Laboratory Tests 10/07/17 05:14 Red Blood Count 3.63 L, Mean Corpuscular Volume 94.5, Mean Corpuscular Hemoglobin 29.5, Mean Corpuscular Hemoglobin Concent 31.2 L, Red Cell Distribution Width 16.0 H, Calcium Level 9.9 Microbiology Microbiology 10/06/17 Blood Culture - Preliminary, Resulted No growth after 24 hours . All specim... 10/06/17 Blood Culture - Preliminary, Resulted No growth after 24 hours . All specim... 10/07/17 Respiratory Virus Panel (PCR) ([facility]) - Final, Complete Human Rhinovirus/Enterovirus 10/06/17 Influenza Virus Type A Antigen - Final, Complete 10/06/17 Influenza Virus Type B Antigen - Final, Complete GERARDO JAIN PA-C Oct 07, 2017 11:09 Morris Nazario MD Oct 07, 2017 14:42
[2017-10-07 12:45] VITALS: BP 130/61
[2017-10-07 15:45] VITALS: BP 117/59
[2017-10-07 20:00] VITALS: BP 114/55
[2017-10-07] MEDS: ASPIRIN 81 MG ENTERIC TAB PO SCH (20:26)
[2017-10-07] MEDS: PREGABALIN 75 MG CAP(LYRICA) PO SCH (20:26)
[2017-10-08] VITALS: BP 117/59
[2017-10-08] MEDS: FUROSEMIDE 100 MG/10 ML VIAL (J1940) IV SCH ×4 (00:05→17:48)
[2017-10-08 04:00] VITALS: BP 115/56
[2017-10-08 06:21] LABS: MEAN CORPUSCULAR HEMOGLOBIN 29.5 pg (27.0-33.0); MEAN CORPUSCULAR HGB CONC 31.3 g/dl (32.0-36.5); MEAN CORPUSCULAR VOLUME 94.2 fl (80.0-96.0); PLATELET COUNT, AUTOMATED 128 10^3/uL (150-450); RED CELL DISTRIBUTION WIDTH 16.2 % (11.5-14.5); WHITE BLOOD COUNT 6.8 10^3/uL (4.0-10.0)
[2017-10-08 06:30] LABS: INR 1.33
[2017-10-08 06:35] LABS: CREATININE FOR GFR 2.84 MG/DL (0.70-1.30); GLOMERULAR FILTRATION RATE 22.9 (>35); POTASSIUM SERUM 4.3 MEQ/L (3.5-5.1)
[2017-10-08] MEDS: ADVAIR HFA 230/21MCG INHALER INH SCH ×2 (07:32→20:05)
[2017-10-08 08:23] VITALS: BP 125/82
[2017-10-08] MEDS: FEBUXOSTAT 40 MG TABLET (ULORIC) PO SCH (09:13)
[2017-10-08] MEDS: SPIRONOLACTONE 25 MG TAB PO SCH (09:13)
[2017-10-08] MEDS: ISOSORBIDE MON. (IMDUR) 30 MG XR TAB PO SCH (09:14)
[2017-10-08] MEDS: DOCUSATE SODIUM 100 MG CAP PO SCH ×2 (09:14→20:27)
[2017-10-08] MEDS: DIGOXIN 0.125 MG TAB PO SCH (09:14)
[2017-10-08] MEDS: CALCITRIOL 0.25 MCG CAP (S0169) PO SCH (09:14)
[2017-10-08] MEDS: CARVedilol 6.25 MG TAB PO SCH ×2 (09:14→20:28)
[2017-10-08] MEDS: ENOXAPARIN 30 MG/0.3 ML SYR (J1650) SC SCH (09:15)
[2017-10-08] MEDS ORDERED: ACETAMINOPHEN 500 MG TAB PO PRN (14:15)
[2017-10-08] MEDS: traMADol 50 MG TAB PO PRN ×2 (14:20→20:28)
--- NOTE | 2017-10-08 14:39 | IPN ---
DATE: 10/08/2017 the pending note from . I thought he was going to be able to go home today. He seems improved yesterday. However, he has developed a pleuritic right chest pain today that has put him back in bed. It has not improved with walking around or changing positions. Its localized to the right chest following a beltlike pattern from the right anterior chest to his back. On exam, there are no herpetic lesions here. It is nontender to palpate. Cardiopulmonary exam shows a few expiratory wheezes, otherwise unchanged. Etiology is unknown. It acts pleuritic. I am getting a CT scan of the chest (no contrast due to chronic kidney disease). Will apply heating pad and analgesics have been ordered. I would like to hold off on his discharge until he is evaluated tomorrow.
--- NOTE | 2017-10-08 14:58 | REP ---
Clinical: Pleuritic right sided chest pain. Comparison: 10/06/2017. Findings: Lung garg demonstrate stable diffuse chronic interstitial changes along with small to moderate bilateral pleural effusions (right greater than left) and trace bibasilar atelectasis. Findings may be minimally improved as compared to prior examination. Cardiomegaly and atherosclerotic changes to the thoracic aorta and coronary arteries are unchanged along with possible stable scattered reactive lymph hilar and mediastinal lymph nodes. No pneumothorax. Tracheobronchial tree is patent. Limited evaluation of the upper abdomen again demonstrates diffuse ascites as well as complex and hypodense renal lesions (right greater than left). While findings may represent simple and complex cysts, ultrasound may be warranted to exclude right renal mass lesion. Impression: 1. Small to moderate bilateral pleural effusions and basilar atelectasis (right greater than left) which may be minimally improved compared to prior examination. No new acute mediastinal or pleuroparenchymal process. 2. Stable abnormal appearance the bilateral kidneys. Signed by Mina Mcgovern MD 10/08/2017 02:51 P
[2017-10-08 15:56] VITALS: BP 114/55
--- NOTE | 2017-10-08 17:36 | IPNPDOC ---
Subjective Date Seen The patient was seen on 10/08/17. Subjective Chief Complaint/HPI The patient is a 82-year-old male admitted with a reason for visit of Systolic Chf With Reduced Left Ventricular Functio. Events since last encounter Patient reported in the morning that he was doing well and was looking forward to going home. Later in the day prior to patient being discharged he reported right-sided chest pain which subsequently required further evaluation. General: Denies: Night Sweats Constitutional: Denies: Chills, Fever Pulmonary: Denies: Dyspnea Objective Physical Examination General Exam: Positive: Alert, No Acute Distress ENT Exam: Positive: Mucous membr. moist/pink Chest Exam: Positive: Clear to auscultation, Normal air movement, Negative: Rales, Rhonchi, Wheezing Heart Exam: Positive: Rate Normal, Normal S1, Normal S2, Murmurs (2/6 systolic murmur best heard at left sternal border) Telemetry: Positive: PVCs Extremity Exam: Positive: Edema (bilateral pitting to level of knee) RAD Interpretation STUDY: CT Chest Rad Actions: Report Reviewed RAD Interpretation: Unchanged (small to moderate bilateral pleural effusions and basilar atelectasis (right greater than left) which may be minimally improved compared to prior examination. No new acute mediastinal or pleuroparenchymal process. A stable abnormal appearance of bilateral kidneys) Assessment /Plan Problems (1) URI (upper respiratory infection) Status: Acute Response to Treatment: Stable, Improving Discussed With: Nurse, Patient, Family with Pt Consent Problem Specific Plan: Monitor Clinically, Repeat Labs Problem Text: 10/08: Symptoms stable, however due to his right-sided chest pain he has required further evaluation with chest CT, further evaluation/ treatment pending results of chest CT. 10/07: + resp panel for rhinovirus, symptoms improving, wean O2 today, anticipate D/c home in AM. (2) Right-sided chest pain Problem Text: 10/08: Patient with complaint of right-sided chest pain. Order was placed for him to have further evaluation with CT of chest. (3) Combined systolic and diastolic congestive heart failure Permanent Comment: Echo done 10/06: EF 25% Last Edited By: Morris Nazario M.D. on Oct 07, 2017 14:42 Status: Acute Response to Treatment: Stable, Improving Discussed With: Nurse, Patient, Family with Pt Consent Problem Specific Plan: Monitor Clinically, Repeat Labs Problem Text: 10/08: Echocardiogram showed: LVEF 25%, grade 2 or 3 LV diastolic dysfunction moderate elevation of pulmonary artery systolic pressure, severe tricuspid regurgitation. No aortic stenosis, very mild aortic regurgitation. Moderate mitral regurgitation, no mitral stenosis. 10/07: Admitted with mild failure, has repeat ECHO pending. Cont Lasix 80 mg IV q6h for now, monitor I & Os, anticipate home with his usual regimen in AM. JFW: EF 25% (4) Atrial fibrillation Status: Chronic Response to Treatment: Stable Problem Specific Plan: Monitor Clinically Plan/VTE VTE Prophylaxis Ordered?: Yes VS, I&O, 24H, Fishbone Vital Signs/I&O Vital Signs Date Time Temp Pulse Resp B/P (MAP) Pulse Ox O2 Delivery O2 Flow Rate FiO2 10/08/17 16:00 Room Air 10/08/17 15:56 97.3 60 14 114/55 (74) 91 10/07/17 12:45 1.0 I&O- Last 24 Hours up to 6 AM 10/09/17 06:00 Intake Total 474 ml Output Total 830 ml Balance -356 ml Laboratory Data 24H LABS Laboratory Tests 2 10/08/17 05:55: Nucleated Red Blood Cells % (auto) 0.0, Prothrombin Time 16.8H, Prothromb Time International Ratio 1.33, Anion Gap 8, Glomerular Filtration Rate 22.9L, Blood Urea Nitrogen 90H, Creatinine 2.84H, Sodium Level 136, Potassium Level 4.3, Chloride Level 99, Carbon Dioxide Level 29, Calcium Level 10.0 CBC/BMP Laboratory Tests 10/08/17 05:55 Red Blood Count 3.63 L, Mean Corpuscular Volume 94.2, Mean Corpuscular Hemoglobin 29.5, Mean Corpuscular Hemoglobin Concent 31.3 L, Red Cell Distribution Width 16.2 H, Calcium Level 10.0 Microbiology Microbiology 10/06/17 Blood Culture - Preliminary, Resulted No Growth after 48 hours. All Specime... 10/06/17 Blood Culture - Preliminary, Resulted No Growth after 48 hours. All Specime... 10/07/17 Respiratory Virus Panel (PCR) ([facility]) - Final, Complete Human Rhinovirus/Enterovirus 10/06/17 Influenza Virus Type A Antigen - Final, Complete 10/06/17 Influenza Virus Type B Antigen - Final, Complete GME ATTESTATION GME ATTESTATION My faculty preceptor for this patient encounter was physically present during the encounter and was fully available. All aspects of the patient interview, examination, medical decision making process, and medical care plan development were reviewed and approved by the faculty preceptor. The faculty preceptor is aware and concurs with the plan as stated in the body of this note and will attest to such by his/her cosignature. ELVIA SANCHEZ DO Oct 08, 2017 17:36
[2017-10-08 20:00] VITALS: BP 130/76
[2017-10-08] MEDS: ASPIRIN 81 MG ENTERIC TAB PO SCH (20:27)
[2017-10-08] MEDS: PREGABALIN 75 MG CAP(LYRICA) PO SCH (20:28)
[2017-10-09 00:19] VITALS: BP 130/64
[2017-10-09] MEDS: FUROSEMIDE 100 MG/10 ML VIAL (J1940) IV SCH ×3 (00:37→11:41)
[2017-10-09] MEDS: traMADol 50 MG TAB PO PRN ×3 (03:29→14:41)
[2017-10-09 03:49] VITALS: BP 127/58
[2017-10-09 05:34] LABS: MEAN CORPUSCULAR HEMOGLOBIN 28.9 pg (27.0-33.0); MEAN CORPUSCULAR HGB CONC 30.7 g/dl (32.0-36.5); MEAN CORPUSCULAR VOLUME 94.2 fl (80.0-96.0); PLATELET COUNT, AUTOMATED 142 10^3/uL (150-450); RED CELL DISTRIBUTION WIDTH 16.2 % (11.5-14.5); WHITE BLOOD COUNT 7.2 10^3/uL (4.0-10.0)
[2017-10-09 05:53] LABS: CALCIUM LEVEL 9.9 MG/DL (8.8-10.2); CREATININE FOR GFR 2.69 MG/DL (0.70-1.30); GLOMERULAR FILTRATION RATE 24.4 (>35)
[2017-10-09] MEDS: ADVAIR HFA 230/21MCG INHALER INH SCH (07:20)
[2017-10-09 07:50] VITALS: BP 117/55
[2017-10-09] MEDS: FEBUXOSTAT 40 MG TABLET (ULORIC) PO SCH (08:46)
[2017-10-09] MEDS: ENOXAPARIN 30 MG/0.3 ML SYR (J1650) SC SCH (08:46)
[2017-10-09] MEDS: CALCITRIOL 0.25 MCG CAP (S0169) PO SCH (08:47)
[2017-10-09] MEDS: CARVedilol 6.25 MG TAB PO SCH (08:47)
[2017-10-09 08:48] VITALS: BP 117/55
[2017-10-09] MEDS: DOCUSATE SODIUM 100 MG CAP PO SCH (08:48)
[2017-10-09] MEDS: SPIRONOLACTONE 25 MG TAB PO SCH (08:48)
[2017-10-09] MEDS: ISOSORBIDE MON. (IMDUR) 30 MG XR TAB PO SCH (08:48)
[2017-10-09] MEDS: DIGOXIN 0.125 MG TAB PO SCH (08:48)
[2017-10-09 12:00] VITALS: BP 126/59
--- NOTE | 2017-10-09 17:26 | DS.PDOC ---
Discharge Summary General Date of Admission Oct 06, 2017 at 11:28 Date of Discharge 10/09/17 Discharge Summary Consults: None Discharge diagnosis: Upper respiratory infection Secondary diagnosis: Right sided chest pain, systolic and diastolic congestive heart failure, atrial fibrillation Hospital course: Patient was admitted on 10/06/17 with dyspnea, history consistent with upper respiratory infection and CHF exacerbation. Patient was diuresed while hospitalized. Found to be positive for rhinovirus on respiratory panel. On 10/08 he developed right-sided chest pain. He was further evaluated with CT of his chest which was negative. Progress note on date of discharge: Subjective: Patient seen for follow-up today. His only complaint is of some continued pain in his ribs, he believes pain is secondary to coughing. He denies having any fevers, chills, sweats, chest pain, shortness of breath or difficulty breathing. Objective: Vitals: Temperature 95.9, pulse 59, respiratory rate 18, blood pressure 126/59, pulse ox 93% on room air Gen.: Patient awake, alert and oriented, verbal and able to answer questions appropriately. Patient does not appear to be in any acute distress Heart: Regular rate and rhythm, normal S1-S2. 2/6 systolic murmur, No rubs, clicks or gallops Lungs: Clear to auscultation bilaterally. No wheezes, rales or rhonchi Extremities: Bilateral lower extremity pitting developed left knee Musculoskeletal left ribs tender to palpation, pain reproducible on palpation Labs: CBC: White blood cell 7.2, A/G ratio 1.4/37.1, platelets 142 Chemistry: Sodium 135, potassium 4.0, chloride 96, her monoxide 32, BUN 91, creatinine 2.69, glucose 150, calcium 9.9 Assessment: Patient is a 82-year-old male with rhinovirus upper respiratory infection. At this time his dyspnea has resolved and his rib pain is stable. He will be discharged today. Disposition: Discharge to home Follow-up: Dr. Rayogza on 10/13 at 9:15 AM, Dr. Rizzo on 10/20 at 12:45 PM Activity: As tolerated Diet: 2 g sodium, low-fat diet Medications on discharge: Acetaminophen with codeine 1 tablet by mouth at bedtime for pain DuoNeb 1 inhalation every 4 hours as needed for shortness of breath Aspirin 81 mg by mouth daily at bedtime Calcitriol 0.5 mcg by mouth Friday through Friday Carvedilol 3.125 mg by mouth twice a day Colchicine 0.6 mg by mouth as needed for flareup Digoxin 0.125 mg by mouth daily Docusate 100 mg by mouth twice a day Uloric 80 mg by mouth daily Glimepiride 1 mg by mouth daily Isosorbide mononitrate 60 mg by mouth daily Melatonin 10 mg by mouth daily at bedtime Metolazone on 0.25 mg by mouth every Friday Nitroglycerin 0.4 mg sublingual every 5 minutes 3 doses as needed for chest pain Lyrica 75 mg by mouth daily at bedtime Advair 2 puffs inhalation twice a day Spironolactone 25 mg by mouth daily Torsemide 40 mg by mouth twice a day Cc: Dr. Raygoza, Dr. Rizzo Time spent on discharge: 30 minutes Discharge Medications Scheduled Aspirin (Aspirin EC) 81 Mg Tab, 81 MG PO QHS, (Reported) Calcitriol (Rocaltrol) 0.25 Mcg Cap, 0.5 MCG PO 5XW, (Reported) FRIDAY-FRIDAY Carvedilol (Carvedilol) 6.25 Mg Tab, 3.125 MG PO BID, (Reported) Digoxin (Digoxin) 0.125 Mg Tab, 0.125 MG PO DAILY, (Reported) Docusate Sodium (Stool Softener) 100 Mg Cap, 100 MG PO BID, (Reported) Febuxostat (Uloric) 80 Mg Tab, 80 MG PO DAILY, (Reported) Glimepiride (Amaryl) 1 Mg Tab, 1 MG PO DAILY, (Reported) Isosorbide Mononitrate (Isosorbide Mononitrate ER) 60 Mg Tab, 60 MG PO DAILY, ( Reported) IN A RECENT HEALTH CLINIC NOTE - THIS WAS CHANGED TO 30MG BUT THE PT HAS NOT RECEIVED A NEW SCRIPT AND IS TAKING THE WHOLE PILL OF WHAT HE HAS AT HOME, WHICH IS 60MG. THE PT SOMEWHAT RECALLS THIS BEING DISCUSSED WITH THE DR, BUT HAS NOT RECIEVED A NEW SCRIPT. Melatonin (Melatonin) 10 Mg Cap, 10 MG PO QHS, (Reported) Metolazone (Metolazone) 2.5 Mg Tab, 1.25 MG PO QWEEK, (Reported) SUNDAYS Pregabalin (Lyrica) 75 Mg Cap, 75 MG PO QHS, (Reported) Salmeterol/Fluticasone (Advair Hfa 230-21 Mcg/Act) 1 Aer Aer, 2 PUFF INH BID, ( Reported) Spironolactone (Spironolactone) 25 Mg Tab, 25 MG PO DAILY, (Reported) Torsemide (Torsemide) 20 Mg Tab, 40 MG PO BID, (Reported) Scheduled PRN Acetaminophen/Codeine (Tylenol/Codeine #3 300-30 mg) 1 Tab Tab, 1 TAB PO QHS PRN for PAIN, (Reported) Albuterol/Ipratropium (Ipratropium [place]/Albut 0.5-2.5 (3) mg/3Ml) 1 Donaldo Donaldo, 1 DONALDO INH Q4H PRN for SHORTNESS OF BREATH, (Reported) Colchicine (Colchicine) 0.6 Mg Tab, 0.6 MG PO PRN PRN for FLARE UP , (Reported) Nitroglycerin (Nitroglycerin) 0.4 Mg Sub, 0.4 MG SL NITRO PRN for CHEST PAIN, ( Reported) Allergies Coded Allergies: Clopidogrel (Unverified Adverse Reaction, Unknown, BLEEDS, 07/25/17) Warfarin (Unverified Adverse Reaction, Unknown, BLEEDS, 07/25/17) GME ATTESTATION GME ATTESTATION My faculty preceptor for this patient encounter was physically present during the encounter and was fully available. All aspects of the patient interview, examination, medical decision making process, and medical care plan development were reviewed and approved by the faculty preceptor. The faculty preceptor is aware and concurs with the plan as stated in the body of this note and will attest to such by his/her cosignature. ELVIA SANCHEZ DO Oct 09, 2017 17:26
== END 2017-10-09 15:34 | disposition home or self-care (01) | DRG 152 ==
LOC: EDSEX → EDBD 08:57 → M ED 08:57 → M ED INP 11:28 → M PCU 13:50
PROVIDERS: ADMIT Family Medicine; ATTEND Family Medicine
DX: J06.9 Acute upper respiratory infection, unspecified (principal); I50.43 Acute on chronic combined systolic (congestive) and diastolic (congestive) heart failure; B97.89 Other viral agents as the cause of diseases classified elsewhere; I48.2 Chronic atrial fibrillation; Z79.899 Other long term (current) drug therapy; Z79.82 Long term (current) use of aspirin; Z88.8 Allergy status to other drugs, medicaments and biological substances

== ENCOUNTER → 2017-10-10 | Outpatient (REF) | payer MEDICARE, BC, OTHER ==
[~2017-10-10] MED LIST changes: +ADV100INH INH; +ALDA25TA2 PO; +AMAR1TAB PO; +CARV6.25 PO; +IPRASOL4 INH; +METO25TA PO; +SPIR25TA2 PO
== END ==
LOC: M LAB REF 09:42
PROVIDERS: ATTEND Family Medicine
DX: R31.0 Gross hematuria (principal)

== ENCOUNTER 2017-10-11 13:19 | Inpatient (IN) | payer MEDICARE, BC, OTHER ==
[~2017-10-11] VITALS: Ht 185.4 cm; Wt 84.0 kg
[~2017-10-11 13:19] MED LIST changes: -ADV100INH INH; -ALDA25TA2 PO
[2017-10-11] MEDS ORDERED: IPRASOL4 INH (13:47)
[2017-10-11] MEDS ORDERED: ADV100INH INH (13:47)
[2017-10-11] MEDS ORDERED: ALDA25TA2 PO (13:47)
[2017-10-11 14:17] LABS: BASO % 0.4 % (0.0-1.0); EOS # 0.1 10^3/uL (0.0-0.50); EOS % 1.9 % (0.0-3.0); IMMATURE GRANULOCYTE % 0.4 % (0-0); LYMPH # 0.6 10^3/uL (1.5-4.5); MEAN CORPUSCULAR HEMOGLOBIN 29.6 pg (27.0-33.0); MEAN CORPUSCULAR HGB CONC 30.8 g/dl (32.0-36.5); MEAN CORPUSCULAR VOLUME 95.9 fl (80.0-96.0); MONO # 0.5 10^3/uL (0.0-0.8); MONO % 10.1 % (0.0-5.0); NEUTROPHILS % 75.2 % (36.0-66.0); PLATELET COUNT, AUTOMATED 131 10^3/uL (150-450); RED CELL DISTRIBUTION WIDTH 16.1 % (11.5-14.5); WHITE BLOOD COUNT 5.4 10^3/uL (4.0-10.0)
[2017-10-11 14:38] LABS: ALBUMIN/GLOBULIN RATIO 0.75 (1.00-1.93); BILIRUBIN,DIRECT 0.6 MG/DL (0.0-0.2); CALCIUM LEVEL 10.4 MG/DL (8.8-10.2); CREATININE FOR GFR 2.86 MG/DL (0.70-1.30); GLOMERULAR FILTRATION RATE 22.7 (>35); POTASSIUM SERUM 4.2 MEQ/L (3.5-5.1)
[2017-10-11] MEDS ORDERED: FUROSEMIDE 40 MG/4 ML VIAL (J1940) IV ONE (16:00)
[2017-10-11] MEDS ORDERED: ADVA230A INH (16:31)
[2017-10-11] MEDS ORDERED: ACETAMINOPHEN TAB 650MG DOSE (2X325MG) PO PRN (17:00)
[2017-10-11 20:00] VITALS: BP 127/65
[2017-10-11] MEDS: CEFTRIAXONE SOD 1 GM in APPROPRIATE DILUENT 1 EA IV SCH (20:00)
[2017-10-11] MEDS: IPRATROPIUM 0.5MG/ALBUTEROL 2.5MG INH SOL UD 3ML (DUONEB)(J7620) NEB SCH (20:00)
--- NOTE | 2017-10-11 20:12 | HPE ---
DATE OF ADMISSION: 10/11/2017 CHIEF COMPLAINT: Fatigue. HISTORY: Mr. Johnson was recently discharged from this facility. He had been admitted with symptoms of congestion and cough. Cough is productive. He is complaining of shortness of breath and fatigue. Admitted, treated here and was thought to be doing well at the time of discharge. Saw Dr. Raygoza on 10/10 with complaint of some blood in his urine. Apparently came into the office by wheelchair. His transferred him to wheelchair from the vehicle, rolled him into the office in a wheelchair, and was examined in the wheelchair, and went home in the wheelchair, with complaint of fatigue, lassitude, etc. Physical therapy was arranged but the patient really was not able to ambulate even at that time; however, I to not think there incapacity was recognized because the patient did not clearly make a point of that dysfunction at the time of the visit. In any event, patient here for followup evaluation and treatment, seen in the emergency department (ED), not really able to ambulate successfully, not therefore able to return home. CURRENT MEDICATIONS: - isosorbide mononitrate ER 30 once a day - digoxin 125 mcg daily - Advair HFA two puffs twice a day - DuoNeb four times a day - aspirin 81 mg daily - Colace 100 mg twice a day - some kind of antihistamine specifically not specified as to title that he takes at bedtime - nitroglycerin sublingual 0.4 mg sublingual as needed chest pain - melatonin 10 mg at bedtime as needed for sleep - Uloric 80 mg by mouth daily for gout - hydrocortisone 2.5% cream to his arms twice a day - calcitriol 0.25 mcg two tablets orally daily five days a week - Lyrica 75 mg daily at bedtime - ranitidine 150 mg by mouth twice a day - mupirocin 2% daily to affected areas - torsemide 40 mg twice a day - Coreg 6.25 mg tablets 3.125 mg twice a day - Aldactone 25 mg daily - metolazone 2.5 mg weekly, but the patient indicates he is taking half of that dose currently - Amaryl 1 mg at breakfast daily PAST MEDICAL HISTORY: Includes dyslipidemia, coronary artery disease with bypass graft in 1988, 2000, and stents performed in 1995, 2008, and 2009. He has a low ejection fraction, congestive failure with ejection fraction demonstrated on echocardiogram done by [facility] on October 06 at his most recent admission that was 25%, moderate elevation of pulmonary systolic pressures also noted, aortic valve sclerosis noted and mild dilatation of aortic root level of sinus of Valsalva. PAST SURGICAL HISTORY Includes right inguinal herniorrhaphy and hydrocelectomy, orchiectomy in 1950, appendectomy in 1970s, coronary bypass graft as noted, right fem-pop bypass with Vascular surgeon in [place] in 1995, left carotid endarterectomy 2007, coronary stents 1995, 2008, 2009, and upper endoscopy Dr. Keith 2009, pacemaker Dr. Rizzo 2009. He has a biventricular pacemaker placed in [place] in May 2017. FAMILY HISTORY: Remarkable for father dying in his early 70s, cause obscure. Mother of complications of diabetes mellitus type 2. Daughter alive with hypertension. SOCIAL HISTORY: The patient is a former smoker, has not smoked in more than 10 years. PHYSICAL EXAMINATION: VITAL SIGNS: At the time of initial presentation to ED today at 1325, blood pressure 111/55, pulse 60, respiratory rate 18, temperature 97, oxygen saturation on room air 93%. GENERAL: Patient is alert, pleasant, repeatedly coughing, producing yellowish sputum which he tries to expectorate with some difficulty. His weight today measured 91.36 kg. Most recently was 91.36 kg. He is alert, pleasant, cooperative. LUNGS: Airflow is diminished but no wheezes noted. Does have bilateral rales noted in the bases. HEART: Irregular, 2/6 systolic murmur noted at the precordium. ABDOMEN: Soft. No guarding, mass, rebound or masses palpable. Hepatojugular reflux (HJR) is detected. EXTREMITIES: He has 3+ lower extremity edema bilaterally. SKIN: There is no obvious skin breakdown. NEUROLOGIC: He is able to move and activate all of his muscles of his upper and lower extremities, but he does not have sufficient strength to stand or so he says. We did not challenge him on this point today during the exam. LABORATORIES AND DIAGNOSTICS: When he was in the hospital before on 10/07, he had a respiratory panel done which identified human rhinovirus which may have contributed to his symptom exacerbation of a few days ago. Sputum culture was not done during that stay. This time, he continues to have productive cough as noted. Imaging studies done during the ER visit so far include chest x-ray done at 02: 06 p.m., for which there is yet no report. The study was reviewed by me and it shows significant cardiomegaly. Perivascular marking increases are appreciated. No obvious infiltrate is noted. IMPRESSION: Patient with chronic medical issues contributing to his current overall global decline with weakness and functional impairment. 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 He does have extremely severe congestive heart failure with low ejection fraction of 25%. His kidney function is showing a creatinine of 2.86, making him a not satisfactory candidate for use of angiotension-converting enzyme (MARY) inhibitor or angiotensin II receptor blockers (ARB) therapy. Despite his low ejection fraction (EF), these drugs are not part of this game plan since he has at least stage IV chronic kidney disease. His brain natriuretic peptide (BNP) is elevated 20,673. Calcium is elevated 10.4. Diuresis was attempted and will be continued with an increase in his torsemide dose going forward. ASSESSMENT: 1. Low ejection fraction and congestive heart failure. 2. Chronic kidney disease stage IV. 3. Debility and weakness secondary to chronic disease. 4. Chronic obstructive pulmonary disease exacerbation with recent rhinovirus infection. At this point, his COPD exacerbation is improving although he still has significant productive cough. PLAN: The patient will be admitted to hospital. He will need rehabilitation. His CHF is still significantly symptomatic. We will request cardiology consult. We will continue his carvedilol at current dose 3.125 mg by mouth twice a day. Continue his glimepiride 1 mg by mouth daily for his diabetes/ Torsemide will be continued at an increased dose of 80 mg by mouth twice a day to see if we can effect a reasonable diuresis. He gets metolazone 1.25 mg weekly; that will be on Friday tomorrow. 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 Digoxin is at 0.125 mg daily. Will check a digoxin level tomorrow. Prognosis is guarded despite his low EF status. He still has a full code request per his most recent Medical Orders for Life-Sustaining Treatment (MOLST) form in the outpatient record. MTDD
[2017-10-11] MEDS: ADVAIR HFA 230/21MCG INHALER INH SCH (22:04)
[2017-10-11] MEDS: DOCUSATE SODIUM 100 MG CAP PO SCH (22:10)
[2017-10-11] MEDS: PREGABALIN 75 MG CAP(LYRICA) PO SCH (22:13)
[2017-10-11] MEDS: ACETAMINOPH W/CODEINE #3 TAB UD PO PRN (22:13)
[2017-10-11] MEDS: ASPIRIN 81 MG ENTERIC TAB PO SCH (22:14)
[2017-10-11] MEDS: CARVedilol 3.125 MG TAB PO SCH (22:14)
[2017-10-12] MEDS: IPRATROPIUM 0.5MG/ALBUTEROL 2.5MG INH SOL UD 3ML (DUONEB)(J7620) NEB SCH ×5 (01:00→23:39)
[2017-10-12 06:00] VITALS: BP 121/64
[2017-10-12 06:57] LABS: BASO % 0.2 % (0.0-1.0); EOS # 0.2 10^3/uL (0.0-0.50); EOS % 3.3 % (0.0-3.0); IMMATURE GRANULOCYTE % 0.4 % (0-0); LYMPH # 0.6 10^3/uL (1.5-4.5); LYMPH % 13.6 % (24.0-44.0); MEAN CORPUSCULAR HGB CONC 31.2 g/dl (32.0-36.5); MONO # 0.6 10^3/uL (0.0-0.8); NEUTROPHILS # 3.1 10^3/uL (1.8-7.7); NEUTROPHILS % 68.5 % (36.0-66.0); PLATELET COUNT, AUTOMATED 129 10^3/uL (150-450); WHITE BLOOD COUNT 4.5 10^3/uL (4.0-10.0)
--- NOTE | 2017-10-12 07:04 | REP ---
CHEST, TWO VIEWS: Two views of the chest are performed. Comparison made with the multiple prior exams most recently single view chest of 10/06/2017. There is cardiomegaly. There is vascular congestion. Diffuse interstitial edema is noted. There are small bilateral effusions. Mediastinal silhouette is unchanged. There are multiple sternal wires and mediastinal clips present. There is a left dual lead pacemaker. IMPRESSION: Cardiomegaly with vascular congestion and diffuse interstitial edema. Small bilateral effusions. Signed by Gerson Cavazos MD 10/12/2017 05:27 P
[2017-10-12 07:33] LABS: ALBUMIN 2.9 GM/DL (3.2-5.2); ALBUMIN/GLOBULIN RATIO 0.81 (1.00-1.93); CALCIUM LEVEL 10.1 MG/DL (8.8-10.2); CREATININE FOR GFR 2.8 MG/DL (0.70-1.30); DIGOXIN LEVEL 1.6 NG/ML (0.5-2.0); GLOMERULAR FILTRATION RATE 23.3 (>35); MAGNESIUM LEVEL 2.5 MG/DL (1.8-2.4); POTASSIUM SERUM 4.4 MEQ/L (3.5-5.1); TOTAL PROTEIN 6.5 GM/DL (6.4-8.2)
[2017-10-12] MEDS: ADVAIR HFA 230/21MCG INHALER INH SCH ×2 (07:57→20:21)
[2017-10-12] MEDS ORDERED: GLIMEPIRIDE 1 MG TABLET PO SCH (08:00)
[2017-10-12] MEDS ORDERED: metOLazone 2.5 MG TAB PO SCH (09:00)
[2017-10-12] MEDS: TORSEMIDE 20 MG TAB PO SCH ×2 (09:05→17:35)
[2017-10-12] MEDS: FEBUXOSTAT 40 MG TABLET (ULORIC) PO SCH (09:06)
[2017-10-12] MEDS: ISOSORBIDE MON. (IMDUR) 60 MG XR TAB PO SCH (09:08)
[2017-10-12] MEDS: DOCUSATE SODIUM 100 MG CAP PO SCH ×2 (09:08→20:16)
[2017-10-12] MEDS: SPIRONOLACTONE 25 MG TAB PO SCH (09:09)
[2017-10-12] MEDS: DIGOXIN 0.125 MG TAB PO SCH (09:09)
[2017-10-12] MEDS: ENOXAPARIN 30 MG/0.3 ML SYR (J1650) SC SCH (09:10)
[2017-10-12] MEDS: CARVedilol 3.125 MG TAB PO SCH ×2 (10:30→20:16)
[2017-10-12 14:00] VITALS: BP 111/56
[2017-10-12] MEDS ORDERED: GLUCOSE 4 GM CHEW TABLET PO PRN (15:45)
[2017-10-12] MEDS ORDERED: GLUCAGON FOR INJ 1 MG VIAL (J1610) SC PRN (15:45)
[2017-10-12] MEDS ORDERED: DEXTROSE 50% 50 ML SYRINGE IV PRN (15:45)
--- NOTE | 2017-10-12 15:51 | IPNPDOC ---
Subjective Date Seen The patient was seen on 10/12/17. Subjective Chief Complaint/HPI The patient is a 82-year-old male admitted with a reason for visit of Generalized Weakness;Systolic Chf. Constitutional: Denies: Chills, Fever ENT: Denies: Head Aches Pulmonary: Reports: Dyspnea, Cough Cardiovascular: Denies: Chest Pain, Palpitations Gastrointestinal: Denies: Nausea, Vomiting, Abdominal Pain Hematologic: Denies: Bruising Objective Physical Examination Eye Exam: Positive: EOMI Chest Exam: Positive: Rhonchi, Diminished Heart Exam: Positive: Rate Normal Abdomen Exam: Positive: Normal bowel sounds Extremity Exam: Positive: Edema (2+ bilateral) Skin Exam: Negative: Rash Neuro Exam: Positive: Normal Speech Psych Exam: Positive: Mental status NL, Mood NL Assessment /Plan Problems (1) Generalized weakness Status: Chronic Response to Treatment: Stable Problem Text: will need rehabilitation if he is to return home successfully (2) Systolic CHF with reduced left ventricular function, NYHA class 3 Status: Chronic Response to Treatment: Stable Problem Specific Plan: Consult Specialist Problem Text: Consider requesting Consult from Cardiology. Patient asking about this today. (3) Chronic kidney disease (CKD), stage IV (severe) Status: Chronic Response to Treatment: Stable, Improving (4) COPD (chronic obstructive pulmonary disease) Status: Acute Response to Treatment: Stable Problem Text: lots of rhonchi, will add prednisone. (5) T2DM (type 2 diabetes mellitus) Status: Chronic Response to Treatment: Stable Problem Text: off amaryl. will add qid ac and hs fingersticks with sliding scale coverage. anticipate glucoses will increase with prednisone use to try to improve airway inflammation Plan/VTE VTE Prophylaxis Ordered?: Yes Plan Activity: Encourage Ambulation Therapy: PT, OT Anticipated Discharge: Home With Services VS, I&O, 24H, [facility] Vital Signs/I&O Vital Signs Date Time Temp Pulse Resp B/P (MAP) Pulse Ox O2 Delivery O2 Flow Rate FiO2 10/12/17 14:00 98.0 58 18 111/56 (74) 100 Room Air I&O- Last 24 Hours up to 6 AM 10/13/17 06:00 Intake Total 550 ml Output Total 680 ml Balance -130 ml Laboratory Data 24H LABS Laboratory Tests 2 10/12/17 05:50: Immature Granulocyte % (Auto) 0.4H, White Blood Count 4.5, Red Blood Count 3.55L , Hemoglobin 10.3L, Hematocrit 33.0L, Mean Corpuscular Volume 93.0, Mean Corpuscular Hemoglobin 29.0, Mean Corpuscular Hemoglobin Concent 31.2L, Red Cell Distribution Width 16.0H, Platelet Count 129L, Neutrophils (%) (Auto) 68.5H , Lymphocytes (%) (Auto) 13.6L, Monocytes (%) (Auto) 14.0H, Eosinophils (%) ( Auto) 3.3H, Basophils (%) (Auto) 0.2, Neutrophils # (Auto) 3.1, Lymphocytes # ( Auto) 0.6L, Monocytes # (Auto) 0.6, Eosinophils # (Auto) 0.2, Basophils # (Auto ) 0.0, Immature Granulocyte # (Auto) 0.0, Nucleated Red Blood Cells % (auto) 0.0 , Anion Gap 7L, Glomerular Filtration Rate 23.3L, Blood Urea Nitrogen 87H, Creatinine 2.80H, Sodium Level 138, Potassium Level 4.4, Chloride Level 97L, Carbon Dioxide Level 34H, Calcium Level 10.1, Aspartate Amino Transf (AST/SGOT) 20, Alanine Aminotransferase (ALT/SGPT) 20, Alkaline Phosphatase 88, Total Bilirubin 1.0, Total Protein 6.5, Albumin 2.9L, Magnesium Level 2.5H, Albumin/ Globulin Ratio 0.81L, Digoxin Level 1.6 CBC/BMP Laboratory Tests 10/12/17 05:50 Red Blood Count 3.55 L, Mean Corpuscular Volume 93.0, Mean Corpuscular Hemoglobin 29.0, Mean Corpuscular Hemoglobin Concent 31.2 L, Red Cell Distribution Width 16.0 H, Neutrophils (%) (Auto) 68.5 H, Lymphocytes (%) (Auto ) 13.6 L, Monocytes (%) (Auto) 14.0 H, Eosinophils (%) (Auto) 3.3 H, Basophils ( %) (Auto) 0.2, Neutrophils # (Auto) 3.1, Lymphocytes # (Auto) 0.6 L, Monocytes # (Auto) 0.6, Eosinophils # (Auto) 0.2, Basophils # (Auto) 0.0, Calcium Level 10.1, Aspartate Amino Transf (AST/SGOT) 20, Alanine Aminotransferase (ALT/SGPT) 20, Alkaline Phosphatase 88, Total Bilirubin 1.0, Total Protein 6.5, Albumin 2.9 L Microbiology Microbiology 10/11/17 Blood Culture - Preliminary, Resulted No growth after 24 hours . All specim... 10/11/17 Gram Stain - Final, Resulted 10/11/17 Sputum Culture, Resulted Pending Aime Mccabe MD Oct 12, 2017 15:51
[2017-10-12] MEDS: HumaLOG INSULIN (NovoLOG) PER UNIT SC SCH ×2 (17:36→20:11)
[2017-10-12] MEDS: CEFTRIAXONE SOD 1 GM in APPROPRIATE DILUENT 1 EA IV SCH (20:16)
[2017-10-12] MEDS: ASPIRIN 81 MG ENTERIC TAB PO SCH (20:16)
[2017-10-12] MEDS: PREGABALIN 75 MG CAP(LYRICA) PO SCH (20:16)
[2017-10-12] MEDS: predniSONE 20 MG TAB PO SCH (20:17)
--- NOTE | 2017-10-12 21:20 | ECGEPIP ---
Stationary ECG Study [facility] - ED Test Date: 2017-10-11 Pat Name: RAIN MERCADO Department: Room: - Gender: M Sole Blacker: JFranklyn : 1935 Requested By: LENORE Crowe Order Number: [id number] Reading MD: Gaby Ross Measurements Intervals [place] Rate: 70 P: MT: 0 QRS: 246 QRSD: 187 T: 71 QT: 464 QTc: 502 Interpretive Statements ELECTRONIC VENTRICULAR PACEMAKER ABNORMAL RHYTHM ECG INCREASED RATE 10/06/17 Electronically Signed On 10-12-2017 21:20:03 EST by Gaby Ross
[2017-10-12 22:00] VITALS: BP 127/62
[2017-10-13 06:00] VITALS: BP 116/60
[2017-10-13] MEDS: IPRATROPIUM 0.5MG/ALBUTEROL 2.5MG INH SOL UD 3ML (DUONEB)(J7620) NEB SCH ×3 (08:00→20:00)
[2017-10-13] MEDS: FEBUXOSTAT 40 MG TABLET (ULORIC) PO SCH (08:22)
[2017-10-13] MEDS: ENOXAPARIN 30 MG/0.3 ML SYR (J1650) SC SCH (08:22)
[2017-10-13] MEDS: HumaLOG INSULIN (NovoLOG) PER UNIT SC SCH ×4 (08:22→20:19)
[2017-10-13] MEDS: DOCUSATE SODIUM 100 MG CAP PO SCH ×2 (08:23→20:12)
[2017-10-13] MEDS: SPIRONOLACTONE 25 MG TAB PO SCH (08:23)
[2017-10-13] MEDS: DIGOXIN 0.125 MG TAB PO SCH (08:23)
[2017-10-13] MEDS: TORSEMIDE 20 MG TAB PO SCH ×2 (08:23→17:08)
[2017-10-13] MEDS: predniSONE 20 MG TAB PO SCH (08:23)
[2017-10-13] MEDS: CARVedilol 3.125 MG TAB PO SCH ×2 (08:24→20:12)
[2017-10-13] MEDS: ISOSORBIDE MON. (IMDUR) 60 MG XR TAB PO SCH (08:24)
[2017-10-13] MEDS: ADVAIR HFA 230/21MCG INHALER INH SCH ×2 (08:31→20:03)
--- NOTE | 2017-10-13 08:42 | IPNPDOC ---
Subjective Date Seen The patient was seen on 10/13/17. Subjective Chief Complaint/HPI The patient is a 82-year-old male admitted with a reason for visit of Generalized Weakness;Systolic Chf. Events since last encounter Continues to show improvement in mobility. Has been diuresing well on current medication management. Constitutional: Denies: Chills, Fever, Night Sweats Pulmonary: Denies: Dyspnea, Cough Cardiovascular: Denies: Chest Pain, Palpitations, Orthopnea, Paroxysmal Noc. Dyspnea, Lt Headedness Gastrointestinal: Denies: Nausea, Vomiting, Abdominal Pain, Diarrhea, Constipation Psych: Reports: Mood Normal, Denies: Depression, Memory Issues Objective Physical Examination Eye Exam: Positive: EOMI Chest Exam: Positive: Rales (fine bibasilar), Diminished, Negative: Rhonchi Heart Exam: Positive: Rate Normal Abdomen Exam: Positive: Normal bowel sounds Extremity Exam: Positive: Edema (2+ bilateral) Skin Exam: Negative: Rash Neuro Exam: Positive: Normal Speech Psych Exam: Positive: Mental status NL, Mood NL Assessment /Plan Problems (1) Generalized weakness Status: Chronic Response to Treatment: Stable Problem Text: 10/13/2017: ambulate independently with walk in room today. May have option of going home with Home PT will need rehabilitation if he is to return home successfully (2) Systolic CHF with reduced left ventricular function, NYHA class 3 Permanent Comment: ECHO 10/06/17: CONCLUSIONS: 1. Normal left ventricle size. Mild focal hypertrophy of the basal anterior ventricular septum. Severe reduction in overall left ventricular (LV) systolic function. Multiple regional wall motion abnormalities. The basal anteroseptal segment was hypokinetic. The mid and distal anteroseptal segments were dyskinetic. The intraseptal segments were paradoxical. The apex was akinetic. The mid inferior segment appeared akinetic. Basal inferior segment was hypokinetic. Hypokinesis of the basal and mid anterior, basal and mid anterolateral, and basal and mid inferior LV segments. Left ventricular ejection fraction (LVEF) 25% by visual estimate. Difficult to adequately assess LV diastolic function in the setting of moderate mitral regurgitation. Suspect grade 3 or grade 4 LV diastolic dysfunction. 2. Suggestive of moderate elevation of pulmonary artery systolic pressure and estimated right ventricle systolic pressure. 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 Hepatic congestion. Severe tricuspid regurgitation. 3. Moderate aortic valve sclerosis of a 3-cusp aortic valve. No aortic stenosis. Very mild aortic regurgitation. 4. Moderate mitral annular calcification. Moderate mitral regurgitation. No mitral stenosis. 5. Mild dilatation of the aortic root at the level of the sinus of Valsalva. 6. Moderate left atrial dilatation. 7. Presence of endocardial cardiac rhythm management leads identified in the right side of the heart. Last Edited By: Angelic Roberts NP on Oct 13, 2017 08:41 Status: Chronic Response to Treatment: Stable Problem Specific Plan: Consult Specialist Problem Text: 10/13/2017: recent adjustment in medications. Torsemide increased to 80 mg po bid from 40 mg po bid. Patient has EF of 25%. States recent pacer interrogation. Echo completed 10/06/17 from last hospitalization. Cardiology consulted for medication management. continue 2 gram sodium diet with 1500 ml fluid restriction. (3) Chronic kidney disease (CKD), stage IV (severe) Status: Chronic Response to Treatment: Stable, Improving (4) COPD (chronic obstructive pulmonary disease) Status: Acute Response to Treatment: Stable Problem Text: 10/13/17: Prednisone added on. No wheezing or rhonchi today. (5) T2DM (type 2 diabetes mellitus) Status: Chronic Response to Treatment: Stable Problem Text: Off amaryl. On ACHS fingersticks with sliding scale coverage. Anticipate glucoses will increase with prednisone use to try to improve airway inflammation Plan/VTE VTE Prophylaxis Ordered?: Yes Plan Activity: Encourage Ambulation Therapy: PT, OT Anticipated Discharge: Home With Services Family Medicine Attending Note: I saw and examined Mr. Johnson this morning; I discussed his care with TIM Whaley and I agree with her note as documented. Will await PT recommendations today and he may be ready for discharge home with PT in the next 1-2 days. (KES) VS, I&O, 24H, [facility] Vital Signs/I&O Vital Signs Date Time Temp Pulse Resp B/P (MAP) Pulse Ox O2 Delivery O2 Flow Rate FiO2 10/13/17 08:24 116/60 10/13/17 08:24 63 10/13/17 06:00 97.8 18 95 Room Air Laboratory Data 24H LABS Laboratory Tests 2 10/12/17 17:23: Bedside Glucose (Misc Panel) 162H 10/12/17 20:09: Bedside Glucose (Misc Panel) 168H 10/13/17 07:11: Bedside Glucose (Misc Panel) 165H Microbiology Microbiology 10/11/17 Blood Culture - Preliminary, Resulted No growth after 24 hours . All specim... 10/11/17 Gram Stain - Final, Resulted 10/11/17 Sputum Culture - Preliminary, Resulted Pseudomonas Aeruginosa Staphylococcus Aureus Angelic Roberts Oct 13, 2017 08:42 SHELLI HENDERSON MD Oct 13, 2017 12:07
[2017-10-13 08:52] LABS: IMMATURE GRANULOCYTE % 0.2 % (0-0); LYMPH # 0.4 10^3/uL (1.5-4.5); LYMPH % 8.5 % (24.0-44.0); MEAN CORPUSCULAR HEMOGLOBIN 28.6 pg (27.0-33.0); MEAN CORPUSCULAR HGB CONC 31.2 g/dl (32.0-36.5); MEAN CORPUSCULAR VOLUME 91.8 fl (80.0-96.0); MONO # 0.1 10^3/uL (0.0-0.8); MONO % 2.9 % (0.0-5.0); NEUTROPHILS % 88.4 % (36.0-66.0); PLATELET COUNT, AUTOMATED 166 10^3/uL (150-450); RED CELL DISTRIBUTION WIDTH 15.9 % (11.5-14.5); WHITE BLOOD COUNT 4.5 10^3/uL (4.0-10.0)
[2017-10-13 09:23] LABS: ALBUMIN 3.2 GM/DL (3.2-5.2); ALBUMIN/GLOBULIN RATIO 0.8 (1.00-1.93); BILIRUBIN,TOTAL 0.8 MG/DL (0.2-1.0); CALCIUM LEVEL 10.2 MG/DL (8.8-10.2); CREATININE FOR GFR 2.74 MG/DL (0.70-1.30); GLOMERULAR FILTRATION RATE 23.9 (>35); POTASSIUM SERUM 4.1 MEQ/L (3.5-5.1); TOTAL PROTEIN 7.2 GM/DL (6.4-8.2)
[2017-10-13 14:00] VITALS: BP 122/62
[2017-10-13] MEDS: AMIODARONE 200 MG TAB (PACERONE) PO SCH (20:11)
[2017-10-13] MEDS: **hydrALAZINE** 10 MG TAB PO SCH (20:11)
[2017-10-13] MEDS: ISOSORBIDE DIN. (ISORDIL) 20 MG TAB PO SCH (20:12)
[2017-10-13] MEDS: ASPIRIN 81 MG ENTERIC TAB PO SCH (20:12)
[2017-10-13] MEDS: PREGABALIN 75 MG CAP(LYRICA) PO SCH (20:12)
[2017-10-13] MEDS ORDERED: POTASSIUM CHLORIDE 10 MEQ SR TABLET PO SCH (21:00)
[2017-10-13 22:00] VITALS: BP 137/59
--- NOTE | 2017-10-13 22:17 | CR ---
DATE OF CARDIOLOGY CONSULTATION: 10/13/2017 REFERRING PHYSICIAN: Angelic Roberts INDICATIONS: Recurrent congestive heart failure. HISTORY: This 82-year-old father of two grown children, retired resident of [place], [place] is well-known to my cardiology practice with ischemic, hypertensive, and valvular heart disease complicated by congestive heart failure (systolic and diastolic), chronic atrial fibrillation, and atrioventricular (AV) block post pacemaker implant. With his right ventricular pacing and left bundle branch block (LBBB) QRS configuration, nuclear ventriculogram March 2017 showed an ejection fraction of 32% with paradoxical septal wall motion. June 12, 2017, his pacing system was upgraded to a biventricular device with insertion of a left ventricular pacing lead delivered by the coronary sinus to a posterolateral branch of the great cardiac vein. His postoperative course was complicated by a localized hematoma and unfortunately he did not seem to benefit from his upgrade with two separate hospitalizations for congestive heart failure this past month alone. Recent remote pacemaker transmission indicated that one-third of all of his heart beats are actually premature ventricular contraction (PVC). After being discharged from hospital only on October 09, 2017 was readmitted October 11, 2017 with obvious gross biventricular congestive heart failure. He was admitted to a nontelemetry floor and his oral diuretic therapy was adjusted with good effect. Cardiology consultation was requested today because of his recurrent congestive failure and to consider augmenting his combination medical therapy. At this point, the patient is quite happy with his diuresis and reduction in systemic edema. Earlier today he was able to ambulate with his walker short distances in the [place] without dyspnea, dizziness, chest pain or palpitations. Curiously, despite significant negative fluid balances his weight in hospital has actually increased by a kilogram??. KNOWN PAST CARDIAC DISEASE/EVENTS/TESTS: Coronary artery disease dates back to 1988. Cardiac catheterization showed severe triple-vessel disease leading to coronary artery bypass graft (CABG) times three February 1989. July 2001, due to recurrent chest pain and catheterization documenting progression of ruby and bypass vascular disease, underwent CABG times six ( ROTH to LAD, sequential radial graft to OM1 and OM2, SVG to diagonal, and SVG to intermediate and SVG to the posterior descending). Underwent SVG and PDA stenting April 2009. Underwent stenting of SVG to CX June 2009. Underwent single chamber pacemaker implantation for atrial fibrillation and high-grade AV block December 2009. Underwent repeat stenting of SVG to circumflex March 2010. His left anterior descending coronary artery was stented through his ROTH graft February 2011. Pacemaker upgrade to biventricular device June 12, 2017 ([employer], model #[id number]. RISK FACTORS: Male gender. Advanced age. Prior obesity. Hypercholesterolemia. Hypertension. Insulin-dependent diabetes mellitus. Former smoker. Family history of premature coronary disease. OTHER PAST MEDICAL / SURGICAL PROBLEMS: Last echocardiogram October 06, 2017 showed mild left ventricle hypertrophy with normal LV size but apical akinesis, ongoing septal paradoxical motion and hypokinesis of other mauricio with an estimated left ventricular ejection fraction (LVEF) 25%, prominently dilated left atrium with markedly elevated estimated mean left atrial pressure, mitral annular calcification of a moderate degree with at least moderate insufficiency, aortic valvular sclerosis without stenosis, mild insufficiency, dilated right heart chambers with severe pulmonary hypertension and elevated central venous pressure and severe tricuspid regurgitation, mildly dilated aortic root, but no pericardial effusion. Peripheral vascular disease, status post right femoral stenting February 2014. Status post left carotid endarterectomy 2006. Chronic renal insufficiency; follows with Dr. Mason, nephrology). Prior recurrent GI bleeding (despite his atrial fibrillation has not been on oral anticoagulation). Diverticulosis/diverticulitis. Skin cancer. Abnormal nocturnal oximetry July 2015 with overall low O2 saturation of 80%. Hydrocele 1949. Appendectomy 1966. Remote hemorrhoidectomy. 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 Nasal cauterization for severe epistaxis November 2013. Excisional biopsy skin cancer left cheek and left ear 2013. Right knee injections November 2015. Left cataract extraction with lens implant December 2015. REVIEW OF SYSTEMS: Denies any recent fever, chills or weight loss. Wears corrective lenses. Reduced auditory acuity, wearing hearing aids. Has had recent cough productive of clear sputum, not purulent. No hemoptysis. Has a good appetite with no dysphagia, heartburn, abdominal pain or recent GI bleeding. Nocturia is chronic. No dysuria or hematuria. Chronic arthralgia and proximal muscle weakness. Some sleep disturbance. Chronic anemia and bleeding tendency. All other systems review is negative. MEDICATIONS: When last seen in our office his medications included carvedilol 3.125 mg twice a day, isosorbide mononitrate ER 60 mg tablets 1/2 tablet daily, spironolactone 25 mg daily, torsemide 20 mg tablets 2 tablets twice a day, digoxin 0.125 mg daily, enteric coated aspirin 81 mg daily, nitroglycerin 0.4 mg SL every 5 minutes as needed chest pain, iron supplement 325 mg daily, Advair Diskus 230-21 two puffs twice a day, Lyrica 75 mg at bedtime, melatonin ER 10 mg at bedtime, Amaryl 1 mg daily, colchicine 0.6 mg daily as needed gouty arthritis , Colace 100 mg twice a day as needed, vitamin B12, Uloric 80 mg daily, diphenhydramine 25 mg daily as needed, acetaminophen 650 mg every 4 hours as needed arthralgia, Calciferol 0.25 mcg 2 tablets daily Mondays through Fridays only. ALLERGIES: METFORMIN (contraindicated because of renal failure), PLAVIX (GI bleeding). PHYSICAL EXAMINATION: Constitutional: Pleasant, bright elderly male sitting comfortably by his bedside, currently of medium body build. No obvious pallor or cyanosis. Vital signs: Heart rate 60 bpm with frequent irregularities. Blood pressure 128/60 supine, 118/58 sitting with legs dependent. Respiratory rate 18 per minute, O2 saturation 99% on room air. Weight 196 pounds. Height 73 inches, BMI 25.9. Afebrile. Eyes: Normal conjunctivae and lids. No xanthelasma. ENT/mouth: Normal oral moisture. No central cyanosis. Neck: Trachea midline. Thyroid not enlarged. Neck veins were elevated at least 10 to 12 cm above the sternal angle. Respiratory: Slightly increased anteroposterior chest diameter with well-healed sternotomy incision and pacemaker incision left subclavian region. Slight dullness both bases with few inspiratory rales above this, but no expiratory rhonchi at this time. Cardiovascular: Apical impulse displaced lateral to his anterior basilar line in the 6th intercostal space. S1 and S2 were variable related to his arrhythmia. S3 gallop with obvious apical systolic murmur grade 2-3 out of 6 with separate variable systolic ejection murmur along the left sternal border radiating to the right base. No audible diastolic murmur. Normal carotid upstrokes but variable volume related to his arrhythmia. Well-healed left carotid endarterectomy scar. Upper extremity and femoral pulses were symmetrical and normal. Pedal pulses were reduced. Has at least 2 mm pitting edema two-thirds of the way up both lower legs and over his sacrum and lower lumbar spine posteriorly. Few dilated superficial venules, but no obvious varicosities. Abdominal aorta was not palpable. GI: Soft, somewhat protuberant abdomen with bulging flanks and shifting dullness. Obvious hepatomegaly with liver span measuring 10-12 cm in the right mid clavicular line. No palpable splenomegaly. Rectal examination not indicated. Skin: No obvious pallor. Healing ecchymotic lesions forearms. No other rashes or icterus. Musculoskeletal: No obvious joint deformities. Proximal muscle wasting and proximal muscle weakness. Normal tone. Normal spine curvature. Somewhat unsteady gait, uses a walker. Neuro:/psych: Bright, alert and orientated. Gave a lucent history. Eye, facial, and extremity movements were symmetrical and normal. No involuntary movements. INVESTIGATIONS: AP and left lateral chest x-ray taken in the emergency room on his presentation showed obvious cardiomegaly even allowing for this portable technique. Has a biventricular pacemaker with pulse generator left subclavian region. Right ventricular pacing lead terminating in the RV apex and left ventricular pacing lead terminating in a posterolateral branch of the great cardiac vein. Obvious sternotomy sutures with multiple vascular clips. Obvious pulmonary venous congestion with increased interstitial markings and small bilateral pleural effusions, new from earlier this month. No evidence of pneumonia. EKG: Underlying atrial fibrillation with biventricular paced QRS complexes and frequent PVCs occurring in a trigeminal pattern. Paced QRS complexes now show an extreme rightward axis with right bundle branch block configuration compared to his previous left bundle branch block RV stimulating complexes. LABORATORY DATA: Serial complete blood counts have shown stable hemoglobin of 11. Normal white blood cell counts throughout. Normal MCV and MCH but slightly low MCHC. Normal platelet count. Serial chemistry has shown a mild degree of metabolic alkalosis with potassium slightly dropping to 4.1 today from 4.2 on admission. BUN on admission 91 with creatinine 2.86 down today to 83 and 2.74 despite supposed negative fluid balance. Fasting glucose this morning 212 on high dose by mouth prednisone. Serum calcium was normal at 10.2 with albumin of 3.2. Pro BNP level was 20,673. Liver function studies today were normal. Digoxin level on admission was 1.6. Urinalysis was 3+ positive for blood with pyuria and positive urine leukocyte esterase. Blood culture shows no growth after 48 hours and sputum shows multiple organisms, question a contaminant. IMPRESSION/PLAN: 1. Heart failure (systolic and diastolic / acute on chronic): Despite his negative fluid balance, he continues to have impressive biventricular congestion. He has obviously well-documented left ventricular dysfunction and unfortunately has not reaped much benefit from his biventricular pacing system because of frequent premature ventricular contraction (PVC). Has impressive renal insufficiency that may be improved by adjustment of his vasodilator therapy. He will continue on a modest salt and fluid intake restriction. His diuretics were changed to spironolactone 25 mg daily and his torsemide 40 mg twice a day. His isosorbide mononitrate was discontinued in favor of combination isosorbide dinitrate with hydralazine 20 mg three times a day. His digoxin will be discontinued as we will be starting amiodarone for PVC suppression. He remains on low molecular weight heparin for DVT prophylaxis. 2. Frequent PVCs: As mentioned every third heart beat is a PVC. Unfortunately, this is clearly interfering with his left ventricular performance and any potential benefit we would expect with his biventricular pacing system. We have placed him on a remote monitor and will be starting amiodarone 200 mg four times a day loading for at least the next 4 days in hospital. As mentioned with his renal insufficiency and amiodarone, his digoxin therapy will be discontinued. Recent ultra sensitive TSH was normal. Liver function studies at this time are normal despite his obvious hepatomegaly due to right heart failure. 3. AV block/biventricular pacemaker in situ: This is not a cardioverter defibrillator. Recent intracardiac electrograms and pacing thresholds were excellent. As mentioned, he is not reaped much benefit from his upgrade in light of the frequent ventricular ectopic activity as described above. With his heart failure, we may consider increasing his low pacing rate to further overdrive this ectopic activity. 4. Chronic atrial fibrillation: Ventricular response is controlled due to AV block with his digoxin and carvedilol used primarily for antifailure measures. He is not a candidate for oral anticoagulation because of his recurrent GI bleeding. Fortunately, he has been free of any symptom or sign of embolic phenomenon. 5. Coronary artery disease (ruby vessel)/post CABG on two separate occasions/post multiple percutaneous stenting procedures: Gratifyingly at this point he has been free of symptomatic myocardial ischemia. We plan on maintaining him on protective combination carvedilol with isosorbide dinitrate and low-dose aspirin. With his hepatic congestion, we have had concerns regarding statin therapy. 6. Hypertensive heart disease (benign with heart failure): Even his recent echocardiogram did show left ventricle hypertrophy and as previously mentioned, significant left ventricular diastolic dysfunction and elevated mean left atrial pressure. Note is made of his renal insufficiency and is likely related to his age, chronic hypertension, diabetes mellitus, and impaired cardiac performance. We are cautiously optimistic that this may improve with combination isosorbide dinitrate and hydralazine. We will continue to monitor his chemistry closely with you. 7. Mitral and aortic valve disorder (nonrheumatic): Recent echocardiogram shows degenerative changes of both these structures with at least moderate mitral and very mild aortic insufficiency. Fortunately, no symptoms or signs of endocarditis. We will be monitoring him closely with you and appreciate the opportunity to participate in his care. DINORAH
[2017-10-14] MEDS: IPRATROPIUM 0.5MG/ALBUTEROL 2.5MG INH SOL UD 3ML (DUONEB)(J7620) NEB SCH ×4 (01:34→19:11)
[2017-10-14 06:00] VITALS: BP 106/54
[2017-10-14] MEDS: **hydrALAZINE** 10 MG TAB PO SCH ×3 (06:29→17:27)
[2017-10-14] MEDS: ISOSORBIDE DIN. (ISORDIL) 20 MG TAB PO SCH ×3 (06:30→17:28)
[2017-10-14 06:36] LABS: MEAN CORPUSCULAR HEMOGLOBIN 28.9 pg (27.0-33.0); MEAN CORPUSCULAR VOLUME 90.4 fl (80.0-96.0); PLATELET COUNT, AUTOMATED 145 10^3/uL (150-450); RED CELL DISTRIBUTION WIDTH 15.8 % (11.5-14.5); WHITE BLOOD COUNT 5.4 10^3/uL (4.0-10.0)
[2017-10-14 06:47] LABS: ALBUMIN 2.8 GM/DL (3.2-5.2); CREATININE FOR GFR 2.43 MG/DL (0.70-1.30); GLOMERULAR FILTRATION RATE 27.4 (>35); PHOSPHORUS LEVEL 3.1 MG/DL (2.5-4.9); POTASSIUM SERUM 3.9 MEQ/L (3.5-5.1)
[2017-10-14] MEDS: ADVAIR HFA 230/21MCG INHALER INH SCH ×2 (07:36→20:05)
[2017-10-14] MEDS: HumaLOG INSULIN (NovoLOG) PER UNIT SC SCH ×4 (08:14→21:00)
[2017-10-14] MEDS: ENOXAPARIN 30 MG/0.3 ML SYR (J1650) SC SCH (08:15)
[2017-10-14 09:49] VITALS: BP 120/58
[2017-10-14] MEDS: FEBUXOSTAT 40 MG TABLET (ULORIC) PO SCH (11:15)
[2017-10-14] MEDS: AMIODARONE 200 MG TAB (PACERONE) PO SCH ×4 (11:16→20:57)
[2017-10-14] MEDS: POTASSIUM CHLORIDE 10 MEQ SR TABLET PO SCH ×2 (11:16→20:58)
[2017-10-14] MEDS: DOCUSATE SODIUM 100 MG CAP PO SCH ×2 (11:17→20:56)
[2017-10-14] MEDS: SPIRONOLACTONE 25 MG TAB PO SCH (11:17)
[2017-10-14] MEDS: TORSEMIDE 20 MG TAB PO SCH ×2 (11:17→17:27)
[2017-10-14] MEDS: CARVedilol 3.125 MG TAB PO SCH ×2 (11:18→20:57)
--- NOTE | 2017-10-14 11:32 | IPNPDOC ---
Subjective Date Seen The patient was seen on 10/14/17. Subjective Chief Complaint/HPI The patient is a 82-year-old male admitted with a reason for visit of Generalized Weakness;Systolic Chf. Events since last encounter Medications adjusted by Cardiology: see consult note Constitutional: Denies: Chills, Fever, Night Sweats Skin: Denies: Rash, Lesions, Breakdown Pulmonary: Denies: Dyspnea, Cough Cardiovascular: Reports: Edema, Denies: Chest Pain, Palpitations, Orthopnea, Paroxysmal Noc. Dyspnea, Lt Headedness Genitourinary: Denies: Dysuria, Frequency, Incontinence, Retention Objective Physical Examination Eye Exam: Positive: EOMI Chest Exam: Positive: Rales (fine bibasilar), Diminished, Negative: Rhonchi Heart Exam: Positive: Rate Normal Abdomen Exam: Positive: Normal bowel sounds Extremity Exam: Positive: Edema (trace) Skin Exam: Negative: Rash Neuro Exam: Positive: Normal Speech Psych Exam: Positive: Mental status NL, Mood NL Assessment /Plan Problems (1) Generalized weakness Status: Chronic Response to Treatment: Stable Problem Text: 10/14/17: participating in PT. Agreeable;e to home PT. Declines rehab 10/13/2017: ambulate independently with walk in room today. May have option of going home with Home PT will need rehabilitation if he is to return home successfully (2) Systolic CHF with reduced left ventricular function, NYHA class 3 Permanent Comment: ECHO 10/06/17: CONCLUSIONS: 1. Normal left ventricle size. Mild focal hypertrophy of the basal anterior ventricular septum. Severe reduction in overall left ventricular (LV) systolic function. Multiple regional wall motion abnormalities. The basal anteroseptal segment was hypokinetic. The mid and distal anteroseptal segments were dyskinetic. The intraseptal segments were paradoxical. The apex was akinetic. The mid inferior segment appeared akinetic. Basal inferior segment was hypokinetic. Hypokinesis of the basal and mid anterior, basal and mid anterolateral, and basal and mid inferior LV segments. Left ventricular ejection fraction (LVEF) 25% by visual estimate. Difficult to adequately assess LV diastolic function in the setting of moderate mitral regurgitation. Suspect grade 3 or grade 4 LV diastolic dysfunction. 2. Suggestive of moderate elevation of pulmonary artery systolic pressure and estimated right ventricle systolic pressure. 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 Hepatic congestion. Severe tricuspid regurgitation. 3. Moderate aortic valve sclerosis of a 3-cusp aortic valve. No aortic stenosis. Very mild aortic regurgitation. 4. Moderate mitral annular calcification. Moderate mitral regurgitation. No mitral stenosis. 5. Mild dilatation of the aortic root at the level of the sinus of Valsalva. 6. Moderate left atrial dilatation. 7. Presence of endocardial cardiac rhythm management leads identified in the right side of the heart. Last Edited By: Angelic Roberts NP on Oct 13, 2017 08:41 Status: Chronic Response to Treatment: Stable Problem Specific Plan: Consult Specialist Problem Text: 10/14/17: medication adjustments by Dr. Rizzo, cardiology 10/13/2017: recent adjustment in medications. Torsemide increased to 80 mg po bid from 40 mg po bid. Patient has EF of 25%. States recent pacer interrogation. Echo completed 10/06/17 from last hospitalization. Cardiology consulted for medication management. continue 2 gram sodium diet with 1500 ml fluid restriction. (3) Chronic kidney disease (CKD), stage IV (severe) Status: Chronic Response to Treatment: Stable, Improving (4) COPD (chronic obstructive pulmonary disease) Status: Acute Response to Treatment: Stable Problem Text: 10/13/17: Prednisone added on. No wheezing or rhonchi today. (5) T2DM (type 2 diabetes mellitus) Status: Chronic Response to Treatment: Stable Problem Text: Off amaryl. On ACHS fingersticks with sliding scale coverage. Anticipate glucoses will increase with prednisone use to try to improve airway inflammation Plan/VTE VTE Prophylaxis Ordered?: Yes Plan Activity: Encourage Ambulation Therapy: PT, OT Anticipated Discharge: Home With Services VS, I&O, 24H, [facility] Vital Signs/I&O Vital Signs Date Time Temp Pulse Resp B/P (MAP) Pulse Ox O2 Delivery O2 Flow Rate FiO2 10/14/17 11:18 63 120/58 10/14/17 09:49 97.9 16 Room Air 10/14/17 06:00 95 Laboratory Data 24H LABS Laboratory Tests 2 10/13/17 11:41: Bedside Glucose (Misc Panel) 186H 10/13/17 16:27: Bedside Glucose (Misc Panel) 203H 10/13/17 20:01: Bedside Glucose (Misc Panel) 178H 10/14/17 06:03: Nucleated Red Blood Cells % (auto) 0.0, Blood Urea Nitrogen 84H, Creatinine 2.43H, Sodium Level 135L, Potassium Level 3.9, Chloride Level 94L, Carbon Dioxide Level 34H, Anion Gap 7L, Glomerular Filtration Rate 27.4L, Calcium Level 10.0, Phosphorus Level 3.1, Albumin 2.8L CBC/BMP Laboratory Tests 10/14/17 06:03 Red Blood Count 3.53 L, Mean Corpuscular Volume 90.4, Mean Corpuscular Hemoglobin 28.9, Mean Corpuscular Hemoglobin Concent 32.0, Red Cell Distribution Width 15.8 H, Anion Gap 7 L Microbiology Microbiology 10/11/17 Blood Culture - Preliminary, Resulted No Growth after 48 hours. All Specime... 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
[2017-10-14 12:16] VITALS: BP 112/62
[2017-10-14 14:03] VITALS: BP 110/58
[2017-10-14 17:40] VITALS: BP 123/64
--- NOTE | 2017-10-14 19:48 | IPN ---
CARDIOLOGY PROGRESS NOTE: 10/14/2017 SUBJECTIVE: The patient has been up walking in the [place] with his walker and feels his breathing continues to improve. Has remained free of any awareness of his heart action. Denies dizziness or lightheadedness with position changes. No effort related chest discomfort. Appears to be tolerating his medication changes without problem. OBJECTIVE: Pleasant elderly male of medium body build with slight barrel chest laying comfortably with the head of the bed elevated only 30 degrees. Heart rate currently 70 beats per minute with frequent ongoing irregularities. Blood pressure 104/52 supine, unchanged upon sitting with legs dependent. Respiratory rate 16 per minute. Oxygen saturation 98% on room air. Weight this morning was down to 87.4 kg from reported 89 kg yesterday and fluid balance yesterday was negative 1880 mL. No pallor or cyanosis. Normal oral moisture. Trachea midline. Neck veins remain elevated 8 to 10 cm above the sternal angle. Currently has no inspiratory rales or expiratory rhonchi. His abdomen remains soft with ongoing hepatomegaly. Still has impressive lower lumbar and sacral pitting edema with bilateral lower extremity pitting edema two-thirds of the way up both shins. MAINTENANCE INSPECTOR: Continues to have underlying atrial fibrillation with biventricular paced QRS complexes alternating with frequent isolated premature ventricular contraction (PVC) couplets and occasional slow triplets. LABORATORY DATA: Blood work today showed a hemoglobin of 10.2, normal white blood cell count and platelet count. His potassium had drifted from 4.4 on the to 3.9 today with his negative fluid balance. His bicarbonate essentially stable at 34. BUN essentially stable at 84 with creatinine slightly improved at 2.4. Serum albumin 2.8. Fasting glucose 164, down from 212 yesterday. IMPRESSION/PLAN: 1. Heart failure (systolic and diastolic/acute on chronic): I am pleased with his improved exercise tolerance but he still has impressive systemic edema and elevated neck veins. Despite his negative fluid balance renal function has remained stable. Appears to be tolerating his present combination isosorbide dinitrate and hydralazine. Will not plan on changing this dosage today, but may escalate the dose starting tomorrow. Continues with torsemide 40 mg twice a day with spironolactone 25 mg daily and off digoxin because of his amiodarone. 2. Frequent PVCs. Despite his 24 hours of amiodarone continues to have frequent isolated ventricular ectopic activity that is still interfering with his biventricular pacing. We have increased his low pacing rate to help overdrive this ectopic activity. Has received four doses of amiodarone 200 mg four times a day at this time. We are aiming for his tentative discharge Friday morning the 18 of October. At that time we planned to reduce his dose of amiodarone to 200 mg twice a day. 3. AV block/biventricular pacemaker in situ: As mentioned we have increased his low pacing rate to 70 BPM in hopes of further overdriving his frequent isolated PVCs. Intracardiac electrograms remain excellent as does his pacing threshold. Device is functioning appropriately. 4. Chronic atrial fibrillation: Ventricular response is controlled on his carvedilol and amiodarone. We do not anticipate amiodarone will lead to conversion of his chronic atrial tachyarrhythmia. Remains not a candidate for oral anticoagulation because of his anemia and recurrent GI bleeding in the past. 5. Coronary artery disease ([place] vessel)/post CABG on two occasions/post multiple percutaneous transluminal coronary angioplasty (PTCA)/stenting procedures: Continues to show increased activity tolerance and remains free of symptomatic myocardial ischemia. We do not plan on making any further changes to his combination carvedilol, isosorbide dinitrate, and low dose aspirin at this time. 6. Hypertensive heart disease (benign with heart failure): As mentioned current blood pressure is well controlled on combination medical therapy. Renal function despite his diuresis has been fairly stable. We are hoping that combination of isosorbide dinitrate and hydralazine will improve renal perfusion and his renal function may improve further. 7. Mitral and aortic valve disorder (nonrheumatic): Auscultatory findings were unchanged. Remains free of symptom or sign of endocarditis. Have not planned on making any medications changes today. Increased his pacing rate slightly as mentioned above. Continues to show improvement. MTDD
[2017-10-14] MEDS: ASPIRIN 81 MG ENTERIC TAB PO SCH (20:57)
[2017-10-14] MEDS: PREGABALIN 75 MG CAP(LYRICA) PO SCH (20:57)
[2017-10-14 22:00] VITALS: BP 115/64
[2017-10-15] MEDS: IPRATROPIUM 0.5MG/ALBUTEROL 2.5MG INH SOL UD 3ML (DUONEB)(J7620) NEB SCH ×4 (01:45→19:49)
[2017-10-15 06:00] VITALS: BP 121/67
[2017-10-15 06:40] LABS: ALBUMIN 3.1 GM/DL (3.2-5.2); CALCIUM LEVEL 10.4 MG/DL (8.8-10.2); CREATININE FOR GFR 2.48 MG/DL (0.70-1.30); GLOMERULAR FILTRATION RATE 26.8 (>35); MAGNESIUM LEVEL 2.6 MG/DL (1.8-2.4); PHOSPHORUS LEVEL 3.2 MG/DL (2.5-4.9); POTASSIUM SERUM 4.2 MEQ/L (3.5-5.1)
[2017-10-15] MEDS: **hydrALAZINE** 10 MG TAB PO SCH (07:00)
[2017-10-15] MEDS: ISOSORBIDE DIN. (ISORDIL) 20 MG TAB PO SCH (07:00)
[2017-10-15] MEDS: ADVAIR HFA 230/21MCG INHALER INH SCH ×2 (07:50→19:50)
--- NOTE | 2017-10-15 08:08 | IPNPDOC ---
Subjective Date Seen The patient was seen on 10/15/17. Subjective Chief Complaint/HPI The patient is a 82-year-old male admitted with a reason for visit of Generalized Weakness;Systolic Chf. Events since last encounter Adjustment of medications continues via cardiology recommendations. Sputum cx returned with pseudomonas and staph aureus. Continues with cough Constitutional: Denies: Chills, Fever, Night Sweats Pulmonary: Reports: Dyspnea, Cough Cardiovascular: Denies: Chest Pain, Palpitations, Orthopnea, Paroxysmal Noc. Dyspnea, Lt Headedness Gastrointestinal: Denies: Nausea, Vomiting, Abdominal Pain, Diarrhea, Constipation Genitourinary: Denies: Dysuria, Frequency, Incontinence, Retention Psych: Reports: Mood Normal, Denies: Depression, Memory Issues Objective Physical Examination General Exam: Positive: Alert, No Acute Distress Eye Exam: Positive: EOMI Neck Exam: Positive: JVD Chest Exam: Positive: Clear to auscultation, Diminished, Negative: Rales, Rhonchi Heart Exam: Positive: Rate Normal Abdomen Exam: Positive: Normal bowel sounds Extremity Exam: Positive: Edema (2+ up to knee) Skin Exam: Negative: Rash Neuro Exam: Positive: Normal Speech Psych Exam: Positive: Mental status NL, Mood NL Assessment /Plan Problems (1) Positive sputum culture for Pseudomonas Status: Acute Problem Text: started on Ceftriaxone for Staph and pseudomonas. (2) Generalized weakness Status: Chronic Response to Treatment: Stable Problem Text: 10/14/17: participating in PT. Agreeable to home PT. Declines rehab 10/13/2017: ambulate independently with walk in room today. May have option of going home with Home PT will need rehabilitation if he is to return home successfully (3) Systolic CHF with reduced left ventricular function, NYHA class 3 Permanent Comment: ECHO 10/06/17: CONCLUSIONS: 1. Normal left ventricle size. Mild focal hypertrophy of the basal anterior ventricular septum. Severe reduction in overall left ventricular (LV) systolic function. Multiple regional wall motion abnormalities. The basal anteroseptal segment was hypokinetic. The mid and distal anteroseptal segments were dyskinetic. The intraseptal segments were paradoxical. The apex was akinetic. The mid inferior segment appeared akinetic. Basal inferior segment was hypokinetic. Hypokinesis of the basal and mid anterior, basal and mid anterolateral, and basal and mid inferior LV segments. Left ventricular ejection fraction (LVEF) 25% by visual estimate. Difficult to adequately assess LV diastolic function in the setting of moderate mitral regurgitation. Suspect grade 3 or grade 4 LV diastolic dysfunction. 2. Suggestive of moderate elevation of pulmonary artery systolic pressure and estimated right ventricle systolic pressure. 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 Hepatic congestion. Severe tricuspid regurgitation. 3. Moderate aortic valve sclerosis of a 3-cusp aortic valve. No aortic stenosis. Very mild aortic regurgitation. 4. Moderate mitral annular calcification. Moderate mitral regurgitation. No mitral stenosis. 5. Mild dilatation of the aortic root at the level of the sinus of Valsalva. 6. Moderate left atrial dilatation. 7. Presence of endocardial cardiac rhythm management leads identified in the right side of the heart. Last Edited By: Angelic Roberts NP on Oct 13, 2017 08:41 Status: Chronic Response to Treatment: Stable Problem Specific Plan: Consult Specialist Problem Text: 10/15/17: medication adjustments by Dr. Rizzo, cardiology 10/13/2017: recent adjustment in medications. Torsemide increased to 80 mg po bid from 40 mg po bid. Patient has EF of 25%. States recent pacer interrogation. Echo completed 10/06/17 from last hospitalization. Cardiology consulted for medication management. continue 2 gram sodium diet with 1500 ml fluid restriction. (4) Chronic kidney disease (CKD), stage IV (severe) Status: Chronic Response to Treatment: Stable, Improving (5) COPD (chronic obstructive pulmonary disease) Status: Acute Response to Treatment: Stable Problem Text: 10/13/17: Prednisone added on. No wheezing or rhonchi today. (6) T2DM (type 2 diabetes mellitus) Status: Chronic Response to Treatment: Stable Problem Text: 10/15: Fingerstick glucoses reviewed - has only been mildly elevated on steroids; continue current regimen Off amaryl. On ACHS fingersticks with sliding scale coverage. Anticipate glucoses will increase with prednisone use to try to improve airway inflammation Plan/VTE VTE Prophylaxis Ordered?: Yes Plan Activity: Encourage Ambulation Therapy: PT, OT Anticipated Discharge: Home With Services Family Medicine Attending Note: I saw and examined Mr. Johnson this morning; I discussed his care with TIM Whaley and I agree with her note as documented. I reviewed Dr. Ortiz' note from today; patient did report to me this morning a sensation of a "jolt" that occurred with abnormalities on telemetry. Continue amiodarone loading and diuresis. (KES) VS, I&O, 24H, Fishbone Vital Signs/I&O Vital Signs Date Time Temp Pulse Resp B/P (MAP) Pulse Ox O2 Delivery O2 Flow Rate FiO2 10/15/17 07:00 174/88 10/15/17 06:00 98.0 70 19 97 Room Air Laboratory Data 24H LABS Laboratory Tests 2 10/14/17 16:38: Bedside Glucose (Misc Panel) 144H 10/14/17 20:26: Bedside Glucose (Misc Panel) 154H 10/15/17 05:31: Blood Urea Nitrogen 88H, Creatinine 2.48H, Sodium Level 138, Potassium Level 4.2 , Chloride Level 94L, Carbon Dioxide Level 36H, Anion Gap 8, Glomerular Filtration Rate 26.8L, Calcium Level 10.4H, Phosphorus Level 3.2, Magnesium Level 2.6H, Albumin 3.1L CBC/BMP Laboratory Tests 10/15/17 05:31 Anion Gap 8 Microbiology Microbiology 10/11/17 Blood Culture - Preliminary, Resulted No Growth after 72 hours. All specime... 10/11/17 Gram Stain - Final, Complete 10/11/17 Sputum Culture - Final, Complete Pseudomonas Aeruginosa Staphylococcus Aureus Angelic Roberts Oct 15, 2017 08:08 SHELLI HENDERSON MD Oct 15, 2017 10:40
[2017-10-15] MEDS: FEBUXOSTAT 40 MG TABLET (ULORIC) PO SCH (08:43)
[2017-10-15] MEDS: AMIODARONE 200 MG TAB (PACERONE) PO SCH ×4 (08:44→20:23)
[2017-10-15] MEDS: TORSEMIDE 20 MG TAB PO SCH ×2 (08:44→17:33)
[2017-10-15] MEDS: HumaLOG INSULIN (NovoLOG) PER UNIT SC SCH ×4 (08:44→21:00)
[2017-10-15] MEDS: SPIRONOLACTONE 25 MG TAB PO SCH (08:45)
[2017-10-15] MEDS: POTASSIUM CHLORIDE 10 MEQ SR TABLET PO SCH ×2 (08:45→20:24)
[2017-10-15] MEDS: ENOXAPARIN 30 MG/0.3 ML SYR (J1650) SC SCH (08:45)
[2017-10-15] MEDS: DOCUSATE SODIUM 100 MG CAP PO SCH ×2 (08:45→20:24)
[2017-10-15] MEDS: CARVedilol 3.125 MG TAB PO SCH ×2 (08:45→20:24)
[2017-10-15] MEDS ORDERED: CEFTRIAXONE SOD 1 GM in APPROPRIATE DILUENT 1 EA IV SCH (09:00)
--- NOTE | 2017-10-15 09:56 | IPN ---
CARDIOLOGY PROGRESS NOTE: DATE: 10/15/2017 SUBJECTIVE: Patient rates experiencing two episodes of fleeting left arm and chest discomfort like a sudden jolt with his activities, including walking the [place], has been free of any chest, jaw or arm pressure/tightness. Was able to sleep well without orthopnea. Continues to have a cough productive of clear whitish sputum that is not tenacious or purulent. Feels this is gradually improving with his diuresis. Remains free of any awareness of his heart action, though apparently, he has had some chest discomfort correlating with the ventricular couplet on telemetry. He denies any dizziness with his ambulation. Tolerating his medications without adverse effect. OBJECTIVE: Pleasant, elderly male of medium body build, lay comfortably. Heart rate 70 beats per minute and regular. Blood pressure 118/68 , 124/64 sitting with leg dependent. Respiratory rate 16 per minute. Oxygen saturation 97%. Remains afebrile. Intake and output yesterday recorded as -1605 mL . Weight today is down approximately 0.7 kg from yesterday. No pallor or cyanosis. Normal oral moisture. Trachea midline. Neck veins remain elevated at least 8 cm above sternal angle. Good air entry over both lung garg with no current pulmonary adventitious sounds. Abdomen soft with persistent hepatomegaly. Lower leg swelling has decreased, but he still has some sacral and lower lumbar spine pitting. PLATE ROLLER: This has shown a dramatic improvement in his ventricular ectopy after his day and a half of amiodarone loading. His pulse is quite regular at this time. LABORATORY DATA: Chemistry today showed potassium of 4.2, up from 3.9. Bicarbonate is 36. Serum magnesium is 2.6. Serum calcium is 10.4 with phosphorus 3.2. BUN 88, creatinine 2.48, essentially stable. Fasting glucose 122. Albumin 3.1. IMPRESSION/PLAN: 1. Heart failure (systolic and diastolic/acute on chronic): I believe he is continuing to make steady progress but he still has signs of congestion. With his stable BUN and improved serum potassium, I have elected to give him a dose of the metolazone 1.25 mg by mouth once today. He will continue on the same torsemide 40 mg twice a day and spirolactone 25 mg daily. His dosage of isosorbide dinitrate and hydralazine will also be slightly increased. A followup PA and left lateral chest x-ray has been requested for tomorrow morning. 2. Frequent premature ventricular contractions (PVCs): After 1-1/2 days of amiodarone loading, his ventricular ectopy has dramatically decreased. I am cautiously optimistic with consistent biventricular pacing his left ventricular performance will improve and he will be less likely to have decompensations. We would appreciate having him continue with his current loading until his tentative discharge 10/18/2017. At that time, we would plan on sending him home on amiodarone 200 mg twice a day. 3. Atrioventricular (AV) block/biventricular pacemaker in situ: As mentioned above, I am quite gratified that he currently is mostly paced in his ventricle and he is using his biventricular/cardiac re-synchrony. 4. Chronic atrial fibrillation: Remains on low-dose carvedilol and off digoxin in light of his amiodarone therapy. Not a candidate for oral anticoagulation because of his anemia and recurrent gastrointestinal (GI) bleeding in the past. 5. 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 We have encouraged his continued ambulation in hospital on his present protective combination carvedilol, isosorbide dinitrate and low-dose aspirin. 6. Hypertensive heart disease (benign with heart failure): Patient continues to be tolerating a gradual increase in his combination isosorbide dinitrate and hydralazine. I plan to make one additional change to his medications today as described above. I am still optimistic that this may ultimately improve renal perfusion along with some more consistent regular biventricular pacing. 7. Mitral and aortic valve disorder (nonrheumatic): Auscultatory findings unchanged. No symptom or sign of endocarditis. At this point, we will plan on following him from [facility]. He has a follow up appointment in my office for Friday,10/20/17, at 12:45 PM. I have discussed my recommendations with MIKAELA Walker this morning. DINORAH
[2017-10-15] MEDS ORDERED: metOLazone 2.5 MG TAB PO ONE (10:00)
[2017-10-15] MEDS: **hydrALAZINE HCL** 25 MG TAB PO SCH ×2 (12:05→17:33)
[2017-10-15] MEDS: ISOSORBIDE DIN. (ISORDIL) 30 MG TAB PO SCH ×2 (12:06→17:33)
[2017-10-15 14:00] VITALS: BP 106/59
[2017-10-15] MEDS: ASPIRIN 81 MG ENTERIC TAB PO SCH (20:24)
[2017-10-15] MEDS: PREGABALIN 75 MG CAP(LYRICA) PO SCH (20:24)
[2017-10-15] MEDS: ACETAMINOPH W/CODEINE #3 TAB UD PO PRN (20:25)
[2017-10-15 22:00] VITALS: BP 119/59
[2017-10-16] MEDS: IPRATROPIUM 0.5MG/ALBUTEROL 2.5MG INH SOL UD 3ML (DUONEB)(J7620) NEB SCH ×4 (01:26→20:00)
[2017-10-16 06:00] VITALS: BP 111/58
[2017-10-16] MEDS: ISOSORBIDE DIN. (ISORDIL) 30 MG TAB PO SCH ×3 (06:27→17:21)
[2017-10-16] MEDS: **hydrALAZINE HCL** 25 MG TAB PO SCH ×3 (06:27→17:21)
[2017-10-16 06:47] LABS: CALCIUM LEVEL 9.9 MG/DL (8.8-10.2); CREATININE FOR GFR 2.52 MG/DL (0.70-1.30); GLOMERULAR FILTRATION RATE 26.3 (>35); PHOSPHORUS LEVEL 3.7 MG/DL (2.5-4.9); POTASSIUM SERUM 4.4 MEQ/L (3.5-5.1)
[2017-10-16] MEDS: HumaLOG INSULIN (NovoLOG) PER UNIT SC SCH ×4 (07:38→21:00)
[2017-10-16] MEDS: FEBUXOSTAT 40 MG TABLET (ULORIC) PO SCH (07:39)
[2017-10-16] MEDS: ENOXAPARIN 30 MG/0.3 ML SYR (J1650) SC SCH (07:39)
[2017-10-16] MEDS: SPIRONOLACTONE 25 MG TAB PO SCH (07:39)
[2017-10-16] MEDS: POTASSIUM CHLORIDE 10 MEQ SR TABLET PO SCH ×2 (07:39→21:25)
[2017-10-16] MEDS: DOCUSATE SODIUM 100 MG CAP PO SCH ×2 (07:39→21:24)
[2017-10-16] MEDS: CARVedilol 3.125 MG TAB PO SCH ×2 (07:40→21:26)
[2017-10-16] MEDS: TORSEMIDE 20 MG TAB PO SCH ×2 (07:40→17:21)
[2017-10-16] MEDS: AMIODARONE 200 MG TAB (PACERONE) PO SCH ×4 (07:40→21:26)
[2017-10-16] MEDS: ADVAIR HFA 230/21MCG INHALER INH SCH ×2 (08:13→20:23)
--- NOTE | 2017-10-16 08:40 | REP ---
Clinical: Chest pain and CHF. Technique: PA and lateral. Comparison: 10/11/2017. Findings: Mediastinum and cardiac silhouette are stable with mild cardiomegaly and evidence for prior pacemaker, sternotomy and CABG. Lung garg demonstrate mild vascular congestion including right basilar atelectasis and small pleural effusions (right greater than left). No pneumothorax. Skeletal structures intact. Impression: Mild vascular congestion with right basilar atelectasis and small pleural effusions (right greater than left). Signed by Mina Mcgovern MD 10/16/2017 08:32 A
--- NOTE | 2017-10-16 08:58 | IPNPDOC ---
Subjective Date Seen The patient was seen on 10/16/17. Subjective Chief Complaint/HPI The patient is a 82-year-old male admitted with a reason for visit of Generalized Weakness;Systolic Chf. Events since last encounter Denies c/o. Given 1 time Metolazone yesterday. CXR completed this am. Constitutional: Denies: Chills, Fever, Night Sweats ENT: Denies: Head Aches, Ear Pain, Dysphagia Skin: Denies: Rash, Lesions, Breakdown Pulmonary: Reports: Dyspnea (mild), Denies: Cough Cardiovascular: Denies: Chest Pain, Palpitations, Orthopnea, Paroxysmal Noc. Dyspnea, Lt Headedness Gastrointestinal: Denies: Nausea, Vomiting, Abdominal Pain, Diarrhea, Constipation Genitourinary: Denies: Dysuria, Frequency, Incontinence, Retention Psych: Reports: Mood Normal Objective Physical Examination General Exam: Positive: Alert, No Acute Distress Eye Exam: Positive: EOMI Neck Exam: Positive: JVD Chest Exam: Positive: Clear to auscultation, Negative: Rales, Rhonchi, Diminished Heart Exam: Positive: Rate Normal Abdomen Exam: Positive: Normal bowel sounds Extremity Exam: Positive: Edema (2+ up to knee) Skin Exam: Negative: Rash Neuro Exam: Positive: Normal Speech Psych Exam: Positive: Mental status NL, Mood NL Assessment /Plan Problems (1) Positive sputum culture for Pseudomonas Status: Acute Problem Text: 10/16/2017: CXR clear, asymptomatic. Antibiotics DCd started on Ceftriaxone for Staph and pseudomonas. (2) Generalized weakness Status: Chronic Response to Treatment: Stable Problem Text: 10/14/17: participating in PT. Agreeable to home PT. Declines rehab 10/13/2017: ambulate independently with walk in room today. May have option of going home with Home PT will need rehabilitation if he is to return home successfully (3) Systolic CHF with reduced left ventricular function, NYHA class 3 Permanent Comment: ECHO 10/06/17: CONCLUSIONS: 1. Normal left ventricle size. Mild focal hypertrophy of the basal anterior ventricular septum. Severe reduction in overall left ventricular (LV) systolic function. Multiple regional wall motion abnormalities. The basal anteroseptal segment was hypokinetic. The mid and distal anteroseptal segments were dyskinetic. The intraseptal segments were paradoxical. The apex was akinetic. The mid inferior segment appeared akinetic. Basal inferior segment was hypokinetic. Hypokinesis of the basal and mid anterior, basal and mid anterolateral, and basal and mid inferior LV segments. Left ventricular ejection fraction (LVEF) 25% by visual estimate. Difficult to adequately assess LV diastolic function in the setting of moderate mitral regurgitation. Suspect grade 3 or grade 4 LV diastolic dysfunction. 2. Suggestive of moderate elevation of pulmonary artery systolic pressure and estimated right ventricle systolic pressure. 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 Hepatic congestion. Severe tricuspid regurgitation. 3. Moderate aortic valve sclerosis of a 3-cusp aortic valve. No aortic stenosis. Very mild aortic regurgitation. 4. Moderate mitral annular calcification. Moderate mitral regurgitation. No mitral stenosis. 5. Mild dilatation of the aortic root at the level of the sinus of Valsalva. 6. Moderate left atrial dilatation. 7. Presence of endocardial cardiac rhythm management leads identified in the right side of the heart. Last Edited By: Angelic Roberts NP on Oct 13, 2017 08:41 Status: Chronic Response to Treatment: Stable Problem Specific Plan: Consult Specialist Problem Text: 10/16/2017: improvement noted on CXR. See cardiology note for DC medication instructions. 10/15/17: medication adjustments by Dr. Rizzo, cardiology 10/13/2017: recent adjustment in medications. Torsemide increased to 80 mg po bid from 40 mg po bid. Patient has EF of 25%. States recent pacer interrogation. Echo completed 10/06/17 from last hospitalization. Cardiology consulted for medication management. continue 2 gram sodium diet with 1500 ml fluid restriction. (4) Chronic kidney disease (CKD), stage IV (severe) Status: Chronic Response to Treatment: Stable, Improving (5) COPD (chronic obstructive pulmonary disease) Status: Acute Response to Treatment: Stable Problem Text: 10/13/17: Prednisone added on. No wheezing or rhonchi today. (6) T2DM (type 2 diabetes mellitus) Status: Chronic Response to Treatment: Stable Problem Text: 10/15: Fingerstick glucoses reviewed - has only been mildly elevated on steroids; continue current regimen Off amaryl. On ACHS fingersticks with sliding scale coverage. Anticipate glucoses will increase with prednisone use to try to improve airway inflammation Plan/VTE VTE Prophylaxis Ordered?: Yes Plan Activity: Encourage Ambulation Therapy: PT, OT Anticipated Discharge: Home With Services Family Medicine Attending Note: I saw and examined Mr. Johnson this morning; I discussed his care with TIM Whaley and I agree with her note as documented. Patient is doing better in terms of HR, PVCs, and fluid status since changes were made by Dr. Rizzo. He was ambulating with a walker in the hallway today. If he continues to do well, we anticipate discharge on Friday. (KES) VS, I&O, 24H, Fishbone Vital Signs/I&O Vital Signs Date Time Temp Pulse Resp B/P (MAP) Pulse Ox O2 Delivery O2 Flow Rate FiO2 10/16/17 07:40 70 111/58 10/16/17 06:00 97.8 18 96 Room Air I&O- Last 24 Hours up to 6 AM 10/17/17 06:00 Output Total 225 ml Balance -225 ml Laboratory Data 24H LABS Laboratory Tests 2 10/15/17 11:33: Bedside Glucose (Misc Panel) 139H 10/15/17 16:37: Bedside Glucose (Misc Panel) 110 10/15/17 20:08: Bedside Glucose (Misc Panel) 124H 10/16/17 06:06: Blood Urea Nitrogen 78H, Creatinine 2.52H, Sodium Level 137, Potassium Level 4.4 , Chloride Level 96L, Carbon Dioxide Level 33H, Anion Gap 8, Glomerular Filtration Rate 26.3L, Calcium Level 9.9, Phosphorus Level 3.7, Albumin 3.0L CBC/BMP Laboratory Tests 10/16/17 06:06 Anion Gap 8 Microbiology Microbiology 10/11/17 Blood Culture - Preliminary, Resulted No Growth after 72 hours. All specime... 10/11/17 Gram Stain - Final, Complete 10/11/17 Sputum Culture - Final, Complete Pseudomonas Aeruginosa Staphylococcus Aureus Angelic Roberts Oct 16, 2017 08:58 SHELLI HENDERSON MD Oct 16, 2017 12:36
[2017-10-16 14:00] VITALS: BP 130/61
[2017-10-16 20:05] VITALS: BP 117/63
[2017-10-16] MEDS: ASPIRIN 81 MG ENTERIC TAB PO SCH (21:24)
[2017-10-16] MEDS: PREGABALIN 75 MG CAP(LYRICA) PO SCH (21:24)
[2017-10-16] MEDS: ACETAMINOPH W/CODEINE #3 TAB UD PO PRN (22:55)
[2017-10-16] MEDS ORDERED: CALCIUM CARBONATE 500 MG CHEW U/D PO PRN (23:30)
[2017-10-16] MEDS: OMEPRAZOLE 20 MG CAP PO SCH (23:59)
[2017-10-17] MEDS: IPRATROPIUM 0.5MG/ALBUTEROL 2.5MG INH SOL UD 3ML (DUONEB)(J7620) NEB SCH ×4 (01:22→20:00)
[2017-10-17 05:10] VITALS: BP 95/55
[2017-10-17 05:54] LABS: MEAN CORPUSCULAR HEMOGLOBIN 28.8 pg (27.0-33.0); MEAN CORPUSCULAR VOLUME 89.9 fl (80.0-96.0); PLATELET COUNT, AUTOMATED 142 10^3/uL (150-450); WHITE BLOOD COUNT 5.6 10^3/uL (4.0-10.0)
[2017-10-17 06:19] LABS: CREATININE FOR GFR 2.92 MG/DL (0.70-1.30); GLOMERULAR FILTRATION RATE 22.2 (>35); PHOSPHORUS LEVEL 3.4 MG/DL (2.5-4.9); POTASSIUM SERUM 4.5 MEQ/L (3.5-5.1)
[2017-10-17] MEDS: HumaLOG INSULIN (NovoLOG) PER UNIT SC SCH ×4 (07:30→21:00)
[2017-10-17] MEDS: ADVAIR HFA 230/21MCG INHALER INH SCH ×2 (07:46→20:02)
--- NOTE | 2017-10-17 08:09 | IPNPDOC ---
Subjective Date Seen The patient was seen on 10/17/17. Subjective Chief Complaint/HPI The patient is a 82-year-old male admitted with a reason for visit of Generalized Weakness;Systolic Chf. Events since last encounter developed CP overnight. Relieved with Tums and PPI. EKG: paced rhythm. Troponin 0.14 x 2. Has had no further episodes. Hypotensive this am. 90/50 Constitutional: Denies: Chills, Fever, Night Sweats Eyes: Denies: Pain, Vision change ENT: Denies: Head Aches, Ear Pain, Dysphagia Pulmonary: Denies: Dyspnea, Cough Cardiovascular: Reports: Chest Pain (resolved with tums/PPI), Denies: Palpitations, Orthopnea, Paroxysmal Noc. Dyspnea, Lt Headedness Gastrointestinal: Denies: Nausea, Vomiting, Abdominal Pain, Diarrhea, Constipation Genitourinary: Denies: Dysuria, Frequency, Incontinence, Retention Psych: Reports: Mood Normal, Denies: Depression, Memory Issues Objective Physical Examination General Exam: Positive: Alert, No Acute Distress Eye Exam: Positive: EOMI Neck Exam: Positive: JVD Chest Exam: Positive: Clear to auscultation, Negative: Rales, Rhonchi, Diminished Heart Exam: Positive: Rate Normal Abdomen Exam: Positive: Normal bowel sounds Extremity Exam: Positive: Edema (2+ up to knee) Skin Exam: Negative: Rash Neuro Exam: Positive: Normal Speech Psych Exam: Positive: Mental status NL, Mood NL Assessment /Plan Problems (1) Chest pain Status: Acute Problem Specific Plan: Monitor Clinically Problem Text: resolved with Tums/PPI. will monitor troponin q 8 hrs x 3. Probable GI in etiology, had heavier than normal meal yesterday for Thanksgiving. monitor. (2) Positive sputum culture for Pseudomonas Status: Acute Problem Text: 10/17/2017: remains asymptomatic. 10/16/2017: CXR clear, asymptomatic. Antibiotics DCd sputume cx + Staph and pseudomonas. (3) Generalized weakness Status: Chronic Response to Treatment: Stable Problem Text: 10/14/17: participating in PT. Agreeable to home PT. Declines rehab 10/13/2017: ambulate independently with walk in room today. May have option of going home with Home PT will need rehabilitation if he is to return home successfully (4) Systolic CHF with reduced left ventricular function, NYHA class 3 Permanent Comment: ECHO 10/06/17: CONCLUSIONS: 1. Normal left ventricle size. Mild focal hypertrophy of the basal anterior ventricular septum. Severe reduction in overall left ventricular (LV) systolic function. Multiple regional wall motion abnormalities. The basal anteroseptal segment was hypokinetic. The mid and distal anteroseptal segments were dyskinetic. The intraseptal segments were paradoxical. The apex was akinetic. The mid inferior segment appeared akinetic. Basal inferior segment was hypokinetic. Hypokinesis of the basal and mid anterior, basal and mid anterolateral, and basal and mid inferior LV segments. Left ventricular ejection fraction (LVEF) 25% by visual estimate. Difficult to adequately assess LV diastolic function in the setting of moderate mitral regurgitation. Suspect grade 3 or grade 4 LV diastolic dysfunction. 2. Suggestive of moderate elevation of pulmonary artery systolic pressure and estimated right ventricle systolic pressure. 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 Hepatic congestion. Severe tricuspid regurgitation. 3. Moderate aortic valve sclerosis of a 3-cusp aortic valve. No aortic stenosis. Very mild aortic regurgitation. 4. Moderate mitral annular calcification. Moderate mitral regurgitation. No mitral stenosis. 5. Mild dilatation of the aortic root at the level of the sinus of Valsalva. 6. Moderate left atrial dilatation. 7. Presence of endocardial cardiac rhythm management leads identified in the right side of the heart. Last Edited By: Angelic Roberts NP on Oct 13, 2017 08:41 Status: Chronic Response to Treatment: Stable Problem Specific Plan: Consult Specialist Problem Text: 10/17/2017: hypotensive this am. hydralazine and carvedilol on hold. Will contact cardiology for medication recommendations. 10/16/2017: improvement noted on CXR. See cardiology note for DC medication instructions. 10/15/17: medication adjustments by Dr. Rizzo, cardiology 10/13/2017: recent adjustment in medications. Torsemide increased to 80 mg po bid from 40 mg po bid. Patient has EF of 25%. States recent pacer interrogation. Echo completed 10/06/17 from last hospitalization. Cardiology consulted for medication management. continue 2 gram sodium diet with 1500 ml fluid restriction. (5) Chronic kidney disease (CKD), stage IV (severe) Status: Chronic Response to Treatment: Stable, Improving (6) COPD (chronic obstructive pulmonary disease) Status: Acute Response to Treatment: Stable Problem Text: 10/13/17: Prednisone added on. No wheezing or rhonchi today. (7) T2DM (type 2 diabetes mellitus) Status: Chronic Response to Treatment: Stable Problem Text: 10/15: Fingerstick glucoses reviewed - has only been mildly elevated on steroids; continue current regimen Off amaryl. On ACHS fingersticks with sliding scale coverage. Anticipate glucoses will increase with prednisone use to try to improve airway inflammation Plan/VTE VTE Prophylaxis Ordered?: Yes Plan Activity: Encourage Ambulation Therapy: PT, OT Anticipated Discharge: Home With Services Patient was seen and examined by myself and his care was reviewed with the physician training assistant on service VS, I&O, 24H, Fishbone Vital Signs/I&O Vital Signs Date Time Temp Pulse Resp B/P (MAP) Pulse Ox O2 Delivery O2 Flow Rate FiO2 10/17/17 05:10 98.6 72 16 95/55 (68) 96 Room Air Laboratory Data 24H LABS Laboratory Tests 2 10/16/17 12:01: Bedside Glucose (Misc Panel) 137H 10/16/17 16:37: Bedside Glucose (Misc Panel) 130H 10/16/17 20:09: Bedside Glucose (Misc Panel) 132H 10/16/17 23:25: Total Creatine Kinase 21L, Creatine Kinase MB 1.2, Creatine Kinase MB Relative Index 5.71H, Troponin I 0.14H 10/17/17 05:34: Total Creatine Kinase 14L, Creatine Kinase MB 1.0, Creatine Kinase MB Relative Index 7.14H, Troponin I 0.14H 10/17/17 05:39: Nucleated Red Blood Cells % (auto) 0.0, Blood Urea Nitrogen 74H, Creatinine 2.92H, Sodium Level 136, Potassium Level 4.5, Chloride Level 97L, Carbon Dioxide Level 33H, Anion Gap 6L, Glomerular Filtration Rate 22.2L, Calcium Level 10.0, Phosphorus Level 3.4, Albumin 3.0L CBC/BMP Laboratory Tests 10/17/17 05:39 Red Blood Count 3.58 L, Mean Corpuscular Volume 89.9, Mean Corpuscular Hemoglobin 28.8, Mean Corpuscular Hemoglobin Concent 32.0, Red Cell Distribution Width 16.0 H, Anion Gap 6 L Microbiology Microbiology 10/11/17 Blood Culture - Final, Complete NO GROWTH AFTER 5 DAYS 10/11/17 Gram Stain - Final, Complete 10/11/17 Sputum Culture - Final, Complete Pseudomonas Aeruginosa Staphylococcus Aureus Angelic Roberts Oct 17, 2017 08:09 Zachariah Thomas M.D. Oct 17, 2017 16:35
[2017-10-17] MEDS: SPIRONOLACTONE 25 MG TAB PO SCH (08:29)
[2017-10-17] MEDS: TORSEMIDE 20 MG TAB PO SCH ×2 (08:29→17:36)
[2017-10-17] MEDS: DOCUSATE SODIUM 100 MG CAP PO SCH ×2 (08:29→21:31)
[2017-10-17] MEDS: AMIODARONE 200 MG TAB (PACERONE) PO SCH ×4 (08:29→21:32)
[2017-10-17] MEDS: POTASSIUM CHLORIDE 10 MEQ SR TABLET PO SCH ×2 (08:30→21:32)
[2017-10-17] MEDS: FEBUXOSTAT 40 MG TABLET (ULORIC) PO SCH (08:30)
[2017-10-17] MEDS: ENOXAPARIN 30 MG/0.3 ML SYR (J1650) SC SCH (08:30)
[2017-10-17] MEDS: CARVedilol 3.125 MG TAB PO SCH ×2 (08:31→21:32)
[2017-10-17] MEDS: ISOSORBIDE DIN. (ISORDIL) 30 MG TAB PO SCH ×2 (12:32→17:36)
[2017-10-17] MEDS: **hydrALAZINE HCL** 25 MG TAB PO SCH ×2 (12:33→17:35)
[2017-10-17 14:00] VITALS: BP 101/59
--- NOTE | 2017-10-17 15:31 | ECGEPIP ---
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
[2017-10-17 20:05] VITALS: BP 109/60
[2017-10-17] MEDS: PREGABALIN 75 MG CAP(LYRICA) PO SCH (21:31)
[2017-10-17] MEDS: ASPIRIN 81 MG ENTERIC TAB PO SCH (21:32)
[2017-10-17] MEDS: OMEPRAZOLE 20 MG CAP PO SCH (21:32)
[2017-10-18] MEDS: IPRATROPIUM 0.5MG/ALBUTEROL 2.5MG INH SOL UD 3ML (DUONEB)(J7620) NEB SCH ×2 (02:00→07:13)
[2017-10-18 04:35] VITALS: BP 106/62
[2017-10-18 06:15] LABS: MEAN CORPUSCULAR HEMOGLOBIN 28.3 pg (27.0-33.0); MEAN CORPUSCULAR HGB CONC 31.6 g/dl (32.0-36.5); MEAN CORPUSCULAR VOLUME 89.6 fl (80.0-96.0); PLATELET COUNT, AUTOMATED 160 10^3/uL (150-450); RED CELL DISTRIBUTION WIDTH 16.2 % (11.5-14.5); WHITE BLOOD COUNT 6.4 10^3/uL (4.0-10.0)
[2017-10-18] MEDS: **hydrALAZINE HCL** 25 MG TAB PO SCH ×2 (06:20→14:57)
[2017-10-18] MEDS: ISOSORBIDE DIN. (ISORDIL) 30 MG TAB PO SCH (06:20)
[2017-10-18 06:43] LABS: ALBUMIN/GLOBULIN RATIO 0.68 (1.00-1.93); BILIRUBIN,TOTAL 0.8 MG/DL (0.2-1.0); CREATININE FOR GFR 3.04 MG/DL (0.70-1.30); GLOMERULAR FILTRATION RATE 21.2 (>35); PHOSPHORUS LEVEL 3.7 MG/DL (2.5-4.9); POTASSIUM SERUM 4.6 MEQ/L (3.5-5.1); TOTAL PROTEIN 7.4 GM/DL (6.4-8.2)
[2017-10-18] MEDS: ADVAIR HFA 230/21MCG INHALER INH SCH (07:13)
[2017-10-18 09:17] VITALS: BP 110/61
[2017-10-18] MEDS: SPIRONOLACTONE 25 MG TAB PO SCH (09:18)
[2017-10-18] MEDS: CARVedilol 3.125 MG TAB PO SCH (09:19)
[2017-10-18] MEDS: TORSEMIDE 20 MG TAB PO SCH (09:19)
[2017-10-18] MEDS: DOCUSATE SODIUM 100 MG CAP PO SCH (09:19)
[2017-10-18] MEDS: AMIODARONE 200 MG TAB (PACERONE) PO SCH ×2 (09:19→14:57)
[2017-10-18] MEDS: POTASSIUM CHLORIDE 10 MEQ SR TABLET PO SCH (09:20)
[2017-10-18] MEDS: ENOXAPARIN 30 MG/0.3 ML SYR (J1650) SC SCH (09:20)
[2017-10-18] MEDS: FEBUXOSTAT 40 MG TABLET (ULORIC) PO SCH (09:20)
[2017-10-18] MEDS: HumaLOG INSULIN (NovoLOG) PER UNIT SC SCH ×2 (09:20→12:00)
[2017-10-18] MEDS ORDERED: ISOS30TAB PO (11:05)
[2017-10-18] MEDS ORDERED: AMIO200T PO (11:05)
[2017-10-18] MEDS ORDERED: HYDR25TA PO (11:05)
[2017-10-18] MEDS ORDERED: POTA10CA PO (11:06)
--- NOTE | 2017-10-18 11:22 | DS.PDOC ---
Discharge Summary General Date of Admission Oct 11, 2017 at 17:00 Date of Discharge 10/18/17 Discharge Summary Consults: Cardiology (Dr. Rizzo) Discharge diagnosis: Systolic congestive heart failure with reduced left ventricular function Secondary diagnosis: Chest pain, sputum positive for Pseudomonas, generalized weakness, stage IV chronic kidney disease, COPD, type 2 diabetes mellitus Hospital course: Patient was admitted on 10/11/17 with low ejection fraction and congestive heart failure, impaired ambulation secondary to heart failure. He was admitted and started to be diuresed. Cardiology saw patient on 10/13, diuretic medications were changed, antihypertensives were changed, digoxin was stopped and patient was started on amiodarone for PVC suppression. On 10/15 doses of isosorbide and hydralazine were increased, this resulted in patient becoming slightly hypotensive. Doses were backed off on 10/17. Patient tolerated reduced dose as well. Progress note on date of discharge: Subjective: Patient seen in room, he states he is ready to be discharged. He is not having any acute concerns today. Objective: Vitals: Temperature 90.0, pulse 70, respiratory rate 16, blood pressure 110/61, pulse ox 94% on room air Gen.: Patient awake, alert and oriented, verbal and able to answer questions appropriately. Patient does not appear to be in any acute distress Heart: Regular rate and rhythm, normal S1-S2. No murmurs, rubs, clicks or gallops Lungs: Clear to auscultation bilaterally. No wheezes, rales or rhonchi Extremities: No swelling in either lower extremity Labs: CBC: White blood cells 6.4, hemoglobin and hematocrit 10.1/32.0, platelets 160 Chemistry: Sodium 134, potassium 4.6, chloride 96, carbon dioxide 29, BUN 79, creatinine 3.04, glucose 1:30, calcium 10.0, phosphorus 3.7 Liver profile: AST 15, ALT 26, alkaline phosphatase 85, total protein 7.4, albumin 3.0, total bilirubin 0.8 Assessment: Patient is a 82-year-old male admitted for congestive heart failure exacerbation , he has diuresed, blood pressures have stabilized and he is ready to be discharged at this time Disposition: Discharge patient to home Follow-up: With PCP in 5 days, with cardiology as previously scheduled appointment next Friday Activity: As tolerated Diet: 2 g sodium diet, 1500 mL fluid restriction Medications on discharge: Amiodarone 200 mg by mouth twice a day Hydralazine 10 mg by mouth 3 times a day Isosorbide dinitrate 30 mg by mouth twice a day Potassium chloride 20 meqs by mouth twice a day Aspirin 81 mg by mouth daily at bedtime Calcitriol 0.5 mcg by mouth every Friday through Friday Carvedilol 3.125 mg by mouth twice a day Colchicine 0.6 g by mouth when necessary Docusate 100 mg by mouth twice a day Uloric 80 mg by mouth daily Glimepiride 1 mg by mouth daily Melatonin 10 mg by mouth daily at bedtime Metolazone 1.25 mg by mouth every weekly on Friday Nitroglycerin 0.4 mg sublingual as needed for chest pain Lyrica 75 mg by mouth daily at bedtime Advair 2 puffs twice a day Spironolactone 25 mg by mouth daily Torsemide 40 mg by mouth twice a day Stop these medications Tylenol with Codeine Ipratropium bromide Digoxin Isosorbide mononitrate 60 mg by mouth daily Will require out-patient follow up: TSH and free T4 every 6 months, LFTs every 3 months, spirometry every 6 months Time spent on discharge: 30 minutes Discharge Medications Scheduled Amiodarone HCl (Amiodarone HCl) 200 Mg Tab, 200 MG PO BID Aspirin (Aspirin EC) 81 Mg Tab, 81 MG PO QHS, (Reported) Calcitriol (Rocaltrol) 0.25 Mcg Cap, 0.5 MCG PO 5XW, (Reported) FRIDAY-FRIDAY Carvedilol (Carvedilol) 6.25 Mg Tab, 3.125 MG PO BID, (Reported) Digoxin (Digoxin) 0.125 Mg Tab, 0.125 MG PO DAILY, (Reported) Docusate Sodium (Stool Softener) 100 Mg Cap, 100 MG PO BID, (Reported) Febuxostat (Uloric) 80 Mg Tab, 80 MG PO DAILY, (Reported) Glimepiride (Amaryl) 1 Mg Tab, 1 MG PO DAILY, (Reported) Hydralazine HCl (Hydralazine HCl) 25 Mg Tab, 10 MG PO TID@0700,1200,1700 Isosorbide Dinitrate (Isosorbide Dinitrate) 30 Mg Tab, 30 MG PO BID@0700,1700 Isosorbide Mononitrate (Isosorbide Mononitrate ER) 60 Mg Tab, 60 MG PO DAILY, ( Reported) Melatonin (Melatonin) 10 Mg Cap, 10 MG PO QHS, (Reported) Metolazone (Metolazone) 2.5 Mg Tab, 1.25 MG PO QWEEK, (Reported) SUNDAYS Potassium Chloride (Klor-Con M10) 10 Meq Tabcr, 20 MEQ PO BID Pregabalin (Lyrica) 75 Mg Cap, 75 MG PO QHS, (Reported) Salmeterol/Fluticasone (Advair Hfa 230-21 Mcg/Act) 1 Aer Aer, 2 PUFF INH BID, ( Reported) Spironolactone (Aldactone) 25 Mg Tab, 25 MG PO DAILY, (Reported) Torsemide (Torsemide) 20 Mg Tab, 40 MG PO BID, (Reported) Scheduled PRN Acetaminophen/Codeine (Tylenol/Codeine #3 300-30 mg) 1 Tab Tab, 1 TAB PO QHS PRN for PAIN, (Reported) Albuterol/Ipratropium (Ipratropium Mcbee/Albut 0.5-2.5 (3) mg/3Ml) 1 Donaldo Donaldo, 1 DONALDO INH QID PRN for SHORTNESS OF BREATH, (Reported) Colchicine (Colchicine) 0.6 Mg Tab, 0.6 MG PO PRN PRN for FLARE UP , (Reported) Nitroglycerin (Nitroglycerin) 0.4 Mg Sub, 0.4 MG SL NITRO PRN for CHEST PAIN, ( Reported) Allergies Coded Allergies: Clopidogrel (Unverified Adverse Reaction, Unknown, BLEEDS, 10/11/17) Warfarin (Unverified Adverse Reaction, Unknown, BLEEDS, 10/11/17) ELVIA SANCHEZ DO Oct 18, 2017 11:22
[2017-10-18 14:00] VITALS: BP 104/57
[2017-10-18 14:57] VITALS: BP 104/57
== END 2017-10-18 15:07 | disposition home or self-care (01) | DRG 291 ==
LOC: M ED 13:19 → EDBD 13:19 → M ED INP 17:00 → M MSPAV 19:55
PROVIDERS: ADMIT Family Medicine; ATTEND Family Medicine
DX: I13.0 Hypertensive heart and chronic kidney disease with heart failure and stage 1 through stage 4 chronic kidney disease, or unspecified chronic kidney disease (principal); I50.43 Acute on chronic combined systolic (congestive) and diastolic (congestive) heart failure; R53.2 Functional quadriplegia; J44.1 Chronic obstructive pulmonary disease with (acute) exacerbation; N18.4 Chronic kidney disease, stage 4 (severe); E11.9 Type 2 diabetes mellitus without complications; B96.5 Pseudomonas (aeruginosa) (mallei) (pseudomallei) as the cause of diseases classified elsewhere; I95.9 Hypotension, unspecified; Z79.82 Long term (current) use of aspirin; Z79.899 Other long term (current) drug therapy; Z88.8 Allergy status to other drugs, medicaments and biological substances; E78.5 Hyperlipidemia, unspecified; I25.10 Atherosclerotic heart disease of native coronary artery without angina pectoris; Z95.2 Presence of prosthetic heart valve; Z87.891 Personal history of nicotine dependence; Z95.0 Presence of cardiac pacemaker; I48.2 Chronic atrial fibrillation; I08.0 Rheumatic disorders of both mitral and aortic valves; R53.81 Other malaise

== ENCOUNTER 2017-10-27 14:28 | Inpatient (IN) | payer MEDICARE, BC, OTHER ==
[~2017-10-27] VITALS: Ht 185.4 cm; Wt 88.3 kg
[~2017-10-27 14:28] MED LIST changes: +ADV100INH INH; +ALDA25TA2 PO; +AMIO200T PO; +HYDR25TA PO; +ISOS30TAB PO; +POTA10CA PO
[2017-10-27 16:36] LABS: CALCIUM LEVEL 9.6 MG/DL (8.8-10.2); CREATININE FOR GFR 4.24 MG/DL (0.70-1.30); GLOMERULAR FILTRATION RATE 14.4 (>35)
[2017-10-27 16:39] LABS: POTASSIUM SERUM 6.1 MEQ/L (3.5-5.1)
[2017-10-27 16:42] LABS: BASO % 0.4 % (0.0-1.0); EOS # 0.2 10^3/uL (0.0-0.50); EOS % 3.4 % (0.0-3.0); IMMATURE GRANULOCYTE % 0.5 % (0-0); LYMPH # 0.5 10^3/uL (1.5-4.5); LYMPH % 8.1 % (24.0-44.0); MEAN CORPUSCULAR HEMOGLOBIN 29.1 pg (27.0-33.0); MEAN CORPUSCULAR HGB CONC 31.4 g/dl (32.0-36.5); MEAN CORPUSCULAR VOLUME 92.7 fl (80.0-96.0); MONO # 0.5 10^3/uL (0.0-0.8); MONO % 9.4 % (0.0-5.0); NEUTROPHILS # 4.4 10^3/uL (1.8-7.7); NEUTROPHILS % 78.2 % (36.0-66.0); PLATELET COUNT, AUTOMATED 152 10^3/uL (150-450); RED CELL DISTRIBUTION WIDTH 17.2 % (11.5-14.5); WHITE BLOOD COUNT 5.7 10^3/uL (4.0-10.0)
[2017-10-27] MEDS ORDERED: DEXTROSE 50% 50 ML SYRINGE IV STA (17:20)
[2017-10-27] MEDS ORDERED: HumuLIN R (REGULAR) INSULIN (NovoLIN R) **100U/ML** PER UNIT IV STA (17:20)
[2017-10-27] MEDS ORDERED: NS 500 ML IV ONE (17:30)
[2017-10-27] MEDS ORDERED: CALCIUM CHLORIDE 10% 1 GM in D5W 100 ML IV ONE (17:30)
[2017-10-27] MEDS ORDERED: ISOS30TAB PO (18:38)
[2017-10-27] MEDS ORDERED: POTA20TA PO (18:38)
[2017-10-27] MEDS ORDERED: AMIO200T PO (18:38)
[2017-10-27] MEDS ORDERED: HYDR10TAB PO (18:38)
[2017-10-27 18:58] LABS: MAGNESIUM LEVEL 3.4 MG/DL (1.8-2.4); PHOSPHORUS LEVEL 6.5 MG/DL (2.5-4.9)
[2017-10-27] MEDS ORDERED: NS 400 ML IV SCH (19:15)
[2017-10-27] MEDS ORDERED: SOD POLYSTYRENE SULFONATE SUSP 15 GM/60 ML UD PO ONE (19:15)
--- NOTE | 2017-10-27 19:26 | HPEPDOC ---
General Date of Admission 10/27/17 Primary Care Physician: FELIPE GARCIA Other Providers Board Saw Runner-Dr. Hernandez Supply Requirements Officer-Dr. Rizzo Audit Senior Associate-Dr. Mason Games Manager-to establish next week Attending Physician: REYNA LOVETT DO Chief Complaint 82-year-old male presents to the ED with after he was noted to have a critically elevated potassium level >[address] Hernandez's office today. PMH includes A. fib, ID x2, COPD, hx of GI bleeds, CKD stage IV, NIDDM 2, CHF with EF 25%, CAD with multiple interventions, myelodysplastic syndrome. Patient's only complaint is he feels fatigued, and denies all other ROS including chest pain, pressure, palpitations, paresthesia, dizziness, lightheadedness, abdominal pain. Admits to mixing up medications and missing some doses, unsure of which ones. Was recently discharged from hospital ~2 weeks ago for CHF exacerbation. In the ED, calcium was 6.1, patient was given calcium chloride, insulin 10U, fluid bolus. Patient was hemodynamically stable and in no distress. Home Medications Scheduled Amiodarone HCl (Amiodarone HCl) 200 Mg Tab, 200 MG PO BID, (Reported) Aspirin (Aspirin EC) 81 Mg Tab, 81 MG PO QHS, (Reported) Calcitriol (Rocaltrol) 0.25 Mcg Cap, 0.5 MCG PO 5XW, (Reported) FRIDAY-FRIDAY Carvedilol (Carvedilol) 6.25 Mg Tab, 3.125 MG PO BID, (Reported) Docusate Sodium (Stool Softener) 100 Mg Cap, 100 MG PO BID, (Reported) Febuxostat (Uloric) 80 Mg Tab, 80 MG PO DAILY, (Reported) Glimepiride (Amaryl) 1 Mg Tab, 1 MG PO DAILY, (Reported) Hydralazine HCl (Hydralazine HCl) 10 Mg Tab, 10 MG PO TID, (Reported) Isosorbide Dinitrate (Isosorbide Dinitrate) 30 Mg Tab, 30 MG PO BID, (Reported) Melatonin (Melatonin) 10 Mg Cap, 10 MG PO QHS, (Reported) Metolazone (Metolazone) 2.5 Mg Tab, 1.25 MG PO QWEEK, (Reported) SUNDAYS Potassium Chloride (Klor-Con M20) 20 Meq Tabcr, 20 MEQ PO BID, (Reported) Pregabalin (Lyrica) 75 Mg Cap, 75 MG PO QHS, (Reported) Spironolactone (Aldactone) 25 Mg Tab, 25 MG PO DAILY, (Reported) Torsemide (Torsemide) 20 Mg Tab, 40 MG PO BID, (Reported) Scheduled PRN Colchicine (Colchicine) 0.6 Mg Tab, 0.6 MG PO PRN PRN for FLARE UP , (Reported) Nitroglycerin (Nitroglycerin) 0.4 Mg Sub, 0.4 MG SL NITRO PRN for CHEST PAIN, ( Reported) Allergies Coded Allergies: Clopidogrel (Unverified Adverse Reaction, Unknown, BLEEDS, 10/11/17) Warfarin (Unverified Adverse Reaction, Unknown, BLEEDS, 10/11/17) Past Medical History Medical History A. fib ID, 1995, 2000 COPD, not oxygen dependent History of GI bleeds CKD stage IV NIDDM 2 CHF, EF 25% Gout Myelodysplastic Syndrome CAD * s/p bypass graft 2000 * s/p stents 1995, 2008, 2009 * s/p pacemaker 2009, 2016 * s/p left carotid enterectomy 2007 Surgical History Carotid endarterectomy 2008 Appendectomy Herniorrhaphy Hydrocele repair Hemorrhoidectomy Pacemaker 2009 CABG 2000 Cardiac stents 1995, 2008, 2009 Family History Father: Hypertension Mother: DM2 Daughter: Hypertension Sister: DM Brother: CABG Other Brother: CABG Social History Smoking: Quit years ago Review of Symptoms Constitutional: Reports: Weakness, Fatigue, Denies: Chills, Fever, Night Sweats, Weight Loss Eyes: Denies: Pain, Vision change ENT: Denies: Head Aches, Ear Pain, Dysphagia, Epistaxis Skin: Denies: Rash, Lesions Pulmonary: Denies: Dyspnea, Cough Cardiovascular: Denies: Chest Pain, Palpitations, Edema, Lt Headedness Gastrointestinal: Denies: Nausea, Vomiting, Abdominal Pain, Diarrhea, Constipation, Melena, Hematochezia Genitourinary: Denies: Hematuria Hematologic: Reports: Other Hematologic (easy bleeding & bruising from anticoagulants) Endocrine: Denies: Heat Intolerance, Cold Intolerance Musculoskeletal: Denies: Muscle Pain, Spasms Neurological: Denies: Weakness, Numbness, Change in speech, Confusion Psych: Reports: Mood Normal Physical Examination General Exam: Positive: Alert, Cooperative, No Acute Distress Eye Exam: Positive: PERRLA, Conjunctiva & lids normal, EOMI, Negative: Sclera icteric ENT Exam: Positive: Atraumatic, Mucous membr. moist/pink, Pharynx Normal, Tongue Midline Chest Exam: Positive: Normal air movement, Wheezing (expiratory b/l) Heart Exam: Positive: Rate Normal, Irregular Rhythm Abdomen Exam: Positive: BS Hypoactive, Soft, Negative: Tenderness Extremity Exam: Negative: Cyanosis, Edema, Tenderness, Swelling Skin Exam: Positive: Nl turgor and temperature Neuro Exam: Positive: Normal Speech, Strength at 5/5 X4 ext, Normal Tone, Sensation Intact Psych Exam: Positive: Mental status NL, Mood NL, Oriented x 3 Vital Signs Vital Signs Date Time Temp Pulse Resp B/P (MAP) Pulse Ox O2 Delivery O2 Flow Rate FiO2 10/27/17 15:26 10/27/17 14:29 96.2 72 16 99 Room Air Laboratory Data Labs 24H Laboratory Tests 2 10/27/17 15:20: Immature Granulocyte % (Auto) 0.5H, White Blood Count 5.7, Red Blood Count 3.82L , Hemoglobin 11.1L, Hematocrit 35.4L, Mean Corpuscular Volume 92.7, Mean Corpuscular Hemoglobin 29.1, Mean Corpuscular Hemoglobin Concent 31.4L, Red Cell Distribution Width 17.2H, Platelet Count 152, Neutrophils (%) (Auto) 78.2H , Lymphocytes (%) (Auto) 8.1L, Monocytes (%) (Auto) 9.4H, Eosinophils (%) (Auto ) 3.4H, Basophils (%) (Auto) 0.4, Neutrophils # (Auto) 4.4, Lymphocytes # (Auto ) 0.5L, Monocytes # (Auto) 0.5, Eosinophils # (Auto) 0.2, Basophils # (Auto) 0.0 , Immature Granulocyte # (Auto) 0.0, Nucleated Red Blood Cells % (auto) 0.0, Anion Gap 7L, Glomerular Filtration Rate 14.4L, Blood Urea Nitrogen 109H, Creatinine 4.24H, Sodium Level 130L, Potassium Level 6.1*H, Chloride Level 92L, Carbon Dioxide Level 31, Calcium Level 9.6 CBC/BMP Laboratory Tests 10/27/17 15:20 Red Blood Count 3.82 L, Mean Corpuscular Volume 92.7, Mean Corpuscular Hemoglobin 29.1, Mean Corpuscular Hemoglobin Concent 31.4 L, Red Cell Distribution Width 17.2 H, Neutrophils (%) (Auto) 78.2 H, Lymphocytes (%) (Auto ) 8.1 L, Monocytes (%) (Auto) 9.4 H, Eosinophils (%) (Auto) 3.4 H, Basophils (% ) (Auto) 0.4, Neutrophils # (Auto) 4.4, Lymphocytes # (Auto) 0.5 L, Monocytes # (Auto) 0.5, Eosinophils # (Auto) 0.2, Basophils # (Auto) 0.0, Calcium Level 9.6 Assessment/Plan Hyperkalemia 6.1 on admission. Given CaCl & Insulin in ED. Denies all ROS likely 2/2 home medications. Hold home Metolazone, Spironolactone, Torsemide, Klor-Con avoid nephrotoxins gentle IV hydration for total of 400ccs due to CHF hx Kayexalate 30mg po once and will reassess Acute on chronic Kidney Disease CKD stage IV-V, baseline Cr ~2.8 gentle IV fluids due to history of CHF hold nephrotoxins A.Fib rate controlled continue home Amiodarone, Carvedilol, Isordil CAD s/p bypass graft 1988, 2000 s/p stents 1995, 2008, 2009 s/p pacemaker 2009, 2016 s/p left carotid enterectomy 2007 continue home ASA 81mg Hx CHF EF 25% per 10/10 echocardiogram compensated COPD no acute exacerbation not O2 dependent at baseline nebs prn DM2 hold home Glimiperide ISS inpatient, fingersticks continue home Lyrica Gout hold home meds due to DOROTHY Hx GI bleeds has had multiple transfusions in past currently being followed by Dr. Hernandez for Myelodysplastic Syndrome H&H stable currently, monitor Myelodysplastic Syndrome continue f/u with Dr. Hernandez outpatient DVT ppx hold anticoagulants due to myelodysplastic syndrome and hx of GI bleeds TEDs/SCDs DISPOSITION: will admit to hospital under Dr. Lovett's service in am. Plan / VTE VTE Prophylaxis Ordered?: Yes (AJITH/SCD) GME ATTESTATION GME ATTESTATION My faculty preceptor for this patient encounter was physically present during the encounter and was fully available. All aspects of the patient interview, examination, medical decision making process, and medical care plan development were reviewed and approved by the faculty preceptor. The faculty preceptor is aware and concurs with the plan as stated in the body of this note and will attest to such by his/her cosignature. LINDSEY ELDRIDGE DO Oct 27, 2017 17:52
[2017-10-27] MEDS ORDERED: GLUCOSE 4 GM CHEW TABLET PO PRN (19:30)
[2017-10-27] MEDS ORDERED: DEXTROSE 50% 50 ML SYRINGE IV PRN (19:30)
[2017-10-27] MEDS ORDERED: GLUCAGON FOR INJ 1 MG VIAL (J1610) SC PRN (19:30)
[2017-10-27] MEDS ORDERED: IPRATROPIUM 0.5MG/ALBUTEROL 2.5MG INH SOL UD 3ML (DUONEB)(J7620) NEB PRN (19:30)
[2017-10-27] MEDS: **hydrALAZINE** 10 MG TAB PO SCH (21:00)
[2017-10-27] MEDS: DOCUSATE SODIUM 100 MG CAP PO SCH (21:00)
[2017-10-27] MEDS: HumaLOG INSULIN (NovoLOG) PER UNIT SC SCH (21:00)
[2017-10-27 22:00] VITALS: BP 110/61
[2017-10-27] MEDS: CARVedilol 6.25 MG TAB PO SCH (23:14)
[2017-10-27] MEDS: ISOSORBIDE DIN. (ISORDIL) 30 MG TAB PO SCH (23:15)
[2017-10-27] MEDS: ASPIRIN 81 MG ENTERIC TAB PO SCH (23:15)
[2017-10-27] MEDS: PREGABALIN 75 MG CAP(LYRICA) PO SCH (23:16)
[2017-10-27] MEDS: AMIODARONE 200 MG TAB (PACERONE) PO SCH (23:17)
[2017-10-27 23:59] VITALS: BP 108/58
[2017-10-28 00:29] LABS: CALCIUM LEVEL 9.7 MG/DL (8.8-10.2); CREATININE FOR GFR 3.98 MG/DL (0.70-1.30); GLOMERULAR FILTRATION RATE 15.5 (>35)
[2017-10-28 00:32] LABS: POTASSIUM SERUM 5.6 MEQ/L (3.5-5.1)
[2017-10-28 04:00] VITALS: BP 116/50
[2017-10-28] MEDS ORDERED: SLF 3 ML SYR IV PRN (05:00)
[2017-10-28 05:34] LABS: MEAN CORPUSCULAR HGB CONC 32.1 g/dl (32.0-36.5); MEAN CORPUSCULAR VOLUME 90.5 fl (80.0-96.0); PLATELET COUNT, AUTOMATED 146 10^3/uL (150-450); RED CELL DISTRIBUTION WIDTH 17.1 % (11.5-14.5); WHITE BLOOD COUNT 5.2 10^3/uL (4.0-10.0)
[2017-10-28 05:50] LABS: CALCIUM LEVEL 9.3 MG/DL (8.8-10.2); CREATININE FOR GFR 3.88 MG/DL (0.70-1.30)
[2017-10-28 05:51] LABS: POTASSIUM SERUM 5.5 MEQ/L (3.5-5.1)
[2017-10-28] MEDS: SLF 3 ML SYR IV SCH ×3 (06:00→20:30)
[2017-10-28] MEDS: HumaLOG INSULIN (NovoLOG) PER UNIT SC SCH ×4 (07:30→20:29)
[2017-10-28 08:00] VITALS: BP 101/54
[2017-10-28] MEDS: ISOSORBIDE DIN. (ISORDIL) 30 MG TAB PO SCH ×2 (08:17→20:22)
[2017-10-28] MEDS: AMIODARONE 200 MG TAB (PACERONE) PO SCH ×2 (08:18→20:22)
[2017-10-28] MEDS: DOCUSATE SODIUM 100 MG CAP PO SCH ×2 (08:19→20:21)
[2017-10-28] MEDS: **hydrALAZINE** 10 MG TAB PO SCH ×3 (08:19→20:11)
[2017-10-28] MEDS: CARVedilol 6.25 MG TAB PO SCH ×2 (08:19→20:21)
--- NOTE | 2017-10-28 09:13 | IPNPDOC ---
Subjective Date Seen The patient was seen on 10/28/17. Subjective Chief Complaint/HPI The patient is a 82-year-old male admitted with a reason for visit of Hyperkalemia. Events since last encounter Patient feels well. No concerns or complaints Constitutional: Denies: Chills, Fever Pulmonary: Denies: Dyspnea, Cough Cardiovascular: Denies: Chest Pain, Palpitations, Orthopnea Gastrointestinal: Denies: Nausea, Vomiting, Abdominal Pain, Diarrhea, Constipation Objective Physical Examination General Exam: Positive: Alert, No Acute Distress ENT Exam: Positive: Mucous membr. moist/pink Chest Exam: Positive: Clear to auscultation, Normal air movement, Negative: Rales, Rhonchi, Wheezing Heart Exam: Positive: Rate Normal, Irregular Rhythm Abdomen Exam: Positive: Normal bowel sounds, Soft, Negative: Tenderness Extremity Exam: Negative: Cyanosis, Edema, Tenderness, Swelling Skin Exam: Positive: Nl turgor and temperature Neuro Exam: Positive: Normal Speech Psych Exam: Positive: Mental status NL, Mood NL, Oriented x 3 Assessment /Plan Problems (1) Hyperkalemia Status: Acute Response to Treatment: Improving Problem Text: K= improving - Now 5.5 Aldactone on hold s/p IVF, IV Calcium, Insulin (Of note patient was taking previously prescribed HD or potassium prior to admission although review of d/c meds from 10/23 did not list potassium) (2) Acute on chronic kidney failure Status: Chronic Response to Treatment: Improving Problem Text: Slightly improved with IV and diuretics (Lasix, torsemide and aldactone) on hold. consider giving further IVF consider Nephrology consult. (3) Coronary artery disease Permanent Comment: Has a history of CABG 2000 and stents in 1995, 2008, 2009. Last Edited By: Angelo García M.D. on Nov 07, 2015 07:10 Status: Chronic Response to Treatment: Stable Problem Text: cont ASA/Amiodarone/Imdur Watch BP (4) Diabetes mellitus Status: Chronic Problem Text: hypoglycemia this am after getting Insulin yesterday amaryl Hold further insulin for now. (5) Atrial fibrillation Status: Chronic Response to Treatment: Stable Problem Text: Rate controlled. 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 on Oct 07, 2017 14:42 Status: Acute Plan/VTE VTE Prophylaxis Ordered?: Yes (AJITH/SCD) VS, I&O, 24H, [facility] Vital Signs/I&O Vital Signs Date Time Temp Pulse Resp B/P (MAP) Pulse Ox O2 Delivery O2 Flow Rate FiO2 10/28/17 08:19 76 101/54 10/28/17 08:00 98.0 18 96 Room Air I&O- Last 24 Hours up to 6 AM 10/29/17 06:00 Intake Total 0 ml Output Total 0 ml Balance 0 ml Laboratory Data 24H LABS Laboratory Tests 2 10/27/17 15:20: Immature Granulocyte % (Auto) 0.5H, White Blood Count 5.7, Red Blood Count 3.82L , Hemoglobin 11.1L, Hematocrit 35.4L, Mean Corpuscular Volume 92.7, Mean Corpuscular Hemoglobin 29.1, Mean Corpuscular Hemoglobin Concent 31.4L, Red Cell Distribution Width 17.2H, Platelet Count 152, Neutrophils (%) (Auto) 78.2H , Lymphocytes (%) (Auto) 8.1L, Monocytes (%) (Auto) 9.4H, Eosinophils (%) (Auto ) 3.4H, Basophils (%) (Auto) 0.4, Neutrophils # (Auto) 4.4, Lymphocytes # (Auto ) 0.5L, Monocytes # (Auto) 0.5, Eosinophils # (Auto) 0.2, Basophils # (Auto) 0.0 , Immature Granulocyte # (Auto) 0.0, Nucleated Red Blood Cells % (auto) 0.0, Anion Gap 7L, Glomerular Filtration Rate 14.4L, Blood Urea Nitrogen 109H, Creatinine 4.24H, Sodium Level 130L, Potassium Level 6.1*H, Chloride Level 92L, Carbon Dioxide Level 31, Calcium Level 9.6, Phosphorus Level 6.5H, Magnesium Level 3.4H 10/27/17 22:51: Bedside Glucose (Misc Panel) 149H 10/28/17 00:03: Anion Gap 7L, Glomerular Filtration Rate 15.5L, Blood Urea Nitrogen 106H, Creatinine 3.98H, Sodium Level 133L, Potassium Level 5.6H, Chloride Level 96L, Carbon Dioxide Level 30, Calcium Level 9.7 10/28/17 05:04: Nucleated Red Blood Cells % (auto) 0.0, Anion Gap 9, Glomerular Filtration Rate 16.0L, Blood Urea Nitrogen 97H, Creatinine 3.88H, Sodium Level 133L, Potassium Level 5.5H, Chloride Level 97L, Carbon Dioxide Level 27, Calcium Level 9.3 CBC/BMP Laboratory Tests 10/27/17 15:20 Red Blood Count 3.82 L, Mean Corpuscular Volume 92.7, Mean Corpuscular Hemoglobin 29.1, Mean Corpuscular Hemoglobin Concent 31.4 L, Red Cell Distribution Width 17.2 H, Neutrophils (%) (Auto) 78.2 H, Lymphocytes (%) (Auto ) 8.1 L, Monocytes (%) (Auto) 9.4 H, Eosinophils (%) (Auto) 3.4 H, Basophils (% ) (Auto) 0.4, Neutrophils # (Auto) 4.4, Lymphocytes # (Auto) 0.5 L, Monocytes # (Auto) 0.5, Eosinophils # (Auto) 0.2, Basophils # (Auto) 0.0, Calcium Level 9.6 10/28/17 00:03 Calcium Level 9.7 10/28/17 05:04 Red Blood Count 3.48 L, Mean Corpuscular Volume 90.5, Mean Corpuscular Hemoglobin 29.0, Mean Corpuscular Hemoglobin Concent 32.1, Red Cell Distribution Width 17.1 H, Calcium Level 9.3 KYLEE GILLIS PA-C Oct 28, 2017 09:13
[2017-10-28 11:45] VITALS: BP 103/78
--- NOTE | 2017-10-28 12:25 | ECGEPIP ---
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
[2017-10-28 15:36] VITALS: BP 112/79
[2017-10-28] MEDS ORDERED: NS 400 ML IV SCH (19:00)
[2017-10-28 20:00] VITALS: BP 117/64
[2017-10-28] MEDS: ASPIRIN 81 MG ENTERIC TAB PO SCH (20:21)
[2017-10-28] MEDS: PREGABALIN 75 MG CAP(LYRICA) PO SCH (20:22)
[2017-10-29] VITALS (7 sets, daily range): BP systolic 108–123; BP diastolic 57–68
[2017-10-29] MEDS: SLF 3 ML SYR IV SCH ×3 (06:00→21:17)
[2017-10-29 06:02] LABS: MEAN CORPUSCULAR HEMOGLOBIN 29.1 pg (27.0-33.0); MEAN CORPUSCULAR HGB CONC 32.4 g/dl (32.0-36.5); MEAN CORPUSCULAR VOLUME 89.7 fl (80.0-96.0); PLATELET COUNT, AUTOMATED 139 10^3/uL (150-450); RED CELL DISTRIBUTION WIDTH 17.5 % (11.5-14.5); WHITE BLOOD COUNT 4.5 10^3/uL (4.0-10.0)
[2017-10-29 06:17] LABS: CALCIUM LEVEL 8.9 MG/DL (8.8-10.2); CREATININE FOR GFR 3.58 MG/DL (0.70-1.30); GLOMERULAR FILTRATION RATE 17.5 (>35); POTASSIUM SERUM 4.9 MEQ/L (3.5-5.1)
[2017-10-29] MEDS: HumaLOG INSULIN (NovoLOG) PER UNIT SC SCH ×4 (07:30→21:00)
[2017-10-29] MEDS: CARVedilol 6.25 MG TAB PO SCH ×2 (08:15→21:00)
[2017-10-29] MEDS: **hydrALAZINE** 10 MG TAB PO SCH ×3 (08:15→21:15)
[2017-10-29] MEDS: DOCUSATE SODIUM 100 MG CAP PO SCH ×2 (08:15→21:00)
[2017-10-29] MEDS: ISOSORBIDE DIN. (ISORDIL) 30 MG TAB PO SCH ×2 (08:15→21:00)
[2017-10-29] MEDS: AMIODARONE 200 MG TAB (PACERONE) PO SCH ×2 (08:16→21:00)
--- NOTE | 2017-10-29 13:23 | IPNPDOC ---
Subjective Date Seen The patient was seen on 10/29/17. Subjective Chief Complaint/HPI The patient is a 82-year-old male admitted with a reason for visit of Hyperkalemia. Events since last encounter Patient's only concern today is when he is going to be allowed to go home. Constitutional: Denies: Chills, Fever Pulmonary: Denies: Dyspnea Cardiovascular: Denies: Chest Pain Objective Physical Examination General Exam: Positive: Alert, No Acute Distress Chest Exam: Positive: Clear to auscultation, Normal air movement, Negative: Rales, Rhonchi, Wheezing Heart Exam: Positive: Rate Normal, Irregular Rhythm, Normal S1, Normal S2, Negative: Gallops, Murmurs, Rubs Abdomen Exam: Positive: Normal bowel sounds, Soft, Negative: Tenderness, Hepatospenomegaly, Mass Extremity Exam: Positive: Edema (mid watts) Assessment /Plan Problems (1) Hyperkalemia Status: Acute Response to Treatment: Improving Problem Text: 10/29: Potassium of 4.9 today, nephrology has been consulted for further assistance with management of patient's diuretics 10/28: K= improving - Now 5.5 Aldactone on hold s/p IVF, IV Calcium, Insulin (Of note patient was taking previously prescribed HD or potassium prior to admission although review of d/c meds from 10/23 did not list potassium) (2) Acute on chronic kidney failure Status: Chronic Response to Treatment: Improving Problem Text: 10/29: Creatinine has improved to 3.58 today, nephrology has been consulted 10/28: Slightly improved with IV and diuretics (Lasix, torsemide and aldactone) on hold. consider giving further IVF consider Nephrology consult. (3) Coronary artery disease Permanent Comment: Has a history of CABG 2000 and stents in 1995, 2008, 2009. Last Edited By: Angelo García M.D. on Nov 07, 2015 07:10 Status: Chronic Response to Treatment: Stable Problem Text: cont ASA/Amiodarone/Imdur Watch BP (4) Diabetes mellitus Status: Chronic Problem Text: 10/28: hypoglycemia this am after getting Insulin yesterday amaryl Hold further insulin for now. (5) Atrial fibrillation Status: Chronic Response to Treatment: Stable Problem Text: Rate controlled. 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 on Oct 07, 2017 14:42 Status: Acute Plan/VTE VTE Prophylaxis Ordered?: Yes (AJITH/SCD) VS, I&O, 24H, Fishbone Vital Signs/I&O Vital Signs Date Time Temp Pulse Resp B/P (MAP) Pulse Ox O2 Delivery O2 Flow Rate FiO2 10/29/17 11:54 Room Air 10/29/17 11:51 97.9 70 18 123/60 (81) 97 I&O- Last 24 Hours up to 6 AM 10/30/17 06:00 Intake Total 240 ml Output Total 300 ml Balance -60 ml Laboratory Data 24H LABS Laboratory Tests 2 10/28/17 17:07: Bedside Glucose (Misc Panel) 145H 10/28/17 20:29: Bedside Glucose (Misc Panel) 239H 10/29/17 05:18: Nucleated Red Blood Cells % (auto) 0.0, Anion Gap 10, Glomerular Filtration Rate 17.5L, Blood Urea Nitrogen 93H, Creatinine 3.58H, Sodium Level 133L, Potassium Level 4.9, Chloride Level 97L, Carbon Dioxide Level 26, Calcium Level 8.9 CBC/BMP Laboratory Tests 10/29/17 05:18 Red Blood Count 3.51 L, Mean Corpuscular Volume 89.7, Mean Corpuscular Hemoglobin 29.1, Mean Corpuscular Hemoglobin Concent 32.4, Red Cell Distribution Width 17.5 H, Calcium Level 8.9 GME ATTESTATION GME ATTESTATION My faculty preceptor for this patient encounter was physically present during the encounter and was fully available. All aspects of the patient interview, examination, medical decision making process, and medical care plan development were reviewed and approved by the faculty preceptor. The faculty preceptor is aware and concurs with the plan as stated in the body of this note and will attest to such by his/her cosignature. ELVIA SANCHEZ DO Oct 29, 2017 13:23
--- NOTE | 2017-10-29 18:49 | REP ---
Bilateral renal ultrasound complete: 10/29/2017. Comparison CT abdomen pelvis 07/27/2017, CT chest without contrast 10/08/2017, renal ultrasound 02/21/2011. Clinical history. Chronic kidney disease with complex cystic lesion or cystic mass upper pole right kidney. The recent CT 10/08/2017 of the chest show new development of density a previously simple cyst. The right kidney measured 10.6 x 6 x 7.6 cm. Cortical thickness and echogenicity was normal. There is no hydronephrosis, hydroureter. There are three small simple cyst, one in the lower pole 3 x 3.1 x 2.9 cm peripherally and 1.4 x 1.4 cm lower pole medially in the interpolar region 2.7 x 2.6 x 2.1 cm. However, in the upper pole there is a complex lesion 5.9 x 5.8 x 5.3 cm. It has internal echoes. There is also some through transmission. Appearance suggests layering debris and hemorrhagic cyst is more likely than interval development of solid component of the complex cystic neoplasm compared to the CT abdomen 07/27/2017. The left kidney is 11.5 x 5.6 x 4.5 cm, has normal cortical echogenicity and thickness. Upper pole cyst 2.2 x 2.2 x 1.4 cm peripherally. There is evidence of some ascites in the right upper quadrant. I do not see definite perinephric fluid. The bladder measured 9.3 x 9.9 x 8.5 cm. No bladder wall, stone, mass or abnormal wall thickening. Impression: 1. There are bilateral simple cysts in the kidneys as described without hydronephrosis or renal stone. 2. Upper pole right kidney shows the largest at lesion and a 5.9 x 5.8 x 5.3 cm complex cyst which has features of the clot or tumor within it. Since this was a simple cyst by CT homogeneous appearance on 07/27/2017 and had significantly changed with a heterogeneous increased density on 10/08/2017, I would favor hemorrhagic complication over rapid development of the solid and cystic renal mass. This may be followed with ultrasound not change in character. Patient is not a candidate for MRI or contrast CT. Signed by Wade Bryson MD 10/29/2017 07:50 P
[2017-10-29] MEDS: PREGABALIN 75 MG CAP(LYRICA) PO SCH (21:00)
[2017-10-29] MEDS: ASPIRIN 81 MG ENTERIC TAB PO SCH (21:00)
[2017-10-29] MEDS ORDERED: TORSEMIDE 20 MG TAB PO ONE (22:45)
[2017-10-30 04:00] VITALS: BP 105/52
[2017-10-30] MEDS: SLF 3 ML SYR IV SCH (05:18)
[2017-10-30 05:59] LABS: MEAN CORPUSCULAR HEMOGLOBIN 28.6 pg (27.0-33.0); MEAN CORPUSCULAR HGB CONC 31.8 g/dl (32.0-36.5); MEAN CORPUSCULAR VOLUME 90.1 fl (80.0-96.0); PLATELET COUNT, AUTOMATED 128 10^3/uL (150-450); RED CELL DISTRIBUTION WIDTH 17.3 % (11.5-14.5); WHITE BLOOD COUNT 4.4 10^3/uL (4.0-10.0)
[2017-10-30 06:18] LABS: CALCIUM LEVEL 9.1 MG/DL (8.8-10.2); CREATININE FOR GFR 3.27 MG/DL (0.70-1.30); GLOMERULAR FILTRATION RATE 19.5 (>35); POTASSIUM SERUM 4.5 MEQ/L (3.5-5.1)
[2017-10-30] MEDS: HumaLOG INSULIN (NovoLOG) PER UNIT SC SCH ×2 (07:30→12:00)
[2017-10-30 08:00] VITALS: BP 108/60
[2017-10-30 08:57] VITALS: BP 109/56
[2017-10-30] MEDS ORDERED: TORSEMIDE 20 MG TAB PO SCH (09:00)
[2017-10-30] MEDS ORDERED: SPIRONOLACTONE 12.5MG PER 1/2 TABLET PO SCH (09:00)
[2017-10-30] MEDS: DOCUSATE SODIUM 100 MG CAP PO SCH (09:28)
[2017-10-30] MEDS: **hydrALAZINE** 10 MG TAB PO SCH (09:29)
[2017-10-30 09:36] VITALS: BP 109/56
[2017-10-30] MEDS: CARVedilol 6.25 MG TAB PO SCH (09:36)
[2017-10-30] MEDS: ISOSORBIDE DIN. (ISORDIL) 30 MG TAB PO SCH (09:36)
[2017-10-30] MEDS: AMIODARONE 200 MG TAB (PACERONE) PO SCH (09:39)
--- NOTE | 2017-10-30 09:46 | CR ---
DATE OF CONSULTATION: 10/29/2017 REQUESTING PHYSICIAN: Dr. Grace Jaramillo REASON FOR CONSULT: Management of diuretics and chronic kidney disease (CKD) Stage IV. HISTORY OF PRESENT ILLNESS: Mr. Kyel Johnson is an 82-year-old male who is an established office patient of Dr. Mason with a past medical history of CKD Stage IV with a baseline GFR of about 20-30 mL/min. Also past medical history of systolic cardiomyopathy and past medical history of ischemic systolic and diastolic heart failure with ejection fraction of about 25-30%, chronic atrial fibrillation, valvular heart disease, peripheral vascular disease, history of gastrointestinal (GI) bleed recurrently, diverticulosis, diverticulitis, chronic obstructive pulmonary disease (COPD), myelodysplastic syndrome, gout, diabetes, and hypertension. The patient recently had an admission for decompensated systolic heart failure and was discharged on 10/18/2017 with a creatinine of 3.0 and a weight of 84 kg. He was admitted on 10/27/2017 after blood work at his reception centre manager's, Dr. Hernandez's, office showed a critically elevated potassium of greater than 6. A two day stay in the hospital thus far. The patient has received gentle intravenous (IV) fluids, Kayexalate and the usual cocktail for hyperkalemia. His home diuretics have been held. His admission creatinine was 4.2, currently improved to 3.5. Nephrology is consulted for recommendations for chronic diuretic regimen. The patient is seen today at the bedside. His is present. He denies any complaints. He states that he has been ambulating up and down the hallways without any issue. He denies any shortness of breath and denies any significant dyspnea on exertion. No palpitations. He does note some lower extremity edema. He denies any trouble passing urine. PAST MEDICAL HISTORY: 1. Coronary artery disease, status post stenting and history of coronary artery bypass graft (CABG). 2. Ischemic systolic and diastolic heart failure. 3. CKD Stage IV. 4. Peripheral vascular disease. 5. Recurrent GI bleed. 6. Diverticulosis/diverticulitis. 7. Atrial fibrillation. 8. Diabetes. 9. Hypertension. 10. COPD. 11. Myelodysplastic syndrome. 12. Dyslipidemia. PAST SURGICAL HISTORY: 1. CABG in 1988. 2. CABG in 2000. 3. Pacemaker placement in 2009 with upgrade to biventricular device in 2017. 4. Multiple percutaneous coronary interventions (PCIs). 5. Carotid endarterectomy in 2006, left sided. 6. Right femoral stenting in 2013. 7. Remote appendectomy. 8. Remote hemorrhoidectomy. 9. Excisional biopsy skin cancer left cheek in 2013. ALLERGIES: - PLAVIX - WARFARIN HOME MEDICATIONS: - amiodarone 200 mg by mouth twice a day - aspirin 81 mg by mouth at bedtime - calcitriol 0.5 mcg by mouth five days a week, Friday thru Friday - carvedilol 3.125 mg by mouth twice a day - colchicine as needed - docusate 100 mg by mouth twice a day - Uloric 80 mg by mouth daily - glimepiride 1 mg by mouth daily - hydralazine 10 mg by mouth three times a day - isosorbide 30 mg by mouth twice a day - melatonin 10 mg by mouth at bedtime - metolazone 1.25 mg by mouth weekly on Sundays - potassium 20 mEq by mouth twice a day - Lyrica 75 mg by mouth at bedtime - Spironolactone 25 mg by mouth daily - torsemide 40 mg by mouth twice a day FAMILY HISTORY: Two brothers with coronary artery disease status post CABG. Diabetes and hypertension in multiple family members. Denies family history of renal failure. SOCIAL HISTORY: Ex-smoker. Lives with , for 60 years. One adult son and daughter. Denies drugs or alcohol abuse. REVIEW OF SYSTEMS: GENERAL: Denies fevers and chills. HEAD AND NECK: Denies visual change, dysphagia, sore throat. CARDIAC: Denies chest pain, palpitations. PULMONARY: Denies cough, shortness of breath at rest, dyspnea. GI: Denies nausea, vomiting, diarrhea. GENITOURINARY: Denies urinary retention, dysuria, hematuria. HEMATOLOGY: Denies chronic anticoagulation. ENDOCRINE: Reports diabetes. Denies hypothyroidism. MUSCULOSKELETAL: Reports unassisted ambulation. Denies myalgias. NEUROLOGIC: Denies focal weakness, syncope. PSYCHIATRIC: Denies depression or anxiety. PHYSICAL EXAMINATION: Temperature 97.5, pulse 77, respiratory rate 18, blood pressure 115/57, saturating 93-97% on room air. INTAKE AND OUTPUT: Patient has been in a positive fluid balance 350 mL. Weight on the bed scale today 88.7 kg. GENERAL: The patient is seen out of bed to chair. His is present at bedside. He is in good spirits, making jokes, comfortable, very pleasant and conversational. HEENT: Extraocular muscles are intact. Oral mucosa is moist. The neck is supple. CARDIAC: S1, S2, irregularly irregular, 2+ radial pulse, trace to 1+ edema in the bilateral lower extremities below the knee. RESPIRATORY: Symmetric air movement bilaterally without overt rale or crackle. ABDOMEN: Soft. Obese. Nontender. Positive bowel sounds. LOWER EXTREMITIES: Show trace to 1+ edema below the knee bilaterally. SKIN: No rashes or ulcers. NEUROLOGIC: No focal deficits. At baseline mentation. PSYCHIATRIC: Normal mood and affect. LABORATORIES: White count 4.5, hemoglobin 10.2, platelets 139. Sodium 133, potassium 4.9, bicarbonate 26, BUN 93, creatinine 3.5, glucose 74. IMAGING: Renal ultrasound 10/29/2017: Right kidney 10.6 cm with a complex cyst in the upper pole measuring just shy of 6 cm, which is likely a hemorrhagic cyst. Left kidney is 11.5 cm with simple cyst. INPATIENT MEDICATIONS: - DuoNeb as needed - amiodarone 200 mg by mouth twice a day - aspirin 81 mg by mouth at bedtime - Coreg 3.125 mg by mouth twice a day - docusate 100 mg by mouth twice a day - hydralazine 10 mg by mouth three times a day - insulin - Isordil 30 mg by mouth twice a day - Lyrica 75 mg by mouth at bedtime - I started the patient on aldactone 12.5 mg by mouth daily and torsemide 20 mg by mouth twice a day PROBLEMS: 1. CKD Stage IV with baseline GFR of about 20-30 mL/min with superimposed acute kidney injury in the setting of diuresis and optimization of heart failure. The patient has a baseline creatinine in the mid 2s. However, as his CHF and diuretics were optimized on his last admission in September, his renal function has decrementally decreased. On this admission, creatinine was 4.2 on day one. Subsequently with diuretic holiday and gentle IV fluids, creatinine has improved to 3.5. There is no urgent indication for dialysis and no overt uremic signs or symptoms at present. His prior home diuretic regimen was a combination of spironolactone, torsemide and metolazone. I suggest reinitiation of diuretics, but with lower doses and continued outpatient followup of renal function. 2. Hyperkalemia. The patient's potassium was 6.1 on admission secondary to oral potassium supplement, use of potassium sparing diuretic and decremental decrease in GFR. His potassium has now normalized with diuretic holiday, gentle IV fluids and discontinuation of potassium supplementation. I suggest we start him on torsemide 20 mg by mouth twice a day with a low dose of aldactone. 3. 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 The patient is diuretic dependent. He currently has only very mild signs of hypervolemia. I suggest we can decrease his diuretic regimen compared to what he was previously taking at home. At this point, will start him on torsemide 20 mg by mouth twice a day with spironolactone 12.5 mg by mouth daily. Further titration of diuretics can be done on the outpatient setting. He will need close followup in the nephrology office within a week. 4. Mild hyponatremia. Sodium 133. Should improve with resumption of diuretics. DISCHARGE RECOMMENDATIONS: I will start the patient on torsemide 20 mg by mouth twice a day and spironolactone 12.5 mg daily. The patient can likely be discharged on , 10/30/2017. Kindly hold discharge until patient is seen by nephrology service on 10/30/2017. He is instructed to followup closely in the office early next week for repeat blood work and further titration of diuretics. Thank you for involving us in the care of Mr. Johnson. I will be happy to follow along with you. DINORAH
[2017-10-30 12:00] VITALS: BP 110/58
[2017-10-30] MEDS ORDERED: ALDA25TA2 PO (13:14)
[2017-10-30] MEDS ORDERED: DEMA20TA6 PO (13:14)
--- NOTE | 2017-10-30 16:49 | DS.PDOC ---
Discharge Summary General Date of Admission Oct 27, 2017 at 19:16 Date of Discharge 10/30/17 Discharge Summary Consults: Nephrology (Dr. Dina Odonnell) Discharge diagnosis: Hyperkalemia Secondary diagnosis: Acute on chronic kidney disease, coronary artery disease, diabetes mellitus, atrial fibrillation, combined systolic and diastolic congestive heart failure Hospital course: Patient was admitted on 10/27/17 with a potassium of 6.1. He was admitted given calcium chloride, and insulin in emergency department. Home spironolactone, torsemide, potassium chloride were held on admission. He was started on gentle fluid hydration and given Kayexalate. On 10/29 his potassium had improved to 4.9 and nephrology was consulted for outpatient recommendations. He was seen by nephrology on 10/29/17, medication changes were made and they cleared him for discharge. Progress note on date of discharge: Subjective: Patient does not have any acute concerns today. He is asking when he'll be able to go home Objective: Vitals: Temperature 97.2, pulse 74, respiratory rate 16, blood pressure 110/58, pulse ox 98% on room air Gen.: Patient awake, alert and oriented, verbal and able to answer questions appropriately. Patient does not appear to be in any acute distress Heart: Regular rate and rhythm, normal S1-S2. No murmurs, rubs, clicks or gallops Lungs: Clear to auscultation bilaterally. No wheezes, rales or rhonchi Abdomen: Active bowel sounds, soft, nontender, no masses to palpation Extremities: Slight improvement in the lower 70 swelling since yesterday, swelling to above the ankle Labs: CBC: White blood cells 4.4, hemoglobin and hematocrit 10.1/31.8, weight limits 128 Chemistry: Sodium 133, potassium 4.5, chloride 98, calcium 26, BUN 89, creatinine 3.27, glucose 129, calcium 9.1 Assessment: Patient is a 82-year-old male admitted for hyperkalemia, hyperkalemia has resolved, home medications have been adjusted and he is safe for discharge at this time Disposition: Discharge patient to home Follow-up: With Dr. Raygoza on 10/31 at 10 AM, with Dr. Odonnell on 11/04 at 3 PM Activity: As tolerated Diet: Renal diet Medications on discharge: Spironolactone 12.5 mg by mouth daily Torsemide 20 mg by mouth twice a day Amiodarone 200 mg by mouth 3 times a day Aspirin 81 mg by mouth daily at bedtime Calcitriol 0.5 mcg by mouth Friday through Friday Coreg 3.125 mg by mouth twice a day Colchicine 0.6 mg when necessary Docusate 100 mill grams by mouth twice a day Uloric 80 mg by mouth daily Glimepiride 1 mg by mouth daily Hydralazine 10 mg by mouth 3 times a day Isosorbide dinitrate 20 mg by mouth twice a day Melatonin 10 mg by mouth daily at bedtime Metolazone 1.25 mg by mouth every Friday Nitroglycerin 0.4 mg sublingual as needed Lyrica 75 mg by mouth daily at bedtime Will require out-patient follow up: Renal cyst with likely hemorrhagic component, will require outpatient ultrasound follow-up Cc: Dr. Raygoza, Dr. Dina Odonnell Time spent on discharge: 30 minutes Discharge Medications Scheduled Amiodarone HCl (Amiodarone HCl) 200 Mg Tab, 200 MG PO BID, (Reported) Aspirin (Aspirin EC) 81 Mg Tab, 81 MG PO QHS, (Reported) Calcitriol (Rocaltrol) 0.25 Mcg Cap, 0.5 MCG PO 5XW, (Reported) FRIDAY-FRIDAY Carvedilol (Carvedilol) 6.25 Mg Tab, 3.125 MG PO BID, (Reported) Docusate Sodium (Stool Softener) 100 Mg Cap, 100 MG PO BID, (Reported) Febuxostat (Uloric) 80 Mg Tab, 80 MG PO DAILY, (Reported) Glimepiride (Amaryl) 1 Mg Tab, 1 MG PO DAILY, (Reported) Hydralazine HCl (Hydralazine HCl) 10 Mg Tab, 10 MG PO TID, (Reported) Isosorbide Dinitrate (Isosorbide Dinitrate) 30 Mg Tab, 30 MG PO BID, (Reported) Melatonin (Melatonin) 10 Mg Cap, 10 MG PO QHS, (Reported) Metolazone (Metolazone) 2.5 Mg Tab, 1.25 MG PO QWEEK, (Reported) SUNDAYS Pregabalin (Lyrica) 75 Mg Cap, 75 MG PO QHS, (Reported) Spironolactone (Aldactone) 25 Mg Tab, 12.5 MG PO DAILY Torsemide (Demadex) 20 Mg Tab, 20 MG PO BID@0900,1700 Scheduled PRN Colchicine (Colchicine) 0.6 Mg Tab, 0.6 MG PO PRN PRN for FLARE UP , (Reported) Nitroglycerin (Nitroglycerin) 0.4 Mg Sub, 0.4 MG SL NITRO PRN for CHEST PAIN, ( Reported) Allergies Coded Allergies: Clopidogrel (Unverified Adverse Reaction, Unknown, BLEEDS, 10/11/17) Warfarin (Unverified Adverse Reaction, Unknown, BLEEDS, 10/11/17) ELVIA SANCHEZ DO Oct 30, 2017 16:49
--- NOTE | 2017-10-31 11:28 | IPN ---
DATE OF SERVICE: 10/30/2017 SUBJECTIVE: The patient is seen this morning at the bedside. His is present. He is in very good spirits. Discharge pending. I had a discussion with him regarding discharge diuretic recommendation. He has a followup appointment scheduled in the office for 11/04/2017, with repeat blood work. Patient denies any complaints at present, has been ambulating and denies any significant shortness of breath or dyspnea. He feels well and is looking forward to being back home. VITAL SIGNS: Temperature 97.2, pulse 74, respiratory rate 16, blood pressure 110/58, saturating 98% on room air. INTAKE AND OUTPUT: Urine output yesterday 1100 mL. Oral intake 1540. Net positive 440. Weight in the bed scale 88.3 kg. GENERAL: The patient is seen sitting up out of bed. is present at the bedside. Extraocular muscles are intact. The oral mucosa is moist. CARDIAC: S1, S2. Pacemaker in anterior chest. Trace to 1+ edema in the bilateral lower extremities below the knees. RESPIRATORY: Symmetric air movement bilaterally, without crackle or rale. No tachypnea. Seemed comfortable on room air. ABDOMEN: Soft, nontender. Positive bowel sounds. NEUROLOGIC: No focal deficits. At baseline mentation. PSYCHIATRIC: Appropriate mood and affect. LABORATORIES: White count 4.4. Hemoglobin 10.1. Sodium 133. Potassium 4.5. Bicarbonate 26. BUN 89. Creatinine 3.2. INPATIENT MEDICATIONS: Yesterday, I started the patient on torsemide 20 mg by mouth twice a day and spironolactone 12.5 mg by mouth daily. Remainder of medications are unchanged from prior. PROBLEMS: 1. Chronic kidney disease (CKD), stage IV with baseline glomerular filtration rate (GFR) of about 20-30 mL/min with superimposed acute kidney injury in the setting of diuresis and optimization of heart failure. The patient has had two inpatient stays back to back. His discharge creatinine on 10/18/2017 was 3.0. Today, he is currently 3.2 and has overall improved from prior. He is mildly hypervolemic on exam. His diuretics have been held the past 2 days and he is now resumed on torsemide 20 mg by mouth twice a day with low dose spironolactone. He can be discharged on the current regimen with followup in the office on 11/04/2017 with blood work. 2. Hyperkalemia, resolved. The patient is discontinued off of potassium supplementation and his spironolactone is reduced to 12.5 mg daily. Further titration of his diuretic medication regimen will be done on outpatient followup. He is counseled on dietary potassium restriction. 3. 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 The patient is diuretic dependent. He can be discharged today on torsemide 20 mg by mouth twice a day with spironolactone 12.5 mg daily. Further titration of diuretics in the outpatient setting. He is counseled on fluid restriction and dietary potassium restriction. Discharge recommendations are relayed to the primary team.
[2017-11-08] MEDS ORDERED: TORS20TA2 PO (11:41)
== END 2017-10-30 14:30 | disposition home or self-care (01) | DRG 641 ==
LOC: M ED 14:28 → M ED INP 19:16 → M PCU 21:51
PROVIDERS: ADMIT Internal Medicine; ATTEND Family Medicine
DX: E87.5 Hyperkalemia (principal); N17.9 Acute kidney failure, unspecified; I50.42 Chronic combined systolic (congestive) and diastolic (congestive) heart failure; I13.0 Hypertensive heart and chronic kidney disease with heart failure and stage 1 through stage 4 chronic kidney disease, or unspecified chronic kidney disease; N18.4 Chronic kidney disease, stage 4 (severe); E87.1 Hypo-osmolality and hyponatremia; D46.9 Myelodysplastic syndrome, unspecified; I48.91 Unspecified atrial fibrillation; J44.9 Chronic obstructive pulmonary disease, unspecified; E11.9 Type 2 diabetes mellitus without complications; I25.10 Atherosclerotic heart disease of native coronary artery without angina pectoris; Z79.82 Long term (current) use of aspirin; Z79.899 Other long term (current) drug therapy; Z88.8 Allergy status to other drugs, medicaments and biological substances; Z95.5 Presence of coronary angioplasty implant and graft; Z95.0 Presence of cardiac pacemaker; Z87.891 Personal history of nicotine dependence; Z79.84 Long term (current) use of oral hypoglycemic drugs; I25.2 Old myocardial infarction

== ENCOUNTER 2017-11-08 09:34 | Inpatient (IN) | payer MEDICARE, BC, OTHER ==
[2017-11-08 10:22] LABS: BASO % 0.7 % (0.0-1.0); EOS # 0.2 10^3/uL (0.0-0.50); EOS % 3.9 % (0.0-3.0); IMMATURE GRANULOCYTE % 0.4 % (0-0); LYMPH # 0.4 10^3/uL (1.5-4.5); LYMPH % 9.3 % (24.0-44.0); MEAN CORPUSCULAR HGB CONC 30.5 g/dl (32.0-36.5); MEAN CORPUSCULAR VOLUME 91.6 fl (80.0-96.0); MONO # 0.6 10^3/uL (0.0-0.8); MONO % 12.2 % (0.0-5.0); NEUTROPHILS # 3.4 10^3/uL (1.8-7.7); NEUTROPHILS % 73.5 % (36.0-66.0); PLATELET COUNT, AUTOMATED 155 10^3/uL (150-450); RED CELL DISTRIBUTION WIDTH 17.5 % (11.5-14.5); WHITE BLOOD COUNT 4.6 10^3/uL (4.0-10.0)
[2017-11-08 10:32] LABS: INR 1.37
[2017-11-08] MEDS: NS 500 ML IV (10:45)
[2017-11-08 10:48] LABS: ALBUMIN 3.1 GM/DL (3.2-5.2); ALBUMIN/GLOBULIN RATIO 0.65 (1.00-1.93); ALKALINE PHOSPHATASE 118 U/L (45-117); ALT/SGPT 37 U/L (12-78); AMYLASE 59 U/L (25-115); ANION GAP 8 MEQ/L (8-16); AST/SGOT 26 U/L (7-37); BILIRUBIN,DIRECT 0.4 MG/DL (0.0-0.2); BILIRUBIN,TOTAL 0.8 MG/DL (0.2-1.0); BLOOD UREA NITROGEN 116 MG/DL (7-18); CALCIUM LEVEL 9.3 MG/DL (8.8-10.2); CARBON DIOXIDE LEVEL 26 MEQ/L (21-32); CHLORIDE LEVEL 98 MEQ/L (98-107); CREATININE FOR GFR 4.33 MG/DL (0.70-1.30); GLOMERULAR FILTRATION RATE 14.1 (>35); GLUCOSE, FASTING 94 MG/DL (83-110); SODIUM LEVEL 132 MEQ/L (136-145); TOTAL PROTEIN 7.9 GM/DL (6.4-8.2)
[2017-11-08] MEDS ORDERED: DEXTROSE 50% 50 ML SYRINGE IV (17:00)
[2017-11-08] MEDS ORDERED: GLUCAGON FOR INJ 1 MG VIAL (J1610) SC (17:00)
[2017-11-08] MEDS ORDERED: GLUCOSE 4 GM CHEW TABLET PO (17:00)
[2017-11-08] MEDS: HumaLOG INSULIN (NovoLOG) PER UNIT SC (19:04)
[2017-11-08] MEDS ORDERED: ADVAIR HFA 115/21MCG INHALER INH (21:00)
[2017-11-08] MEDS: SENOKOT S TAB PO (21:01)
[2017-11-08] MEDS: PREGABALIN 75 MG CAP(LYRICA) PO (21:01)
[2017-11-08] MEDS: ASPIRIN 81 MG ENTERIC TAB PO (21:02)
[2017-11-08] MEDS: ACETAMINOPHEN TAB 650MG DOSE (2X325MG) PO (21:02)
[2017-11-08] MEDS: AMIODARONE 200 MG TAB (PACERONE) PO (21:03)
[2017-11-08] MEDS: CARVedilol 3.125 MG TAB PO (21:03)
[2017-11-09 05:52] LABS: BASO % 0.7 % (0.0-1.0); EOS # 0.1 10^3/uL (0.0-0.50); EOS % 3.2 % (0.0-3.0); IMMATURE GRANULOCYTE % 0.5 % (0-0); LYMPH # 0.6 10^3/uL (1.5-4.5); LYMPH % 13.7 % (24.0-44.0); MEAN CORPUSCULAR HGB CONC 31.3 g/dl (32.0-36.5); MEAN CORPUSCULAR VOLUME 89.6 fl (80.0-96.0); MONO # 0.6 10^3/uL (0.0-0.8); MONO % 14.2 % (0.0-5.0); NEUTROPHILS # 2.8 10^3/uL (1.8-7.7); NEUTROPHILS % 67.7 % (36.0-66.0); PLATELET COUNT, AUTOMATED 145 10^3/uL (150-450); RED CELL DISTRIBUTION WIDTH 17.5 % (11.5-14.5); WHITE BLOOD COUNT 4.1 10^3/uL (4.0-10.0)
[2017-11-09 06:18] LABS: ALBUMIN 2.9 GM/DL (3.2-5.2); ANION GAP 11 MEQ/L (8-16); BLOOD UREA NITROGEN 112 MG/DL (7-18); CALCIUM LEVEL 8.9 MG/DL (8.8-10.2); CARBON DIOXIDE LEVEL 21 MEQ/L (21-32); CHLORIDE LEVEL 101 MEQ/L (98-107); CREATININE FOR GFR 4.24 MG/DL (0.70-1.30); GLOMERULAR FILTRATION RATE 14.4 (>35); GLUCOSE, FASTING 51 MG/DL (83-110); PHOSPHORUS LEVEL 6.5 MG/DL (2.5-4.9); SODIUM LEVEL 133 MEQ/L (136-145)
[2017-11-09 06:25] LABS: POTASSIUM SERUM 5.3 MEQ/L (3.5-5.1)
[2017-11-09] MEDS: HumaLOG INSULIN (NovoLOG) PER UNIT SC ×3 (07:30→18:27)
[2017-11-09] MEDS ORDERED: GLIMEPIRIDE 1 MG TABLET PO (08:00)
[2017-11-09] MEDS ORDERED: MIDAZOLAM INJ 2 MG/2 ML VIAL (J2250) As Ordered (08:03)
[2017-11-09] MEDS ORDERED: fentaNYL 100 MCG/2 ML INJECTION (J3010) As Ordered (08:03)
[2017-11-09] MEDS ORDERED: LIDOCAINE 2% INJ 100 MG/5 ML SDV (FOR ANES.) As Ordered (08:03)
[2017-11-09] MEDS ORDERED: PROPOFOL 200 MG/20 ML VIAL As Ordered (08:03)
[2017-11-09] MEDS: ENOXAPARIN 30 MG/0.3 ML SYR (J1650) SC (09:00)
[2017-11-09] MEDS ORDERED: FEBUXOSTAT 40 MG TABLET (ULORIC) PO (09:00)
[2017-11-09] MEDS: BUPIVACAINE HCL 0.5% 10 ML VIAL As Ordered (09:01)
[2017-11-09] MEDS: LIDOCAINE 1% MDV 20ML VIAL As Ordered (09:05)
[2017-11-09] MEDS ORDERED: NORCO, ANEXSIA 5/325MG TABLET (HYDROcodone/ACETAMINOPHEN) PO (09:45)
[2017-11-09] MEDS ORDERED: ONDANSETRON 4MG/2ML VIAL (J2405) IV (09:45)
[2017-11-09] MEDS: LR 1,000 ML IV (09:45)
[2017-11-09] MEDS ORDERED: fentaNYL 100 MCG/2 ML INJECTION (J3010) IV (09:45)
[2017-11-09] MEDS: HEPARIN 1,000 UNITS/ML 10ML VIAL (FOR RADIOLOGY& DIALYSIS ONLY) XX (10:00)
[2017-11-09] MEDS: HEPARIN 1,000 UNITS/ML 10ML VIAL (FOR RADIOLOGY& DIALYSIS ONLY) IV (10:00)
[2017-11-09] MEDS: SENOKOT S TAB PO ×2 (14:23→21:05)
[2017-11-09] MEDS: CARVedilol 3.125 MG TAB PO ×2 (14:24→21:06)
[2017-11-09] MEDS: AMIODARONE 200 MG TAB (PACERONE) PO ×2 (14:24→21:07)
[2017-11-09] MEDS: PREGABALIN 75 MG CAP(LYRICA) PO (21:05)
[2017-11-09] MEDS: ASPIRIN 81 MG ENTERIC TAB PO (21:06)
[2017-11-10] MEDS: AMIODARONE 200 MG TAB (PACERONE) PO ×2 (06:07→20:31)
[2017-11-10] MEDS: SENOKOT S TAB PO ×2 (06:07→20:31)
[2017-11-10] MEDS: CARVedilol 3.125 MG TAB PO ×2 (06:08→20:30)
[2017-11-10 06:14] LABS: BASO % 0.7 % (0.0-1.0); EOS # 0.1 10^3/uL (0.0-0.50); EOS % 2.4 % (0.0-3.0); IMMATURE GRANULOCYTE % 0.2 % (0-0); LYMPH # 0.6 10^3/uL (1.5-4.5); LYMPH % 12.1 % (24.0-44.0); MEAN CORPUSCULAR HEMOGLOBIN 28.2 pg (27.0-33.0); MEAN CORPUSCULAR HGB CONC 31.7 g/dl (32.0-36.5); MEAN CORPUSCULAR VOLUME 88.9 fl (80.0-96.0); MONO # 0.6 10^3/uL (0.0-0.8); MONO % 13.8 % (0.0-5.0); NEUTROPHILS # 3.2 10^3/uL (1.8-7.7); NEUTROPHILS % 70.8 % (36.0-66.0); PLATELET COUNT, AUTOMATED 138 10^3/uL (150-450); RED CELL DISTRIBUTION WIDTH 17.6 % (11.5-14.5); WHITE BLOOD COUNT 4.6 10^3/uL (4.0-10.0)
[2017-11-10 06:39] LABS: ALBUMIN 2.9 GM/DL (3.2-5.2); ANION GAP 9 MEQ/L (8-16); BLOOD UREA NITROGEN 87 MG/DL (7-18); CARBON DIOXIDE LEVEL 24 MEQ/L (21-32); CHLORIDE LEVEL 101 MEQ/L (98-107); CREATININE FOR GFR 3.36 MG/DL (0.70-1.30); GLOMERULAR FILTRATION RATE 18.9 (>35); GLUCOSE, FASTING 86 MG/DL (83-110); POTASSIUM SERUM 4.9 MEQ/L (3.5-5.1); SODIUM LEVEL 134 MEQ/L (136-145)
[2017-11-10] MEDS: HumaLOG INSULIN (NovoLOG) PER UNIT SC ×3 (07:30→17:18)
[2017-11-10] MEDS: ENOXAPARIN 30 MG/0.3 ML SYR (J1650) SC (08:32)
[2017-11-10] MEDS: HEPARIN 1,000 UNITS/ML 10ML VIAL (FOR RADIOLOGY& DIALYSIS ONLY) XX (11:15)
[2017-11-10] MEDS: HEPARIN 1,000 UNITS/ML 10ML VIAL (FOR RADIOLOGY& DIALYSIS ONLY) IV (11:15)
[2017-11-10 11:30] LABS: HEPATITIS B SURFACE ANTIBODY POSITIVE (POSITIVE)
[2017-11-10] MEDS: PREGABALIN 75 MG CAP(LYRICA) PO (20:30)
[2017-11-10] MEDS: ASPIRIN 81 MG ENTERIC TAB PO (20:31)
[2017-11-10 20:39] LABS: MICROSCOPIC INDICATED? MAN YES (NO)
[2017-11-10 20:44] LABS: BACTERIA, URINE MOD AMOUNT; RBC, URINE TNTC /hpf (0-3); SQUAMOUS EPITHELIAL CELL URINE NONE SEEN /hpf (SMALL AMT); TRANSITIONAL EPI CELLS, URINE SMALL AMOUNT /hpf
[2017-11-10 20:45] LABS: HYALINE CAST, URINE 0-1 /lpf (0-1); MICROSCOPIC EXAM PERFORMED
[2017-11-11 06:40] LABS: BASO % 0.4 % (0.0-1.0); EOS # 0.1 10^3/uL (0.0-0.50); EOS % 1.4 % (0.0-3.0); IMMATURE GRANULOCYTE % 0.4 % (0-0); LYMPH # 0.6 10^3/uL (1.5-4.5); LYMPH % 11.8 % (24.0-44.0); MEAN CORPUSCULAR VOLUME 87.6 fl (80.0-96.0); MONO # 0.6 10^3/uL (0.0-0.8); MONO % 11.5 % (0.0-5.0); NEUTROPHILS # 3.8 10^3/uL (1.8-7.7); NEUTROPHILS % 74.5 % (36.0-66.0); PLATELET COUNT, AUTOMATED 130 10^3/uL (150-450); RED CELL DISTRIBUTION WIDTH 17.8 % (11.5-14.5); WHITE BLOOD COUNT 5.2 10^3/uL (4.0-10.0)
[2017-11-11 06:55] LABS: ANION GAP 8 MEQ/L (8-16); BLOOD UREA NITROGEN 64 MG/DL (7-18); CARBON DIOXIDE LEVEL 26 MEQ/L (21-32); CHLORIDE LEVEL 98 MEQ/L (98-107); CREATININE FOR GFR 2.93 MG/DL (0.70-1.30); GLOMERULAR FILTRATION RATE 22.1 (>35); GLUCOSE, FASTING 119 MG/DL (83-110); PHOSPHORUS LEVEL 4.4 MG/DL (2.5-4.9); POTASSIUM SERUM 4.8 MEQ/L (3.5-5.1); SODIUM LEVEL 132 MEQ/L (136-145)
[2017-11-11] MEDS: AMIODARONE 200 MG TAB (PACERONE) PO ×2 (08:04→21:24)
[2017-11-11] MEDS: SENOKOT S TAB PO ×2 (08:04→21:24)
[2017-11-11] MEDS: CARVedilol 3.125 MG TAB PO ×2 (08:04→21:24)
[2017-11-11] MEDS: ENOXAPARIN 30 MG/0.3 ML SYR (J1650) SC (08:05)
[2017-11-11] MEDS: HumaLOG INSULIN (NovoLOG) PER UNIT SC ×3 (08:05→17:24)
[2017-11-11] MEDS: ALBUTEROL SULFATE 2.5 MG/0.5 ML INH NEB SOLN NEB (20:19)
[2017-11-11] MEDS: PREGABALIN 75 MG CAP(LYRICA) PO (21:24)
[2017-11-11] MEDS: ASPIRIN 81 MG ENTERIC TAB PO (21:24)
[2017-11-11] MEDS: RAMELTEON 8 MG TAB (ROZEREM) PO (21:24)
[2017-11-12 06:22] LABS: BASO % 0.4 % (0.0-1.0); EOS # 0.1 10^3/uL (0.0-0.50); IMMATURE GRANULOCYTE % 0.4 % (0-0); LYMPH # 0.6 10^3/uL (1.5-4.5); LYMPH % 12.2 % (24.0-44.0); MEAN CORPUSCULAR HEMOGLOBIN 27.7 pg (27.0-33.0); MEAN CORPUSCULAR HGB CONC 32.2 g/dl (32.0-36.5); MEAN CORPUSCULAR VOLUME 86.1 fl (80.0-96.0); MONO # 0.6 10^3/uL (0.0-0.8); MONO % 12.8 % (0.0-5.0); NEUTROPHILS # 3.6 10^3/uL (1.8-7.7); NEUTROPHILS % 72.2 % (36.0-66.0); PLATELET COUNT, AUTOMATED 136 10^3/uL (150-450); RED CELL DISTRIBUTION WIDTH 17.6 % (11.5-14.5); WHITE BLOOD COUNT 4.9 10^3/uL (4.0-10.0)
[2017-11-12] MEDS: SENOKOT S TAB PO ×2 (06:23→20:45)
[2017-11-12] MEDS: CARVedilol 3.125 MG TAB PO ×2 (06:24→20:47)
[2017-11-12] MEDS: AMIODARONE 200 MG TAB (PACERONE) PO ×2 (06:24→20:45)
[2017-11-12 06:43] LABS: ALBUMIN 2.9 GM/DL (3.2-5.2); ANION GAP 11 MEQ/L (8-16); BLOOD UREA NITROGEN 76 MG/DL (7-18); CALCIUM LEVEL 8.9 MG/DL (8.8-10.2); CARBON DIOXIDE LEVEL 23 MEQ/L (21-32); CHLORIDE LEVEL 99 MEQ/L (98-107); CREATININE FOR GFR 3.39 MG/DL (0.70-1.30); GLOMERULAR FILTRATION RATE 18.7 (>35); GLUCOSE, FASTING 91 MG/DL (83-110); PHOSPHORUS LEVEL 4.9 MG/DL (2.5-4.9); SODIUM LEVEL 133 MEQ/L (136-145)
[2017-11-12] MEDS: HumaLOG INSULIN (NovoLOG) PER UNIT SC ×3 (07:30→18:01)
[2017-11-12] MEDS: HEPARIN 1,000 UNITS/ML 10ML VIAL (FOR RADIOLOGY& DIALYSIS ONLY) XX (13:30)
[2017-11-12] MEDS: HEPARIN SOD (PORCINE) 5000 UNITS/ML VIAL SQ ×2 (13:31→20:47)
[2017-11-12] MEDS: PANTOPRAZOLE 40MG TAB (PROTONIX) PO (13:31)
[2017-11-12] MEDS: diphenhydrAMINE INJ 50MG/ML VIAL (J1200) IM (16:09)
[2017-11-12] MEDS: ALBUTEROL SULFATE 2.5 MG/0.5 ML INH NEB SOLN NEB (18:35)
[2017-11-12] MEDS: PREGABALIN 75 MG CAP(LYRICA) PO (20:45)
[2017-11-12] MEDS: RAMELTEON 8 MG TAB (ROZEREM) PO (20:45)
[2017-11-12] MEDS: ASPIRIN 81 MG ENTERIC TAB PO (20:45)
[2017-11-12] MEDS: ACETAMINOPHEN TAB 650MG DOSE (2X325MG) PO (20:46)
[2017-11-12] MEDS: diphenhydrAMINE 25 MG CAP PO (20:52)
[2017-11-13] MEDS: HEPARIN SOD (PORCINE) 5000 UNITS/ML VIAL SQ ×3 (05:54→22:30)
[2017-11-13 06:58] LABS: BASO % 0.7 % (0.0-1.0); EOS # 0.2 10^3/uL (0.0-0.50); EOS % 4.6 % (0.0-3.0); IMMATURE GRANULOCYTE % 0.7 % (0-0); LYMPH # 0.7 10^3/uL (1.5-4.5); LYMPH % 14.3 % (24.0-44.0); MEAN CORPUSCULAR HEMOGLOBIN 27.3 pg (27.0-33.0); MEAN CORPUSCULAR HGB CONC 31.4 g/dl (32.0-36.5); MONO # 0.7 10^3/uL (0.0-0.8); MONO % 14.6 % (0.0-5.0); NEUTROPHILS % 65.1 % (36.0-66.0); PLATELET COUNT, AUTOMATED 120 10^3/uL (150-450); RED CELL DISTRIBUTION WIDTH 17.6 % (11.5-14.5); WHITE BLOOD COUNT 4.5 10^3/uL (4.0-10.0)
[2017-11-13 07:04] LABS: ALBUMIN 2.9 GM/DL (3.2-5.2); ANION GAP 9 MEQ/L (8-16); BLOOD UREA NITROGEN 55 MG/DL (7-18); CALCIUM LEVEL 8.2 MG/DL (8.8-10.2); CARBON DIOXIDE LEVEL 27 MEQ/L (21-32); CHLORIDE LEVEL 101 MEQ/L (98-107); CREATININE FOR GFR 3.24 MG/DL (0.70-1.30); GLOMERULAR FILTRATION RATE 19.7 (>35); GLUCOSE, FASTING 64 MG/DL (83-110); PHOSPHORUS LEVEL 4.4 MG/DL (2.5-4.9); POTASSIUM SERUM 4.5 MEQ/L (3.5-5.1); SODIUM LEVEL 137 MEQ/L (136-145)
[2017-11-13] MEDS: HumaLOG INSULIN (NovoLOG) PER UNIT SC ×3 (07:30→18:43)
[2017-11-13] MEDS: AMIODARONE 200 MG TAB (PACERONE) PO ×2 (08:46→22:30)
[2017-11-13] MEDS: SENOKOT S TAB PO ×2 (08:46→22:30)
[2017-11-13] MEDS: PANTOPRAZOLE 40MG TAB (PROTONIX) PO (08:46)
[2017-11-13] MEDS: CARVedilol 3.125 MG TAB PO ×2 (08:50→22:29)
[2017-11-13] MEDS ORDERED: HumaLOG INSULIN (NovoLOG) PER UNIT SC (17:30)
[2017-11-13] MEDS ORDERED: GLUCOSE 4 GM CHEW TABLET PO (18:00)
[2017-11-13] MEDS ORDERED: DEXTROSE 50% 50 ML SYRINGE IV (18:00)
[2017-11-13] MEDS ORDERED: GLUCAGON FOR INJ 1 MG VIAL (J1610) SC (18:00)
[2017-11-13] MEDS: ASPIRIN 81 MG ENTERIC TAB PO (22:29)
[2017-11-13] MEDS: RAMELTEON 8 MG TAB (ROZEREM) PO (22:30)
[2017-11-13] MEDS: PREGABALIN 75 MG CAP(LYRICA) PO (22:30)
[2017-11-13] MEDS: diphenhydrAMINE 25 MG CAP PO (23:37)
[2017-11-13] MEDS: ACETAMINOPHEN TAB 650MG DOSE (2X325MG) PO (23:38)
[2017-11-14] MEDS: HEPARIN SOD (PORCINE) 5000 UNITS/ML VIAL SQ ×2 (06:12→14:00)
[2017-11-14] MEDS: SENOKOT S TAB PO ×2 (06:12→22:03)
[2017-11-14] MEDS: PANTOPRAZOLE 40MG TAB (PROTONIX) PO (06:13)
[2017-11-14] MEDS: CARVedilol 3.125 MG TAB PO ×2 (06:13→21:00)
[2017-11-14] MEDS: AMIODARONE 200 MG TAB (PACERONE) PO ×2 (06:13→22:03)
[2017-11-14 06:17] LABS: BASO % 0.2 % (0.0-1.0); EOS # 0.2 10^3/uL (0.0-0.50); EOS % 4.1 % (0.0-3.0); IMMATURE GRANULOCYTE % 0.4 % (0-0); LYMPH # 0.5 10^3/uL (1.5-4.5); LYMPH % 8.9 % (24.0-44.0); MEAN CORPUSCULAR HEMOGLOBIN 27.4 pg (27.0-33.0); MEAN CORPUSCULAR HGB CONC 31.4 g/dl (32.0-36.5); MEAN CORPUSCULAR VOLUME 87.3 fl (80.0-96.0); MONO # 0.6 10^3/uL (0.0-0.8); MONO % 10.5 % (0.0-5.0); NEUTROPHILS # 4.1 10^3/uL (1.8-7.7); NEUTROPHILS % 75.9 % (36.0-66.0); PLATELET COUNT, AUTOMATED 136 10^3/uL (150-450); RED CELL DISTRIBUTION WIDTH 17.7 % (11.5-14.5); WHITE BLOOD COUNT 5.4 10^3/uL (4.0-10.0)
[2017-11-14 06:46] LABS: ANION GAP 10 MEQ/L (8-16); BLOOD UREA NITROGEN 69 MG/DL (7-18); CALCIUM LEVEL 8.7 MG/DL (8.8-10.2); CARBON DIOXIDE LEVEL 24 MEQ/L (21-32); CHLORIDE LEVEL 100 MEQ/L (98-107); CREATININE FOR GFR 3.81 MG/DL (0.70-1.30); GLOMERULAR FILTRATION RATE 16.3 (>35); GLUCOSE, FASTING 92 MG/DL (83-110); PHOSPHORUS LEVEL 5.2 MG/DL (2.5-4.9); POTASSIUM SERUM 4.6 MEQ/L (3.5-5.1); SODIUM LEVEL 134 MEQ/L (136-145)
[2017-11-14] MEDS: HumaLOG INSULIN (NovoLOG) PER UNIT SC ×3 (07:30→18:12)
[2017-11-14] MEDS: HEPARIN 1,000 UNITS/ML 10ML VIAL (FOR RADIOLOGY& DIALYSIS ONLY) XX (12:43)
[2017-11-14] MEDS: ASPIRIN 81 MG ENTERIC TAB PO (22:03)
[2017-11-14] MEDS: PREGABALIN 75 MG CAP(LYRICA) PO (22:03)
[2017-11-14] MEDS: RAMELTEON 8 MG TAB (ROZEREM) PO (22:03)
[2017-11-15] MEDS: diphenhydrAMINE 25 MG CAP PO ×2 (01:58→21:05)
[2017-11-15 05:55] LABS: BASO % 0.2 % (0.0-1.0); EOS # 0.2 10^3/uL (0.0-0.50); EOS % 2.8 % (0.0-3.0); IMMATURE GRANULOCYTE % 0.7 % (0-0); LYMPH # 0.5 10^3/uL (1.5-4.5); LYMPH % 9.2 % (24.0-44.0); MEAN CORPUSCULAR HEMOGLOBIN 27.9 pg (27.0-33.0); MEAN CORPUSCULAR HGB CONC 31.5 g/dl (32.0-36.5); MEAN CORPUSCULAR VOLUME 88.6 fl (80.0-96.0); MONO # 0.6 10^3/uL (0.0-0.8); MONO % 10.5 % (0.0-5.0); NEUTROPHILS # 4.2 10^3/uL (1.8-7.7); NEUTROPHILS % 76.6 % (36.0-66.0); PLATELET COUNT, AUTOMATED 123 10^3/uL (150-450); RED CELL DISTRIBUTION WIDTH 17.5 % (11.5-14.5); WHITE BLOOD COUNT 5.4 10^3/uL (4.0-10.0)
[2017-11-15 06:12] LABS: ALBUMIN 2.9 GM/DL (3.2-5.2); ANION GAP 8 MEQ/L (8-16); BLOOD UREA NITROGEN 47 MG/DL (7-18); CALCIUM LEVEL 8.4 MG/DL (8.8-10.2); CARBON DIOXIDE LEVEL 28 MEQ/L (21-32); CHLORIDE LEVEL 100 MEQ/L (98-107); CREATININE FOR GFR 2.98 MG/DL (0.70-1.30); GLOMERULAR FILTRATION RATE 21.7 (>35); GLUCOSE, FASTING 94 MG/DL (83-110); PHOSPHORUS LEVEL 3.7 MG/DL (2.5-4.9); POTASSIUM SERUM 4.4 MEQ/L (3.5-5.1); SODIUM LEVEL 136 MEQ/L (136-145)
[2017-11-15] MEDS: HumaLOG INSULIN (NovoLOG) PER UNIT SC ×3 (07:20→17:22)
[2017-11-15] MEDS: CARVedilol 3.125 MG TAB PO ×2 (07:44→21:06)
[2017-11-15] MEDS: PANTOPRAZOLE 40MG TAB (PROTONIX) PO (08:09)
[2017-11-15] MEDS: AMIODARONE 200 MG TAB (PACERONE) PO ×2 (08:09→21:06)
[2017-11-15] MEDS: SENOKOT S TAB PO ×2 (08:09→21:05)
[2017-11-15] MEDS: HEPARIN SOD (PORCINE) 5000 UNITS/ML VIAL SQ ×2 (14:00→21:06)
[2017-11-15] MEDS: RAMELTEON 8 MG TAB (ROZEREM) PO (21:05)
[2017-11-15] MEDS: PREGABALIN 75 MG CAP(LYRICA) PO (21:05)
[2017-11-15] MEDS: ASPIRIN 81 MG ENTERIC TAB PO (21:05)
[2017-11-16 06:02] LABS: BASO % 0.3 % (0.0-1.0); EOS # 0.2 10^3/uL (0.0-0.50); EOS % 2.6 % (0.0-3.0); IMMATURE GRANULOCYTE % 0.5 % (0-0); LYMPH # 0.8 10^3/uL (1.5-4.5); LYMPH % 12.9 % (24.0-44.0); MEAN CORPUSCULAR HEMOGLOBIN 27.6 pg (27.0-33.0); MEAN CORPUSCULAR HGB CONC 31.2 g/dl (32.0-36.5); MEAN CORPUSCULAR VOLUME 88.4 fl (80.0-96.0); MONO # 0.7 10^3/uL (0.0-0.8); MONO % 11.4 % (0.0-5.0); NEUTROPHILS # 4.2 10^3/uL (1.8-7.7); NEUTROPHILS % 72.3 % (36.0-66.0); PLATELET COUNT, AUTOMATED 118 10^3/uL (150-450); RED CELL DISTRIBUTION WIDTH 17.7 % (11.5-14.5); WHITE BLOOD COUNT 5.8 10^3/uL (4.0-10.0)
[2017-11-16] MEDS: SENOKOT S TAB PO ×2 (06:06→21:27)
[2017-11-16] MEDS: AMIODARONE 200 MG TAB (PACERONE) PO ×2 (06:07→21:27)
[2017-11-16] MEDS: CARVedilol 3.125 MG TAB PO ×2 (06:07→21:00)
[2017-11-16] MEDS: HEPARIN SOD (PORCINE) 5000 UNITS/ML VIAL SQ ×3 (06:07→21:28)
[2017-11-16] MEDS: PANTOPRAZOLE 40MG TAB (PROTONIX) PO (06:07)
[2017-11-16 06:20] LABS: ANION GAP 9 MEQ/L (8-16); BLOOD UREA NITROGEN 58 MG/DL (7-18); CALCIUM LEVEL 8.7 MG/DL (8.8-10.2); CARBON DIOXIDE LEVEL 26 MEQ/L (21-32); CHLORIDE LEVEL 98 MEQ/L (98-107); CREATININE FOR GFR 3.61 MG/DL (0.70-1.30); GLOMERULAR FILTRATION RATE 17.4 (>35); GLUCOSE, FASTING 97 MG/DL (83-110); PHOSPHORUS LEVEL 4.5 MG/DL (2.5-4.9); POTASSIUM SERUM 4.9 MEQ/L (3.5-5.1); SODIUM LEVEL 133 MEQ/L (136-145)
[2017-11-16] MEDS: HumaLOG INSULIN (NovoLOG) PER UNIT SC ×3 (06:38→17:12)
[2017-11-16] MEDS: HEPARIN 1,000 UNITS/ML 10ML VIAL (FOR RADIOLOGY& DIALYSIS ONLY) XX (11:30)
[2017-11-16] MEDS: ASPIRIN 81 MG ENTERIC TAB PO (21:27)
[2017-11-16] MEDS: diphenhydrAMINE 25 MG CAP PO (21:27)
[2017-11-16] MEDS: RAMELTEON 8 MG TAB (ROZEREM) PO (21:27)
[2017-11-16] MEDS: PREGABALIN 75 MG CAP(LYRICA) PO (21:27)
[2017-11-17] MEDS: HEPARIN SOD (PORCINE) 5000 UNITS/ML VIAL SQ ×3 (05:30→21:27)
[2017-11-17 06:06] LABS: BASO % 0.6 % (0.0-1.0); EOS # 0.1 10^3/uL (0.0-0.50); EOS % 2.5 % (0.0-3.0); IMMATURE GRANULOCYTE % 0.4 % (0-0); LYMPH # 0.6 10^3/uL (1.5-4.5); LYMPH % 11.8 % (24.0-44.0); MEAN CORPUSCULAR HEMOGLOBIN 27.3 pg (27.0-33.0); MEAN CORPUSCULAR HGB CONC 30.8 g/dl (32.0-36.5); MEAN CORPUSCULAR VOLUME 88.6 fl (80.0-96.0); MONO # 0.6 10^3/uL (0.0-0.8); MONO % 12.4 % (0.0-5.0); NEUTROPHILS # 3.7 10^3/uL (1.8-7.7); NEUTROPHILS % 72.3 % (36.0-66.0); PLATELET COUNT, AUTOMATED 131 10^3/uL (150-450); RED CELL DISTRIBUTION WIDTH 17.7 % (11.5-14.5); WHITE BLOOD COUNT 5.2 10^3/uL (4.0-10.0)
[2017-11-17 06:34] LABS: ALBUMIN 2.9 GM/DL (3.2-5.2); ANION GAP 10 MEQ/L (8-16); BLOOD UREA NITROGEN 42 MG/DL (7-18); CALCIUM LEVEL 8.6 MG/DL (8.8-10.2); CARBON DIOXIDE LEVEL 28 MEQ/L (21-32); CHLORIDE LEVEL 97 MEQ/L (98-107); CREATININE FOR GFR 2.92 MG/DL (0.70-1.30); GLOMERULAR FILTRATION RATE 22.2 (>35); GLUCOSE, FASTING 107 MG/DL (83-110); PHOSPHORUS LEVEL 3.5 MG/DL (2.5-4.9); POTASSIUM SERUM 4.8 MEQ/L (3.5-5.1); SODIUM LEVEL 135 MEQ/L (136-145)
[2017-11-17] MEDS: HumaLOG INSULIN (NovoLOG) PER UNIT SC ×3 (07:03→16:55)
[2017-11-17] MEDS: SENOKOT S TAB PO ×2 (08:02→21:26)
[2017-11-17] MEDS: AMIODARONE 200 MG TAB (PACERONE) PO ×2 (08:02→21:26)
[2017-11-17] MEDS: CARVedilol 3.125 MG TAB PO ×2 (08:02→20:19)
[2017-11-17] MEDS: PANTOPRAZOLE 40MG TAB (PROTONIX) PO (08:02)
[2017-11-17] MEDS: TORSEMIDE 100 MG TAB PO (14:18)
[2017-11-17] MEDS ORDERED: DARBEPOETIN 100 MCG/0.5 ML *DIALYSIS* SYRINGE (J0882) IV (15:15)
[2017-11-17] MEDS: PREGABALIN 75 MG CAP(LYRICA) PO (21:26)
[2017-11-17] MEDS: RAMELTEON 8 MG TAB (ROZEREM) PO (21:26)
[2017-11-17] MEDS: ASPIRIN 81 MG ENTERIC TAB PO (21:26)
[2017-11-18] MEDS: diphenhydrAMINE 25 MG CAP PO ×2 (01:00→20:45)
[2017-11-18] MEDS: HEPARIN SOD (PORCINE) 5000 UNITS/ML VIAL SQ ×3 (06:07→21:18)
[2017-11-18] MEDS: HumaLOG INSULIN (NovoLOG) PER UNIT SC ×3 (08:12→17:10)
[2017-11-18] MEDS: SENOKOT S TAB PO ×2 (08:13→20:42)
[2017-11-18] MEDS: PANTOPRAZOLE 40MG TAB (PROTONIX) PO (08:13)
[2017-11-18] MEDS: AMIODARONE 200 MG TAB (PACERONE) PO ×2 (08:15→20:43)
[2017-11-18] MEDS: CARVedilol 3.125 MG TAB PO ×2 (08:15→20:43)
[2017-11-18] MEDS: ASPIRIN 81 MG ENTERIC TAB PO (20:42)
[2017-11-18] MEDS: PREGABALIN 75 MG CAP(LYRICA) PO (20:42)
[2017-11-18] MEDS: RAMELTEON 8 MG TAB (ROZEREM) PO (20:42)
[2017-11-19] MEDS: CARVedilol 3.125 MG TAB PO ×2 (01:29→21:00)
[2017-11-19] MEDS: AMIODARONE 200 MG TAB (PACERONE) PO ×2 (05:59→21:44)
[2017-11-19] MEDS: HEPARIN SOD (PORCINE) 5000 UNITS/ML VIAL SQ ×3 (05:59→21:44)
[2017-11-19] MEDS: SENOKOT S TAB PO ×2 (05:59→21:44)
[2017-11-19] MEDS: PANTOPRAZOLE 40MG TAB (PROTONIX) PO (05:59)
[2017-11-19] MEDS: HumaLOG INSULIN (NovoLOG) PER UNIT SC ×3 (07:24→17:05)
[2017-11-19] MEDS: HEPARIN 1,000 UNITS/ML 10ML VIAL (FOR RADIOLOGY& DIALYSIS ONLY) XX (10:45)
[2017-11-19] MEDS: diphenhydrAMINE 25 MG CAP PO (16:54)
[2017-11-19] MEDS: PREGABALIN 75 MG CAP(LYRICA) PO (21:44)
[2017-11-19] MEDS: ASPIRIN 81 MG ENTERIC TAB PO (21:44)
[2017-11-19] MEDS: RAMELTEON 8 MG TAB (ROZEREM) PO (21:44)
[2017-11-20] MEDS: HEPARIN SOD (PORCINE) 5000 UNITS/ML VIAL SQ (05:40)
[2017-11-20 06:17] LABS: MEAN CORPUSCULAR HEMOGLOBIN 27.1 pg (27.0-33.0); MEAN CORPUSCULAR HGB CONC 31.2 g/dl (32.0-36.5); PLATELET COUNT, AUTOMATED 155 10^3/uL (150-450); RED CELL DISTRIBUTION WIDTH 17.6 % (11.5-14.5); WHITE BLOOD COUNT 4.4 10^3/uL (4.0-10.0)
[2017-11-20] MEDS: HumaLOG INSULIN (NovoLOG) PER UNIT SC (07:27)
[2017-11-20] MEDS: CARVedilol 3.125 MG TAB PO (07:28)
[2017-11-20] MEDS: SENOKOT S TAB PO (07:37)
[2017-11-20] MEDS: PANTOPRAZOLE 40MG TAB (PROTONIX) PO (07:37)
[2017-11-20] MEDS: AMIODARONE 200 MG TAB (PACERONE) PO (07:37)
== END 2017-11-20 10:20 | DRG 291 ==
LOC: M ED 09:34 → M ED INP 15:41 → M MSPAV 19:15
PROC: 02HV33Z Insertion of Infusion Device into Superior Vena Cava, Percutaneous Approach (ICD-10-PCS; principal; 2017-11-09 08:34)
PROC: 0JH63XZ Insertion of Tunneled Vascular Access Device into Chest Subcutaneous Tissue and Fascia, Percutaneous Approach (ICD-10-PCS; 2017-11-09 08:34)
DX: I13.2 Hypertensive heart and chronic kidney disease with heart failure and with stage 5 chronic kidney disease, or end stage renal disease (principal); N18.6 End stage renal disease; I50.43 Acute on chronic combined systolic (congestive) and diastolic (congestive) heart failure; R18.8 Other ascites; K57.32 Diverticulitis of large intestine without perforation or abscess without bleeding; E87.1 Hypo-osmolality and hyponatremia; D46.9 Myelodysplastic syndrome, unspecified; E11.9 Type 2 diabetes mellitus without complications; I73.9 Peripheral vascular disease, unspecified; I95.9 Hypotension, unspecified; Z79.82 Long term (current) use of aspirin; Z79.899 Other long term (current) drug therapy; I48.2 Chronic atrial fibrillation; J44.9 Chronic obstructive pulmonary disease, unspecified; M10.9 Gout, unspecified; Z95.0 Presence of cardiac pacemaker; E78.5 Hyperlipidemia, unspecified; D63.1 Anemia in chronic kidney disease; E87.5 Hyperkalemia; I27.20 Pulmonary hypertension, unspecified; I25.10 Atherosclerotic heart disease of native coronary artery without angina pectoris; E83.39 Other disorders of phosphorus metabolism; D69.6 Thrombocytopenia, unspecified

== ENCOUNTER 2017-11-24 22:11 | Emergency (ER) | payer MEDICARE, BC, OTHER ==
[2017-11-24 23:31] LABS: VENOUS BASE EXCESS -3.7 (-2.0-2.0); VENOUS HCO3 23.5 MEQ/L (23.0-27.0); VENOUS O2 SATURATION 44.4 % (60.0-80.0); VENOUS PARTIAL PRESSURE CO2 52.1 mmHg (38.0-50.0); VENOUS PARTIAL PRESSURE O2 29.1 mmHg (30.0-50.0); VENOUS PH 7.272 UNITS (7.330-7.430); VENOUS STANDARD HCO3 20.4 MEQ/L; VENOUS TOTAL CO2 25.1 MEQ/L (24.0-28.0)
[2017-11-24 23:33] LABS: BASO % 0.4 % (0.0-1.0); EOS # 0.1 10^3/uL (0.0-0.50); EOS % 1.6 % (0.0-3.0); HEMATOCRIT 35.5 % (42.0-52.0); HEMOGLOBIN 10.8 g/dl (14.0-18.0); IMMATURE GRANULOCYTE % 0.4 % (0-0); LYMPH # 0.4 10^3/uL (1.5-4.5); LYMPH % 8.5 % (24.0-44.0); MEAN CORPUSCULAR HEMOGLOBIN 26.9 pg (27.0-33.0); MEAN CORPUSCULAR HGB CONC 30.4 g/dl (32.0-36.5); MEAN CORPUSCULAR VOLUME 88.3 fl (80.0-96.0); MONO # 0.5 10^3/uL (0.0-0.8); MONO % 9.7 % (0.0-5.0); NEUTROPHILS # 3.9 10^3/uL (1.8-7.7); NEUTROPHILS % 79.4 % (36.0-66.0); PLATELET COUNT, AUTOMATED 179 10^3/uL (150-450); RED BLOOD COUNT 4.02 10^6/uL (4.30-6.10); RED CELL DISTRIBUTION WIDTH 17.9 % (11.5-14.5); WHITE BLOOD COUNT 4.9 10^3/uL (4.0-10.0)
[2017-11-24 23:59] LABS: ALBUMIN 3.1 GM/DL (3.2-5.2); ALBUMIN/GLOBULIN RATIO 0.78 (1.00-1.93); ALKALINE PHOSPHATASE 127 U/L (45-117); ALT/SGPT 46 U/L (12-78); ANION GAP 9 MEQ/L (8-16); AST/SGOT 33 U/L (7-37); BILIRUBIN,DIRECT 0.8 MG/DL (0.0-0.2); BILIRUBIN,TOTAL 1.1 MG/DL (0.2-1.0); BLOOD UREA NITROGEN 39 MG/DL (7-18); CALCIUM LEVEL 8.7 MG/DL (8.8-10.2); CARBON DIOXIDE LEVEL 28 MEQ/L (21-32); CHLORIDE LEVEL 98 MEQ/L (98-107); CPK CREATINE PHOSPHOKINASE 32 U/L (39-308); CREATININE FOR GFR 3.87 MG/DL (0.70-1.30); GLUCOSE, FASTING 131 MG/DL (83-110); POTASSIUM SERUM 4.5 MEQ/L (3.5-5.1); SODIUM LEVEL 135 MEQ/L (136-145); TOTAL PROTEIN 7.1 GM/DL (6.4-8.2); TROPONIN I 0.05 NG/ML (< 0.10)
[2017-11-25] LABS: CK-MB VALUE MASS 3.1 NG/ML (0.0-3.6); MB/CK RELATIVE INDEX 9.68 (< OR =4); NT-PRO BNP 13084 PG/ML (<450)
[2017-11-25 00:09] LABS: LACTIC ACID SEPSIS PROTOCOL 2.5 MMOL/L (0.4-2.0)
== END 2017-11-25 01:09 | disposition home or self-care (01) ==
LOC: M ED 11-25 01:09
DX: N18.6 End stage renal disease (principal); I50.9 Heart failure, unspecified; Z95.0 Presence of cardiac pacemaker; E11.9 Type 2 diabetes mellitus without complications; I10 Essential (primary) hypertension; J44.9 Chronic obstructive pulmonary disease, unspecified; E78.5 Hyperlipidemia, unspecified; N40.0 Benign prostatic hyperplasia without lower urinary tract symptoms; F32.9 Major depressive disorder, single episode, unspecified; G43.909 Migraine, unspecified, not intractable, without status migrainosus; Z95.5 Presence of coronary angioplasty implant and graft; Z95.1 Presence of aortocoronary bypass graft; I51.7 Cardiomegaly; J90 Pleural effusion, not elsewhere classified; Z79.82 Long term (current) use of aspirin; Z79.899 Other long term (current) drug therapy; Z88.8 Allergy status to other drugs, medicaments and biological substances
CPT/HCPCS: 71046

== ENCOUNTER → 2017-12-03 | Outpatient (REF) ==
[2017-12-03 13:42] LABS: HEMATOCRIT 34.5 % (42.0-52.0); HEMOGLOBIN 10.4 g/dl (14.0-18.0); MEAN CORPUSCULAR HEMOGLOBIN 26.8 pg (27.0-33.0); MEAN CORPUSCULAR HGB CONC 30.1 g/dl (32.0-36.5); MEAN CORPUSCULAR VOLUME 88.9 fl (80.0-96.0); PLATELET COUNT, AUTOMATED 171 10^3/uL (150-450); RED BLOOD COUNT 3.88 10^6/uL (4.30-6.10); RED CELL DISTRIBUTION WIDTH 20.1 % (11.5-14.5); WHITE BLOOD COUNT 7.4 10^3/uL (4.0-10.0)
== END ==
DX: J84.9 Interstitial pulmonary disease, unspecified (principal); I51.7 Cardiomegaly; R05 Cough